=== PATIENT | female | born 1965 | race Caucasian/White ===

== ENCOUNTER → 2016-05-08 | Outpatient (CLI) | payer BC ==
--- NOTE | 2016-05-08 13:46 | MM ---
Reason for exam: history of breast cancer, conservation therapy. Last mammogram was performed 1 year ago. History: Patient is postmenopausal, has history of breast cancer at age 45, and is nulliparous. Family history of breast cancer in paternal cousin at age 40. Malignant right breast needle localzation of the right breast, July 01, 2011. Lumpectomy of the right breast, July 01, 2011. Malignant right mammotome panel of the right breast, June 18, 2011. Chemotherapy, 2011. Radiation therapy, 2011. Took hormonal contraceptives for 12 years beginning at age 33. Taking tamoxifen for 4 months. Taking other hormone. Physical Findings: Nurse did not find any significant physical abnormalities on exam. MG Diagnostic Mammo w CAD SAMIRA Bilateral CC and MLO view(s) were taken. XCCM view(s) were taken of the left breast. Prior study comparison: May 08, 2015, bilateral MG 3d diag mammo w/cad SAMIRA. May 06, 2014, bilateral MG diagnostic mammo w CAD SAMIRA. There are scattered fibroglandular densities. Benign calcifications. Post operative changes in the right breast. No significant new findings when compared with previous films. These results were verbally communicated with the patient and result sheet given to the patient on 05/08/16. ASSESSMENT: Benign, BI-RAD 2 RECOMMENDATION: Follow-up diagnostic mammogram of both breasts in 1 year.
== END | disposition home or self-care (01) ==
LOC: RADMAMWWP 12:34
PROVIDERS: ATTEND Radiology Diagnostic Radiology
DX: C50.911 Malignant neoplasm of unspecified site of right female breast (principal)

== ENCOUNTER → 2017-05-13 | Outpatient (CLI) | payer BC ==
--- NOTE | 2017-05-15 09:16 | MM ---
Reason for exam: screening (asymptomatic). Last mammogram was performed 1 year ago. History: Patient is postmenopausal, has history of breast cancer at age 45, and is nulliparous. Family history of breast cancer in paternal cousin at age 40. Malignant right breast needle localzation of the right breast, July 01, 2011. Lumpectomy of the right breast, July 01, 2011. Malignant right mammotome panel of the right breast, June 18, 2011. Chemotherapy, 2011. Radiation therapy, 2011. Took hormonal contraceptives for 12 years beginning at age 33. Taking tamoxifen for 4 months. Taking other hormone. Physical Findings: A clinical breast exam by your physician is recommended on an annual basis and results should be correlated with mammographic findings. MG Screening Mammo w CAD Bilateral CC and MLO view(s) were taken. Prior study comparison: May 08, 2016, bilateral MG diagnostic mammo w CAD SAMIRA. May 08, 2015, bilateral MG 3d diag mammo w/cad SAMIRA. There are scattered fibroglandular densities. Asymmetric breast tissue greater in the left breast. Post surgical changes in the right breast, stable. ASSESSMENT: Benign, BI-RAD 2 RECOMMENDATION: Routine screening mammogram of both breasts in 1 year.
== END | disposition home or self-care (01) ==
LOC: RADMAMWWP 15:02
PROVIDERS: ATTEND Radiology Diagnostic Radiology
DX: Z12.31 Encounter for screening mammogram for malignant neoplasm of breast (principal)
CPT/HCPCS: 77067

== ENCOUNTER → 2017-11-27 | Outpatient (CLI) | payer BC ==
--- NOTE | 2017-11-27 11:53 | XR ---
EXAMINATION TYPE: XR chest 2V DATE OF EXAM: 11/27/2017 COMPARISON: 11/27/2016 TECHNIQUE: PA and lateral views submitted. HISTORY: Breast cancer FINDINGS: The lungs are clear and there is no pneumothorax, pleural effusion, or focal pneumonia. Arthropathy of the shoulders noted. Calcific tendinosis involving the right shoulder suspected. Hypertrophic and degenerative change of the vertebral column. IMPRESSION: 1. No acute process.
== END | disposition home or self-care (01) ==
LOC: RADXRMAIN 10:36
PROVIDERS: ATTEND Internal Medicine Hematology & Oncology
DX: C50.111 Malignant neoplasm of central portion of right female breast (principal); G47.30 Sleep apnea, unspecified; Z17.0 Estrogen receptor positive status [ER+]; Z71.3 Dietary counseling and surveillance
CPT/HCPCS: 71046

== ENCOUNTER → 2018-05-18 | Outpatient (CLI) | payer BC ==
--- NOTE | 2018-05-20 11:06 | MM ---
Reason for exam: screening (asymptomatic). Last mammogram was performed 1 year ago. History: Patient is postmenopausal, has history of breast cancer at age 45, and is nulliparous. Family history of breast cancer in paternal cousin at age 40. Malignant right breast needle localzation of the right breast, July 01, 2011. Lumpectomy of the right breast, July 01, 2011. Malignant right mammotome panel of the right breast, June 18, 2011. Chemotherapy, 2011. Radiation therapy, 2011. Took hormonal contraceptives for 12 years beginning at age 33. Taking tamoxifen for 4 months. Taking other hormone. Physical Findings: A clinical breast exam by your physician is recommended on an annual basis and results should be correlated with mammographic findings. MG Screening Mammo w CAD Bilateral CC and MLO view(s) were taken. Prior study comparison: May 13, 2017, bilateral MG screening mammo w CAD. May 08, 2016, bilateral MG diagnostic mammo w CAD SAMIRA. The breast tissue is heterogeneously dense. This may lower the sensitivity of mammography. No suspicious abnormality. Right breast post therapy change. No significant changes when compared with prior studies. ASSESSMENT: Benign, BI-RAD 2 RECOMMENDATION: Routine screening mammogram of both breasts in 1 year.
== END | disposition home or self-care (01) ==
LOC: RADMAMWWP 08:36
PROVIDERS: ATTEND Radiology Diagnostic Radiology
DX: Z12.31 Encounter for screening mammogram for malignant neoplasm of breast (principal)
CPT/HCPCS: 77067

== ENCOUNTER 2021-01-01 14:44 | Inpatient (IN) | payer BC ==
--- NOTE | 2021-01-01 19:20 | XR ---
EXAMINATION TYPE: XR chest 2V DATE OF EXAM: 01/01/2021 COMPARISON: 11/27/2017 HISTORY: Short of breath TECHNIQUE: FINDINGS: There is pulmonary patchy interstitial and airspace edema. There is no definite pleural eff usion. Heart size is normal. Bony thorax is intact. IMPRESSION: Pulmonary edema consistent with significant pneumonia or developing RDS and is a change c ompared to old exam.
[2021-01-01] MEDS ORDERED: ACETAMINOPHEN TAB 325 MG TAB PO STA (20:00)
[2021-01-01] MEDS ORDERED: DEXAMETHASONE SOD PHOSPHATE 10 MG/ML 1 ML VIAL IVP STA (20:13)
[2021-01-01 20:24] LABS: Basophils % (A) 0 %; Eosinophils % (A) 0 %; HCT 44.2 % (34.0-46.0); HGB 14.7 gm/dL (11.4-16.0); Lymphocytes # (A) 0.7 k/uL (1.0-4.8); Lymphocytes % (A) 17 %; MCH 29.7 pg (25.0-35.0); MCHC 33.4 g/dL (31.0-37.0); Mean Platelet Volume 7.9; Monocytes # (A) 0.2 k/uL (0-1.0); Monocytes % (A) 4 %; Neutrophils # (A) 3.4 k/uL (1.3-7.7); Neutrophils % (A) 77 %; Platelet Count 194 k/uL (150-450); RBC 4.97 m/uL (3.80-5.40); RDW 12.9 % (11.5-15.5); WBC 4.4 k/uL (3.8-10.6)
[2021-01-01 20:35] LABS: ALT 120 U/L (4-34); AST 260 U/L (14-36); African American GFR (CKD) >90 (>60 ml/min/1.73 sqM); Albumin 3.9 g/dL (3.5-5.0); Alkaline Phosphatase 50 U/L (38-126); Anion Gap 8 mmol/L; Blood Urea Nitrogen 19 mg/dL (7-17); C Reactive Protein 3.6 mg/dL (<1.0); Calcium 8.9 mg/dL (8.4-10.2); Carbon Dioxide 25 mmol/L (22-30); Chloride 103 mmol/L (98-107); Glucose 149 mg/dL (74-99); LDH 2100 U/L (313-618); Magnesium 2.1 mg/dL (1.6-2.3); Non-African American GFR(CKD) 82 (>60 ml/min/1.73 sqM); Potassium 4.1 mmol/L (3.5-5.1); Sodium 136 mmol/L (137-145); Total Bilirubin 0.6 mg/dL (0.2-1.3); Total Protein 6.7 g/dL (6.3-8.2)
[2021-01-01 20:43] LABS: Partial Thromboplastin Time 23.2 sec (22.0-30.0); Prothrombin Time 10.3 sec (9.0-12.0)
[2021-01-01] MEDS ORDERED: NALOXONE 0.4 MG/ML 1 ML VIAL IV PRN (21:12)
--- NOTE | 2021-01-01 21:12 | ED ---
SOB HPI - General Chief Complaint: Shortness of Breath Stated Complaint: Covid Positive, GABI, Cough Time Seen by Provider: 01/01/21 19:53 Source: patient, RN notes reviewed Mode of arrival: wheelchair Limitations: no limitations - History of Present Illness Initial Comments: Patient is a 55-year-old female that presents to the emergency department compl aining of Covid positive with increased shortness of breath. She no she was sent by her primary care with a prescription for monoclonal antibodies. Patient was short of breath while sitting up in bed during exam and interview saturating at approximately 86-88% area patient no she feels fine with staying in the hospital versus getting monoclonal antibodies at this time. She was otherwise well-appearing. She denied any chest pain headache nausea vomiting diarrhea constipation or chills. - Related Data Home Medications Medication Instructions Recorded Confirmed Spironolactone [Aldactone] 25 mg PO DAILY 08/16/13 08/17/13 Tamoxifen [Nolvadex] 20 mg PO DAILY 08/16/13 08/17/13 Allergies Allergy/AdvReac Type Severity Reaction Status Date / Time DUST Allergy SOB & Uncoded 01/01/21 18:58 MIGRAINES mold Allergy SOB & Uncoded 01/01/21 18:58 MIGRAINES MUSHROOMS Allergy SOB Uncoded 01/01/21 18:58 YEAST Allergy SOB & Uncoded 01/01/21 18:58 MIGRAINES Review of Systems ROS Statement: Those systems with pertinent positive or pertinent negative responses have been documented in the HPI. ROS Other: All systems not noted in ROS Statement are negative. Past Medical History Past Medical History: Hypertension, Skin Disorder, Sleep Apnea/CPAP/BIPAP Additional Past Medical History / Comment(s): HX RT BREAST CA-CHEMO & RAD TX 2011, STATED "HAVING WHAT FEELS LIKE A MUSCLE CRAMPING IN ABD POSS KINKING THE BOWEL CAUSING CONSTIPATION AND THEN FOLLOWED BY MULTIPLE STOOLS." History of Any Multi-Drug Resistant Organisms: None Reported Past Surgical History: Cholecystectomy, Tonsillectomy Additional Past Surgical History / Comment(s): PORT A CATH INSERTED AND REMOVED, LUMPECTOMY RT BREAST. Past Anesthesia/Blood Transfusion Reactions: No Reported Reaction Past Psychological History: No Psychological Hx Reported Smoking Status: Never smoker Past Alcohol Use History: None Reported Past Drug Use History: None Reported General Exam Limitations: no limitations General appearance: alert, in no apparent distress, obese Head exam: Present: atraumatic, normocephalic, normal inspection Eye exam: Present: normal appearance, PERRL, EOMI. Absent: scleral icterus, conjunctival injection, periorbital swelling ENT exam: Present: normal exam, mucous membranes moist Neck exam: Present: normal inspection Respiratory exam: Present: normal lung sounds bilaterally. Absent: respiratory distress, wheezes, rales, rhonchi, stridor Cardiovascular Exam: Present: regular rate, normal rhythm, normal heart sounds. Absent: systolic murmur, diastolic murmur, rubs, gallop, clicks GI/Abdominal exam: Present: soft, normal bowel sounds. Absent: distended, tenderness, guarding, rebound, rigid Extremities exam: Present: normal inspection, full ROM, normal capillary refill. Absent: tenderness, pedal edema, joint swelling, calf tenderness Neurological exam: Present: alert, oriented X3 Psychiatric exam: Present: normal affect, normal mood Skin exam: Present: warm, dry, intact, normal color. Absent: rash Course Vital Signs 01/01/21 18:49 Temperature 100.9 F H Pulse Rate 91 Respiratory 24 Rate Blood Pressure 138/73 O2 Sat by Pulse 91 L Oximetry Medical Decision Making - Medical Decision Making 55-year-old female Covid-positive for past several days saturating at high 80s on room air. Labs, EKG, nuclear monitoring technician, continuous pulse oximetry, 650 mg of Tylenol, 10 mg of Decadron, 8 L of oxygen via nasal cannula ordered. Chest x-ray shows pre-severe bilateral edema consistent with Covid pneumonia possible RSD. Labs: CBC unremarkable, CMP shows a LDH of 2100 and a C-reactive protein of 3.6. Patient is agreeable with admission to hospital. Reena Santiago from [facility] hospitalist was consulted and will accept the admit with pulmonary on consult. Case discussed with Dr. Case, patient will be admitted to hospital. - Lab Data Result diagrams: 01/01/21 20:15 01/01/21 20:15 Lab Results 01/01/21 01/01/21 01/01/21 Range/Units 20:15 20:15 20:15 WBC 4.4 (3.8-10.6) k/uL RBC 4.97 (3.80-5.40) m/uL Hgb 14.7 (11.4-16.0) gm/dL Hct 44.2 (34.0-46.0) % MCV 89.0 (80.0-100.0) fL MCH 29.7 (25.0-35.0) pg MCHC 33.4 (31.0-37.0) g/dL RDW 12.9 (11.5-15.5) % Plt Count 194 (150-450) k/uL MPV 7.9 Neutrophils % 77 % Lymphocytes % 17 % Monocytes % 4 % Eosinophils % 0 % Basophils % 0 % Neutrophils # 3.4 (1.3-7.7) k/uL Lymphocytes # 0.7 L (1.0-4.8) k/uL Monocytes # 0.2 (0-1.0) k/uL Eosinophils # 0.0 (0-0.7) k/uL Basophils # 0.0 (0-0.2) k/uL PT 10.3 (9.0-12.0) sec INR 1.0 (<1.2) APTT 23.2 (22.0-30.0) sec Sodium 136 L (137-145) mmol/L Potassium 4.1 (3.5-5.1) mmol/L Chloride 103 (98-107) mmol/L Carbon Dioxide 25 (22-30) mmol/L Anion Gap 8 mmol/L BUN 19 H (7-17) mg/dL Creatinine 0.80 (0.52-1.04) mg/dL Est GFR (CKD-EPI)AfAm >90 (>60 ml/min/1.73 sqM) Est GFR (CKD-EPI)NonAf 82 (>60 ml/min/1.73 sqM) Glucose 149 H (74-99) mg/dL Plasma Lactic Acid Dinh (0.7-2.0) mmol/L Calcium 8.9 (8.4-10.2) mg/dL Magnesium 2.1 (1.6-2.3) mg/dL Total Bilirubin 0.6 (0.2-1.3) mg/dL AST 260 H (14-36) U/L ALT 120 H (4-34) U/L Alkaline Phosphatase 50 (38-126) U/L Lactate Dehydrogenase 2100 H (313-618) U/L Troponin I (0.000-0.034) ng/mL C-Reactive Protein 3.6 H (<1.0) mg/dL NT-Pro-B Natriuret Pep pg/mL Total Protein 6.7 (6.3-8.2) g/dL Albumin 3.9 (3.5-5.0) g/dL 01/01/21 01/01/21 01/01/21 Range/Units 20:15 20:15 20:15 WBC (3.8-10.6) k/uL RBC (3.80-5.40) m/uL Hgb (11.4-16.0) gm/dL Hct (34.0-46.0) % MCV (80.0-100.0) fL MCH (25.0-35.0) pg MCHC (31.0-37.0) g/dL RDW (11.5-15.5) % Plt Count (150-450) k/uL MPV Neutrophils % % Lymphocytes % % Monocytes % % Eosinophils % % Basophils % % Neutrophils # (1.3-7.7) k/uL Lymphocytes # (1.0-4.8) k/uL Monocytes # (0-1.0) k/uL Eosinophils # (0-0.7) k/uL Basophils # (0-0.2) k/uL PT (9.0-12.0) sec INR (<1.2) APTT (22.0-30.0) sec Sodium (137-145) mmol/L Potassium (3.5-5.1) mmol/L Chloride (98-107) mmol/L Carbon Dioxide (22-30) mmol/L Anion Gap mmol/L BUN (7-17) mg/dL Creatinine (0.52-1.04) mg/dL Est GFR (CKD-EPI)AfAm (>60 ml/min/1.73 sqM) Est GFR (CKD-EPI)NonAf (>60 ml/min/1.73 sqM) Glucose (74-99) mg/dL Plasma Lactic Acid Dinh 1.5 (0.7-2.0) mmol/L Calcium (8.4-10.2) mg/dL Magnesium (1.6-2.3) mg/dL Total Bilirubin (0.2-1.3) mg/dL AST (14-36) U/L ALT (4-34) U/L Alkaline Phosphatase (38-126) U/L Lactate Dehydrogenase (313-618) U/L Troponin I <0.012 (0.000-0.034) ng/mL C-Reactive Protein (<1.0) mg/dL NT-Pro-B Natriuret Pep 28 pg/mL Total Protein (6.3-8.2) g/dL Albumin (3.5-5.0) g/dL - EKG Data -: EKG Interpreted by Me EKG shows normal: sinus rhythm Rate: normal EKG Comments: Ventricular rate 91 bpm, NC interval 142 ms, QRS duration 84 ms, QTC 423 ms, PRT axes 15/-8/-6, normal sinus rhythm, normal ECG. - Radiology Data Radiology results: report reviewed, image reviewed Chest x-ray: Pulmonary edema consistent with significant pneumonia or developing RDS and is a change compared to old exam. Disposition Clinical Impression: Pneumonia due to COVID-19 virus, Hypoxia Disposition: ADMITTED IP TO THIS HOSP Condition: Stable Is patient prescribed a controlled substance at d/c from ED?: No Referrals: Agustina Hassan MD [Primary Care Provider] - 1-2 days Time of Disposition: 21:12
[2021-01-01] MEDS: SODIUM CHLORIDE 0.9% 1,000 ML IV SCH (21:57)
[2021-01-02] MEDS: SODIUM CHLORIDE 0.9% 1,000 ML IV SCH (07:12)
[2021-01-02 07:19] LABS: Glucose,Whole Blood 165 mg/dL (75-99)
[2021-01-02] MEDS ORDERED: CALCIUM CARBONATE 500 MG CHEWABLE PO PRN (11:08)
--- NOTE | 2021-01-02 11:11 | P.HPIM ---
History of Present Illness This is a pleasant 55 years old female with past medical history of Hypertension,Sleep Apnea/CPAP/BIPAP HX RT BREAST CA-CHEMO & RAD TX 2011, Presents with respiratory symptoms . Patient states she has been diagnosed with Covid last About 5 days ago. She's been having shortness of breath for about a week prior to that . She called her primary care doctor who asked her to go to urgent care. Also she has cough with clear phlegm but change to yellowish milky over the last 2 days. Also patient complaining of from diarrhea about 4 times per day Patient is afebrile, but on admission she had low-grade temperature of 100.9. She is saturating 94% on 4 L oxygen via nasal cannula went up overnight to 7 L/m. Labs showing mild lymphopenia, rest of the BMP is unremarkable. Liver enzymes slightly elevated AST to 60 and ALT 160. Elevated lactate dehydrogenase 2100, elevated C-reactive protein of 3.6. Troponin negative less than 0.012. EKG showing normal sinus rhythm at [address]-T changes chest x-ray: Bilateral pulmonary infiltrates An emergency room patient received 1 dose of dexamethasone Review of Systems Review of systems CONSTITUTIONAL: No fever, no malaise, no fatigue. HEENT: No recent visual problems or hearing problems. Denied any sore throat. CARDIOVASCULAR: No orthopnea, PND, no palpitations, no syncope. PULMONARY: No chest wall tenderness, no hemoptysis. GASTROINTESTINAL: No diarrhea, no nausea, no vomiting, no abdominal pain. Normoactive bowel sounds. NEUROLOGICAL: No headaches, no weakness, no numbness. HEMATOLOGICAL: Denies any bleeding or petechiae. GENITOURINARY: Denies any burning micturition, frequency, or urgency. MUSCULOSKELETAL/RHEUMATOLOGICAL: Denies any joint pain, swelling, or any muscle pain. ENDOCRINE: Denies any polyuria or polydipsia. Past Medical History Past Medical History: Hypertension, Skin Disorder, Sleep Apnea/CPAP/BIPAP Additional Past Medical History / Comment(s): HX RT BREAST CA-CHEMO & RAD TX 2011, STATED "HAVING WHAT FEELS LIKE A MUSCLE CRAMPING IN ABD POSS KINKING THE BOWEL CAUSING CONSTIPATION AND THEN FOLLOWED BY MULTIPLE STOOLS." History of Any Multi-Drug Resistant Organisms: None Reported Past Surgical History: Cholecystectomy, Tonsillectomy Additional Past Surgical History / Comment(s): PORT A CATH INSERTED AND REMOVED, LUMPECTOMY RT BREAST. Past Anesthesia/Blood Transfusion Reactions: No Reported Reaction Past Psychological History: No Psychological Hx Reported Smoking Status: Never smoker Past Alcohol Use History: None Reported Past Drug Use History: None Reported Medications and Allergies Home Medications Medication Instructions Recorded Confirmed Type Spironolactone [Aldactone] 25 mg PO DAILY 08/16/13 01/01/21 History Tamoxifen [Nolvadex] 20 mg PO DAILY 08/16/13 01/01/21 History Calcium Carbonate [Calcium] 600 mg PO DAILY 01/01/21 01/01/21 History Docusate [Colace] 100 mg PO DAILY 01/01/21 01/01/21 History Doxycycline Monohydrate 100 mg PO BID 01/01/21 01/01/21 History Multivitamins, Thera [Multivitamin 1 tab PO DAILY 01/01/21 01/01/21 History (formulary)] [place]-3 Fatty Acids/Fish Oil [Fish 2 cap PO DAILY 01/01/21 01/01/21 History Oil 1,000 mg Softgel] lisinopriL [Zestril] 5 mg PO DAILY 01/01/21 01/01/21 History Allergies Allergy/AdvReac Type Severity Reaction Status Date / Time DUST Allergy SOB & Uncoded 01/01/21 21:47 MIGRAINES mold Allergy SOB & Uncoded 01/01/21 21:47 MIGRAINES MUSHROOMS Allergy SOB Uncoded 01/01/21 21:47 YEAST Allergy SOB & Uncoded 01/01/21 21:47 MIGRAINES Physical Exam Vitals: Vital Signs Temp Pulse Pulse Pulse Resp BP BP 01/02/21 08:20 01/02/21 07:16 01/02/21 05:48 98.5 F 72 20 107/72 01/02/21 02:55 98.3 F 91 18 101/68 01/01/21 22:59 98.7 F 76 18 137/80 01/01/21 22:33 71 20 01/01/21 22:25 98.8 F 74 20 01/01/21 22:00 99.1 F 77 18 106/74 01/01/21 20:57 71 20 01/01/21 20:00 79 22 01/01/21 18:49 100.9 F H 91 24 138/73 BP Pulse Ox 11/23/21 08:20 90 L 01/02/21 07:16 91 L 01/02/21 05:48 90 L 01/02/21 02:55 91 L 01/01/21 22:59 95 01/01/21 22:33 94 L 01/01/21 22:25 106/74 94 L 01/01/21 22:00 94 L 01/01/21 20:57 94 L 01/01/21 20:00 94 L 01/01/21 18:49 91 L Intake and Output 01/01/21 01/02/21 01/02/21 22:59 06:59 14:59 Other: Weight 113.398 kg GENERAL: The patient is alert and oriented x3, not in any acute distress. Well developed, well nourished. HEENT: Pupils are round and equally reacting to light. EOMI. No scleral icterus. No conjunctival pallor. Normocephalic, atraumatic. No pharyngeal erythema. No thyromegaly. CARDIOVASCULAR: S1 and S2 present. No murmurs, rubs, or gallops. -PULMONARY: Chest is clear to auscultation, no wheezing or crackles. Bilateral crepitation ABDOMEN: Soft, nontender, nondistended, normoactive bowel sounds. No palpable organomegaly. MUSCULOSKELETAL: No joint swelling or deformity. EXTREMITIES: No cyanosis, clubbing, or pedal edema. NEUROLOGICAL: Gross neurological examination did not reveal any focal deficits. SKIN: No rashes. no petechiae. Results CBC & Chem 7: 01/01/21 20:15 01/01/21 20:15 Labs: Abnormal Lab Results - Last 24 Hours (Table) 01/01/21 01/01/21 01/02/21 Range/Units 20:15 20:15 07:08 Lymphocytes # 0.7 L (1.0-4.8) k/uL Sodium 136 L (137-145) mmol/L BUN 19 H (7-17) mg/dL Glucose 149 H (74-99) mg/dL POC Glucose (mg/dL) 165 H (75-99) mg/dL AST 260 H (14-36) U/L ALT 120 H (4-34) U/L Lactate Dehydrogenase 2100 H (313-618) U/L C-Reactive Protein 3.6 H (<1.0) mg/dL Thrombosis Risk Factor Assmnt - Choose All That Apply Each Factor Represents 1 point: Age 41-60 years, Obesity (BMI >25), Serious lung disease incl. pneumonia (< 1month) Thrombosis Risk Factor Assessment Total Risk Factor Score: 3 Thrombosis Risk Factor Assessment Level: Moderate Risk Assessment and Plan Assessment: Acute bilateral covid Pneumonia Acute hypoxic respiratory failure Increase inflammatory markers Acute Covid gastroenteritis Hypertension History of sleep apnea History of right breast cancer Plan: This is a pleasant 55 years old female who presents with colic pneumonia Continue with multiple vitamins, vitamin C, vitamin D and zinc. Dexamethasone Pulmonary consult Continue with gentle hydration Labs and medication were reviewed.. Continue same treatment. Continue with symptomatic treatment. Resume home medication. Monitor lytes and vitals. DVT and GI prophylaxis. Further recommendations depends on the clinical course of the patient DVT prophylaxis: Subcutaneous Lovenox GI Prophylaxis: Pepcid Prognosis is guarded
[2021-01-02] MEDS: CHOLECALCIFEROL 25 MCG (1000 IU) TABLET PO SCH (11:25)
[2021-01-02] MEDS: ASCORBIC ACID 500 MG TAB PO SCH (11:25)
[2021-01-02] MEDS: ZINC SULFATE 220 MG CAP PO SCH (11:25)
[2021-01-02] MEDS: ENOXAPARIN 40 MG/0.4 ML SYRINGE SQ SCH (11:25)
[2021-01-02 11:48] LABS: Glucose,Whole Blood 123 mg/dL (75-99)
[2021-01-02] MEDS: DEXAMETHASONE SOD PHOSPHATE 10 MG/ML 1 ML VIAL IVP SCH (14:13)
--- NOTE | 2021-01-02 14:43 | P.CNPUL ---
History of Present Illness Consult date: 01/02/21 Requesting physician: Laci E Sheet Reason for consult: dyspnea, hypoxemia, pneumonia, abnormal CXR/CT Chief complaint: Dyspnea History of present illness: This is 55-year-old white female patient with past medical history of hypertension, sleep apnea not currently using CPAP, nonsmoker, previous history of right breast cancer status post chemo and radiation treatment in 2011, she follows with Dr. Agustina Hassan. She came into the emergency department on 01/01/2021 complaining of increased shortness of breath, cough. Her primary care provider gave her a prescription for monoclonal antibodies however in the emergency department she was found to be hypoxic pulse ox of 86-88%, and patient was not a candidate for monoclonal antibody infusion, she is not vaccinated against COVID-19, she reports cough, she states she has been having symptoms of coughing, shortness of breath since December 10. In addition she states that she has been issues with swallowing since August 2020. States she tested positive for COVID-19 on 12/28/2020. Chest x-ray reveals pulmonary edema consistent with significant pneumonia or developing ARDS. Admission blood work was reviewed showing white blood cell, 4.4, hemoglobin of 14.7, platelet count of 194, lymphocyte count of 0.7, INR is 1.0, sodium is 136, potassium is 4.1, chloride is 103, CO2 is 25, B1 is 19, creatinine is 0.80. Ferritin level was 3188, AST was 260, ALT was 120, LDH was 2100, troponin was less than 0.012, CRP is 3.6, proBNP is 28. Pro-calcitonin is negative at 0.16. She is currently requiring 7 L of oxygen pulse ox 93%, she has a low-grade fever, but no acute respiratory distress, she does have a frequent nonproductive cough. In the emergency department she was started on Decadron, Lovenox, vitamin C, D and zinc. Review of Systems All systems: negative Constitutional: Reports weakness, Denies chills, Denies fever Eyes: denies blurred vision, denies pain Ears, nose, mouth and throat: Denies headache, Denies sore throat Cardiovascular: Denies chest pain, Denies shortness of breath Respiratory: Reports cough, Reports dyspnea Gastrointestinal: Denies abdominal pain, Denies diarrhea, Denies nausea, Denies vomiting Genitourinary: Denies dysuria, Denies hematuria Musculoskeletal: Denies myalgias Integumentary: Denies pruritus, Denies rash Neurological: Denies numbness, Denies weakness Psychiatric: Denies anxiety, Denies depression Endocrine: Denies fatigue, Denies weight change Past Medical History Past Medical History: Hypertension, Skin Disorder, Sleep Apnea/CPAP/BIPAP Additional Past Medical History / Comment(s): HX RT BREAST CA-CHEMO & RAD TX 2011, STATED "HAVING WHAT FEELS LIKE A MUSCLE CRAMPING IN ABD POSS KINKING THE BOWEL CAUSING CONSTIPATION AND THEN FOLLOWED BY MULTIPLE STOOLS." History of Any Multi-Drug Resistant Organisms: None Reported Past Surgical History: Cholecystectomy, Tonsillectomy Additional Past Surgical History / Comment(s): PORT A CATH INSERTED AND REMOVED, LUMPECTOMY RT BREAST. Past Anesthesia/Blood Transfusion Reactions: No Reported Reaction Past Psychological History: No Psychological Hx Reported Smoking Status: Never smoker Past Alcohol Use History: None Reported Past Drug Use History: None Reported Medications and Allergies Home Medications Medication Instructions Recorded Confirmed Type Spironolactone [Aldactone] 25 mg PO DAILY 08/16/13 01/01/21 History Tamoxifen [Nolvadex] 20 mg PO DAILY 08/16/13 01/01/21 History Calcium Carbonate [Calcium] 600 mg PO DAILY 01/01/21 01/01/21 History Docusate [Colace] 100 mg PO DAILY 01/01/21 01/01/21 History Doxycycline Monohydrate 100 mg PO BID 01/01/21 01/01/21 History Multivitamins, Thera [Multivitamin 1 tab PO DAILY 01/01/21 01/01/21 History (formulary)] [place]-3 Fatty Acids/Fish Oil [Fish 2 cap PO DAILY 01/01/21 01/01/21 History Oil 1,000 mg Softgel] lisinopriL [Zestril] 5 mg PO DAILY 01/01/21 01/01/21 History Allergies Allergy/AdvReac Type Severity Reaction Status Date / Time DUST Allergy SOB & Uncoded 01/01/21 21:47 MIGRAINES mold Allergy SOB & Uncoded 01/01/21 21:47 MIGRAINES MUSHROOMS Allergy SOB Uncoded 01/01/21 21:47 YEAST Allergy SOB & Uncoded 01/01/21 21:47 MIGRAINES Physical Exam Vitals: Vital Signs Temp Pulse Pulse Pulse Resp BP BP 01/02/21 14:00 99.0 F 82 18 127/77 01/02/21 10:24 98.6 F 78 18 126/78 01/02/21 08:20 01/02/21 07:16 01/02/21 05:48 98.5 F 72 20 107/72 01/02/21 02:55 98.3 F 91 18 101/68 01/01/21 22:59 98.7 F 76 18 137/80 01/01/21 22:33 71 20 01/01/21 22:25 98.8 F 74 20 01/01/21 22:00 99.1 F 77 18 106/74 01/01/21 20:57 71 20 01/01/21 20:00 79 22 01/01/21 18:49 100.9 F H 91 24 138/73 BP Pulse Ox 01/02/21 14:00 93 L 01/02/21 10:24 93 L 01/02/21 08:20 90 L 01/02/21 07:16 91 L 01/02/21 05:48 90 L 01/02/21 02:55 91 L 01/01/21 22:59 95 01/01/21 22:33 94 L 01/01/21 22:25 106/74 94 L 01/01/21 22:00 94 L 01/01/21 20:57 94 L 01/01/21 20:00 94 L 01/01/21 18:49 91 L Intake and Output 01/01/21 01/02/21 01/02/21 22:59 06:59 14:59 Other: Weight 113.398 kg GENERAL EXAM: Alert, very pleasant, 55-year-old white female, 3 L of oxygen pulse ox of 93% comfortable in no apparent distress. HEAD: Normocephalic/atraumatic. EYES: Normal reaction of pupils, equal size. Conjunctiva pink, sclera white. NOSE: Clear with pink turbinates. THROAT: No erythema or exudates. NECK: No masses, no JVD, no thyroid enlargement, no adenopathy. CHEST: No chest wall deformity. Symmetrical expansion. LUNGS: Equal air entry with bibasilar crackles CVS: Regular rate and rhythm, normal S1 and S2, no gallops, no murmurs, no rubs ABDOMEN: Soft, nontender. No hepatosplenomegaly, normal bowel sounds, no guarding or rigidity. EXTREMITIES: No clubbing, no edema, no cyanosis, 2+ pulses and upper and lower extremities. MUSCULOSKELETAL: Muscle strength and tone normal. SPINE: No scoliosis or deformity SKIN: No rashes CENTRAL NERVOUS SYSTEM: Alert and oriented -3. No focal deficits, tone is normal in all 4 extremities. PSYCHIATRIC: Alert and oriented -3. Appropriate affect. Intact judgment and insight. Results - Laboratory Findings CBC and BMP: 01/01/21 20:15 01/01/21 20:15 PT/INR, D-dimer PT 10.3 sec (9.0-12.0) 01/01/21 20:15 INR 1.0 (<1.2) 01/01/21 20:15 Abnormal lab findings: Abnormal Labs 01/01/21 01/01/21 01/01/21 20:15 20:15 20:15 Lymphocytes # 0.7 L Sodium 136 L BUN 19 H Glucose 149 H POC Glucose (mg/dL) Ferritin 3188.0 H AST 260 H ALT 120 H Lactate Dehydrogenase 2100 H C-Reactive Protein 3.6 H Procalcitonin 0.16 H 01/02/21 01/02/21 07:08 11:40 Lymphocytes # Sodium BUN Glucose POC Glucose (mg/dL) 165 H 123 H Ferritin AST ALT Lactate Dehydrogenase C-Reactive Protein Procalcitonin - Diagnostic Findings Chest x-ray: report reviewed, image reviewed Additional studies: EKG reviewed Assessment and Plan Plan: Assessment: #1. Acute hypoxic respiratory failure related to COVID-19 pneumonia, patient reports first onset of symptoms on 12/10/2020, outside the normal Remdesivir. P henry is non-vaccinated for COVID-19, at this time she is requiring 10 L of oxygen #2. Hypertension #3. Morbid obesity #4. Obstructive sleep apnea currently not wearing her CPAP #5. Hypertension nonsmoker #6. History of right breast cancer status post chemotherapy and radiation in 2011 Plan: Continue current medical treatment Continue Decadron Continue prophylactic Lovenox Obtain stat d-dimer and follow d-dimer levels, follow inflammatory markers Continue vitamins C, D and zinc We'll continue to follow her clinical course and make further recommendations I performed a history & physical examination of the patient and discussed their management with my nurse practitioner, Alexandra Leigh. I reviewed the nurse practitioner's note and agree with the documented findings and plan of care. Lung sounds are positive for diminished breath sounds throughout the lung nino. The findings and the impression was discussed with the patient. I attest to the documentation by the nurse practitioner. Time with Patient: Greater than 30
[2021-01-02 16:56] LABS: C Reactive Protein 3.2 mg/dL (<1.0)
[2021-01-02 17:03] LABS: Glucose,Whole Blood 150 mg/dL (75-99)
[2021-01-02 20:10] LABS: Glucose,Whole Blood 160 mg/dL (75-99)
[2021-01-03] MEDS: ACETAMINOPHEN TAB 325 MG TAB PO PRN (05:16)
[2021-01-03] MEDS: SODIUM CHLORIDE 0.9% 1,000 ML IV SCH ×3 (07:13→20:01)
[2021-01-03 07:31] LABS: Glucose,Whole Blood 99 mg/dL (75-99)
[2021-01-03] MEDS: ZINC SULFATE 220 MG CAP PO SCH (10:02)
[2021-01-03] MEDS: SPIRONOLACTONE 25 MG TAB PO SCH (10:02)
[2021-01-03] MEDS: CHOLECALCIFEROL 25 MCG (1000 IU) TABLET PO SCH (10:02)
[2021-01-03] MEDS: ENOXAPARIN 40 MG/0.4 ML SYRINGE SQ SCH (10:03)
[2021-01-03] MEDS: DEXAMETHASONE SOD PHOSPHATE 10 MG/ML 1 ML VIAL IVP SCH (10:03)
[2021-01-03] MEDS: lisinopriL 5 MG TAB PO SCH (10:03)
[2021-01-03] MEDS: TAMOXIFEN 10 MG TAB PO SCH (10:03)
[2021-01-03] MEDS: DOCUSATE 100 MG CAP PO SCH (10:03)
[2021-01-03] MEDS: ASCORBIC ACID 500 MG TAB PO SCH (10:13)
[2021-01-03 10:18] LABS: C Reactive Protein 1.9 mg/dL (0.00-0.80)
[2021-01-03 10:59] LABS: Glucose,Whole Blood 115 mg/dL (75-99)
[2021-01-03 16:10] LABS: Glucose,Whole Blood 130 mg/dL (75-99)
--- NOTE | 2021-01-03 16:52 | P.PN ---
Subjective Progress Note Date: 01/03/21 Principal diagnosis: COVID-19 pneumonia This is 55-year-old white female patient with past medical history of hypertension, sleep apnea not currently using CPAP, nonsmoker, previous history of right breast cancer status post chemo and radiation treatment in 2011, she follows with Dr. Agustina Hassan. She came into the emergency department on 01/01/2021 complaining of increased shortness of breath, cough. Her primary care provider gave her a prescription for monoclonal antibodies however in the emergency department she was found to be hypoxic pulse ox of 86-88%, and patient was not a candidate for monoclonal antibody infusion, she is not vaccinated against COVID-19, she reports cough, she states she has been having symptoms of coughing, shortness of breath since December 10. In addition she states that she has been issues with swallowing since August 2020. States she tested positive for COVID-19 on 12/28/2020. Chest x-ray reveals pulmonary edema consistent with significant pneumonia or developing ARDS. Admission blood work was reviewed showing white blood cell, 4.4, hemoglobin of 14.7, platelet count of 194, lymphocyte count of 0.7, INR is 1.0, sodium is 136, potassium is 4.1, chloride is 103, CO2 is 25, B1 is 19, creatinine is 0.80. Ferritin level was 3188, AST was 260, ALT was 120, LDH was 2100, troponin was less than 0.012, CRP is 3.6, proBNP is 28. Pro-calcitonin is negative at 0.16. She is currently requiring 7 L of oxygen pulse ox 93%, she has a low-grade fever, but no acute respiratory distress, she does have a frequent nonproductive cough. In the emergency department she was started on Decadron, Lovenox, vitamin C, D and zinc. The patient is seen today 01/03/2021 in follow-up on the regular medical floor. She is currently sitting up in bed. Awake and alert in no acute distress. She is maintaining O2 saturations 88-93% on 7 L high flow nasal cannula. She is continued on Decadron, Lovenox, vitamin supplements. Glucose 1:30. D-dimer 0.84. LDH 691. C-reactive protein 1.9. Objective - Vital Signs Vital signs: Vital Signs Temp 99.0 F 01/03/21 14:10 Pulse 80 01/03/21 14:10 Resp 20 01/03/21 14:10 BP 131/76 01/03/21 14:10 Pulse Ox 91 L 01/03/21 14:10 Intake & Output 01/02/21 01/03/21 01/03/21 18:59 06:59 18:59 Other: # Voids 1 2 1 # Bowel Movements 1 - Exam GENERAL EXAM: Alert, pleasant 55-year-old female patient, and 7 L high flow nasal cannula, fairly comfortable in no apparent distress. HEAD: Normocephalic. EYES: Normal reaction of pupils, equal size. NOSE: Clear with pink turbinates. THROAT: No erythema or exudates. NECK: No masses, no JVD. CHEST: No chest wall deformity. LUNGS: Equal air entry with bibasilar crackles CVS: S1 and S2 normal with no audible murmur, regular rhythm. ABDOMEN: No hepatosplenomegaly, normal bowel sounds, no guarding or rigidity. SPINE: No scoliosis or deformity SKIN: No rashes CENTRAL NERVOUS SYSTEM: No focal deficits, tone is normal in all 4 extremities. EXTREMITIES: There is no peripheral edema. No clubbing, no cyanosis. Peripheral pulses are intact. - Labs CBC & Chem 7: 01/01/21 20:15 01/01/21 20:15 Labs: Abnormal Lab Results - Last 24 Hours (Table) 01/02/21 01/02/21 01/02/21 Range/Units 15:46 15:46 17:01 D-Dimer 0.99 H (<0.60) mg/L FEU POC Glucose (mg/dL) 150 H (75-99) mg/dL Lactate Dehydrogenase 1883 H (313-618) U/L C-Reactive Protein 3.2 H (<1.0) mg/dL Coronavirus (PCR) (Not Detectd) 01/02/21 01/03/21 01/03/21 Range/Units 20:08 05:44 05:52 D-Dimer 0.84 H (<0.60) mg/L FEU POC Glucose (mg/dL) 160 H (75-99) mg/dL Lactate Dehydrogenase (313-618) U/L C-Reactive Protein (<1.0) mg/dL Coronavirus (PCR) Detected A (Not Detectd) 01/03/21 01/03/21 01/03/21 Range/Units 05:52 10:56 15:58 D-Dimer (<0.60) mg/L FEU POC Glucose (mg/dL) 115 H 130 H (75-99) mg/dL Lactate Dehydrogenase 691 H (313-618) U/L C-Reactive Protein 1.90 H (<1.0) mg/dL Coronavirus (PCR) (Not Detectd) Assessment and Plan Assessment: 1 Acute hypoxic respiratory failure related to COVID-19 pneumonia, patient reports first onset of symptoms on 12/10/2020, outside the normal Remdesivir. Patient is non-vaccinated for COVID-19, at this time she is requiring 7 L of oxygen 2 Hypertension 3 Morbid obesity 4 Obstructive sleep apnea currently not wearing her CPAP 5 Hypertension nonsmoker 6 History of right breast cancer status post chemotherapy and radiation in 2011 Plan: The patient was seen and evaluated by Dr. Duffy Continue Lovenox, Decadron, vitamin supplements Continue to titrate the FiO2 as tolerated Follow-up chest x-ray in the a.m. We will continue to follow I, the cosigning physician, performed a history & physical examination of the patient. Lungs sounds with bibasilar crackles. Maintaining good O2 saturations in the 90s on 7 L high flow nasal cannula. I discussed the assessment and plan of care with my nurse practitioner, Carla Mei. I attest to the above note as dictated by her.
--- NOTE | 2021-01-03 18:50 | P.PN ---
Subjective This is a pleasant 55 years old female with past medical history of Hypertension,Sleep Apnea/CPAP/BIPAP HX RT BREAST CA-CHEMO & RAD TX 2011, Presents with respiratory symptoms . Patient states she has been diagnosed with Covid last About 5 days ago. She's been having shortness of breath for about a week prior to that . She called her primary care doctor who asked her to go to urgent care. Also she has cough with clear phlegm but change to yellowish milky over the last 2 days. Also patient complaining of from diarrhea about 4 times per day Patient is afebrile, but on admission she had low-grade temperature of 100.9. She is saturating 94% on 4 L oxygen via nasal cannula went up overnight to 7 L/m. Labs showing mild lymphopenia, rest of the BMP is unremarkable. Liver enzymes slightly elevated AST to 60 and ALT 160. Elevated lactate dehydrogenase 2100, elevated C-reactive protein of 3.6. Troponin negative less than 0.012. EKG showing normal sinus rhythm at [address]-T changes chest x-ray: Bilateral pulmonary infiltrates An emergency room patient received 1 dose of dexamethasone 01/03/2021 Patient clinically looks similar to yesterday with dyspnea. And oxygen saturation 90s while she is on 7 L/m of oxygen. No much change in her labs with d-dimer at similar levels 0.84. LDH 691 and C- reactive protein 1.9 which are mildly elevated. No murmur or fever. Continue with the same regimen of dexamethasone, vitamin C, vitamin D and zinc. On normal saline at 75 mL/h Objective - Vital Signs Vital signs: Vital Signs Temp 99.0 F 01/03/21 14:10 Pulse 80 01/03/21 14:10 Resp 20 01/03/21 14:10 BP 131/76 01/03/21 14:10 Pulse Ox 91 L 01/03/21 14:10 Intake & Output 01/02/21 01/03/21 01/03/21 18:59 06:59 18:59 Other: # Voids 1 2 1 # Bowel Movements 1 - Exam GENERAL: The patient is alert and oriented x3, not in any acute distress. Well developed, well nourished. HEENT: Pupils are round and equally reacting to light. EOMI. No scleral icterus. No conjunctival pallor. Normocephalic, atraumatic. No pharyngeal erythema. No thyromegaly. CARDIOVASCULAR: S1 and S2 present. No murmurs, rubs, or gallops. PULMONARY: Chest is clear to auscultation, no wheezing or crackles. ABDOMEN: Soft, nontender, nondistended, normoactive bowel sounds. No palpable organomegaly. MUSCULOSKELETAL: No joint swelling or deformity. EXTREMITIES: No cyanosis, clubbing, or pedal edema. NEUROLOGICAL: Gross neurological examination did not reveal any focal deficits. SKIN: No rashes. no petechiae. - Labs CBC & Chem 7: 01/01/21 20:15 01/01/21 20:15 Labs: Abnormal Lab Results - Last 24 Hours (Table) 01/02/21 01/02/21 01/02/21 Range/Units 15:46 15:46 17:01 D-Dimer 0.99 H (<0.60) mg/L FEU POC Glucose (mg/dL) 150 H (75-99) mg/dL Lactate Dehydrogenase 1883 H (313-618) U/L C-Reactive Protein 3.2 H (<1.0) mg/dL Coronavirus (PCR) (Not Detectd) 01/02/21 01/03/21 01/03/21 Range/Units 20:08 05:44 05:52 D-Dimer 0.84 H (<0.60) mg/L FEU POC Glucose (mg/dL) 160 H (75-99) mg/dL Lactate Dehydrogenase (313-618) U/L C-Reactive Protein (<1.0) mg/dL Coronavirus (PCR) Detected A (Not Detectd) 01/03/21 01/03/21 01/03/21 Range/Units 05:52 10:56 15:58 D-Dimer (<0.60) mg/L FEU POC Glucose (mg/dL) 115 H 130 H (75-99) mg/dL Lactate Dehydrogenase 691 H (313-618) U/L C-Reactive Protein 1.90 H (<1.0) mg/dL Coronavirus (PCR) (Not Detectd) Assessment and Plan Assessment: Acute bilateral covid Pneumonia Acute hypoxic respiratory failure Increase inflammatory markers Acute Covid gastroenteritis Hypertension History of sleep apnea History of right breast cancer Plan: This is a pleasant 55 years old female who presents with colic pneumonia Continue with multiple vitamins, vitamin C, vitamin D and zinc. Dexamethasone Pulmonary consult Continue with gentle hydration Labs and medication were reviewed.. Continue same treatment. Continue with symptomatic treatment. Resume home medication. Monitor lytes and vitals. DVT and GI prophylaxis. Further recommendations depends on the clinical course of the patient DVT prophylaxis: Subcutaneous Lovenox GI Prophylaxis: Pepcid Prognosis is guarded
[2021-01-03 20:42] LABS: Glucose,Whole Blood 148 mg/dL (75-99)
[2021-01-04] MEDS: DEXAMETHASONE SOD PHOSPHATE 10 MG/ML 1 ML VIAL IVP SCH (08:27)
[2021-01-04] MEDS: CHOLECALCIFEROL 25 MCG (1000 IU) TABLET PO SCH (08:27)
[2021-01-04] MEDS: DOCUSATE 100 MG CAP PO SCH (08:27)
[2021-01-04] MEDS: ENOXAPARIN 40 MG/0.4 ML SYRINGE SQ SCH (08:27)
[2021-01-04] MEDS: SPIRONOLACTONE 25 MG TAB PO SCH (08:27)
[2021-01-04] MEDS: ZINC SULFATE 220 MG CAP PO SCH (08:28)
[2021-01-04] MEDS: TAMOXIFEN 10 MG TAB PO SCH (08:28)
[2021-01-04] MEDS: ASCORBIC ACID 500 MG TAB PO SCH (08:28)
[2021-01-04] MEDS: lisinopriL 5 MG TAB PO SCH (08:28)
[2021-01-04] MEDS: SODIUM CHLORIDE 0.9% 1,000 ML IV SCH (08:29)
--- NOTE | 2021-01-04 08:57 | XR ---
EXAMINATION TYPE: XR chest 1V portable DATE OF EXAM: 01/04/2021 CLINICAL HISTORY: Difficulty breathing and covid pneumonia progress study. TECHNIQUE: Single AP portable upright view of the chest is obtained. COMPARISON: Chest x-ray from 3 days earlier FINDINGS: Persistent bilateral multifocal opacities. Some improvement in the right midlung is presen t. Cardiac silhouette size stable and within normal limits. Osseous structures are intact. IMPRESSION: Bilateral multifocal opacities consistent with covid-19 infection redemonstrated, some i mprovement in right midlung otherwise no significant change from x-ray 3 days ago.
--- NOTE | 2021-01-04 12:42 | P.PN ---
Subjective This is a pleasant 55 years old female with past medical history of Hypertension,Sleep Apnea/CPAP/BIPAP HX RT BREAST CA-CHEMO & RAD TX 2011, Presents with respiratory symptoms . Patient states she has been diagnosed with Covid last About 5 days ago. She's been having shortness of breath for about a week prior to that . She called her primary care doctor who asked her to go to urgent care. Also she has cough with clear phlegm but change to yellowish milky over the last 2 days. Also patient complaining of from diarrhea about 4 times per day Patient is afebrile, but on admission she had low-grade temperature of 100.9. She is saturating 94% on 4 L oxygen via nasal cannula went up overnight to 7 L/m. Labs showing mild lymphopenia, rest of the BMP is unremarkable. Liver enzymes slightly elevated AST to 60 and ALT 160. Elevated lactate dehydrogenase 2100, elevated C-reactive protein of 3.6. Troponin negative less than 0.012. EKG showing normal sinus rhythm at [address]-T changes chest x-ray: Bilateral pulmonary infiltrates An emergency room patient received 1 dose of dexamethasone 01/03/2021 Patient clinically looks similar to yesterday with dyspnea. And oxygen saturation 90s while she is on 7 L/m of oxygen. No much change in her labs with d-dimer at similar levels 0.84. LDH 691 and C- reactive protein 1.9 which are mildly elevated. No murmur or fever. Continue with the same regimen of dexamethasone, vitamin C, vitamin D and zinc. On normal saline at 75 mL/h 01/03 21 Patient still in In chair with no significant breathing difficulty, however she still tachypneic. No fever. No chest pain or diarrhea. Her coughing is better controlled. Her oxygen requirement increased to 7-8 L/m. Chest x-ray from today showing some improvement of the right mid lung otherwise there is same bilateral infiltrates. She remains on multiple vitamins, dexamethasone and normal saline Objective - Vital Signs Vital signs: Vital Signs Temp 98.4 F 01/04/21 11:15 Pulse 83 01/04/21 11:15 Resp 18 01/04/21 11:15 BP 121/77 01/04/21 11:15 Pulse Ox 90 L 01/04/21 11:15 Intake & Output 01/03/21 01/04/21 01/04/21 18:59 06:59 18:59 Intake Total 480 Balance 480 Intake: Oral 480 Other: # Voids 1 2 1 # Bowel Movements 1 1 - Exam GENERAL: The patient is alert and oriented x3, not in any acute distress. Well developed, well nourished. HEENT: Pupils are round and equally reacting to light. EOMI. No scleral icterus. No conjunctival pallor. Normocephalic, atraumatic. No pharyngeal erythema. No thyromegaly. CARDIOVASCULAR: S1 and S2 present. No murmurs, rubs, or gallops. PULMONARY: Chest is clear to auscultation, no wheezing or crackles. ABDOMEN: Soft, nontender, nondistended, normoactive bowel sounds. No palpable organomegaly. MUSCULOSKELETAL: No joint swelling or deformity. EXTREMITIES: No cyanosis, clubbing, or pedal edema. NEUROLOGICAL: Gross neurological examination did not reveal any focal deficits. SKIN: No rashes. no petechiae. - Labs CBC & Chem 7: 01/01/21 20:15 01/01/21 20:15 Labs: Abnormal Lab Results - Last 24 Hours (Table) 01/03/21 01/03/21 Range/Units 15:58 20:40 POC Glucose (mg/dL) 130 H 148 H (75-99) mg/dL Assessment and Plan Assessment: Acute bilateral covid Pneumonia Acute hypoxic respiratory failure Increase inflammatory markers Acute Covid gastroenteritis Hypertension History of sleep apnea History of right breast cancer Plan: This is a pleasant 55 years old female who presents with colic pneumonia Continue with multiple vitamins, vitamin C, vitamin D and zinc. Dexamethasone Pulmonary consult Continue with gentle hydration Labs and medication were reviewed.. Continue same treatment. Continue with symptomatic treatment. Resume home medication. Monitor lytes and vitals. DVT and GI prophylaxis. Further recommendations depends on the clinical course of the patient DVT prophylaxis: Subcutaneous Lovenox GI Prophylaxis: Pepcid Prognosis is guarded
--- NOTE | 2021-01-04 16:07 | P.PN ---
Subjective Progress Note Date: 01/04/21 Principal diagnosis: COVID-19 pneumonia This is 55-year-old white female patient with past medical history of hypertension, sleep apnea not currently using CPAP, nonsmoker, previous history of right breast cancer status post chemo and radiation treatment in 2011, she follows with Dr. Agustina Hassan. She came into the emergency department on 01/01/2021 complaining of increased shortness of breath, cough. Her primary care provider gave her a prescription for monoclonal antibodies however in the emergency department she was found to be hypoxic pulse ox of 86-88%, and patient was not a candidate for monoclonal antibody infusion, she is not vaccinated against COVID-19, she reports cough, she states she has been having symptoms of coughing, shortness of breath since December 10. In addition she states that she has been issues with swallowing since August 2020. States she tested positive for COVID-19 on 12/28/2020. Chest x-ray reveals pulmonary edema consistent with significant pneumonia or developing ARDS. Admission blood work was reviewed showing white blood cell, 4.4, hemoglobin of 14.7, platelet count of 194, lymphocyte count of 0.7, INR is 1.0, sodium is 136, potassium is 4.1, chloride is 103, CO2 is 25, B1 is 19, creatinine is 0.80. Ferritin level was 3188, AST was 260, ALT was 120, LDH was 2100, troponin was less than 0.012, CRP is 3.6, proBNP is 28. Pro-calcitonin is negative at 0.16. She is currently requiring 7 L of oxygen pulse ox 93%, she has a low-grade fever, but no acute respiratory distress, she does have a frequent nonproductive cough. In the emergency department she was started on Decadron, Lovenox, vitamin C, D and zinc. The patient is seen today 01/03/2021 in follow-up on the regular medical floor. She is currently sitting up in bed. Awake and alert in no acute distress. She is maintaining O2 saturations 88-93% on 7 L high flow nasal cannula. She is continued on Decadron, Lovenox, vitamin supplements. Glucose 1:30. D-dimer 0.84. LDH 691. C-reactive protein 1.9. The patient is seen today 01/04/2021 in follow-up on the regular medical floor. She is resting comfortably in bed. Awake and alert in no acute distress. Maintaining O2 saturations in the low 90s on 8 L high flow nasal cannula. She's been afebrile. Hemodynamically stable. Follow-up chest x-ray continues to revealed bilateral multifocal opacities consistent COVID-19 infection. No significant change. Blood glucose 148. She is continued on Decadron, Lovenox, vitamin supplements. Objective - Vital Signs Vital signs: Vital Signs Temp 99.2 F 01/04/21 13:42 Pulse 79 01/04/21 13:42 Resp 17 01/04/21 13:42 BP 119/75 01/04/21 13:42 Pulse Ox 92 L 01/04/21 13:42 Intake & Output 01/03/21 01/04/21 01/04/21 18:59 06:59 18:59 Intake Total 480 Balance 480 Intake: Oral 480 Other: # Voids 1 2 1 # Bowel Movements 1 1 - Exam GENERAL EXAM: Alert, pleasant 55-year-old female patient, and 8 L high flow nasal cannula, fairly comfortable in no apparent distress. HEAD: Normocephalic. EYES: Normal reaction of pupils, equal size. NOSE: Clear with pink turbinates. THROAT: No erythema or exudates. NECK: No masses, no JVD. CHEST: No chest wall deformity. LUNGS: Equal air entry with bibasilar crackles CVS: S1 and S2 normal with no audible murmur, regular rhythm. ABDOMEN: No hepatosplenomegaly, normal bowel sounds, no guarding or rigidity. SPINE: No scoliosis or deformity SKIN: No rashes CENTRAL NERVOUS SYSTEM: No focal deficits, tone is normal in all 4 extremities. EXTREMITIES: There is no peripheral edema. No clubbing, no cyanosis. Peripheral pulses are intact. - Labs CBC & Chem 7: 01/01/21 20:15 01/01/21 20:15 Labs: Abnormal Lab Results - Last 24 Hours (Table) 01/03/21 01/03/21 Range/Units 15:58 20:40 POC Glucose (mg/dL) 130 H 148 H (75-99) mg/dL Assessment and Plan Assessment: 1 Acute hypoxic respiratory failure related to COVID-19 pneumonia, patient reports first onset of symptoms on 12/10/2020, outside the normal Remdesivir. Patient is non-vaccinated for COVID-19, at this time she is requiring 8 L of oxygen 2 Hypertension 3 Morbid obesity 4 Obstructive sleep apnea currently not wearing her CPAP 5 Hypertension nonsmoker 6 History of right breast cancer status post chemotherapy and radiation in 2011 Plan: The patient was seen and evaluated by Dr. Duffy Chest x-ray reviewed, no significant changes Continue Lovenox, Decadron, vitamin supplements Continue to titrate the FiO2 as tolerated We will continue to follow I, the cosigning physician, performed a history & physical examination of the patient. Lungs sounds with bibasilar crackles. Maintaining good O2 saturations in the 90s on 8 L high flow nasal cannula. I discussed the assessment and plan of care with my nurse practitioner, Carla Mei. I attest to the above note as dictated by her.
[2021-01-05] MEDS: SODIUM CHLORIDE 0.9% 1,000 ML IV SCH (06:14)
[2021-01-05] MEDS: TAMOXIFEN 10 MG TAB PO SCH (09:35)
[2021-01-05] MEDS: ASCORBIC ACID 500 MG TAB PO SCH (09:35)
[2021-01-05] MEDS: ZINC SULFATE 220 MG CAP PO SCH (09:35)
[2021-01-05] MEDS: SPIRONOLACTONE 25 MG TAB PO SCH (09:35)
[2021-01-05] MEDS: ENOXAPARIN 40 MG/0.4 ML SYRINGE SQ SCH (09:35)
[2021-01-05] MEDS: lisinopriL 5 MG TAB PO SCH (09:35)
[2021-01-05] MEDS: DOCUSATE 100 MG CAP PO SCH (09:35)
[2021-01-05] MEDS: CHOLECALCIFEROL 25 MCG (1000 IU) TABLET PO SCH (09:35)
[2021-01-05] MEDS: DEXAMETHASONE SOD PHOSPHATE 10 MG/ML 1 ML VIAL IVP SCH (12:02)
--- NOTE | 2021-01-05 13:58 | P.PN ---
Subjective This is a pleasant 55 years old female with past medical history of Hypertension,Sleep Apnea/CPAP/BIPAP HX RT BREAST CA-CHEMO & RAD TX 2011, Presents with respiratory symptoms . Patient states she has been diagnosed with Covid last About 5 days ago. She's been having shortness of breath for about a week prior to that . She called her primary care doctor who asked her to go to urgent care. Also she has cough with clear phlegm but change to yellowish milky over the last 2 days. Also patient complaining of from diarrhea about 4 times per day Patient is afebrile, but on admission she had low-grade temperature of 100.9. She is saturating 94% on 4 L oxygen via nasal cannula went up overnight to 7 L/m. Labs showing mild lymphopenia, rest of the BMP is unremarkable. Liver enzymes slightly elevated AST to 60 and ALT 160. Elevated lactate dehydrogenase 2100, elevated C-reactive protein of 3.6. Troponin negative less than 0.012. EKG showing normal sinus rhythm at [address]-T changes chest x-ray: Bilateral pulmonary infiltrates An emergency room patient received 1 dose of dexamethasone 01/03/2021 Patient clinically looks similar to yesterday with dyspnea. And oxygen saturation 90s while she is on 7 L/m of oxygen. No much change in her labs with d-dimer at similar levels 0.84. LDH 691 and C- reactive protein 1.9 which are mildly elevated. No murmur or fever. Continue with the same regimen of dexamethasone, vitamin C, vitamin D and zinc. On normal saline at 75 mL/h 01/04/21 Patient still in In chair with no significant breathing difficulty, however she still tachypneic. No fever. No chest pain or diarrhea. Her coughing is better controlled. Her oxygen requirement increased to 7-8 L/m. Chest x-ray from today showing some improvement of the right mid lung otherwise there is same bilateral infiltrates. She remains on multiple vitamins, dexamethasone and normal saline 01/05/2021 Patient states that her breathing is the same, she has low appetite. She keeps oxygen saturation the same on 8 L/m via nasal cannula. She has no more fever. No labs from today. We are going to check labs tomorrow morning. She is still on dexamethasone, vitamin C, vitamin D and zinc. Saline at 75 mL/h. Objective - Vital Signs Vital signs: Vital Signs Temp 98.6 F 01/05/21 08:53 Pulse 82 01/05/21 08:53 Resp 18 01/05/21 08:53 BP 144/78 01/05/21 08:53 Pulse Ox 90 L 01/05/21 08:53 Intake & Output 01/04/21 01/05/21 01/05/21 18:59 06:59 18:59 Other: # Voids 1 4 1 - Exam GENERAL: The patient is alert and oriented x3, not in any acute distress. Well developed, well nourished. HEENT: Pupils are round and equally reacting to light. EOMI. No scleral icterus. No conjunctival pallor. Normocephalic, atraumatic. No pharyngeal erythema. No thyromegaly. CARDIOVASCULAR: S1 and S2 present. No murmurs, rubs, or gallops. PULMONARY: Chest is clear to auscultation, no wheezing or crackles. ABDOMEN: Soft, nontender, nondistended, normoactive bowel sounds. No palpable organomegaly. MUSCULOSKELETAL: No joint swelling or deformity. EXTREMITIES: No cyanosis, clubbing, or pedal edema. NEUROLOGICAL: Gross neurological examination did not reveal any focal deficits. SKIN: No rashes. no petechiae. - Labs CBC & Chem 7: 01/01/21 20:15 01/01/21 20:15 Assessment and Plan Assessment: Acute bilateral covid Pneumonia Acute hypoxic respiratory failure Increase inflammatory markers Acute Covid gastroenteritis Hypertension History of sleep apnea History of right breast cancer Plan: This is a pleasant 55 years old female who presents with colic pneumonia Continue with multiple vitamins, vitamin C, vitamin D and zinc. Dexamethasone Pulmonary consult Continue with gentle hydration Labs and medication were reviewed.. Continue same treatment. Continue with symptomatic treatment. Resume home medication. Monitor lytes and vitals. DVT and GI prophylaxis. Further recommendations depends on the clinical course of the patient DVT prophylaxis: Subcutaneous Lovenox GI Prophylaxis: Pepcid Prognosis is guarded
--- NOTE | 2021-01-05 19:48 | P.PN ---
Subjective Progress Note Date: 01/05/21 Principal diagnosis: COVID-19 pneumonia This is 55-year-old white female patient with past medical history of hypertension, sleep apnea not currently using CPAP, nonsmoker, previous history of right breast cancer status post chemo and radiation treatment in 2011, she follows with Dr. Agustina Hassan. She came into the emergency department on 01/01/2021 complaining of increased shortness of breath, cough. Her primary care provider gave her a prescription for monoclonal antibodies however in the emergency department she was found to be hypoxic pulse ox of 86-88%, and patient was not a candidate for monoclonal antibody infusion, she is not vaccinated against COVID-19, she reports cough, she states she has been having symptoms of coughing, shortness of breath since December 10. In addition she states that she has been issues with swallowing since August 2020. States she tested positive for COVID-19 on 12/28/2020. Chest x-ray reveals pulmonary edema consistent with significant pneumonia or developing ARDS. Admission blood work was reviewed showing white blood cell, 4.4, hemoglobin of 14.7, platelet count of 194, lymphocyte count of 0.7, INR is 1.0, sodium is 136, potassium is 4.1, chloride is 103, CO2 is 25, B1 is 19, creatinine is 0.80. Ferritin level was 3188, AST was 260, ALT was 120, LDH was 2100, troponin was less than 0.012, CRP is 3.6, proBNP is 28. Pro-calcitonin is negative at 0.16. She is currently requiring 7 L of oxygen pulse ox 93%, she has a low-grade fever, but no acute respiratory distress, she does have a frequent nonproductive cough. In the emergency department she was started on Decadron, Lovenox, vitamin C, D and zinc. The patient is seen today 01/03/2021 in follow-up on the regular medical floor. She is currently sitting up in bed. Awake and alert in no acute distress. She is maintaining O2 saturations 88-93% on 7 L high flow nasal cannula. She is continued on Decadron, Lovenox, vitamin supplements. Glucose 1:30. D-dimer 0.84. LDH 691. C-reactive protein 1.9. The patient is seen today 01/04/2021 in follow-up on the regular medical floor. She is resting comfortably in bed. Awake and alert in no acute distress. Maintaining O2 saturations in the low 90s on 8 L high flow nasal cannula. She's been afebrile. Hemodynamically stable. Follow-up chest x-ray continues to revealed bilateral multifocal opacities consistent COVID-19 infection. No significant change. Blood glucose 148. She is continued on Decadron, Lovenox, vitamin supplements. The patient is seen today 01/05/2021 in follow-up on the regular medical floor. She is awake and alert in no acute distress. Currently sitting up in bed. Maintaining O2 saturations in the 90s on 4 L/m per nasal cannula. She has 0.9 normal satting at 75 ML's per hour. She is continued on Decadron, Lovenox, vitamin supplements. Objective - Vital Signs Vital signs: Vital Signs Temp 99.2 F 01/05/21 17: Pulse 77 01/05/21 17:27 Resp 17 01/05/21 17: BP 137/87 01/05/21 17: Pulse Ox 92 L 01/05/21 17:27 Intake & Output 01/05/21 01/05/21 01/06/21 06:59 18:59 06:59 Intake Total 600 Balance 600 Intake: Intake, IV Titration 600 Amount Sodium Chloride 0.9% 1, 600 000 ml @ 75 mls/hr IV . [id number] [facility] Rx#:[id number] Other: # Voids 4 3 - Exam GENERAL EXAM: Alert, pleasant 55-year-old female patient, and 4 L high flow nasal cannula, comfortable in no apparent distress. HEAD: Normocephalic. EYES: Normal reaction of pupils, equal size. NOSE: Clear with pink turbinates. THROAT: No erythema or exudates. NECK: No masses, no JVD. CHEST: No chest wall deformity. LUNGS: Equal air entry with bibasilar crackles CVS: S1 and S2 normal with no audible murmur, regular rhythm. ABDOMEN: No hepatosplenomegaly, normal bowel sounds, no guarding or rigidity. SPINE: No scoliosis or deformity SKIN: No rashes CENTRAL NERVOUS SYSTEM: No focal deficits, tone is normal in all 4 extremities. EXTREMITIES: There is no peripheral edema. No clubbing, no cyanosis. Peripheral pulses are intact. - Labs CBC & Chem 7: 01/01/21 20:15 01/01/21 20:15 Assessment and Plan Assessment: 1 Acute hypoxic respiratory failure related to COVID-19 pneumonia, patient reports first onset of symptoms on 12/10/2020, outside the normal Remdesivir. Patient is non-vaccinated for COVID-19, at this time she is requiring 4 L of oxygen 2 Hypertension 3 Morbid obesity 4 Obstructive sleep apnea currently not wearing her CPAP 5 Hypertension nonsmoker 6 History of right breast cancer status post chemotherapy and radiation in 2011 Plan: The patient was seen and evaluated by Dr. Duffy Continue Lovenox, Decadron, vitamin supplements Continue to titrate the FiO2 as tolerated Possible home in the a.m. with oxygen We will continue to follow I, the cosigning physician, performed a history & physical examination of the patient. Lungs sounds with bibasilar crackles. Maintaining good O2 saturations in the 90s on 4 L high flow nasal cannula. I discussed the assessment and plan of care with my nurse practitioner, Carla Mei. I attest to the above note as dictated by her.
[2021-01-06] MEDS: SODIUM CHLORIDE 0.9% 1,000 ML IV SCH ×3 (03:07→22:11)
[2021-01-06] MEDS: DEXAMETHASONE SOD PHOSPHATE 10 MG/ML 1 ML VIAL IVP SCH (08:17)
--- NOTE | 2021-01-06 09:20 | XR ---
EXAMINATION TYPE: XR chest 1V portable DATE OF EXAM: 01/06/2021 CLINICAL HISTORY: Difficulty breathing progress study. TECHNIQUE: Single AP portable frontal view of the chest is obtained. COMPARISON: Chest x-ray from 2 days earlier FINDINGS: Persistent left greater than right bilateral multifocal opacities. Cardiac silhouette siz e stable and upper limits of normal. Osseous structures are intact. IMPRESSION: Left greater than the right bilateral mid to lower lung opacities consistent with covid- 19 infection redemonstrated, no significant change from most recent x-ray 2 days ago.
[2021-01-06] MEDS: ZINC SULFATE 220 MG CAP PO SCH (10:38)
[2021-01-06] MEDS: ASCORBIC ACID 500 MG TAB PO SCH (10:38)
[2021-01-06] MEDS: ENOXAPARIN 40 MG/0.4 ML SYRINGE SQ SCH (10:38)
[2021-01-06] MEDS: DOCUSATE 100 MG CAP PO SCH (10:39)
[2021-01-06] MEDS: CHOLECALCIFEROL 25 MCG (1000 IU) TABLET PO SCH (10:39)
[2021-01-06] MEDS: lisinopriL 5 MG TAB PO SCH (10:39)
[2021-01-06] MEDS: TAMOXIFEN 10 MG TAB PO SCH (10:40)
[2021-01-06] MEDS: SPIRONOLACTONE 25 MG TAB PO SCH (10:40)
--- NOTE | 2021-01-06 16:33 | P.PN ---
Subjective Progress Note Date: 01/06/21 Principal diagnosis: Dyspnea On 01/06/2021 patient seen in follow-up on medical surgical floor. Her FiO2 has been increased to 15 L, yesterday patient was on 7 and 8 L. Today her O2 sats on 15 L are 90-94%. Has low-grade fevers overnight, hemodynamically she is stable, she is sitting up in the chair, does not appear to be in any acute distress, lung sounds reveal fine rales bilaterally, she is currently on Decadron 6 mg, COVID-19 vitamins, and prophylactic Lovenox. Her last set of d- dimer was on 01/03/2021 at 0.84, LDH was improving and was down to 691, and CRP was 1.9. Procalcitonin level was negative on admission at 0.16. Objective - Vital Signs Vital signs: Vital Signs Temp 98 F 01/06/21 13:58 Pulse 76 01/06/21 13:58 Resp 18 01/06/21 13:58 BP 124/56 01/06/21 13:58 Pulse Ox 90 L 01/06/21 13:58 Intake & Output 01/05/21 01/06/21 01/06/21 18:59 06:59 18:59 Intake Total 600 600 Balance 600 600 Intake: Intake, IV Titration 600 Amount Sodium Chloride 0.9% 1, 600 000 ml @ 75 mls/hr IV . [id number] [facility] Rx#:[id number] Oral 600 Other: # Voids 3 1 # Bowel Movements 1 - Exam GENERAL EXAM: Alert, very pleasant, 55-year-old white female, on 15 L of oxygen pulse ox of 90-94% comfortable in no apparent distress. HEAD: Normocephalic/atraumatic. EYES: Normal reaction of pupils, equal size. Conjunctiva pink, sclera white. NOSE: Clear with pink turbinates. THROAT: No erythema or exudates. NECK: No masses, no JVD, no thyroid enlargement, no adenopathy. CHEST: No chest wall deformity. Symmetrical expansion. LUNGS: Equal air entry with bibasilar crackles CVS: Regular rate and rhythm, normal S1 and S2, no gallops, no murmurs, no rubs ABDOMEN: Soft, nontender. No hepatosplenomegaly, normal bowel sounds, no guarding or rigidity. EXTREMITIES: No clubbing, no edema, no cyanosis, 2+ pulses and upper and lower extremities. MUSCULOSKELETAL: Muscle strength and tone normal. SPINE: No scoliosis or deformity SKIN: No rashes CENTRAL NERVOUS SYSTEM: Alert and oriented -3. No focal deficits, tone is normal in all 4 extremities. PSYCHIATRIC: Alert and oriented -3. Appropriate affect. Intact judgment and insight. - Labs CBC & Chem 7: 01/01/21 20:15 01/01/21 20:15 Assessment and Plan Plan: Assessment: #1. Acute hypoxic respiratory failure related to COVID-19 pneumonia, patient reports first onset of symptoms on 12/10/2020, outside the normal Remdesivir. Patient is non-vaccinated for COVID-19, at this time she is requiring 15 L of oxygen #2. Hypertension #3. Morbid obesity #4. Obstructive sleep apnea currently not wearing her CPAP #5. Hypertension nonsmoker #6. History of right breast cancer status post chemotherapy and radiation in 2011 Plan: Oxygen level has worsened However in view of elevated LFTs at 5 times the normal levels,Baricitinib is not advised We'll repeat LFTs tomorrow If LFTs are improving and patient continues to require high flow oxygen will start Baricitinib Continue Decadron Continue prophylactic Lovenox Obtain follow-up d-dimer and follow d-dimer levels, follow inflammatory markers Continue vitamins C, D and zinc I performed a history & physical examination of the patient and discussed their management with my nurse practitioner, Alexandra Leigh. I reviewed the nurse practitioner's note and agree with the documented findings and plan of care. Lung sounds are positive for diminished breath sounds throughout the lung fie lds. The findings and the impression was discussed with the patient. I attest to the documentation by the nurse practitioner. Time with Patient: Less than 30
--- NOTE | 2021-01-06 17:19 | P.PN ---
Subjective This is a pleasant 55 years old female with past medical history of Hypertension,Sleep Apnea/CPAP/BIPAP HX RT BREAST CA-CHEMO & RAD TX 2011, Presents with respiratory symptoms . Patient states she has been diagnosed with Covid last About 5 days ago. She's been having shortness of breath for about a week prior to that . She called her primary care doctor who asked her to go to urgent care. Also she has cough with clear phlegm but change to yellowish milky over the last 2 days. Also patient complaining of from diarrhea about 4 times per day Patient is afebrile, but on admission she had low-grade temperature of 100.9. She is saturating 94% on 4 L oxygen via nasal cannula went up overnight to 7 L/m. Labs showing mild lymphopenia, rest of the BMP is unremarkable. Liver enzymes slightly elevated AST to 60 and ALT 160. Elevated lactate dehydrogenase 2100, elevated C-reactive protein of 3.6. Troponin negative less than 0.012. EKG showing normal sinus rhythm at [address]-T changes chest x-ray: Bilateral pulmonary infiltrates An emergency room patient received 1 dose of dexamethasone 01/03/2021 Patient clinically looks similar to yesterday with dyspnea. And oxygen saturation 90s while she is on 7 L/m of oxygen. No much change in her labs with d-dimer at similar levels 0.84. LDH 691 and C- reactive protein 1.9 which are mildly elevated. No murmur or fever. Continue with the same regimen of dexamethasone, vitamin C, vitamin D and zinc. On normal saline at 75 mL/h 01/04/21 Patient still in In chair with no significant breathing difficulty, however she still tachypneic. No fever. No chest pain or diarrhea. Her coughing is better controlled. Her oxygen requirement increased to 7-8 L/m. Chest x-ray from today showing some improvement of the right mid lung otherwise there is same bilateral infiltrates. She remains on multiple vitamins, dexamethasone and normal saline 01/05/2021 Patient states that her breathing is the same, she has low appetite. She keeps oxygen saturation the same on 8 L/m via nasal cannula. She has no more fever. No labs from today. We are going to check labs tomorrow morning. She is still on dexamethasone, vitamin C, vitamin D and zinc. Saline at 75 mL/h. 01/06/2021 Patient reports worsening of her dyspnea and oxygen requirement increased from 8 up to 15 L/m today. Repeat chest x-ray showed same changes left greater than right bilateral pulmonary infiltrate consistent with her Covid pneumonia. No labs from today. We going to repeat labs tomorrow She is still on dexamethasone, vitamin C, D and zinc. Normal saline at 75 mL/h, Lovenox and Pepcid Objective - Vital Signs Vital signs: Vital Signs Temp 98 F 01/06/21 13:58 Pulse 76 01/06/21 13:58 Resp 18 01/06/21 13:58 BP 124/56 01/06/21 13:58 Pulse Ox 90 L 01/06/21 13:58 Intake & Output 01/05/21 01/06/21 01/06/21 18:59 06:59 18:59 Intake Total 600 600 Balance 600 600 Intake: Intake, IV Titration 600 Amount Sodium Chloride 0.9% 1, 600 000 ml @ 75 mls/hr IV . [id number] Rx#:[id number] Oral 600 Other: # Voids 3 1 # Bowel Movements 1 - Exam GENERAL: The patient is alert and oriented x3, not in any acute distress. Well developed, well nourished. HEENT: Pupils are round and equally reacting to light. EOMI. No scleral icterus. No conjunctival pallor. Normocephalic, atraumatic. No pharyngeal erythema. No thyromegaly. CARDIOVASCULAR: S1 and S2 present. No murmurs, rubs, or gallops. PULMONARY: Chest is clear to auscultation, no wheezing or crackles. ABDOMEN: Soft, nontender, nondistended, normoactive bowel sounds. No palpable organomegaly. MUSCULOSKELETAL: No joint swelling or deformity. EXTREMITIES: No cyanosis, clubbing, or pedal edema. NEUROLOGICAL: Gross neurological examination did not reveal any focal deficits. SKIN: No rashes. no petechiae. - Labs CBC & Chem 7: 01/01/21 20:15 01/01/21 20:15 Assessment and Plan Assessment: Acute bilateral covid Pneumonia Acute hypoxic respiratory failure Increase inflammatory markers Acute Covid gastroenteritis Hypertension History of sleep apnea History of right breast cancer Plan: This is a pleasant 55 years old female who presents with colic pneumonia Continue with multiple vitamins, vitamin C, vitamin D and zinc. Dexamethasone Pulmonary consult Continue with gentle hydration Labs and medication were reviewed.. Continue same treatment. Continue with symptomatic treatment. Resume home medication. Monitor lytes and vitals. DVT and GI prophylaxis. Further recommendations depends on the clinical course of the patient DVT prophylaxis: Subcutaneous Lovenox GI Prophylaxis: Pepcid Prognosis is guarded
[2021-01-07] MEDS: ASCORBIC ACID 500 MG TAB PO SCH (08:54)
[2021-01-07] MEDS: TAMOXIFEN 10 MG TAB PO SCH (08:54)
[2021-01-07] MEDS: DOCUSATE 100 MG CAP PO SCH (08:54)
[2021-01-07] MEDS: DEXAMETHASONE SOD PHOSPHATE 10 MG/ML 1 ML VIAL IVP SCH (08:54)
[2021-01-07] MEDS: ENOXAPARIN 40 MG/0.4 ML SYRINGE SQ SCH (08:54)
[2021-01-07] MEDS: CHOLECALCIFEROL 25 MCG (1000 IU) TABLET PO SCH (08:54)
[2021-01-07] MEDS: SPIRONOLACTONE 25 MG TAB PO SCH (08:54)
[2021-01-07] MEDS: lisinopriL 5 MG TAB PO SCH (08:54)
[2021-01-07] MEDS: ZINC SULFATE 220 MG CAP PO SCH (08:55)
[2021-01-07 11:23] LABS: Basophils # (A) 0.04 X 10*3/uL (0.00-0.10); Basophils % (A) 0.4 %; Eosinophils # (A) 0.35 X 10*3/uL (0.04-0.35); Eosinophils % (A) 3.4 %; HCT 44.4 % (37.2-46.3); Lymphocytes # (A) 0.81 X 10*3/uL (0.90-5.00); MCH 28.5 pg (27.0-32.0); MCHC 31.5 g/dL (32.0-37.0); MCV 90.4 fL (80.0-97.0); Mean Platelet Volume 10.3 fL (9.5-12.2); Monocytes # (A) 0.55 X 10*3/uL (0.20-1.00); Monocytes % (A) 5.4 %; Neutrophils # (A) 8.25 X 10*3/uL (1.80-7.70); Platelet Count 311 X 10*3/uL (140-440); RBC 4.91 X 10*6/uL (4.10-5.20); RDW 13.2 % (11.5-14.5); WBC 10.18 X 10*3/uL (4.50-10.00)
[2021-01-07 11:51] LABS: African American GFR (CKD) 111.5 (60.0-200.0); Albumin 3.6 g/dL (3.8-4.9); Albumin/Globulin Ratio 1.5 (1.60-3.17); Anion Gap 13.8 mmol/L (10.00-18.00); BUN/Creat Ratio 24.71 Ratio (12.00-20.00); Blood Urea Nitrogen 17.3 mg/dL (9.0-27.0); Calcium 8.8 mg/dL (8.7-10.3); Carbon Dioxide 21.2 mmol/L (20.0-27.5); Globulin 2.4 g/dL (1.6-3.3); Non-African American GFR(CKD) 96.2 (60.0-200.0); Potassium 4.1 mmol/L (3.5-5.5); Total Bilirubin 0.6 mg/dL (0.30-1.20)
--- NOTE | 2021-01-07 14:12 | XR ---
EXAMINATION TYPE: XR chest 1V portable DATE OF EXAM: 01/07/2021 COMPARISON: 01/06/2021 HISTORY: 55 years Female. STUDY INDICATION GIVEN: covid . TECHNIQUE: AP chest radiograph IMPRESSION: No significant change to left greater than right airspace and mild interstitial opacities. No pneumothorax or large effusion. The cardiomediastinal silhouette is within normal limits. No acute osseous abnormality.
[2021-01-07] MEDS: BARICITINIB 2 MG TABLET PO SCH (15:57)
--- NOTE | 2021-01-07 17:34 | CT ---
EXAMINATION TYPE: CT angio chest DATE OF EXAM: 01/07/2021 COMPARISON: None HISTORY: SOB, +covid CT DLP: 669.7 mGycm Automated exposure control for dose reduction was used. CONTRAST: Performed with IV Contrast, patient injected with 80cc mL of Isovue 370. Images obtained from the thoracic inlet to the diaphragm with IV contrast. There are 3-D post process ed images. Heart is enlarged. There is no pericardial effusion. There is extensive patchy interstitial and airsp mariana infiltrates throughout both lungs. There are a few paratracheal lymph nodes up to 1 cm. There are filling defects in the right lower lob e pulmonary artery branches. There are enlarged right and left bronchial lymph nodes that measure up to 2 cm. Thoracic aorta is intact. There is no aneurysm or dissection. There is some fatty infiltrati on of the liver. IMPRESSION: Multiple right lower lobe pulmonary emboli. No evidence of right heart strain. Extensive bilateral patchy pneumonia. Attempts were made to notify attending staff of this report but this was not successful.
--- NOTE | 2021-01-07 18:08 | P.PN ---
Subjective Progress Note Date: 01/07/21 Principal diagnosis: COVID-19 pneumonia This is 55-year-old white female patient with past medical history of hypertension, sleep apnea not currently using CPAP, nonsmoker, previous history of right breast cancer status post chemo and radiation treatment in 2011, she follows with Dr. Agustina Hassan. She came into the emergency department on 01/01/2021 complaining of increased shortness of breath, cough. Her primary care provider gave her a prescription for monoclonal antibodies however in the emergency department she was found to be hypoxic pulse ox of 86-88%, and patient was not a candidate for monoclonal antibody infusion, she is not vaccinated against COVID-19, she reports cough, she states she has been having symptoms of coughing, shortness of breath since December 10. In addition she states that she has been issues with swallowing since August 2020. States she tested positive for COVID-19 on 12/28/2020. Chest x-ray reveals pulmonary edema consistent with significant pneumonia or developing ARDS. Admission blood work was reviewed showing white blood cell, 4.4, hemoglobin of 14.7, platelet count of 194, lymphocyte count of 0.7, INR is 1.0, sodium is 136, potassium is 4.1, chloride is 103, CO2 is 25, B1 is 19, creatinine is 0.80. Ferritin level was 3188, AST was 260, ALT was 120, LDH was 2100, troponin was less than 0.012, CRP is 3.6, proBNP is 28. Pro-calcitonin is negative at 0.16. She is currently requiring 7 L of oxygen pulse ox 93%, she has a low-grade fever, but no acute respiratory distress, she does have a frequent nonproductive cough. In the emergency department she was started on Decadron, Lovenox, vitamin C, D and zinc. The patient is seen today 01/03/2021 in follow-up on the regular medical floor. She is currently sitting up in bed. Awake and alert in no acute distress. She is maintaining O2 saturations 88-93% on 7 L high flow nasal cannula. She is continued on Decadron, Lovenox, vitamin supplements. Glucose 1:30. D-dimer 0.84. LDH 691. C-reactive protein 1.9. The patient is seen today 01/04/2021 in follow-up on the regular medical floor. She is resting comfortably in bed. Awake and alert in no acute distress. Maintaining O2 saturations in the low 90s on 8 L high flow nasal cannula. She's been afebrile. Hemodynamically stable. Follow-up chest x-ray continues to revealed bilateral multifocal opacities consistent COVID-19 infection. No significant change. Blood glucose 148. She is continued on Decadron, Lovenox, vitamin supplements. The patient is seen today 01/05/2021 in follow-up on the regular medical floor. She is awake and alert in no acute distress. Currently sitting up in bed. Maintaining O2 saturations in the 90s on 4 L/m per nasal cannula. She has 0.9 normal satting at 75 ML's per hour. She is continued on Decadron, Lovenox, vitamin supplements. The patient is seen today 01/07/2021 in follow-up on the regular medical floor. She is currently sitting up in a chair at the bedside. Awake and alert in no acute distress. She is still requiring 15 L high flow nasal cannula pleasant nonrebreather mask. Current O2 saturation 91%. Chest x-ray revealed left greater than right bilateral airspace opacities with no significant change. White count 10.1. Hemoglobin 14.0. Lymphocytes 0.81. D-dimer 4.13. Sodium 138. Potassium 4.1. Creatinine 0.7. AST 66. ALT 73. She is continued on Baricitinib, Decadron, Lovenox, vitamin supplements. CT angiogram was requested due to elevated d-dimer. Objective - Vital Signs Vital signs: Vital Signs Temp 98.8 F 01/07/21 13:43 Pulse 87 01/07/21 13:43 Resp 18 01/07/21 13:43 BP 128/73 01/07/21 13:43 Pulse Ox 91 L 01/07/21 13:43 Intake & Output 01/06/21 01/07/21 01/07/21 18:59 06:59 18:59 Intake Total 425 Balance 425 Intake: Oral 425 Other: # Voids 3 2 # Bowel Movements 1 - Exam GENERAL EXAM: Alert, pleasant 55-year-old female patient, and 15 L high flow nasal cannula plus a nonrebreather mask, fairly comfortable in no apparent distress. HEAD: Normocephalic. EYES: Normal reaction of pupils, equal size. NOSE: Clear with pink turbinates. THROAT: No erythema or exudates. NECK: No masses, no JVD. CHEST: No chest wall deformity. LUNGS: Equal air entry with bibasilar crackles CVS: S1 and S2 normal with no audible murmur, regular rhythm. ABDOMEN: No hepatosplenomegaly, normal bowel sounds, no guarding or rigidity. SPINE: No scoliosis or deformity SKIN: No rashes CENTRAL NERVOUS SYSTEM: No focal deficits, tone is normal in all 4 extremities. EXTREMITIES: There is no peripheral edema. No clubbing, no cyanosis. Peripheral pulses are intact. - Labs CBC & Chem 7: 01/07/21 06:59 01/07/21 06:59 Labs: Abnormal Lab Results - Last 24 Hours (Table) 01/07/21 01/07/21 01/07/21 Range/Units 06:59 06:59 06:59 WBC 10.18 H (4.50-10.00) X 10*3/uL MCHC 31.5 L (32.0-37.0) g/dL Absolute Nucleated RBC 0.02 H (0.00-0.00) X 10*3/uL Immature Gran # 0.18 H (0.00-0.04) X 10*3/uL Neutrophils # 8.25 H (1.80-7.70) X 10*3/uL Lymphocytes # 0.81 L (0.90-5.00) X 10*3/uL NRBC/100 WBC Diff 0.2 H (0.0-0.0) /100 WBCS D-Dimer 4.13 H (<0.60) mg/L FEU BUN/Creatinine Ratio 24.71 H (12.00-20.00) Ratio Glucose 111 H (70-110) mg/dL AST 66 H (13-35) U/L ALT 73 H (8-44) U/L Total Protein 6.0 L (6.2-8.2) g/dL Albumin 3.6 L (3.8-4.9) g/dL Albumin/Globulin Ratio 1.50 L (1.60-3.17) g/dL Assessment and Plan Assessment: 1 Acute hypoxic respiratory failure related to COVID-19 pneumonia, patient reports first onset of symptoms on 12/10/2020, outside the normal Remdesivir. Patient is non-vaccinated for COVID-19, at this time she is requiring 15 L high flow nasal cannula plus a nonrebreather mask. She is on Baricitinib. CT angiogram tonight revealed pulmonary emboli in the right lower lobe. No evidence of right heart strain. 2 Hypertension 3 Morbid obesity 4 Obstructive sleep apnea currently not wearing her CPAP 5 Hypertension nonsmoker 6 History of right breast cancer status post chemotherapy and radiation in 2011 Plan: The patient was seen and evaluated by Dr. Duffy Chest x-ray and labs reviewed, CT angiogram ordered Positive for pulmonary emboli in the right lower lobe Lovenox discontinued, initiated heparin drip Echocardiogram in the a.m. Continue Baricitinib, Decadron, vitamin supplements Continue to titrate the FiO2 as tolerated We will continue to follow I, the cosigning physician, performed a history & physical examination of the patient. Lungs sounds with bibasilar crackles. Maintaining good O2 saturations in the 90s on 15 L high flow nasal cannula plus a nonrebreather mask.. I discussed the assessment and plan of care with my nurse practitioner, Carla Mei. I attest to the above note as dictated by her.
[2021-01-07] MEDS: HEPARIN SOD,PORK IN 0.45% NACL 25,000 UNIT in 0.45% NACL 1 250ML.BAG IV SCH (18:33)
--- NOTE | 2021-01-07 19:28 | P.PN ---
Subjective This is a pleasant 55 years old female with past medical history of Hypertension,Sleep Apnea/CPAP/BIPAP HX RT BREAST CA-CHEMO & RAD TX 2011, Presents with respiratory symptoms . Patient states she has been diagnosed with Covid last About 5 days ago. She's been having shortness of breath for about a week prior to that . She called her primary care doctor who asked her to go to urgent care. Also she has cough with clear phlegm but change to yellowish milky over the last 2 days. Also patient complaining of from diarrhea about 4 times per day Patient is afebrile, but on admission she had low-grade temperature of 100.9. She is saturating 94% on 4 L oxygen via nasal cannula went up overnight to 7 L/m. Labs showing mild lymphopenia, rest of the BMP is unremarkable. Liver enzymes slightly elevated AST to 60 and ALT 160. Elevated lactate dehydrogenase 2100, elevated C-reactive protein of 3.6. Troponin negative less than 0.012. EKG showing normal sinus rhythm at [address]-T changes chest x-ray: Bilateral pulmonary infiltrates An emergency room patient received 1 dose of dexamethasone 01/03/2021 Patient clinically looks similar to yesterday with dyspnea. And oxygen saturation 90s while she is on 7 L/m of oxygen. No much change in her labs with d-dimer at similar levels 0.84. LDH 691 and C- reactive protein 1.9 which are mildly elevated. No murmur or fever. Continue with the same regimen of dexamethasone, vitamin C, vitamin D and zinc. On normal saline at 75 mL/h 01/04/21 Patient still in In chair with no significant breathing difficulty, however she still tachypneic. No fever. No chest pain or diarrhea. Her coughing is better controlled. Her oxygen requirement increased to 7-8 L/m. Chest x-ray from today showing some improvement of the right mid lung otherwise there is same bilateral infiltrates. She remains on multiple vitamins, dexamethasone and normal saline 01/05/2021 Patient states that her breathing is the same, she has low appetite. She keeps oxygen saturation the same on 8 L/m via nasal cannula. She has no more fever. No labs from today. We are going to check labs tomorrow morning. She is still on dexamethasone, vitamin C, vitamin D and zinc. Saline at 75 mL/h. 01/06/2021 Patient reports worsening of her dyspnea and oxygen requirement increased from 8 up to 15 L/m today. Repeat chest x-ray showed same changes left greater than right bilateral pulmonary infiltrate consistent with Covid pneumonia. No labs from today. We going to repeat labs tomorrow She is still on dexamethasone, vitamin C, D and zinc. Normal saline at 75 mL/h, Lovenox and Pepcid 01/07/2021 Patient admitted with bilateral Covid pneumonia. Her oxygen saturated worsened since yesterday She is on 15 L/m since yesterday. She remains on dexamethasone and multiple vitamins Started on heparin drip for multiple PE on CT of the chest Objective - Vital Signs Vital signs: Vital Signs Temp 98.6 F 01/07/21 08:51 Pulse 96 01/07/21 08:51 Resp 19 01/07/21 08:51 BP 117/69 01/07/21 08:51 Pulse Ox 92 L 01/07/21 08:51 Intake & Output 01/06/21 01/07/21 01/07/21 18:59 06:59 18:59 Intake Total 425 Balance 425 Intake: Oral 425 Other: # Voids 3 2 # Bowel Movements 1 - Exam GENERAL: The patient is alert and oriented x3, not in any acute distress. Well developed, well nourished. HEENT: Pupils are round and equally reacting to light. EOMI. No scleral icterus. No conjunctival pallor. Normocephalic, atraumatic. No pharyngeal erythema. No thyromegaly. CARDIOVASCULAR: S1 and S2 present. No murmurs, rubs, or gallops. PULMONARY: Chest is clear to auscultation, no wheezing or crackles. ABDOMEN: Soft, nontender, nondistended, normoactive bowel sounds. No palpable organomegaly. MUSCULOSKELETAL: No joint swelling or deformity. EXTREMITIES: No cyanosis, clubbing, or pedal edema. NEUROLOGICAL: Gross neurological examination did not reveal any focal deficits. SKIN: No rashes. no petechiae. - Labs CBC & Chem 7: 01/07/21 06:59 01/07/21 06:59 Labs: Abnormal Lab Results - Last 24 Hours (Table) 01/07/21 01/07/21 01/07/21 Range/Units 06:59 06:59 06:59 WBC 10.18 H (4.50-10.00) X 10*3/uL MCHC 31.5 L (32.0-37.0) g/dL Absolute Nucleated RBC 0.02 H (0.00-0.00) X 10*3/uL Immature Gran # 0.18 H (0.00-0.04) X 10*3/uL Neutrophils # 8.25 H (1.80-7.70) X 10*3/uL Lymphocytes # 0.81 L (0.90-5.00) X 10*3/uL NRBC/100 WBC Diff 0.2 H (0.0-0.0) /100 WBCS D-Dimer 4.13 H (<0.60) mg/L FEU BUN/Creatinine Ratio 24.71 H (12.00-20.00) Ratio Glucose 111 H (70-110) mg/dL AST 66 H (13-35) U/L ALT 73 H (8-44) U/L Total Protein 6.0 L (6.2-8.2) g/dL Albumin 3.6 L (3.8-4.9) g/dL Albumin/Globulin Ratio 1.50 L (1.60-3.17) g/dL Assessment and Plan Assessment: Acute bilateral covid Pneumonia Acute hypoxic respiratory failure Increase inflammatory markers Pulmonary embolism Acute Covid gastroenteritis Hypertension History of sleep apnea History of right breast cancer Plan: This is a pleasant 55 years old female who presents with colic pneumonia Continue with multiple vitamins, vitamin C, vitamin D and zinc. Dexamethasone Pulmonary consult Continue with gentle hydration Labs and medication were reviewed.. Continue same treatment. Continue with symptomatic treatment. Resume home medication. Monitor lytes and vitals. DVT and GI prophylaxis. Further recommendations depends on the clinical course of the patient Anticoagulation: Heparin GI Prophylaxis: Pepcid Prognosis is guarded
[2021-01-07] MEDS: SODIUM CHLORIDE 0.9% 1,000 ML IV SCH (20:10)
[2021-01-08] MEDS: SODIUM CHLORIDE 0.9% 1,000 ML IV SCH ×2 (00:11→17:24)
[2021-01-08] MEDS: HEPARIN SODIUM 1,000 UN/ML (10ML VL) IVP PRN ×2 (01:57→14:59)
[2021-01-08] MEDS: TAMOXIFEN 10 MG TAB PO SCH (08:14)
[2021-01-08] MEDS: CHOLECALCIFEROL 25 MCG (1000 IU) TABLET PO SCH (08:14)
[2021-01-08] MEDS: ZINC SULFATE 220 MG CAP PO SCH (08:14)
[2021-01-08] MEDS: SPIRONOLACTONE 25 MG TAB PO SCH (08:14)
[2021-01-08] MEDS: DOCUSATE 100 MG CAP PO SCH (08:14)
[2021-01-08] MEDS: DEXAMETHASONE SOD PHOSPHATE 10 MG/ML 1 ML VIAL IVP SCH (08:14)
[2021-01-08] MEDS: ASCORBIC ACID 500 MG TAB PO SCH (08:14)
[2021-01-08] MEDS: lisinopriL 5 MG TAB PO SCH (08:15)
[2021-01-08 11:19] VITALS: BMI 48.8
--- NOTE | 2021-01-08 13:04 | P.PN ---
Subjective Progress Note Date: 01/08/21 This is 55-year-old white female patient with past medical history of hypertension, sleep apnea not currently using CPAP, nonsmoker, previous history of right breast cancer status post chemo and radiation treatment in 2011, she follows with Dr. Agustina Hassan. She came into the emergency department on 12/12 complaining of increased shortness of breath, cough. Her primary care provider gave her a prescription for monoclonal antibodies however in the emergency department she was found to be hypoxic pulse ox of 86-88%, and patient was not a candidate for monoclonal antibody infusion, she is not vaccinated against COVID-19, she reports cough, she states she has been having symptoms of coughing, shortness of breath since December 10. In addition she states that she has been issues with swallowing since August 2020. States she tested positive for COVID-19 on 12/28/2020. Chest x-ray reveals pulmonary edema consistent with significant pneumonia or developing ARDS. Admission blood work was reviewed showing white blood cell, 4.4, hemoglobin of 14.7, platelet count of 194, lymphocyte count of 0.7, INR is 1.0, sodium is 136, potassium is 4.1, chloride is 103, CO2 is 25, B1 is 19, creatinine is 0.80. Ferritin level was 3188, AST was 260, ALT was 120, LDH was 2100, troponin was less than 0.012, CRP is 3.6, proBNP is 28. Pro-calcitonin is negative at 0.16. She is currently requiring 7 L of oxygen pulse ox 93%, she has a low-grade fever, but no acute respiratory distress, she does have a frequent nonproductive cough. In the emergency department she was started on Decadron, Lovenox, vitamin C, D and zinc. The patient is seen today 01/03/2021 in follow-up on the regular medical floor. She is currently sitting up in bed. Awake and alert in no acute distress. She is maintaining O2 saturations 88-93% on 7 L high flow nasal cannula. She is continued on Decadron, Lovenox, vitamin supplements. Glucose 1:30. D-dimer 0.84. LDH 691. C-reactive protein 1.9. The patient is seen today 01/04/2021 in follow-up on the regular medical floor. She is resting comfortably in bed. Awake and alert in no acute distress. Maintaining O2 saturations in the low 90s on 8 L high flow nasal cannula. She's been afebrile. Hemodynamically stable. Follow-up chest x-ray continues to revealed bilateral multifocal opacities consistent COVID-19 infection. No significant change. Blood glucose 148. She is continued on Decadron, Lovenox, vitamin supplements. The patient is seen today 01/05/2021 in follow-up on the regular medical floor. She is awake and alert in no acute distress. Currently sitting up in bed. Maintaining O2 saturations in the 90s on 4 L/m per nasal cannula. She has 0.9 normal satting at 75 ML's per hour. She is continued on Decadron, Lovenox, vitamin supplements. The patient is seen today 01/07/2021 in follow-up on the regular medical floor. She is currently sitting up in a chair at the bedside. Awake and alert in no acute distress. She is still requiring 15 L high flow nasal cannula pleasant nonrebreather mask. Current O2 saturation 91%. Chest x-ray revealed left greater than right bilateral airspace opacities with no significant change. White count 10.1. Hemoglobin 14.0. Lymphocytes 0.81. D-dimer 4.13. Sodium 138. Potassium 4.1. Creatinine 0.7. AST 66. ALT 73. On 01/08/2021, I'm seeing the patient for a follow-up. The patient is a subcortical event-related pneumonia and a CT angiogram that was done at time of admission showed filling defects in the right lower lobe pulmonary artery branches consistent with pulmonary embolism. The patient d-dimer was initially low at 0.8 and it came up to 4.13. Meanwhile, the patient was started on IV heparin. The patient on Decadron. CT angiogram showed diffuse bilateral pulmonary infiltrates consistent with Coumadin-related pneumonia. The patient for now is on Decadron 6 mg IV every 24 hours. The patient remains on IV heparin. The patient was also started on Baricitinib per protocol. In terms of blood work, the patient has mild transaminitis, the LDH level was as high as 2100 and count is 691. CRP level is down to 1.9. White cell count of 10.1 with a hemoglobin of 14.0. She is currently on oxygen at 15 L nasal cannula along with 100% nonrebreather facemask. Note that the patient's oxygenation got worse 2 days ago and she has been stable over the past 24 hours. Noted the patient's has not been vaccinated and she has not received any treatment such as monoclonal antibodies on outpatient basis. Objective - Vital Signs Vital signs: Vital Signs Temp 99.4 F 01/08/21 10:00 Pulse 80 01/08/21 10:00 Resp 18 01/08/21 10:00 BP 122/74 01/08/21 10:00 Pulse Ox 96 01/08/21 10:00 Intake & Output 01/07/21 01/08/21 01/08/21 18:59 06:59 18:59 Intake Total 72.493 85.096 Balance 72.493 85.096 Weight 113.398 kg Intake: Intake, IV Titration 72.493 85.096 Amount Heparin Sod,Pork in 0.45% 72.493 85.096 NaCl 25,000 unit In 0.45 % NaCl 1 250ml.bag @ 8. 818 UNITS/KG/HR 9.999 mls /hr IV .Q24H [facility] Rx#: [id number] Other: # Voids 2 4 - Exam GENERAL EXAM: Alert, pleasant 55-year-old female patient, and 15 L high flow nasal cannula plus a nonrebreather mask, fairly comfortable in no apparent distress. HEAD: Normocephalic. EYES: Normal reaction of pupils, equal size. NOSE: Clear with pink turbinates. THROAT: No erythema or exudates. NECK: No masses, no JVD. CHEST: No chest wall deformity. LUNGS: Equal air entry with bibasilar crackles CVS: S1 and S2 normal with no audible murmur, regular rhythm. ABDOMEN: No hepatosplenomegaly, normal bowel sounds, no guarding or rigidity. SPINE: No scoliosis or deformity SKIN: No rashes CENTRAL NERVOUS SYSTEM: No focal deficits, tone is normal in all 4 extremities. EXTREMITIES: There is no peripheral edema. No clubbing, no cyanosis. Peripheral pulses are intact. - Labs CBC & Chem 7: 01/07/21 06:59 01/07/21 06:59 Labs: Abnormal Lab Results - Last 24 Hours (Table) 01/08/21 Range/Units 07:11 APTT 71.9 H (22.0-30.0) sec Assessment and Plan Plan: 1 Acute hypoxic respiratory failure related to COVID-19 pneumonia, patient reports first onset of symptoms on 12/10/2020, outside the normal Remdesivir. Patient is non-vaccinated for COVID-19, at this time she is requiring 15 L high flow nasal cannula plus a nonrebreather mask. The patient is actually patient has remained stable over the past 24 hours and the patient is currently on 100% on a beta facemasks in addition to high flow oxygen at 15 L and the patient is on a combination of Decadron and Baricitinib. The patient's LDH level isn't improving. The patient is also on IV heparin regarding pulmonary embolism involving the right lower lobe pulmonary artery branch. 2 pulmonary embolism, likely coronary induced and the patient is currently on IV heparin 3 Morbid obesity 4 Obstructive sleep apnea currently not wearing her CPAP 5 Hypertension nonsmoker 6 History of right breast cancer status post chemotherapy and radiation in 2011 7 hypertension Plan: Continue IV heparin for another 24 hours. Obtain Doppler of the lower extremities Continue Decadron and Baricitinib per protocol Echocardiogram is pending for today Continue to titrate the FiO2 as tolerated We will continue to follow consider transfer to the intensive care unit if there is any worsening in her breathing. For now, she is stable on a nonrebreather facemask.
--- NOTE | 2021-01-08 15:46 | US ---
EXAMINATION TYPE: US venous doppler duplex LE DATE OF EXAM: 01/08/2021 2:20 PM COMPARISON: NONE CLINICAL HISTORY: elevated d-dimer. elevated D-Dimer SIDE PERFORMED: bilateral TECHNIQUE: The lower extremity deep venous system is examined utilizing real time linear array sonog radha with graded compression, doppler sonography and color-flow sonography. VESSELS IMAGED: Common Femoral Vein Deep Femoral Vein Greater Saphenous Vein * Femoral Vein Popliteal Vein Small Saphenous Vein * Proximal Calf Veins (* superficial vessels) technical limitations due to patients body habitus Right Leg: no evidence of DVT Left Leg: no evidence of DVT IMPRESSION: Grayscale, color doppler, spectral doppler imaging performed of the deep veins of the lo wer extremities. There is normal flow, compressibility, vascular waveforms.
[2021-01-08] MEDS: HEPARIN SOD,PORK IN 0.45% NACL 25,000 UNIT in 0.45% NACL 1 250ML.BAG IV SCH (17:21)
[2021-01-08] MEDS: BARICITINIB 2 MG TABLET PO SCH (17:23)
[2021-01-09] MEDS: SODIUM CHLORIDE 0.9% 1,000 ML IV SCH ×2 (03:53→20:01)
--- NOTE | 2021-01-09 06:19 | P.PN ---
Subjective This is a pleasant 55 years old female with past medical history of Hypertension,Sleep Apnea/CPAP/BIPAP HX RT BREAST CA-CHEMO & RAD TX 2011, Presents with respiratory symptoms . Patient states she has been diagnosed with Covid last About 5 days ago. She's been having shortness of breath for about a week prior to that . She called her primary care doctor who asked her to go to urgent care. Also she has cough with clear phlegm but change to yellowish milky over the last 2 days. Also patient complaining of from diarrhea about 4 times per day Patient is afebrile, but on admission she had low-grade temperature of 100.9. She is saturating 94% on 4 L oxygen via nasal cannula went up overnight to 7 L/m. Labs showing mild lymphopenia, rest of the BMP is unremarkable. Liver enzymes slightly elevated AST to 60 and ALT 160. Elevated lactate dehydrogenase 2100, elevated C-reactive protein of 3.6. Troponin negative less than 0.012. EKG showing normal sinus rhythm at [address]-T changes chest x-ray: Bilateral pulmonary infiltrates An emergency room patient received 1 dose of dexamethasone 01/03/2021 Patient clinically looks similar to yesterday with dyspnea. And oxygen saturation 90s while she is on 7 L/m of oxygen. No much change in her labs with d-dimer at similar levels 0.84. LDH 691 and C- reactive protein 1.9 which are mildly elevated. No murmur or fever. Continue with the same regimen of dexamethasone, vitamin C, vitamin D and zinc. On normal saline at 75 mL/h 01/04/21 Patient still in In chair with no significant breathing difficulty, however she still tachypneic. No fever. No chest pain or diarrhea. Her coughing is better controlled. Her oxygen requirement increased to 7-8 L/m. Chest x-ray from today showing some improvement of the right mid lung otherwise there is same bilateral infiltrates. She remains on multiple vitamins, dexamethasone and normal saline 01/05/2021 Patient states that her breathing is the same, she has low appetite. She keeps oxygen saturation the same on 8 L/m via nasal cannula. She has no more fever. No labs from today. We are going to check labs tomorrow morning. She is still on dexamethasone, vitamin C, vitamin D and zinc. Saline at 75 mL/h. 01/06/2021 Patient reports worsening of her dyspnea and oxygen requirement increased from 8 up to 15 L/m today. Repeat chest x-ray showed same changes left greater than right bilateral pulmonary infiltrate consistent with Covid pneumonia. No labs from today. We going to repeat labs tomorrow She is still on dexamethasone, vitamin C, D and zinc. Normal saline at 75 mL/h, Lovenox and Pepcid 01/07/2021 Patient admitted with bilateral Covid pneumonia. Her oxygen saturated worsened since yesterday She is on 15 L/m since yesterday. She remains on dexamethasone and multiple vitamins Started on heparin drip for multiple PE on CT of the chest 01/08/2021 patient remains on 15 L/m of oxygen with recent worsening over the last 2 days. Workup showed multiple pulmonary embolism and patient currently kept on heparin drip Ultrasound of the neck is negative for DVT. Improvement in Elevated liver enzymes improvement. Patient was started on baricitinib Objective - Vital Signs Vital signs: Vital Signs Temp 97.8 F 01/08/21 06:45 Pulse 76 01/08/21 06:45 Resp 17 01/08/21 02:00 BP 132/83 01/08/21 06:45 Pulse Ox 90 L 01/08/21 06:45 Intake & Output 01/07/21 01/08/21 01/08/21 18:59 06:59 18:59 Intake Total 72.493 85.096 Balance 72.493 85.096 Intake: Intake, IV Titration 72.493 85.096 Amount Heparin Sod,Pork in 0.45% 72.493 85.096 NaCl 25,000 unit In 0.45 % NaCl 1 250ml.bag @ 8. 818 UNITS/KG/HR 9.999 mls /hr IV .Q24H COUNTS INCLUDE 234 BEDS AT THE [facility] Rx#: [id number] Other: # Voids 2 4 - Exam GENERAL: The patient is alert and oriented x3, not in any acute distress. Well developed, well nourished. HEENT: Pupils are round and equally reacting to light. EOMI. No scleral icterus. No conjunctival pallor. Normocephalic, atraumatic. No pharyngeal erythema. No thyromegaly. CARDIOVASCULAR: S1 and S2 present. No murmurs, rubs, or gallops. PULMONARY: Chest is clear to auscultation, no wheezing or crackles. ABDOMEN: Soft, nontender, nondistended, normoactive bowel sounds. No palpable organomegaly. MUSCULOSKELETAL: No joint swelling or deformity. EXTREMITIES: No cyanosis, clubbing, or pedal edema. NEUROLOGICAL: Gross neurological examination did not reveal any focal deficits. SKIN: No rashes. no petechiae. - Labs CBC & Chem 7: 01/07/21 06:59 01/07/21 06:59 Labs: Abnormal Lab Results - Last 24 Hours (Table) 01/07/21 01/07/21 01/08/21 Range/Units 06:59 06:59 07:11 WBC 10.18 H (4.50-10.00) X 10*3/uL MCHC 31.5 L (32.0-37.0) g/dL Absolute Nucleated RBC 0.02 H (0.00-0.00) X 10*3/uL Immature Gran # 0.18 H (0.00-0.04) X 10*3/uL Neutrophils # 8.25 H (1.80-7.70) X 10*3/uL Lymphocytes # 0.81 L (0.90-5.00) X 10*3/uL NRBC/100 WBC Diff 0.2 H (0.0-0.0) /100 WBCS APTT 71.9 H (22.0-30.0) sec BUN/Creatinine Ratio 24.71 H (12.00-20.00) Ratio Glucose 111 H (70-110) mg/dL AST 66 H (13-35) U/L ALT 73 H (8-44) U/L Total Protein 6.0 L (6.2-8.2) g/dL Albumin 3.6 L (3.8-4.9) g/dL Albumin/Globulin Ratio 1.50 L (1.60-3.17) g/dL Assessment and Plan Assessment: Acute bilateral covid Pneumonia Acute hypoxic respiratory failure Increase inflammatory markers Pulmonary embolism Acute Covid gastroenteritis Hypertension History of sleep apnea History of right breast cancer Plan: This is a pleasant 55 years old female who presents with colic pneumonia Continue with multiple vitamins, vitamin C, vitamin D and zinc. Dexamethasone Pulmonary consult Continue with gentle hydration Labs and medication were reviewed.. Continue same treatment. Continue with symptomatic treatment. Resume home medication. Monitor lytes and vitals. DVT and GI prophylaxis. Further recommendations depends on the clinical course of the patient Anticoagulation: Heparin GI Prophylaxis: Pepcid Prognosis is guarded
[2021-01-09] MEDS: CHOLECALCIFEROL 25 MCG (1000 IU) TABLET PO SCH (07:38)
[2021-01-09] MEDS: DEXAMETHASONE SOD PHOSPHATE 10 MG/ML 1 ML VIAL IVP SCH (07:38)
[2021-01-09] MEDS: ASCORBIC ACID 500 MG TAB PO SCH (07:38)
[2021-01-09] MEDS: SPIRONOLACTONE 25 MG TAB PO SCH (07:39)
[2021-01-09] MEDS: ZINC SULFATE 220 MG CAP PO SCH (07:39)
[2021-01-09] MEDS: lisinopriL 5 MG TAB PO SCH (07:39)
[2021-01-09] MEDS: DOCUSATE 100 MG CAP PO SCH (07:39)
[2021-01-09] MEDS: TAMOXIFEN 10 MG TAB PO SCH (07:39)
[2021-01-09] MEDS: HEPARIN SOD,PORK IN 0.45% NACL 25,000 UNIT in 0.45% NACL 1 250ML.BAG IV SCH (08:20)
[2021-01-09 09:13] LABS: Basophils # (A) 0.05 X 10*3/uL (0.00-0.10); Basophils % (A) 0.6 %; Eosinophils # (A) 0.34 X 10*3/uL (0.04-0.35); Eosinophils % (A) 4.2 %; HCT 40.1 % (37.2-46.3); HGB 12.9 g/dL (12.0-15.0); Lymphocytes # (A) 1.18 X 10*3/uL (0.90-5.00); Lymphocytes % (A) 14.5 %; MCH 29.5 pg (27.0-32.0); MCHC 32.2 g/dL (32.0-37.0); MCV 91.6 fL (80.0-97.0); Mean Platelet Volume 10.6 fL (9.5-12.2); Monocytes # (A) 0.35 X 10*3/uL (0.20-1.00); Monocytes % (A) 4.3 %; Neutrophils # (A) 5.95 X 10*3/uL (1.80-7.70); Platelet Count 296 X 10*3/uL (140-440); RBC 4.38 X 10*6/uL (4.10-5.20); RDW 13.2 % (11.5-14.5); WBC 8.15 X 10*3/uL (4.50-10.00)
--- NOTE | 2021-01-09 10:00 | ECHOF ---
Referral Reason:PE MEASUREMENTS -------- HEIGHT: 127.0 cm WEIGHT: 95.3 kg BP: RVIDd: 2.8 cm (< 3.3) IVSd: 0.9 cm (0.6 - 1.1) LVIDd: 4.7 cm (3.9 - 5.3) LVPWd: 1.2 cm (0.6 - 1.1) IVSs: 1.5 cm LVIDs: 2.8 cm LVPWs: 1.4 cm LA Diam: 3.6 cm (2.7 - 3.8) Ao Diam: 3.0 cm (2.0 - 3.7) AV Cusp: 1.7 cm (1.5 - 2.6) LA Diam: 3.8 cm (2.7 - 3.8) MV EXCURSION: 18.420 mm (> 18.000) MV EF SLOPE: 87 mm/s (70 - 150) EPSS: 0.2 cm RAP: 5.00 mmHg RVSP: 21.85 mmHg FINDINGS -------- Sinus rhythm. This was a technically good study. Pt is Covid Positive. LV size, wall thickness and systolic function are normal, with an EF greater than 55%. The left siddharth tricular size is normal. The right ventricle is normal in size. The left atrial size is normal. The right atrial size is normal. The aortic valve is trileaflet, and appears structurally normal. No aortic stenosis or regurgitation. Mild mitral regurgitation is present. Mild tricuspid regurgitation present. Right ventricular systolic pressure is normal at < 35 mmHg. There is no pulmonic regurgitation present. There is no pericardial effusion. CONCLUSIONS -------- 1. Pt is Covid Positive. 2. LV size, wall thickness and systolic function are normal, with an EF greater than 55%. 3. The left ventricular size is normal. 4. The right ventricle is normal in size. 5. The left atrial size is normal. 6. The right atrial size is normal. 7. The aortic valve is trileaflet, and appears structurally normal. No aortic stenosis or regurgitati on. 8. Mild mitral regurgitation is present. 9. Mild tricuspid regurgitation present. 10. There is no pulmonic regurgitation present. 11. There is no pericardial effusion. REGISTERED PUBLIC HEALTH NURSE: Yani Alexandra RDCS
--- NOTE | 2021-01-09 13:06 | P.PN ---
Subjective Progress Note Date: 01/09/21 This is 55-year-old white female patient with past medical history of hypertension, sleep apnea not currently using CPAP, nonsmoker, previous history of right breast cancer status post chemo and radiation treatment in 2011, she follows with Dr. Agustina Hassan. She came into the emergency department on 12/12 complaining of increased shortness of breath, cough. Her primary care provider gave her a prescription for monoclonal antibodies however in the emergency department she was found to be hypoxic pulse ox of 86-88%, and patient was not a candidate for monoclonal antibody infusion, she is not vaccinated against COVID-19, she reports cough, she states she has been having symptoms of coughing, shortness of breath since December 10. In addition she states that she has been issues with swallowing since August 2020. States she tested positive for COVID-19 on 12/28/2020. Chest x-ray reveals pulmonary edema consistent with significant pneumonia or developing ARDS. Admission blood work was reviewed showing white blood cell, 4.4, hemoglobin of 14.7, platelet count of 194, lymphocyte count of 0.7, INR is 1.0, sodium is 136, potassium is 4.1, chloride is 103, CO2 is 25, B1 is 19, creatinine is 0.80. Ferritin level was 3188, AST was 260, ALT was 120, LDH was 2100, troponin was less than 0.012, CRP is 3.6, proBNP is 28. Pro-calcitonin is negative at 0.16. She is currently requiring 7 L of oxygen pulse ox 93%, she has a low-grade fever, but no acute respiratory distress, she does have a frequent nonproductive cough. In the emergency department she was started on Decadron, Lovenox, vitamin C, D and zinc. The patient is seen today 01/03/2021 in follow-up on the regular medical floor. She is currently sitting up in bed. Awake and alert in no acute distress. She is maintaining O2 saturations 88-93% on 7 L high flow nasal cannula. She is continued on Decadron, Lovenox, vitamin supplements. Glucose 1:30. D-dimer 0.84. LDH 691. C-reactive protein 1.9. The patient is seen today 01/04/2021 in follow-up on the regular medical floor. She is resting comfortably in bed. Awake and alert in no acute distress. Maintaining O2 saturations in the low 90s on 8 L high flow nasal cannula. She's been afebrile. Hemodynamically stable. Follow-up chest x-ray continues to revealed bilateral multifocal opacities consistent COVID-19 infection. No significant change. Blood glucose 148. She is continued on Decadron, Lovenox, vitamin supplements. The patient is seen today 01/05/2021 in follow-up on the regular medical floor. She is awake and alert in no acute distress. Currently sitting up in bed. Maintaining O2 saturations in the 90s on 4 L/m per nasal cannula. She has 0.9 normal satting at 75 ML's per hour. She is continued on Decadron, Lovenox, vitamin supplements. The patient is seen today 01/07/2021 in follow-up on the regular medical floor. She is currently sitting up in a chair at the bedside. Awake and alert in no acute distress. She is still requiring 15 L high flow nasal cannula pleasant nonrebreather mask. Current O2 saturation 91%. Chest x-ray revealed left greater than right bilateral airspace opacities with no significant change. White count 10.1. Hemoglobin 14.0. Lymphocytes 0.81. D-dimer 4.13. Sodium 138. Potassium 4.1. Creatinine 0.7. AST 66. ALT 73. On 01/08/2021, I'm seeing the patient for a follow-up. The patient is a subcortical event-related pneumonia and a CT angiogram that was done at time of admission showed filling defects in the right lower lobe pulmonary artery branches consistent with pulmonary embolism. The patient d-dimer was initially low at 0.8 and it came up to 4.13. Meanwhile, the patient was started on IV heparin. The patient on Decadron. CT angiogram showed diffuse bilateral pulmonary infiltrates consistent with Coumadin-related pneumonia. The patient for now is on Decadron 6 mg IV every 24 hours. The patient remains on IV heparin. The patient was also started on Baricitinib per protocol. In terms of blood work, the patient has mild transaminitis, the LDH level was as high as 2100 and count is 691. CRP level is down to 1.9. White cell count of 10.1 with a hemoglobin of 14.0. She is currently on oxygen at 15 L nasal cannula along with 100% nonrebreather facemask. Note that the patient's oxygenation got worse 2 days ago and she has been stable over the past 24 hours. Noted the patient's has not been vaccinated and she has not received any treatment such as monoclonal antibodies on outpatient basis. [facility] [id number], I'm seeing the patient for a COVID 19-related pneumonia. The patient also was diagnosed having pulmonary embolism to the right lower lobe pulmonary artery branches. The patient currently is on IV heparin. The patient had developed worsening shortness of breath and hypoxemia and the patient was given a combination of Decadron and Baricitinib per protocol. She is doing well. Inflammatory markers of been improving. She is still requiring high flow oxygen at 15 L along with 100% nonrebreather facemask. She gets short of breath with talking especially with long sentences. She gets short of breath with limited amount of activity. Nevertheless, she is able to move herself up to a recliner. She is afebrile. No nausea. No vomiting. No diarrhea. No abdominal pain. No other complaints otherwise for now.Her current d-dimer is at 3.4. Her LDH level is down to 691. Noted the patient also had Doppler of the lower extremity that came back negative. Echocardiogram showed a preserved LV function. No evidence of any pulmonary hypertension. No evidence of any Objective - Vital Signs Vital signs: Vital Signs Temp 98.0 F 01/09/21 10:20 Pulse 84 01/09/21 10:20 Resp 22 01/09/21 10:20 BP 109/71 01/09/21 10:20 Pulse Ox 96 01/09/21 10:20 Intake & Output 01/08/21 01/09/21 01/09/21 18:59 06:59 18:59 Intake Total 177.507 200.792 Balance 177.507 200.792 Weight 113.398 kg Intake: Intake, IV Titration 177.507 200.792 Amount Heparin Sod,Pork in 0.45% 177.507 200.792 NaCl 25,000 unit In 0.45 % NaCl 1 250ml.bag @ 8. 818 UNITS/KG/HR 9.999 mls /hr IV .Q24H [facility] Rx#: [id number] Other: Voiding Method Bedpan # Voids 2 3 - Exam GENERAL EXAM: Alert, pleasant 55-year-old female patient, and 15 L high flow nasal cannula plus a nonrebreather mask, fairly comfortable in no apparent distress. HEAD: Normocephalic. EYES: Normal reaction of pupils, equal size. NOSE: Clear with pink turbinates. THROAT: No erythema or exudates. NECK: No masses, no JVD. CHEST: No chest wall deformity. LUNGS: Equal air entry with bibasilar crackles CVS: S1 and S2 normal with no audible murmur, regular rhythm. ABDOMEN: No hepatosplenomegaly, normal bowel sounds, no guarding or rigidity. SPINE: No scoliosis or deformity SKIN: No rashes CENTRAL NERVOUS SYSTEM: No focal deficits, tone is normal in all 4 extremities. EXTREMITIES: There is no peripheral edema. No clubbing, no cyanosis. Peripheral pulses are intact. - Labs CBC & Chem 7: 01/09/21 05:41 01/07/21 06:59 Labs: Abnormal Lab Results - Last 24 Hours (Table) 01/08/21 01/08/21 01/09/21 Range/Units 13:22 19:52 05:41 Immature Gran # 0.28 H (0.00-0.04) X 10*3/uL APTT 38.5 H 60.2 H (22.0-30.0) sec D-Dimer (<0.60) mg/L FEU 01/09/21 Range/Units 05:41 Immature Gran # (0.00-0.04) X 10*3/uL APTT 60.0 H (22.0-30.0) sec D-Dimer 3.48 H (<0.60) mg/L FEU Assessment and Plan Plan: 1 Acute hypoxic respiratory failure related to COVID-19 pneumonia, patient reports first onset of symptoms on 12/10/2020, outside the normal Remdesivir. Patient is non-vaccinated for COVID-19, at this time she is requiring 15 L high flow nasal cannula plus a nonrebreather mask. The patient is actually patient has remained stable over the past 24 hours and the patient is currently on 100% on a facemasks in addition to high flow oxygen at 15 L and the patient is on a combination of Decadron and Baricitinib. The patient's LDH level is improving. The patient is also on IV heparin regarding pulmonary embolism involving the right lower lobe pulmonary artery branch. 2 pulmonary embolism, likely coronary induced and the patient is currently on IV heparin 3 Morbid obesity 4 Obstructive sleep apnea currently not wearing her CPAP 5 Hypertension nonsmoker 6 History of right breast cancer status post chemotherapy and radiation in 2011 7 hypertension Plan: Stop the IV heparin and put patient on oral Eliquis milligrams by mouth twice a day for one week and following that the dose will be reduced down to 5 mg twice a day. Doppler of the lower extremity has been negative and echo cardiac shows no evidence of any pulmonary hypertension or RV strain Continue Decadron and Baricitinib per protocol Continue to titrate the FiO2 as tolerated We will continue to follow consider transfer to the intensive care unit if there is any worsening in her breathing. For now, she is stable on a nonrebreather facemask. We will monitor progression very closely here on the medical floor.
[2021-01-09] MEDS: BARICITINIB 2 MG TABLET PO SCH (14:10)
[2021-01-09] MEDS: APIXABAN 5 MG TAB PO SCH ×2 (14:10→21:03)
[2021-01-09 16:44] LABS: C Reactive Protein 2.3 mg/dL (0.00-0.80)
[2021-01-09 17:08] LABS: Albumin 3.1 g/dL (3.8-4.9); Albumin/Globulin Ratio 1.41 (1.60-3.17); Anion Gap 13.6 mmol/L (10.00-18.00); BUN/Creat Ratio 15.07 Ratio (12.00-20.00); Blood Urea Nitrogen 12.7 mg/dL (9.0-27.0); Calcium 8.7 mg/dL (8.7-10.3); Carbon Dioxide 22.5 mmol/L (20.0-27.5); Globulin 2.2 g/dL (1.6-3.3); Non-African American GFR(CKD) 76.8 (60.0-200.0); Potassium 3.8 mmol/L (3.5-5.5); Total Bilirubin 0.4 mg/dL (0.30-1.20); Total Protein 5.3 g/dL (6.2-8.2)
[2021-01-10 06:20] LABS: Basophils % (A) 0 %; Eosinophils # (A) 0.3 k/uL (0-0.7); Eosinophils % (A) 4 %; HCT 40.5 % (34.0-46.0); Lymphocytes # (A) 1.5 k/uL (1.0-4.8); Lymphocytes % (A) 17 %; MCH 28.7 pg (25.0-35.0); MCV 89.8 fL (80.0-100.0); Mean Platelet Volume 7.8; Monocytes # (A) 0.3 k/uL (0-1.0); Monocytes % (A) 4 %; Neutrophils # (A) 6.3 k/uL (1.3-7.7); Neutrophils % (A) 74 %; Platelet Count 292 k/uL (150-450); RBC 4.52 m/uL (3.80-5.40); WBC 8.5 k/uL (3.8-10.6)
[2021-01-10 06:30] LABS: ALT 51 U/L (4-34); AST 54 U/L (14-36); African American GFR (CKD) >90 (>60 ml/min/1.73 sqM); Albumin 2.8 g/dL (3.5-5.0); Alkaline Phosphatase 53 U/L (38-126); Anion Gap 4 mmol/L; Blood Urea Nitrogen 14 mg/dL (7-17); Calcium 8.7 mg/dL (8.4-10.2); Carbon Dioxide 29 mmol/L (22-30); Chloride 106 mmol/L (98-107); Globulin 2.9 g/dL; Glucose 86 mg/dL (74-99); Non-African American GFR(CKD) 79 (>60 ml/min/1.73 sqM); Potassium 4.5 mmol/L (3.5-5.1); Sodium 139 mmol/L (137-145); Total Bilirubin 0.6 mg/dL (0.2-1.3); Total Protein 5.7 g/dL (6.3-8.2)
[2021-01-10] MEDS: SODIUM CHLORIDE 0.9% 1,000 ML IV SCH (09:08)
[2021-01-10] MEDS: DEXAMETHASONE SOD PHOSPHATE 10 MG/ML 1 ML VIAL IVP SCH (09:57)
[2021-01-10] MEDS: lisinopriL 5 MG TAB PO SCH (09:58)
[2021-01-10] MEDS: APIXABAN 5 MG TAB PO SCH ×2 (09:58→21:22)
[2021-01-10] MEDS: DOCUSATE 100 MG CAP PO SCH (09:58)
[2021-01-10] MEDS: SPIRONOLACTONE 25 MG TAB PO SCH (09:58)
[2021-01-10] MEDS: ZINC SULFATE 220 MG CAP PO SCH (09:58)
[2021-01-10] MEDS: ASCORBIC ACID 500 MG TAB PO SCH (09:58)
[2021-01-10] MEDS: CHOLECALCIFEROL 25 MCG (1000 IU) TABLET PO SCH (09:58)
[2021-01-10] MEDS ORDERED: FUROSEMIDE 10 MG/ML 4 ML VIAL IV STA (13:53)
[2021-01-10] MEDS: BARICITINIB 2 MG TABLET PO SCH (14:15)
--- NOTE | 2021-01-10 15:39 | P.PN ---
Subjective Progress Note Date: 01/10/21 Principal diagnosis: Dyspnea On 01/06/2021 patient seen in follow-up on medical surgical floor. Her FiO2 has been increased to 15 L, yesterday patient was on 7 and 8 L. Today her O2 sats on 15 L are 90-94%. Has low-grade fevers overnight, hemodynamically she is stable, she is sitting up in the chair, does not appear to be in any acute distress, lung sounds reveal fine rales bilaterally, she is currently on Decadron 6 mg, COVID-19 vitamins, and prophylactic Lovenox. Her last set of d- dimer was on 01/03/2021 at 0.84, LDH was improving and was down to 691, and CRP was 1.9. Procalcitonin level was negative on admission at 0.16. On 01/10/2001 patient seen in follow-up on medical surgical floor, patient is currently on 10 L per high flow nasal cannula down from 15 L on yesterday's exam, and she is wearing a nonrebreather mask her pulse ox is 98%. HER-2 is being titrated down, clinically patient states she is feeling the same, still short of breath with exertion, cough, no chest pain, no significant phlegm production, no fever or chills. Vital signs have been stable, lung sounds reveal diffuse crackles bilaterally, patient is getting 0.9 normal saline at a rate of 75 ML per hour, she is developing lower extremity edema, and some in her hands. Her oral intake has been fair. No nausea or vomiting, today's labs have been reviewed, CBC is within normal limits, her lactate from yesterday was 3.48, electrolytes and renal profile were unremarkable, her LDH is still pending for today, her CRP is 2.3 on yesterday's labs. Inflammatory markers have been improv ing since admission. Patient remains on Baricitinib, Decadron, and Eliquis for pulmonary embolism Objective - Vital Signs Vital signs: Vital Signs Temp 98.6 F 01/10/21 13:55 Pulse 78 01/10/21 13:55 Resp 18 01/10/21 13:55 BP 139/70 01/10/21 13:55 Pulse Ox 98 01/10/21 13:55 Intake & Output 11/30/21 12/01/21 12/01/21 18:59 06:59 18:59 Intake Total 436.792 Output Total 450 Balance 436.792 -450 Intake: Intake, IV Titration 200.792 Amount Heparin Sod,Pork in 0.45% 200.792 NaCl 25,000 unit In 0.45 % NaCl 1 250ml.bag @ 8. 818 UNITS/KG/HR 9.999 mls /hr IV .Q24H [facility] Rx#: [id number] Oral 236 Output: Urine 450 Other: Voiding Method Bedpan Bedside Commode # Voids 1 1 # Bowel Movements 1 - Exam GENERAL EXAM: Alert, very pleasant, 55-year-old white female, on 10 L of oxygen and 100% nonrebreather mask comfortable in no apparent distress. HEAD: Normocephalic/atraumatic. EYES: Normal reaction of pupils, equal size. Conjunctiva pink, sclera white. NOSE: Clear with pink turbinates. THROAT: No erythema or exudates. NECK: No masses, no JVD, no thyroid enlargement, no adenopathy. CHEST: No chest wall deformity. Symmetrical expansion. LUNGS: Equal air entry with bibasilar crackles CVS: Regular rate and rhythm, normal S1 and S2, no gallops, no murmurs, no rubs ABDOMEN: Soft, nontender. No hepatosplenomegaly, normal bowel sounds, no guarding or rigidity. EXTREMITIES: No clubbing, no edema, no cyanosis, 2+ pulses and upper and lower extremities. MUSCULOSKELETAL: Muscle strength and tone normal. SPINE: No scoliosis or deformity SKIN: No rashes CENTRAL NERVOUS SYSTEM: Alert and oriented -3. No focal deficits, tone is normal in all 4 extremities. PSYCHIATRIC: Alert and oriented -3. Appropriate affect. Intact judgment and insight. - Labs CBC & Chem 7: 01/10/21 05:43 01/10/21 05:43 Labs: Abnormal Lab Results - Last 24 Hours (Table) 01/09/21 01/10/21 Range/Units 05:41 05:43 AST 57 H 54 H (13-35) U/L ALT 61 H 51 H (8-44) U/L C-Reactive Protein 2.30 H (0.00-0.80) mg/dL Total Protein 5.3 L 5.7 L (6.2-8.2) g/dL Albumin 3.1 L 2.8 L (3.8-4.9) g/dL Albumin/Globulin Ratio 1.41 L (1.60-3.17) g/dL Assessment and Plan Plan: Assessment: #1. Acute hypoxic respiratory failure related to COVID-19 pneumonia, patient reports first onset of symptoms on 12/10/2020, outside the normal Remdesivir. Patient is non-vaccinated for COVID-19, at this time she is requiring 15 L of oxygen and nonrebreather mask #2. Acute pulmonary embolism, currently on Eliquis #3. Hypertension #4. Morbid obesity #5. Obstructive sleep apnea currently not wearing her CPAP #6. Hypertension nonsmoker #7. History of right breast cancer status post chemotherapy and radiation in 2011 Plan: Continue current medical treatment Continue weaning FiO2, currently still requiring high flow oxygen and non rebreather mask Continue oral anticoagulation, Decadron, and Baricitinib Encourage deep breathing and coughing, we will give the patient on dose of IV Lasix 40 mg, discontinue IV fluids. Follow-up chest x-ray, basic labs including CBC and CMP, and inflammatory markers tomorrow I performed a history & physical examination of the patient and discussed their management with my nurse practitioner, Alexandra Leigh. I reviewed the nurse practitioner's note and agree with the documented findings and plan of care. Lung sounds are positive for diminished breath sounds throughout the lung nino. The findings and the impression was discussed with the patient. I attest to the documentation by the nurse practitioner. Time with Patient: Less than 30
[2021-01-10] MEDS: TAMOXIFEN 10 MG TAB PO SCH ×2 (16:29→17:22)
[2021-01-11 08:38] LABS: Basophils % (A) 0 %; Eosinophils # (A) 0.2 k/uL (0-0.7); Eosinophils % (A) 2 %; HCT 41.2 % (34.0-46.0); HGB 13.9 gm/dL (11.4-16.0); Lymphocytes # (A) 1.4 k/uL (1.0-4.8); Lymphocytes % (A) 14 %; MCH 29.7 pg (25.0-35.0); MCHC 33.7 g/dL (31.0-37.0); MCV 88.4 fL (80.0-100.0); Mean Platelet Volume 7.8; Monocytes # (A) 0.4 k/uL (0-1.0); Monocytes % (A) 4 %; Neutrophils # (A) 8.3 k/uL (1.3-7.7); Neutrophils % (A) 80 %; Platelet Count 320 k/uL (150-450); RBC 4.66 m/uL (3.80-5.40); RDW 12.9 % (11.5-15.5); WBC 10.5 k/uL (3.8-10.6)
[2021-01-11 08:52] LABS: ALT 66 U/L (4-34); AST 51 U/L (14-36); African American GFR (CKD) >90 (>60 ml/min/1.73 sqM); Albumin 3.1 g/dL (3.5-5.0); Albumin/Globulin Ratio 1.1; Alkaline Phosphatase 70 U/L (38-126); Anion Gap 5 mmol/L; Blood Urea Nitrogen 17 mg/dL (7-17); Calcium 9.3 mg/dL (8.4-10.2); Carbon Dioxide 33 mmol/L (22-30); Chloride 101 mmol/L (98-107); Globulin 2.9 g/dL; Glucose 88 mg/dL (74-99); LDH 1356 U/L (313-618); Non-African American GFR(CKD) 80 (>60 ml/min/1.73 sqM); Potassium 3.7 mmol/L (3.5-5.1); Sodium 139 mmol/L (137-145); Total Bilirubin 0.5 mg/dL (0.2-1.3)
[2021-01-11 09:25] LABS: C Reactive Protein 2.5 mg/dL (<1.0)
[2021-01-11] MEDS: TAMOXIFEN 10 MG TAB PO SCH (09:58)
[2021-01-11] MEDS: DOCUSATE 100 MG CAP PO SCH (09:58)
[2021-01-11] MEDS: APIXABAN 5 MG TAB PO SCH ×2 (09:58→20:02)
[2021-01-11] MEDS: CHOLECALCIFEROL 25 MCG (1000 IU) TABLET PO SCH (09:58)
[2021-01-11] MEDS: ASCORBIC ACID 500 MG TAB PO SCH (09:59)
[2021-01-11] MEDS: lisinopriL 5 MG TAB PO SCH (09:59)
[2021-01-11] MEDS: SPIRONOLACTONE 25 MG TAB PO SCH (09:59)
[2021-01-11] MEDS: ZINC SULFATE 220 MG CAP PO SCH (09:59)
[2021-01-11] MEDS: DEXAMETHASONE SOD PHOSPHATE 10 MG/ML 1 ML VIAL IVP SCH (09:59)
--- NOTE | 2021-01-11 10:19 | XR ---
EXAMINATION TYPE: XR chest 1V portable DATE OF EXAM: 01/11/2021 COMPARISON: 01/07/2021 HISTORY: Shortness of breath TECHNIQUE: Single frontal view of the chest is obtained. FINDINGS: There are bilateral areas of patchy infiltrate stable in appearance. Surgical clips along the lateral right chest wall. No pneumothorax. Density overlying the left neck and upper thorax likel y superficial patient correlate clinically. No pneumothorax. Heart size stable. Hypertrophic and dege nerative change of the spine. IMPRESSION: Diffuse patchy bilateral infiltrates stable correlate for pneumonia.
[2021-01-11] MEDS ORDERED: SODIUM CHLORIDE 0.65% NASAL SPRAY 44 ML BTL NASAL PRN (10:52)
[2021-01-11] MEDS: ALPRAZolam 0.25 MG TAB PO PRN ×2 (11:15→20:02)
--- NOTE | 2021-01-11 12:49 | P.PN ---
Subjective Progress Note Date: 01/11/21 Principal diagnosis: Dyspnea On 01/06/2021 patient seen in follow-up on medical surgical floor. Her FiO2 has been increased to 15 L, yesterday patient was on 7 and 8 L. Today her O2 sats on 15 L are 90-94%. Has low-grade fevers overnight, hemodynamically she is stable, she is sitting up in the chair, does not appear to be in any acute distress, lung sounds reveal fine rales bilaterally, she is currently on Decadron 6 mg, COVID-19 vitamins, and prophylactic Lovenox. Her last set of d- dimer was on 01/03/2021 at 0.84, LDH was improving and was down to 691, and CRP was 1.9. Procalcitonin level was negative on admission at 0.16. On 01/10/2001 patient seen in follow-up on medical surgical floor, patient is currently on 10 L per high flow nasal cannula down from 15 L on yesterday's exam, and she is wearing a nonrebreather mask her pulse ox is 98%. HER-2 is being titrated down, clinically patient states she is feeling the same, still short of breath with exertion, cough, no chest pain, no significant phlegm production, no fever or chills. Vital signs have been stable, lung sounds reveal diffuse crackles bilaterally, patient is getting 0.9 normal saline at a rate of 75 ML per hour, she is developing lower extremity edema, and some in her hands. Her oral intake has been fair. No nausea or vomiting, today's labs have been reviewed, CBC is within normal limits, her lactate from yesterday was 3.48, electrolytes and renal profile were unremarkable, her LDH is still pending for today, her CRP is 2.3 on yesterday's labs. Inflammatory markers have been improv ing since admission. Patient remains on Baricitinib, Decadron, and Eliquis for pulmonary embolism 01/11/2021 patient seen in follow-up on medical surgical floor, she is resting comfortably in the recliner, she is currently eating lunch, breathing comfortable, occasional cough, no phlegm production, no complaint of chest pain, she is currently down on 7 L of oxygen, not using nonrebreather mask. Her pulse ox is a 3-94%, afebrile, hemodynamically stable, yesterday she was given a dose of IV Lasix and IV fluids haven't turned out to KVO, she has diabetes, although no fluid balance is difficult to estimate. Today's labs have been reviewed and were little count of 10.5, hemoglobin of 13.5, lymphocyte count was 1.4, slightly improved and is down to 2.5 on today's labs, sodium is 139, potassium is 3.7, CO2 is 33, BUN 17 creatinine 0.82. His has increased to 1356, increased from last value on 01/03/2021, and CRP is 2.5, patient is on a combination of Baricitinib, COVID-19 vitamins, and she is on Eliquis 10 mg twice daily for newly diagnosed pulmonary embolism. Overall clinically she looks stable, improving. Tolerating oral intake, she is awake and alert, interactive, physical therapy has been consulted, and patient has been get not to the bedside commode with help. Objective - Vital Signs Vital signs: Vital Signs Temp 97.1 F L 01/11/21 10:54 Pulse 84 01/11/21 10:54 Resp 16 01/11/21 10:54 BP 107/62 01/11/21 10:54 Pulse Ox 93 L 01/11/21 11:17 Intake & Output 01/10/21 01/11/21 01/11/21 18:59 06:59 18:59 Intake Total 829 Balance 829 Intake: Oral 829 Other: Voiding Method Bedside Commode Bedside Commode # Voids 2 - Exam GENERAL EXAM: Alert, very pleasant, 55-year-old white female, on 7 L of oxygen comfortable in no apparent distress. HEAD: Normocephalic/atraumatic. EYES: Normal reaction of pupils, equal size. Conjunctiva pink, sclera white. NOSE: Clear with pink turbinates. THROAT: No erythema or exudates. NECK: No masses, no JVD, no thyroid enlargement, no adenopathy. CHEST: No chest wall deformity. Symmetrical expansion. LUNGS: Equal air entry with bibasilar crackles CVS: Regular rate and rhythm, normal S1 and S2, no gallops, no murmurs, no rubs ABDOMEN: Soft, nontender. No hepatosplenomegaly, normal bowel sounds, no guarding or rigidity. EXTREMITIES: No clubbing, no edema, no cyanosis, 2+ pulses and upper and lower extremities. MUSCULOSKELETAL: Muscle strength and tone normal. SPINE: No scoliosis or deformity SKIN: No rashes CENTRAL NERVOUS SYSTEM: Alert and oriented -3. No focal deficits, tone is normal in all 4 extremities. PSYCHIATRIC: Alert and oriented -3. Appropriate affect. Intact judgment and insight. - Labs CBC & Chem 7: 01/11/21 08:06 01/11/21 08:06 Labs: Abnormal Lab Results - Last 24 Hours (Table) 01/11/21 01/11/21 01/11/21 Range/Units 08:06 08:06 08:06 Neutrophils # 8.3 H (1.3-7.7) k/uL D-Dimer 2.55 H (<0.60) mg/L FEU Carbon Dioxide 33 H (22-30) mmol/L AST 51 H (14-36) U/L ALT 66 H (4-34) U/L Lactate Dehydrogenase 1356 H (313-618) U/L C-Reactive Protein 2.5 H (<1.0) mg/dL Total Protein 6.0 L (6.3-8.2) g/dL Albumin 3.1 L (3.5-5.0) g/dL Assessment and Plan Plan: Assessment: #1. Acute hypoxic respiratory failure related to COVID-19 pneumonia, patient reports first onset of symptoms on 12/10/2020, outside the normal Remdesivir. Patient is non-vaccinated for COVID-19, at this time she is requiring 15 L of oxygen and nonrebreather mask #2. Acute pulmonary embolism, currently on Eliquis #3. Hypertension #4. Morbid obesity #5. Obstructive sleep apnea currently not wearing her CPAP #6. Hypertension nonsmoker #7. History of right breast cancer status post chemotherapy and radiation in 2011 Plan: Continue current medical treatment Continue weaning FiO2, currently down to 7 L, not using nonrebreather mask Clinically patient is improving, no worsening dyspnea or cough, no chest discomfort Continue oral anticoagulation, Decadron, and Baricitinib Encourage deep breathing and coughing, Today's chest x-ray has been reviewed, labs have been reviewed Continue monitoring inflammatory markers Activity as tolerated, physical therapy consultation has been placed for possibility of subacute rehab placement after discharge Continue to follow I performed a history & physical examination of the patient and discussed their management with my nurse practitioner, Alexandra Leigh. I reviewed the nurse practitioner's note and agree with the documented findings and plan of care. Lung sounds are positive for diminished breath sounds throughout the lung fie lds. The findings and the impression was discussed with the patient. I attest to the documentation by the nurse practitioner. Time with Patient: Less than 30
[2021-01-11] MEDS: BARICITINIB 2 MG TABLET PO SCH (14:51)
[2021-01-12] MEDS: SPIRONOLACTONE 25 MG TAB PO SCH (08:47)
[2021-01-12] MEDS: lisinopriL 5 MG TAB PO SCH (08:47)
[2021-01-12] MEDS: APIXABAN 5 MG TAB PO SCH ×2 (08:47→20:02)
[2021-01-12] MEDS: ASCORBIC ACID 500 MG TAB PO SCH (08:48)
[2021-01-12] MEDS: CHOLECALCIFEROL 25 MCG (1000 IU) TABLET PO SCH (08:48)
[2021-01-12] MEDS: ZINC SULFATE 220 MG CAP PO SCH (08:48)
[2021-01-12] MEDS: DOCUSATE 100 MG CAP PO SCH (08:48)
[2021-01-12] MEDS: TAMOXIFEN 10 MG TAB PO SCH (08:48)
[2021-01-12 09:06] LABS: C Reactive Protein 1.7 mg/dL (<1.0)
[2021-01-12] MEDS: DEXAMETHASONE SOD PHOSPHATE 10 MG/ML 1 ML VIAL IVP SCH (10:59)
--- NOTE | 2021-01-12 13:28 | P.PN ---
Subjective Progress Note Date: 01/12/21 Principal diagnosis: Dyspnea On 01/06/2021 patient seen in follow-up on medical surgical floor. Her FiO2 has been increased to 15 L, yesterday patient was on 7 and 8 L. Today her O2 sats on 15 L are 90-94%. Has low-grade fevers overnight, hemodynamically she is stable, she is sitting up in the chair, does not appear to be in any acute distress, lung sounds reveal fine rales bilaterally, she is currently on Decadron 6 mg, COVID-19 vitamins, and prophylactic Lovenox. Her last set of d- dimer was on 01/03/2021 at 0.84, LDH was improving and was down to 691, and CRP was 1.9. Procalcitonin level was negative on admission at 0.16. On 01/10/2001 patient seen in follow-up on medical surgical floor, patient is currently on 10 L per high flow nasal cannula down from 15 L on yesterday's exam, and she is wearing a nonrebreather mask her pulse ox is 98%. HER-2 is being titrated down, clinically patient states she is feeling the same, still short of breath with exertion, cough, no chest pain, no significant phlegm production, no fever or chills. Vital signs have been stable, lung sounds reveal diffuse crackles bilaterally, patient is getting 0.9 normal saline at a rate of 75 ML per hour, she is developing lower extremity edema, and some in her hands. Her oral intake has been fair. No nausea or vomiting, today's labs have been reviewed, CBC is within normal limits, her lactate from yesterday was 3.48, electrolytes and renal profile were unremarkable, her LDH is still pending for today, her CRP is 2.3 on yesterday's labs. Inflammatory markers have been improv ing since admission. Patient remains on Baricitinib, Decadron, and Eliquis for pulmonary embolism 01/11/2021 patient seen in follow-up on medical surgical floor, she is resting comfortably in the recliner, she is currently eating lunch, breathing comfortable, occasional cough, no phlegm production, no complaint of chest pain, she is currently down on 7 L of oxygen, not using nonrebreather mask. Her pulse ox is a 3-94%, afebrile, hemodynamically stable, yesterday she was given a dose of IV Lasix and IV fluids haven't turned out to KVO, she has diabetes, although no fluid balance is difficult to estimate. Today's labs have been reviewed and were little count of 10.5, hemoglobin of 13.5, lymphocyte count was 1.4, slightly improved and is down to 2.5 on today's labs, sodium is 139, potassium is 3.7, CO2 is 33, BUN 17 creatinine 0.82. His has increased to 1356, increased from last value on 01/03/2021, and CRP is 2.5, patient is on a combination of Baricitinib, COVID-19 vitamins, and she is on Eliquis 10 mg twice daily for newly diagnosed pulmonary embolism. Overall clinically she looks stable, improving. Tolerating oral intake, she is awake and alert, interactive, physical therapy has been consulted, and patient has been get not to the bedside commode with help. On 01/12/2021 patient seen in follow-up on medical surgical floor, she is awake and alert, currently down to 4 L of oxygen, pulse ox is 91%, clinically she is improving, breathing is improving, she continues on Eliquis, Decadron 6 blood gram daily, she is on Baricitinib which was started on 01/07/2021, oxygenation has improved, patient looks better, lung sounds are positive for some bibasilar crackles, no new labs today, her d-dimer was improving on yesterday's labs and was down to 1.54, her LDH is relatively stable on today's labs, with LDH of 1303, and CRP was down to 1.7. No nausea or vomiting, she is tolerating oral intake, no abdominal pain. Objective - Vital Signs Vital signs: Vital Signs Temp 97.8 F 01/12/21 08:00 Pulse 90 01/12/21 08:00 Resp 23 01/12/21 08:00 BP 107/66 01/12/21 08:00 Pulse Ox 91 L 01/12/21 10:58 Intake & Output 01/11/21 01/12/21 01/12/21 18:59 06:59 18:59 Intake Total 1657 Balance 1657 Weight 113.398 kg Intake: Oral 1657 Other: Voiding Method Bedside Commode Bedside Commode # Voids 1 4 # Bowel Movements 0 - Exam GENERAL EXAM: Alert, very pleasant, 55-year-old white female, on 4 L of oxygen with a pulse ox of 91comfortable in no apparent distress. HEAD: Normocephalic/atraumatic. EYES: Normal reaction of pupils, equal size. Conjunctiva pink, sclera white. NOSE: Clear with pink turbinates. THROAT: No erythema or exudates. NECK: No masses, no JVD, no thyroid enlargement, no adenopathy. CHEST: No chest wall deformity. Symmetrical expansion. LUNGS: Equal air entry with bibasilar crackles CVS: Regular rate and rhythm, normal S1 and S2, no gallops, no murmurs, no rubs ABDOMEN: Soft, nontender. No hepatosplenomegaly, normal bowel sounds, no guarding or rigidity. EXTREMITIES: No clubbing, no edema, no cyanosis, 2+ pulses and upper and lower extremities. MUSCULOSKELETAL: Muscle strength and tone normal. SPINE: No scoliosis or deformity SKIN: No rashes CENTRAL NERVOUS SYSTEM: Alert and oriented -3. No focal deficits, tone is normal in all 4 extremities. PSYCHIATRIC: Alert and oriented -3. Appropriate affect. Intact judgment and insight. - Labs CBC & Chem 7: 01/11/21 08:06 01/11/21 08:06 Labs: Abnormal Lab Results - Last 24 Hours (Table) 01/11/21 01/12/21 Range/Units 23:50 08:14 D-Dimer 1.54 H (<0.60) mg/L FEU Lactate Dehydrogenase 1303 H (313-618) U/L C-Reactive Protein 1.7 H (<1.0) mg/dL Assessment and Plan Plan: Assessment: #1. Acute hypoxic respiratory failure related to COVID-19 pneumonia, patient reports first onset of symptoms on 12/10/2020, outside the normal Remdesivir. Patient is non-vaccinated for COVID-19, at this time she is requiring 4 L of oxygen #2. Acute pulmonary embolism, currently on Eliquis #3. Hypertension #4. Morbid obesity #5. Obstructive sleep apnea currently not wearing her CPAP #6. Hypertension nonsmoker #7. History of right breast cancer status post chemotherapy and radiation in 2011 Plan: Continue current medical treatment Continue weaning FiO2, currently down to 4 L, breathing is improving Continue oral anticoagulation the form of Eliquis Continue current dose Decadron, multivitamins Increase activity as tolerated, physical therapy consultation Patient possibly may need subacute rehab placement Possible discharge home or to rehab in the next 24 hours if remains stable continues to improve I performed a history & physical examination of the patient and discussed their management with my nurse practitioner, Alexandra Leigh. I reviewed the nurse practitioner's note and agree with the documented findings and plan of care. Lung sounds are positive for diminished breath sounds throughout the lung nino. The findings and the impression was discussed with the patient. I attest to the documentation by the nurse practitioner. Time with Patient: Less than 30
[2021-01-12] MEDS: BARICITINIB 2 MG TABLET PO SCH (14:17)
[2021-01-13] MEDS: DEXAMETHASONE SOD PHOSPHATE 10 MG/ML 1 ML VIAL IVP SCH (09:04)
[2021-01-13] MEDS: SPIRONOLACTONE 25 MG TAB PO SCH (09:10)
[2021-01-13] MEDS: ASCORBIC ACID 500 MG TAB PO SCH (09:10)
[2021-01-13] MEDS: ZINC SULFATE 220 MG CAP PO SCH (09:11)
[2021-01-13] MEDS: APIXABAN 5 MG TAB PO SCH (09:11)
[2021-01-13] MEDS: DOCUSATE 100 MG CAP PO SCH (09:11)
[2021-01-13] MEDS: lisinopriL 5 MG TAB PO SCH (09:11)
[2021-01-13] MEDS: CHOLECALCIFEROL 25 MCG (1000 IU) TABLET PO SCH (09:11)
[2021-01-13] MEDS: TAMOXIFEN 10 MG TAB PO SCH (09:15)
[2021-01-13 09:47] LABS: Basophils % (A) 0 %; Eosinophils # (A) 0.2 k/uL (0-0.7); Eosinophils % (A) 1 %; HCT 42.3 % (34.0-46.0); HGB 14.2 gm/dL (11.4-16.0); Lymphocytes % (A) 14 %; MCH 29.9 pg (25.0-35.0); MCHC 33.6 g/dL (31.0-37.0); MCV 88.9 fL (80.0-100.0); Mean Platelet Volume 8.1; Monocytes # (A) 0.6 k/uL (0-1.0); Monocytes % (A) 4 %; Neutrophils # (A) 11.4 k/uL (1.3-7.7); Neutrophils % (A) 80 %; Platelet Count 323 k/uL (150-450); RBC 4.76 m/uL (3.80-5.40); RDW 12.9 % (11.5-15.5); WBC 14.3 k/uL (3.8-10.6)
[2021-01-13 10:10] LABS: ALT 72 U/L (4-34); AST 53 U/L (14-36); African American GFR (CKD) 87 (>60 ml/min/1.73 sqM); Albumin 3.3 g/dL (3.5-5.0); Albumin/Globulin Ratio 1.1; Alkaline Phosphatase 81 U/L (38-126); Anion Gap 7 mmol/L; Blood Urea Nitrogen 22 mg/dL (7-17); Calcium 9.7 mg/dL (8.4-10.2); Carbon Dioxide 31 mmol/L (22-30); Chloride 99 mmol/L (98-107); Globulin 3.1 g/dL; Glucose 166 mg/dL (74-99); Non-African American GFR(CKD) 76 (>60 ml/min/1.73 sqM); Sodium 137 mmol/L (137-145); Total Bilirubin 0.6 mg/dL (0.2-1.3); Total Protein 6.4 g/dL (6.3-8.2)
--- NOTE | 2021-01-13 14:05 | P.PN ---
Subjective Progress Note Date: 01/09/21 Principal diagnosis: Acute Covid 19 pneumonia This is a pleasant 55 years old female with past medical history of Hypertension,Sleep Apnea/CPAP/BIPAP HX RT BREAST CA-CHEMO & RAD TX 2011, Presents with respiratory symptoms . Patient states she has been diagnosed with Covid last About 5 days ago. She's been having shortness of breath for about a week prior to that . She called her primary care doctor who asked her to go to urgent care. Also she has cough with clear phlegm but change to yellowish milky over the last 2 days. Also patient complaining of from diarrhea about 4 times per day Patient is afebrile, but on admission she had low-grade temperature of 100.9. She is saturating 94% on 4 L oxygen via nasal cannula went up overnight to 7 L/m. Labs showing mild lymphopenia, rest of the BMP is unremarkable. Liver enzymes slightly elevated AST to 60 and ALT 160. Elevated lactate dehydrogenase 2100, elevated C-reactive protein of 3.6. Troponin negative less than 0.012. EKG showing normal sinus rhythm at [address]-T changes chest x-ray: Bilateral pulmonary infiltrates An emergency room patient received 1 dose of dexamethasone 01/03/2021 Patient clinically looks similar to yesterday with dyspnea. And oxygen saturation 90s while she is on 7 L/m of oxygen. No much change in her labs with d-dimer at similar levels 0.84. LDH 691 and C- reactive protein 1.9 which are mildly elevated. No murmur or fever. Continue with the same regimen of dexamethasone, vitamin C, vitamin D and zinc. On normal saline at 75 mL/h 01/04/21 Patient still in In chair with no significant breathing difficulty, however she still tachypneic. No fever. No chest pain or diarrhea. Her coughing is better controlled. Her oxygen requirement increased to 7-8 L/m. Chest x-ray from today showing some improvement of the right mid lung otherwise there is same bilateral infiltrates. She remains on multiple vitamins, dexamethasone and normal saline 01/05/2021 Patient states that her breathing is the same, she has low appetite. She keeps oxygen saturation the same on 8 L/m via nasal cannula. She has no more fever. No labs from today. We are going to check labs tomorrow morning. She is still on dexamethasone, vitamin C, vitamin D and zinc. Saline at 75 mL/h. 01/06/2021 Patient reports worsening of her dyspnea and oxygen requirement increased from 8 up to 15 L/m today. Repeat chest x-ray showed same changes left greater than right bilateral pulmo nary infiltrate consistent with Covid pneumonia. No labs from today. We going to repeat labs tomorrow She is still on dexamethasone, vitamin C, D and zinc. Normal saline at 75 mL/h, Lovenox and Pepcid 01/07/2021 Patient admitted with bilateral Covid pneumonia. Her oxygen saturated worsened since yesterday She is on 15 L/m since yesterday. She remains on dexamethasone and multiple vitamins Started on heparin drip for multiple PE on CT of the chest 01/08/2021 patient remains on 15 L/m of oxygen with recent worsening over the last 2 days. Workup showed multiple pulmonary embolism and patient currently kept on heparin drip Ultrasound of the neck is negative for DVT. Improvement in Elevated liver enzymes improvement. Patient was started on baricitinib 01/09/2021 Patient was admitted to the hospital due to hypoxic respiratory failure secondary to COVID-19 pneumonia. Patient was also diagnosed with PE. Currently on IV heparin. Patient is being started on dexamethasone and Baricitinib due to worsening respiratory failure. Patient is currently on 15L Via nasal cannula and 100% nontender with a intermittently. Any complaints of chest pain. Patient has been afebrile. No nausea vomiting or abdominal pain or diarrhea. Patient is able to sit in the chair. Laboratory data showed d-dimer level III.4 and LDH 691. Bilateral lower extremity duplex scan is negative for DVT. 2-D echo Showed Preserved EF. Current Medications Reviewed. Objective - Vital Signs Vital signs: Vital Signs Temp 97.5 F L 01/09/21 14:00 Pulse 91 01/09/21 14:00 Resp 20 01/09/21 14:00 BP 102/63 01/09/21 14:00 Pulse Ox 96 01/09/21 14:00 Intake & Output 01/08/21 01/09/21 01/09/21 18:59 06:59 18:59 Intake Total 177.507 200.792 Balance 177.507 200.792 Weight 113.398 kg Intake: Intake, IV Titration 177.507 200.792 Amount Heparin Sod,Pork in 0.45% 177.507 200.792 NaCl 25,000 unit In 0.45 % NaCl 1 250ml.bag @ 8. 818 UNITS/KG/HR 9.999 mls /hr IV .Q24H [facility] Rx#: [id number] Other: Voiding Method Bedpan # Voids 2 3 - Exam - Exam GENERAL: The patient is alert and oriented x3, not in any acute distress. Well developed, well nourished. HEENT: Pupils are round and equally reacting to light. EOMI. No scleral icterus. No conjunctival pallor. Normocephalic, atraumatic. No pharyngeal erythema. No thyromegaly. CARDIOVASCULAR: S1 and S2 present. No murmurs, rubs, or gallops. PULMONARY: Chest is clear to auscultation, no wheezing or crackles. ABDOMEN: Soft, nontender, nondistended, normoactive bowel sounds. No palpable organomegaly. MUSCULOSKELETAL: No joint swelling or deformity. EXTREMITIES: No cyanosis, clubbing, or pedal edema. NEUROLOGICAL: Gross neurological examination did not reveal any focal deficits. SKIN: No rashes. no petechiae. - Labs CBC & Chem 7: 01/13/21 09:25 01/13/21 09:24 Labs: Abnormal Lab Results - Last 24 Hours (Table) 01/08/21 01/09/21 01/09/21 Range/Units 19:52 05:41 05:41 Immature Gran # 0.28 H (0.00-0.04) X 10*3/uL APTT 60.2 H 60.0 H (22.0-30.0) sec D-Dimer 3.48 H (<0.60) mg/L FEU Assessment and Plan Assessment: Acute bilateral covid Pneumonia Acute hypoxic respiratory failure Increase inflammatory markers Acute Pulmonary embolism Acute Covid gastroenteritis Hypertension History of sleep apnea History of right breast cancer Plan: This is a pleasant 55 years old female who presents with colic pneumonia Continue with multiple vitamins, vitamin C, vitamin D and zinc. Dexamethasone Pulmonary consult Continue with gentle hydration Labs and medication were reviewed. Monitor lytes and vitals. DVT and GI prophylaxis. Anticoagulation: Heparin GI Prophylaxis: Pepcid Prognosis is guarded Time with Patient: Greater than 30
--- NOTE | 2021-01-13 14:09 | P.PN ---
Subjective Progress Note Date: 01/10/21 Principal diagnosis: Acute Covid 19 pneumonia This is a pleasant 55 years old female with past medical history of Hypertension,Sleep Apnea/CPAP/BIPAP HX RT BREAST CA-CHEMO & RAD TX 2011, Presents with respiratory symptoms . Patient states she has been diagnosed with Covid last About 5 days ago. She's been having shortness of breath for about a week prior to that . She called her primary care doctor who asked her to go to urgent care. Also she has cough with clear phlegm but change to yellowish milky over the last 2 days. Also patient complaining of from diarrhea about 4 times per day Patient is afebrile, but on admission she had low-grade temperature of 100.9. She is saturating 94% on 4 L oxygen via nasal cannula went up overnight to 7 L/m. Labs showing mild lymphopenia, rest of the BMP is unremarkable. Liver enzymes slightly elevated AST to 60 and ALT 160. Elevated lactate dehydrogenase 2100, elevated C-reactive protein of 3.6. Troponin negative less than 0.012. EKG showing normal sinus rhythm at [address]-T changes chest x-ray: Bilateral pulmonary infiltrates An emergency room patient received 1 dose of dexamethasone 01/03/2021 Patient clinically looks similar to yesterday with dyspnea. And oxygen saturation 90s while she is on 7 L/m of oxygen. No much change in her labs with d-dimer at similar levels 0.84. LDH 691 and C- reactive protein 1.9 which are mildly elevated. No murmur or fever. Continue with the same regimen of dexamethasone, vitamin C, vitamin D and zinc. On normal saline at 75 mL/h 01/04/21 Patient still in In chair with no significant breathing difficulty, however she still tachypneic. No fever. No chest pain or diarrhea. Her coughing is better controlled. Her oxygen requirement increased to 7-8 L/m. Chest x-ray from today showing some improvement of the right mid lung otherwise there is same bilateral infiltrates. She remains on multiple vitamins, dexamethasone and normal saline 01/05/2021 Patient states that her breathing is the same, she has low appetite. She keeps oxygen saturation the same on 8 L/m via nasal cannula. She has no more fever. No labs from today. We are going to check labs tomorrow morning. She is still on dexamethasone, vitamin C, vitamin D and zinc. Saline at 75 mL/h. 01/06/2021 Patient reports worsening of her dyspnea and oxygen requirement increased from 8 up to 15 L/m today. Repeat chest x-ray showed same changes left greater than right bilateral pulmo nary infiltrate consistent with Covid pneumonia. No labs from today. We going to repeat labs tomorrow She is still on dexamethasone, vitamin C, D and zinc. Normal saline at 75 mL/h, Lovenox and Pepcid 01/07/2021 Patient admitted with bilateral Covid pneumonia. Her oxygen saturated worsened since yesterday She is on 15 L/m since yesterday. She remains on dexamethasone and multiple vitamins Started on heparin drip for multiple PE on CT of the chest 01/08/2021 patient remains on 15 L/m of oxygen with recent worsening over the last 2 days. Workup showed multiple pulmonary embolism and patient currently kept on heparin drip Ultrasound of the neck is negative for DVT. Improvement in Elevated liver enzymes improvement. Patient was started on baricitinib 01/09/2021 Patient was admitted to the hospital due to hypoxic respiratory failure secondary to COVID-19 pneumonia. Patient was also diagnosed with PE. Currently on IV heparin. Patient is being started on dexamethasone and Baricitinib due to worsening respiratory failure. Patient is currently on 15L Via nasal cannula and 100% nontender with a intermittently. Any complaints of chest pain. Patient has been afebrile. No nausea vomiting or abdominal pain or diarrhea. Patient is able to sit in the chair. Laboratory data showed d-dimer level III.4 and LDH 691. Bilateral lower extremity duplex scan is negative for DVT. 2-D echo Showed Preserved EF. 01/10/2021 Patient is currently sitting in the chair. Requiring oxygen at 10 L via nasal cannula. Denied any complaints of chest pain. She'll having exertional short of breath. No fever no chills. Laboratory data showed d-dimer 2.55 BUN 17 and creatinine 0.8 to AST 51 ALT 66 and alk phos 70 and LDH 1356 Patient is being continued on dexamethasone, Eliquis for PE and Baricitinib. Pulmonary is following. Current Medications Reviewed. Objective - Vital Signs Vital signs: Vital Signs Temp 97.5 F L 01/10/21 17: Pulse 71 01/10/21 17:01 Resp 18 01/10/21 17:01 BP 122/74 01/10/21 17:01 Pulse Ox 96 01/10/21 17:01 Intake & Output 01/10/21 01/10/21 01/11/21 06:59 18:59 06:59 Output Total 450 Balance -450 Output: Urine 450 Other: Voiding Method Bedside Commode # Voids 1 # Bowel Movements 1 - Exam - Exam GENERAL: The patient is alert and oriented x3, not in any acute distress. Well developed, well nourished. HEENT: Pupils are round and equally reacting to light. EOMI. No scleral icterus. No conjunctival pallor. Normocephalic, atraumatic. No pharyngeal erythema. No thyromegaly. CARDIOVASCULAR: S1 and S2 present. No murmurs, rubs, or gallops. PULMONARY: Chest is clear to auscultation, no wheezing or crackles. ABDOMEN: Soft, nontender, nondistended, normoactive bowel sounds. No palpable organomegaly. MUSCULOSKELETAL: No joint swelling or deformity. EXTREMITIES: No cyanosis, clubbing, or pedal edema. NEUROLOGICAL: Gross neurological examination did not reveal any focal deficits. SKIN: No rashes. no petechiae. - Labs CBC & Chem 7: 01/13/21 09:25 01/13/21 09:24 Labs: Abnormal Lab Results - Last 24 Hours (Table) 01/10/21 Range/Units 05:43 AST 54 H (14-36) U/L ALT 51 H (4-34) U/L Total Protein 5.7 L (6.3-8.2) g/dL Albumin 2.8 L (3.5-5.0) g/dL Assessment and Plan Assessment: Acute bilateral covid Pneumonia Acute hypoxic respiratory failure Increase inflammatory markers Acute Pulmonary embolism Acute Covid gastroenteritis Hypertension History of sleep apnea History of right breast cancer Plan: This is a pleasant 55 years old female who presents with colic pneumonia Continue with multiple vitamins, vitamin C, vitamin D and zinc. Dexamethasone Pulmonary consult Continue with gentle hydration Labs and medication were reviewed. Monitor lytes and vitals. DVT and GI prophylaxis. Anticoagulation: Heparin GI Prophylaxis: Pepcid Prognosis is guarded Time with Patient: Greater than 30
--- NOTE | 2021-01-13 14:10 | P.PN ---
Subjective Progress Note Date: 01/11/21 Principal diagnosis: Acute Covid 19 pneumonia This is a pleasant 55 years old female with past medical history of Hypertension,Sleep Apnea/CPAP/BIPAP HX RT BREAST CA-CHEMO & RAD TX 2011, Presents with respiratory symptoms . Patient states she has been diagnosed with Covid last About 5 days ago. She's been having shortness of breath for about a week prior to that . She called her primary care doctor who asked her to go to urgent care. Also she has cough with clear phlegm but change to yellowish milky over the last 2 days. Also patient complaining of from diarrhea about 4 times per day Patient is afebrile, but on admission she had low-grade temperature of 100.9. She is saturating 94% on 4 L oxygen via nasal cannula went up overnight to 7 L/m. Labs showing mild lymphopenia, rest of the BMP is unremarkable. Liver enzymes slightly elevated AST to 60 and ALT 160. Elevated lactate dehydrogenase 2100, elevated C-reactive protein of 3.6. Troponin negative less than 0.012. EKG showing normal sinus rhythm at [address]-T changes chest x-ray: Bilateral pulmonary infiltrates An emergency room patient received 1 dose of dexamethasone 01/03/2021 Patient clinically looks similar to yesterday with dyspnea. And oxygen saturation 90s while she is on 7 L/m of oxygen. No much change in her labs with d-dimer at similar levels 0.84. LDH 691 and C- reactive protein 1.9 which are mildly elevated. No murmur or fever. Continue with the same regimen of dexamethasone, vitamin C, vitamin D and zinc. On normal saline at 75 mL/h 01/04/21 Patient still in In chair with no significant breathing difficulty, however she still tachypneic. No fever. No chest pain or diarrhea. Her coughing is better controlled. Her oxygen requirement increased to 7-8 L/m. Chest x-ray from today showing some improvement of the right mid lung otherwise there is same bilateral infiltrates. She remains on multiple vitamins, dexamethasone and normal saline 01/05/2021 Patient states that her breathing is the same, she has low appetite. She keeps oxygen saturation the same on 8 L/m via nasal cannula. She has no more fever. No labs from today. We are going to check labs tomorrow morning. She is still on dexamethasone, vitamin C, vitamin D and zinc. Saline at 75 mL/h. 01/06/2021 Patient reports worsening of her dyspnea and oxygen requirement increased from 8 up to 15 L/m today. Repeat chest x-ray showed same changes left greater than right bilateral pulmo nary infiltrate consistent with Covid pneumonia. No labs from today. We going to repeat labs tomorrow She is still on dexamethasone, vitamin C, D and zinc. Normal saline at 75 mL/h, Lovenox and Pepcid 01/07/2021 Patient admitted with bilateral Covid pneumonia. Her oxygen saturated worsened since yesterday She is on 15 L/m since yesterday. She remains on dexamethasone and multiple vitamins Started on heparin drip for multiple PE on CT of the chest 01/08/2021 patient remains on 15 L/m of oxygen with recent worsening over the last 2 days. Workup showed multiple pulmonary embolism and patient currently kept on heparin drip Ultrasound of the neck is negative for DVT. Improvement in Elevated liver enzymes improvement. Patient was started on baricitinib 01/09/2021 Patient was admitted to the hospital due to hypoxic respiratory failure secondary to COVID-19 pneumonia. Patient was also diagnosed with PE. Currently on IV heparin. Patient is being started on dexamethasone and Baricitinib due to worsening respiratory failure. Patient is currently on 15L Via nasal cannula and 100% nontender with a intermittently. Any complaints of chest pain. Patient has been afebrile. No nausea vomiting or abdominal pain or diarrhea. Patient is able to sit in the chair. Laboratory data showed d-dimer level III.4 and LDH 691. Bilateral lower extremity duplex scan is negative for DVT. 2-D echo Showed Preserved EF. 01/10/2021 Patient is currently sitting in the chair. Requiring oxygen at 10 L via nasal cannula. Denied any complaints of chest pain. She'll having exertional short of breath. No fever no chills. Laboratory data showed d-dimer 2.55 BUN 17 and creatinine 0.8 to AST 51 ALT 66 and alk phos 70 and LDH 1356 Patient is being continued on dexamethasone, Eliquis for PE and Baricitinib. Pulmonary is following. 01-30 Patient is currently sitting in the chair. Denied any complaints of chest pain or worsening shortness of breath. A arnold says that her breathing is better to day. Requiring oxygen at 7 L with nasal cannula. Patient was given a dose of IV Lasix yesterday and IV fluids have been discontinued. Laboratory data showed LDH 1356 and CRP 2.5. Patient has been a febrile. No complains of nausea vomiting or abdominal pain or diarrhea. Tolerating oral diet. Current Medications Reviewed. Objective - Vital Signs Vital signs: Vital Signs Temp 98.6 F 01/11/21 14:00 Pulse 86 01/11/21 14:00 Resp 16 01/11/21 14:00 BP 118/71 01/11/21 14:00 Pulse Ox 93 L 01/11/21 14:00 Intake & Output 01/10/21 01/11/21 01/11/21 18:59 06:59 18:59 Intake Total 1421 Balance 1421 Weight 113.398 kg Intake: Oral 1421 Other: Voiding Method Bedside Commode Bedside Commode # Voids 2 1 - Exam - Exam GENERAL: The patient is alert and oriented x3, not in any acute distress. Well developed, well nourished. HEENT: Pupils are round and equally reacting to light. EOMI. No scleral icterus. No conjunctival pallor. Normocephalic, atraumatic. No pharyngeal erythema. No thyromegaly. CARDIOVASCULAR: S1 and S2 present. No murmurs, rubs, or gallops. PULMONARY: Chest is clear to auscultation, no wheezing or crackles. ABDOMEN: Soft, nontender, nondistended, normoactive bowel sounds. No palpable organomegaly. MUSCULOSKELETAL: No joint swelling or deformity. EXTREMITIES: No cyanosis, clubbing, or pedal edema. NEUROLOGICAL: Gross neurological examination did not reveal any focal deficits. SKIN: No rashes. no petechiae. - Labs CBC & Chem 7: 01/13/21 09:25 01/13/21 09:24 Labs: Abnormal Lab Results - Last 24 Hours (Table) 01/11/21 01/11/21 01/11/21 Range/Units 08:06 08:06 08:06 Neutrophils # 8.3 H (1.3-7.7) k/uL D-Dimer 2.55 H (<0.60) mg/L FEU Carbon Dioxide 33 H (22-30) mmol/L AST 51 H (14-36) U/L ALT 66 H (4-34) U/L Lactate Dehydrogenase 1356 H (313-618) U/L C-Reactive Protein 2.5 H (<1.0) mg/dL Total Protein 6.0 L (6.3-8.2) g/dL Albumin 3.1 L (3.5-5.0) g/dL Assessment and Plan Assessment: Acute bilateral covid Pneumonia Acute hypoxic respiratory failure Increase inflammatory markers Acute Pulmonary embolism Acute Covid gastroenteritis Hypertension History of sleep apnea History of right breast cancer Plan: This is a pleasant 55 years old female who presents with colic pneumonia Continue with multiple vitamins, vitamin C, vitamin D and zinc. Dexamethasone Pulmonary consult Continue with gentle hydration Labs and medication were reviewed. Monitor lytes and vitals. DVT and GI prophylaxis. Anticoagulation: Heparin GI Prophylaxis: Pepcid Prognosis is guarded Time with Patient: Greater than 30
[2021-01-13] MEDS: BARICITINIB 2 MG TABLET PO SCH (14:12)
--- NOTE | 2021-01-13 14:13 | P.PN ---
Subjective Progress Note Date: 01/12/21 Principal diagnosis: Acute Covid 19 pneumonia This is a pleasant 55 years old female with past medical history of Hypertension,Sleep Apnea/CPAP/BIPAP HX RT BREAST CA-CHEMO & RAD TX 2011, Presents with respiratory symptoms . Patient states she has been diagnosed with Covid last About 5 days ago. She's been having shortness of breath for about a week prior to that . She called her primary care doctor who asked her to go to urgent care. Also she has cough with clear phlegm but change to yellowish milky over the last 2 days. Also patient complaining of from diarrhea about 4 times per day Patient is afebrile, but on admission she had low-grade temperature of 100.9. She is saturating 94% on 4 L oxygen via nasal cannula went up overnight to 7 L/m. Labs showing mild lymphopenia, rest of the BMP is unremarkable. Liver enzymes slightly elevated AST to 60 and ALT 160. Elevated lactate dehydrogenase 2100, elevated C-reactive protein of 3.6. Troponin negative less than 0.012. EKG showing normal sinus rhythm at [address]-T changes chest x-ray: Bilateral pulmonary infiltrates An emergency room patient received 1 dose of dexamethasone 01/03/2021 Patient clinically looks similar to yesterday with dyspnea. And oxygen saturation 90s while she is on 7 L/m of oxygen. No much change in her labs with d-dimer at similar levels 0.84. LDH 691 and C- reactive protein 1.9 which are mildly elevated. No murmur or fever. Continue with the same regimen of dexamethasone, vitamin C, vitamin D and zinc. On normal saline at 75 mL/h 01/04/21 Patient still in In chair with no significant breathing difficulty, however she still tachypneic. No fever. No chest pain or diarrhea. Her coughing is better controlled. Her oxygen requirement increased to 7-8 L/m. Chest x-ray from today showing some improvement of the right mid lung otherwise there is same bilateral infiltrates. She remains on multiple vitamins, dexamethasone and normal saline 01/05/2021 Patient states that her breathing is the same, she has low appetite. She keeps oxygen saturation the same on 8 L/m via nasal cannula. She has no more fever. No labs from today. We are going to check labs tomorrow morning. She is still on dexamethasone, vitamin C, vitamin D and zinc. Saline at 75 mL/h. 01/06/2021 Patient reports worsening of her dyspnea and oxygen requirement increased from 8 up to 15 L/m today. Repeat chest x-ray showed same changes left greater than right bilateral pulmo nary infiltrate consistent with Covid pneumonia. No labs from today. We going to repeat labs tomorrow She is still on dexamethasone, vitamin C, D and zinc. Normal saline at 75 mL/h, Lovenox and Pepcid 01/07/2021 Patient admitted with bilateral Covid pneumonia. Her oxygen saturated worsened since yesterday She is on 15 L/m since yesterday. She remains on dexamethasone and multiple vitamins Started on heparin drip for multiple PE on CT of the chest 01/08/2021 patient remains on 15 L/m of oxygen with recent worsening over the last 2 days. Workup showed multiple pulmonary embolism and patient currently kept on heparin drip Ultrasound of the neck is negative for DVT. Improvement in Elevated liver enzymes improvement. Patient was started on baricitinib 01/09/2021 Patient was admitted to the hospital due to hypoxic respiratory failure secondary to COVID-19 pneumonia. Patient was also diagnosed with PE. Currently on IV heparin. Patient is being started on dexamethasone and Baricitinib due to worsening respiratory failure. Patient is currently on 15L Via nasal cannula and 100% nontender with a intermittently. Any complaints of chest pain. Patient has been afebrile. No nausea vomiting or abdominal pain or diarrhea. Patient is able to sit in the chair. Laboratory data showed d-dimer level III.4 and LDH 691. Bilateral lower extremity duplex scan is negative for DVT. 2-D echo Showed Preserved EF. 01/10/2021 Patient is currently sitting in the chair. Requiring oxygen at 10 L via nasal cannula. Denied any complaints of chest pain. She'll having exertional short of breath. No fever no chills. Laboratory data showed d-dimer 2.55 BUN 17 and creatinine 0.8 to AST 51 ALT 66 and alk phos 70 and LDH 1356 Patient is being continued on dexamethasone, Eliquis for PE and Baricitinib. Pulmonary is following. 01-30 Patient is currently sitting in the chair. Denied any complaints of chest pain or worsening shortness of breath. A arnold says that her breathing is better to day. Requiring oxygen at 7 L with nasal cannula. Patient was given a dose of IV Lasix yesterday and IV fluids have been discontinued. Laboratory data showed LDH 1356 and CRP 2.5. Patient has been a febrile. No complains of nausea vomiting or abdominal pain or diarrhea. Tolerating oral diet. 01/12/2021 Patient is currently sitting in the chair comfortably. Awake alert and oriented 3. Feels better. Denied any complaints of chest pain or worsening short of breath. Oxygen requirement trending down to 4 L via nasal cannula. D-dimer trending down to 1.54, CRP 1.7 and LDH 1303 Patient is being continued ondexamethasone, Eliquis for PE and Baricitinib + PTOT be consulted. Patient may need rehab transfer. Current Medications Reviewed. Objective - Vital Signs Vital signs: Vital Signs Temp 98.6 F 01/12/21 18:30 Pulse 95 01/12/21 18:30 Resp 19 01/12/21 18:30 BP 115/68 01/12/21 18:30 Pulse Ox 90 L 01/12/21 18:30 Intake & Output 01/12/21 01/12/21 01/13/21 06:59 18:59 06:59 Other: Voiding Method Bedside Commode # Voids 4 5 # Bowel Movements 0 - Exam - Exam GENERAL: The patient is alert and oriented x3, not in any acute distress. Well developed, well nourished. HEENT: Pupils are round and equally reacting to light. EOMI. No scleral icterus. No conjunctival pallor. Normocephalic, atraumatic. No pharyngeal erythema. No thyromegaly. CARDIOVASCULAR: S1 and S2 present. No murmurs, rubs, or gallops. PULMONARY: Chest is clear to auscultation, no wheezing or crackles. ABDOMEN: Soft, nontender, nondistended, normoactive bowel sounds. No palpable organomegaly. MUSCULOSKELETAL: No joint swelling or deformity. EXTREMITIES: No cyanosis, clubbing, or pedal edema. NEUROLOGICAL: Gross neurological examination did not reveal any focal deficits. SKIN: No rashes. no petechiae. - Labs CBC & Chem 7: 01/13/21 09:25 01/13/21 09:24 Labs: Abnormal Lab Results - Last 24 Hours (Table) 01/11/21 01/12/21 Range/Units 23:50 08:14 D-Dimer 1.54 H (<0.60) mg/L FEU Lactate Dehydrogenase 1303 H (313-618) U/L C-Reactive Protein 1.7 H (<1.0) mg/dL Assessment and Plan Assessment: Acute bilateral covid Pneumonia Acute hypoxic respiratory failure Increase inflammatory markers Acute Pulmonary embolism Acute Covid gastroenteritis Hypertension History of sleep apnea History of right breast cancer Plan: This is a pleasant 55 years old female who presents with colic pneumonia Continue with multiple vitamins, vitamin C, vitamin D and zinc. Dexamethasone Pulmonary consult Continue with gentle hydration Labs and medication were reviewed. Monitor lytes and vitals. DVT and GI prophylaxis. Anticoagulation: Heparin GI Prophylaxis: Pepcid Prognosis is guarded
--- NOTE | 2021-01-13 15:38 | P.PN ---
Subjective Progress Note Date: 01/13/21 Principal diagnosis: COVID-19 pneumonia This is 55-year-old white female patient with past medical history of hypertension, sleep apnea not currently using CPAP, nonsmoker, previous history of right breast cancer status post chemo and radiation treatment in 2011, she follows with Dr. Agustina Hassan. She came into the emergency department on 01/01/2021 complaining of increased shortness of breath, cough. Her primary care provider gave her a prescription for monoclonal antibodies however in the emergency department she was found to be hypoxic pulse ox of 86-88%, and patient was not a candidate for monoclonal antibody infusion, she is not vaccinated against COVID-19, she reports cough, she states she has been having symptoms of coughing, shortness of breath since December 10. In addition she states that she has been issues with swallowing since August 2020. States she tested positive for COVID-19 on 12/28/2020. Chest x-ray reveals pulmonary edema consistent with significant pneumonia or developing ARDS. Admission blood work was reviewed showing white blood cell, 4.4, hemoglobin of 14.7, platelet count of 194, lymphocyte count of 0.7, INR is 1.0, sodium is 136, potassium is 4.1, chloride is 103, CO2 is 25, B1 is 19, creatinine is 0.80. Ferritin level was 3188, AST was 260, ALT was 120, LDH was 2100, troponin was less than 0.012, CRP is 3.6, proBNP is 28. Pro-calcitonin is negative at 0.16. She is currently requiring 7 L of oxygen pulse ox 93%, she has a low-grade fever, but no acute respiratory distress, she does have a frequent nonproductive cough. In the emergency department she was started on Decadron, Lovenox, vitamin C, D and zinc. The patient is seen today 01/03/2021 in follow-up on the regular medical floor. She is currently sitting up in bed. Awake and alert in no acute distress. She is maintaining O2 saturations 88-93% on 7 L high flow nasal cannula. She is continued on Decadron, Lovenox, vitamin supplements. Glucose 1:30. D-dimer 0.84. LDH 691. C-reactive protein 1.9. The patient is seen today 01/04/2021 in follow-up on the regular medical floor. She is resting comfortably in bed. Awake and alert in no acute distress. Maintaining O2 saturations in the low 90s on 8 L high flow nasal cannula. She's been afebrile. Hemodynamically stable. Follow-up chest x-ray continues to revealed bilateral multifocal opacities consistent COVID-19 infection. No significant change. Blood glucose 148. She is continued on Decadron, Lovenox, vitamin supplements. The patient is seen today 01/05/2021 in follow-up on the regular medical floor. She is awake and alert in no acute distress. Currently sitting up in bed. Maintaining O2 saturations in the 90s on 4 L/m per nasal cannula. She has 0.9 normal satting at 75 ML's per hour. She is continued on Decadron, Lovenox, vitamin supplements. The patient is seen today 01/07/2021 in follow-up on the regular medical floor. She is currently sitting up in a chair at the bedside. Awake and alert in no acute distress. She is still requiring 15 L high flow nasal cannula pleasant nonrebreather mask. Current O2 saturation 91%. Chest x-ray revealed left greater than right bilateral airspace opacities with no significant change. White count 10.1. Hemoglobin 14.0. Lymphocytes 0.81. D-dimer 4.13. Sodium 138. Potassium 4.1. Creatinine 0.7. AST 66. ALT 73. She is continued on Baricitinib, Decadron, Lovenox, vitamin supplements. CT angiogram was requested due to elevated d-dimer. The patient is seen today 01/13/2021 in follow-up on the regular medical floor. She is currently sitting up in a chair at the bedside. Awake and alert in no acute distress. Maintaining good O2 saturations in the low 90s on 5 L/m per nasal cannula. She's afebrile. Hemodynamically stable. White count 14.3. Hemoglobin 14.2. Sodium 137. He has a 4.0. Creatinine 0.86. AST 53. ALT 72. She is continued on Baricitinib, Decadron, vitamin supplements. Anticoagulated with Eliquis. Objective - Vital Signs Vital signs: Vital Signs Temp 98.8 F 01/13/21 14:00 Pulse 93 01/13/21 14:00 Resp 24 01/13/21 14:00 BP 115/74 01/13/21 14:00 Pulse Ox 92 L 01/13/21 14:00 Intake & Output 01/12/21 01/13/21 01/13/21 18:59 06:59 18:59 Other: Voiding Method Bedside Commode # Voids 5 5 # Bowel Movements 2 - Exam GENERAL EXAM: Alert, pleasant 55-year-old female patient, and 5 L nasal cannula, fairly comfortable in no apparent distress. HEAD: Normocephalic. EYES: Normal reaction of pupils, equal size. NOSE: Clear with pink turbinates. THROAT: No erythema or exudates. NECK: No masses, no JVD. CHEST: No chest wall deformity. LUNGS: Equal air entry with bibasilar crackles CVS: S1 and S2 normal with no audible murmur, regular rhythm. ABDOMEN: No hepatosplenomegaly, normal bowel sounds, no guarding or rigidity. SPINE: No scoliosis or deformity SKIN: No rashes CENTRAL NERVOUS SYSTEM: No focal deficits, tone is normal in all 4 extremities. EXTREMITIES: There is no peripheral edema. No clubbing, no cyanosis. Peripheral pulses are intact. - Labs CBC & Chem 7: 01/13/21 09:25 01/13/21 09:24 Labs: Abnormal Lab Results - Last 24 Hours (Table) 01/13/21 01/13/21 Range/Units 09:24 09:25 WBC 14.3 H (3.8-10.6) k/uL Neutrophils # 11.4 H (1.3-7.7) k/uL Carbon Dioxide 31 H (22-30) mmol/L BUN 22 H (7-17) mg/dL Glucose 166 H (74-99) mg/dL AST 53 H (14-36) U/L ALT 72 H (4-34) U/L Albumin 3.3 L (3.5-5.0) g/dL Assessment and Plan Assessment: 1 Acute hypoxic respiratory failure related to COVID-19 pneumonia, patient reports first onset of symptoms on 12/10/2020, outside the normal Remdesivir. Patient is non-vaccinated for COVID-19. She is on Baricitinib. CT angiogram tonight revealed pulmonary emboli in the right lower lobe. No evidence of right heart strain. Anticoagulated with Eliquis. 2 Hypertension 3 Morbid obesity 4 Obstructive sleep apnea currently not wearing her CPAP 5 Hypertension nonsmoker 6 History of right breast cancer status post chemotherapy and radiation in 2011 Plan: The patient was seen and evaluated Continue Baricitinib, Decadron, vitamin supplements Anticoagulated with Eliquis Continue to titrate the FiO2 as tolerated Possible home in the next 24-48 hours on home oxygen We will continue to follow
[2021-01-13 17:23] LABS: Basophils % (A) 0 %; Eosinophils # (A) 0.1 k/uL (0-0.7); Eosinophils % (A) 0 %; HCT 40.5 % (34.0-46.0); HGB 13.4 gm/dL (11.4-16.0); Lymphocytes # (A) 0.9 k/uL (1.0-4.8); Lymphocytes % (A) 7 %; MCH 29.3 pg (25.0-35.0); MCHC 33.1 g/dL (31.0-37.0); MCV 88.5 fL (80.0-100.0); Monocytes # (A) 0.5 k/uL (0-1.0); Monocytes % (A) 4 %; Neutrophils # (A) 11.2 k/uL (1.3-7.7); Neutrophils % (A) 88 %; Platelet Count 307 k/uL (150-450); RBC 4.57 m/uL (3.80-5.40); RDW 12.9 % (11.5-15.5); WBC 12.7 k/uL (3.8-10.6)
[2021-01-14] MEDS: DEXAMETHASONE SOD PHOSPHATE 10 MG/ML 1 ML VIAL IVP SCH (08:12)
[2021-01-14] MEDS: ASCORBIC ACID 500 MG TAB PO SCH (09:28)
[2021-01-14] MEDS: ZINC SULFATE 220 MG CAP PO SCH (09:28)
[2021-01-14] MEDS: SPIRONOLACTONE 25 MG TAB PO SCH (09:28)
[2021-01-14] MEDS: TAMOXIFEN 10 MG TAB PO SCH (09:28)
[2021-01-14] MEDS: CHOLECALCIFEROL 25 MCG (1000 IU) TABLET PO SCH (09:28)
[2021-01-14] MEDS: DOCUSATE 100 MG CAP PO SCH (09:28)
[2021-01-14] MEDS: lisinopriL 5 MG TAB PO SCH (09:28)
[2021-01-14] MEDS: BARICITINIB 2 MG TABLET PO SCH (13:37)
[2021-01-14 14:28] LABS: Basophils % (A) 0 %; Eosinophils # (A) 0.1 k/uL (0-0.7); Eosinophils % (A) 0 %; HCT 41.8 % (34.0-46.0); HGB 13.6 gm/dL (11.4-16.0); Lymphocytes % (A) 7 %; MCH 29.2 pg (25.0-35.0); MCHC 32.6 g/dL (31.0-37.0); MCV 89.6 fL (80.0-100.0); Mean Platelet Volume 8.4; Monocytes # (A) 0.4 k/uL (0-1.0); Monocytes % (A) 3 %; Neutrophils # (A) 13.4 k/uL (1.3-7.7); Neutrophils % (A) 89 %; Platelet Count 312 k/uL (150-450); RBC 4.66 m/uL (3.80-5.40)
--- NOTE | 2021-01-14 16:29 | P.PN ---
Subjective Progress Note Date: 01/14/21 Principal diagnosis: COVID-19 pneumonia This is 55-year-old white female patient with past medical history of hypertension, sleep apnea not currently using CPAP, nonsmoker, previous history of right breast cancer status post chemo and radiation treatment in 2011, she follows with Dr. Agustina Hassan. She came into the emergency department on 01/01/2021 complaining of increased shortness of breath, cough. Her primary care provider gave her a prescription for monoclonal antibodies however in the emergency department she was found to be hypoxic pulse ox of 86-88%, and patient was not a candidate for monoclonal antibody infusion, she is not vaccinated against COVID-19, she reports cough, she states she has been having symptoms of coughing, shortness of breath since December 10. In addition she states that she has been issues with swallowing since August 2020. States she tested positive for COVID-19 on 12/28/2020. Chest x-ray reveals pulmonary edema consistent with significant pneumonia or developing ARDS. Admission blood work was reviewed showing white blood cell, 4.4, hemoglobin of 14.7, platelet count of 194, lymphocyte count of 0.7, INR is 1.0, sodium is 136, potassium is 4.1, chloride is 103, CO2 is 25, B1 is 19, creatinine is 0.80. Ferritin level was 3188, AST was 260, ALT was 120, LDH was 2100, troponin was less than 0.012, CRP is 3.6, proBNP is 28. Pro-calcitonin is negative at 0.16. She is currently requiring 7 L of oxygen pulse ox 93%, she has a low-grade fever, but no acute respiratory distress, she does have a frequent nonproductive cough. In the emergency department she was started on Decadron, Lovenox, vitamin C, D and zinc. The patient is seen today 01/03/2021 in follow-up on the regular medical floor. She is currently sitting up in bed. Awake and alert in no acute distress. She is maintaining O2 saturations 88-93% on 7 L high flow nasal cannula. She is continued on Decadron, Lovenox, vitamin supplements. Glucose 1:30. D-dimer 0.84. LDH 691. C-reactive protein 1.9. The patient is seen today 01/04/2021 in follow-up on the regular medical floor. She is resting comfortably in bed. Awake and alert in no acute distress. Maintaining O2 saturations in the low 90s on 8 L high flow nasal cannula. She's been afebrile. Hemodynamically stable. Follow-up chest x-ray continues to revealed bilateral multifocal opacities consistent COVID-19 infection. No significant change. Blood glucose 148. She is continued on Decadron, Lovenox, vitamin supplements. The patient is seen today 01/05/2021 in follow-up on the regular medical floor. She is awake and alert in no acute distress. Currently sitting up in bed. Maintaining O2 saturations in the 90s on 4 L/m per nasal cannula. She has 0.9 normal satting at 75 ML's per hour. She is continued on Decadron, Lovenox, vitamin supplements. The patient is seen today 01/07/2021 in follow-up on the regular medical floor. She is currently sitting up in a chair at the bedside. Awake and alert in no acute distress. She is still requiring 15 L high flow nasal cannula pleasant nonrebreather mask. Current O2 saturation 91%. Chest x-ray revealed left greater than right bilateral airspace opacities with no significant change. White count 10.1. Hemoglobin 14.0. Lymphocytes 0.81. D-dimer 4.13. Sodium 138. Potassium 4.1. Creatinine 0.7. AST 66. ALT 73. She is continued on Baricitinib, Decadron, Lovenox, vitamin supplements. CT angiogram was requested due to elevated d-dimer. The patient is seen today 01/13/2021 in follow-up on the regular medical floor. She is currently sitting up in a chair at the bedside. Awake and alert in no acute distress. Maintaining good O2 saturations in the low 90s on 5 L/m per nasal cannula. She's afebrile. Hemodynamically stable. White count 14.3. Hemoglobin 14.2. Sodium 137. He has a 4.0. Creatinine 0.86. AST 53. ALT 72. She is continued on Baricitinib, Decadron, vitamin supplements. Anticoagulated with Eliquis. The patient is seen today 01/14/2021 in follow-up on the regular medical floor. She is currently awake and alert in no acute distress. Sitting up in a chair at the bedside. Feeling better today compared to yesterday. Still requiring 4 L high flow nasal cannula to maintain O2 saturations in the mid 90s. She's been afebrile. Hemodynamically stable. White count 15.0. Hemoglobin 13.6. Remains on Baricitinib, Decadron, vitamin supplements. Anticoagulated with Eliquis. Objective - Vital Signs Vital signs: Vital Signs Temp 98.3 F 01/14/21 14:00 Pulse 94 01/14/21 14:00 Resp 18 01/14/21 14:00 BP 136/74 01/14/21 14:00 Pulse Ox 95 01/14/21 14:00 Intake & Output 01/13/21 01/14/21 01/14/21 18:59 06:59 18:59 Intake Total 1000 Balance 1000 Intake: Oral 1000 Other: Voiding Method Bedside Commode Bedside Commode # Voids 2 6 1 # Bowel Movements 3 1 - Exam GENERAL EXAM: Alert, pleasant 55-year-old female patient, and 4 L nasal cannula, fairly comfortable in no apparent distress. HEAD: Normocephalic. EYES: Normal reaction of pupils, equal size. NOSE: Clear with pink turbinates. THROAT: No erythema or exudates. NECK: No masses, no JVD. CHEST: No chest wall deformity. LUNGS: Equal air entry with bibasilar crackles CVS: S1 and S2 normal with no audible murmur, regular rhythm. ABDOMEN: No hepatosplenomegaly, normal bowel sounds, no guarding or rigidity. SPINE: No scoliosis or deformity SKIN: No rashes CENTRAL NERVOUS SYSTEM: No focal deficits, tone is normal in all 4 extremities. EXTREMITIES: There is no peripheral edema. No clubbing, no cyanosis. Peripheral pulses are intact. - Labs CBC & Chem 7: 01/14/21 13:58 01/13/21 09:24 Labs: Abnormal Lab Results - Last 24 Hours (Table) 01/13/21 01/14/21 Range/Units 17:06 13:58 WBC 12.7 H 15.0 H (3.8-10.6) k/uL Neutrophils # 11.2 H 13.4 H (1.3-7.7) k/uL Lymphocytes # 0.9 L (1.0-4.8) k/uL Assessment and Plan Assessment: 1 Acute hypoxic respiratory failure related to COVID-19 pneumonia, patient reports first onset of symptoms on 12/10/2020, outside the normal Remdesivir. Patient is non-vaccinated for COVID-19. She is on Baricitinib. CT angiogram revealed pulmonary emboli in the right lower lobe. No evidence of right heart strain. Anticoagulated with Eliquis. 2 Hypertension 3 Morbid obesity 4 Obstructive sleep apnea currently not wearing her CPAP 5 Hypertension nonsmoker 6 History of right breast cancer status post chemotherapy and radiation in 2011 Plan: The patient was seen and evaluated Continue Baricitinib, Decadron, vitamin supplements Anticoagulated with Eliquis Continue to titrate the FiO2 as tolerated Possible home in the next 24-48 hours on home oxygen We will continue to follow
--- NOTE | 2021-01-14 23:34 | P.PN ---
Subjective Progress Note Date: 01/13/21 Principal diagnosis: Acute Covid 19 pneumonia This is a pleasant 55 years old female with past medical history of Hypertension,Sleep Apnea/CPAP/BIPAP HX RT BREAST CA-CHEMO & RAD TX 2011, Presents with respiratory symptoms . Patient states she has been diagnosed with Covid last About 5 days ago. She's been having shortness of breath for about a week prior to that . She called her primary care doctor who asked her to go to urgent care. Also she has cough with clear phlegm but change to yellowish milky over the last 2 days. Also patient complaining of from diarrhea about 4 times per day Patient is afebrile, but on admission she had low-grade temperature of 100.9. She is saturating 94% on 4 L oxygen via nasal cannula went up overnight to 7 L/m. Labs showing mild lymphopenia, rest of the BMP is unremarkable. Liver enzymes slightly elevated AST to 60 and ALT 160. Elevated lactate dehydrogenase 2100, elevated C-reactive protein of 3.6. Troponin negative less than 0.012. EKG showing normal sinus rhythm at [address]-T changes chest x-ray: Bilateral pulmonary infiltrates An emergency room patient received 1 dose of dexamethasone 01/03/2021 Patient clinically looks similar to yesterday with dyspnea. And oxygen saturation 90s while she is on 7 L/m of oxygen. No much change in her labs with d-dimer at similar levels 0.84. LDH 691 and C- reactive protein 1.9 which are mildly elevated. No murmur or fever. Continue with the same regimen of dexamethasone, vitamin C, vitamin D and zinc. On normal saline at 75 mL/h 01/04/21 Patient still in In chair with no significant breathing difficulty, however she still tachypneic. No fever. No chest pain or diarrhea. Her coughing is better controlled. Her oxygen requirement increased to 7-8 L/m. Chest x-ray from today showing some improvement of the right mid lung otherwise there is same bilateral infiltrates. She remains on multiple vitamins, dexamethasone and normal saline 01/05/2021 Patient states that her breathing is the same, she has low appetite. She keeps oxygen saturation the same on 8 L/m via nasal cannula. She has no more fever. No labs from today. We are going to check labs tomorrow morning. She is still on dexamethasone, vitamin C, vitamin D and zinc. Saline at 75 mL/h. 01/06/2021 Patient reports worsening of her dyspnea and oxygen requirement increased from 8 up to 15 L/m today. Repeat chest x-ray showed same changes left greater than right bilateral pulmo nary infiltrate consistent with Covid pneumonia. No labs from today. We going to repeat labs tomorrow She is still on dexamethasone, vitamin C, D and zinc. Normal saline at 75 mL/h, Lovenox and Pepcid 01/07/2021 Patient admitted with bilateral Covid pneumonia. Her oxygen saturated worsened since yesterday She is on 15 L/m since yesterday. She remains on dexamethasone and multiple vitamins Started on heparin drip for multiple PE on CT of the chest 01/08/2021 patient remains on 15 L/m of oxygen with recent worsening over the last 2 days. Workup showed multiple pulmonary embolism and patient currently kept on heparin drip Ultrasound of the neck is negative for DVT. Improvement in Elevated liver enzymes improvement. Patient was started on baricitinib 01/09/2021 Patient was admitted to the hospital due to hypoxic respiratory failure secondary to COVID-19 pneumonia. Patient was also diagnosed with PE. Currently on IV heparin. Patient is being started on dexamethasone and Baricitinib due to worsening respiratory failure. Patient is currently on 15L Via nasal cannula and 100% nontender with a intermittently. Any complaints of chest pain. Patient has been afebrile. No nausea vomiting or abdominal pain or diarrhea. Patient is able to sit in the chair. Laboratory data showed d-dimer level III.4 and LDH 691. Bilateral lower extremity duplex scan is negative for DVT. 2-D echo Showed Preserved EF. 01/10/2021 Patient is currently sitting in the chair. Requiring oxygen at 10 L via nasal cannula. Denied any complaints of chest pain. She'll having exertional short of breath. No fever no chills. Laboratory data showed d-dimer 2.55 BUN 17 and creatinine 0.8 to AST 51 ALT 66 and alk phos 70 and LDH 1356 Patient is being continued on dexamethasone, Eliquis for PE and Baricitinib. Pulmonary is following. 01-30 Patient is currently sitting in the chair. Denied any complaints of chest pain or worsening shortness of breath. A arnold says that her breathing is better to day. Requiring oxygen at 7 L with nasal cannula. Patient was given a dose of IV Lasix yesterday and IV fluids have been discontinued. Laboratory data showed LDH 1356 and CRP 2.5. Patient has been a febrile. No complains of nausea vomiting or abdominal pain or diarrhea. Tolerating oral diet. 01/12/2021 Patient is currently sitting in the chair comfortably. Awake alert and oriented 3. Feels better. Denied any complaints of chest pain or worsening short of breath. Oxygen requirement trending down to 4 L via nasal cannula. D-dimer trending down to 1.54, CRP 1.7 and LDH 1303 Patient is being continued ondexamethasone, Eliquis for PE and Baricitinib + PTOT be consulted. Patient may need rehab transfer. 01/13/2021 Patient is currently sitting in the chair. Awake alert and oriented x3. Requiring oxygen at 5 L via nasal cannula. Laboratory data reviewed. Hemodynamically stable. WBC 14.3 hemoglobin 14.2 sodium 137 potassium 4.0 creatinine 0.86 Patient is being continued dexamethasone, baricitinib and multivitamin supplementation. On anticoagulation with Eliquis. Pulmonary is on board. Current Medications Reviewed. Objective - Vital Signs Vital signs: Vital Signs Temp 98.2 F 01/13/21 10:00 Pulse 90 01/13/21 10:00 Resp 22 01/13/21 10:00 BP 112/66 01/13/21 10:00 Pulse Ox 90 L 01/13/21 10:00 Intake & Output 01/12/21 01/13/21 01/13/21 18:59 06:59 18:59 Other: Voiding Method Bedside Commode # Voids 5 5 # Bowel Movements 2 - Exam - Exam GENERAL: The patient is alert and oriented x3, not in any acute distress. Well developed, well nourished. HEENT: Pupils are round and equally reacting to light. EOMI. No scleral icterus. No conjunctival pallor. Normocephalic, atraumatic. No pharyngeal erythema. No thyromegaly. CARDIOVASCULAR: S1 and S2 present. No murmurs, rubs, or gallops. PULMONARY: Chest is clear to auscultation, no wheezing or crackles. ABDOMEN: Soft, nontender, nondistended, normoactive bowel sounds. No palpable organomegaly. MUSCULOSKELETAL: No joint swelling or deformity. EXTREMITIES: No cyanosis, clubbing, or pedal edema. NEUROLOGICAL: Gross neurological examination did not reveal any focal deficits. SKIN: No rashes. no petechiae. - Labs CBC & Chem 7: 01/14/21 13:58 01/13/21 09:24 Labs: Abnormal Lab Results - Last 24 Hours (Table) 01/13/21 01/13/21 Range/Units 09:24 09:25 WBC 14.3 H (3.8-10.6) k/uL Neutrophils # 11.4 H (1.3-7.7) k/uL Carbon Dioxide 31 H (22-30) mmol/L BUN 22 H (7-17) mg/dL Glucose 166 H (74-99) mg/dL AST 53 H (14-36) U/L ALT 72 H (4-34) U/L Albumin 3.3 L (3.5-5.0) g/dL Assessment and Plan Assessment: Acute bilateral covid Pneumonia Acute hypoxic respiratory failure Increase inflammatory markers Acute Pulmonary embolism Acute Covid gastroenteritis Hypertension History of sleep apnea History of right breast cancer Plan: This is a pleasant 55 years old female who presents with colic pneumonia Continue with multiple vitamins, vitamin C, vitamin D and zinc. Dexamethasone Pulmonary consult Continue with gentle hydration Labs and medication were reviewed. Monitor lytes and vitals. DVT and GI prophylaxis. Anticoagulation: Heparin GI Prophylaxis: Pepcid Prognosis is guarded Time with Patient: Greater than 30
--- NOTE | 2021-01-14 23:37 | P.PN ---
Subjective Progress Note Date: 01/14/21 Principal diagnosis: Acute Covid 19 pneumonia This is a pleasant 55 years old female with past medical history of Hypertension,Sleep Apnea/CPAP/BIPAP HX RT BREAST CA-CHEMO & RAD TX 2011, Presents with respiratory symptoms . Patient states she has been diagnosed with Covid last About 5 days ago. She's been having shortness of breath for about a week prior to that . She called her primary care doctor who asked her to go to urgent care. Also she has cough with clear phlegm but change to yellowish milky over the last 2 days. Also patient complaining of from diarrhea about 4 times per day Patient is afebrile, but on admission she had low-grade temperature of 100.9. She is saturating 94% on 4 L oxygen via nasal cannula went up overnight to 7 L/m. Labs showing mild lymphopenia, rest of the BMP is unremarkable. Liver enzymes slightly elevated AST to 60 and ALT 160. Elevated lactate dehydrogenase 2100, elevated C-reactive protein of 3.6. Troponin negative less than 0.012. EKG showing normal sinus rhythm at [address]-T changes chest x-ray: Bilateral pulmonary infiltrates An emergency room patient received 1 dose of dexamethasone 01/03/2021 Patient clinically looks similar to yesterday with dyspnea. And oxygen saturation 90s while she is on 7 L/m of oxygen. No much change in her labs with d-dimer at similar levels 0.84. LDH 691 and C- reactive protein 1.9 which are mildly elevated. No murmur or fever. Continue with the same regimen of dexamethasone, vitamin C, vitamin D and zinc. On normal saline at 75 mL/h 01/04/21 Patient still in In chair with no significant breathing difficulty, however she still tachypneic. No fever. No chest pain or diarrhea. Her coughing is better controlled. Her oxygen requirement increased to 7-8 L/m. Chest x-ray from today showing some improvement of the right mid lung otherwise there is same bilateral infiltrates. She remains on multiple vitamins, dexamethasone and normal saline 01/05/2021 Patient states that her breathing is the same, she has low appetite. She keeps oxygen saturation the same on 8 L/m via nasal cannula. She has no more fever. No labs from today. We are going to check labs tomorrow morning. She is still on dexamethasone, vitamin C, vitamin D and zinc. Saline at 75 mL/h. 01/06/2021 Patient reports worsening of her dyspnea and oxygen requirement increased from 8 up to 15 L/m today. Repeat chest x-ray showed same changes left greater than right bilateral pulmo nary infiltrate consistent with Covid pneumonia. No labs from today. We going to repeat labs tomorrow She is still on dexamethasone, vitamin C, D and zinc. Normal saline at 75 mL/h, Lovenox and Pepcid 01/07/2021 Patient admitted with bilateral Covid pneumonia. Her oxygen saturated worsened since yesterday She is on 15 L/m since yesterday. She remains on dexamethasone and multiple vitamins Started on heparin drip for multiple PE on CT of the chest 01/08/2021 patient remains on 15 L/m of oxygen with recent worsening over the last 2 days. Workup showed multiple pulmonary embolism and patient currently kept on heparin drip Ultrasound of the neck is negative for DVT. Improvement in Elevated liver enzymes improvement. Patient was started on baricitinib 01/09/2021 Patient was admitted to the hospital due to hypoxic respiratory failure secondary to COVID-19 pneumonia. Patient was also diagnosed with PE. Currently on IV heparin. Patient is being started on dexamethasone and Baricitinib due to worsening respiratory failure. Patient is currently on 15L Via nasal cannula and 100% nontender with a intermittently. Any complaints of chest pain. Patient has been afebrile. No nausea vomiting or abdominal pain or diarrhea. Patient is able to sit in the chair. Laboratory data showed d-dimer level III.4 and LDH 691. Bilateral lower extremity duplex scan is negative for DVT. 2-D echo Showed Preserved EF. 01/10/2021 Patient is currently sitting in the chair. Requiring oxygen at 10 L via nasal cannula. Denied any complaints of chest pain. She'll having exertional short of breath. No fever no chills. Laboratory data showed d-dimer 2.55 BUN 17 and creatinine 0.8 to AST 51 ALT 66 and alk phos 70 and LDH 1356 Patient is being continued on dexamethasone, Eliquis for PE and Baricitinib. Pulmonary is following. 01-30 Patient is currently sitting in the chair. Denied any complaints of chest pain or worsening shortness of breath. A arnold says that her breathing is better to day. Requiring oxygen at 7 L with nasal cannula. Patient was given a dose of IV Lasix yesterday and IV fluids have been discontinued. Laboratory data showed LDH 1356 and CRP 2.5. Patient has been a febrile. No complains of nausea vomiting or abdominal pain or diarrhea. Tolerating oral diet. 01/12/2021 Patient is currently sitting in the chair comfortably. Awake alert and oriented 3. Feels better. Denied any complaints of chest pain or worsening short of breath. Oxygen requirement trending down to 4 L via nasal cannula. D-dimer trending down to 1.54, CRP 1.7 and LDH 1303 Patient is being continued ondexamethasone, Eliquis for PE and Baricitinib + PTOT be consulted. Patient may need rehab transfer. 01/13/2021 Patient is currently sitting in the chair. Awake alert and oriented x3. Requiring oxygen at 5 L via nasal cannula. Laboratory data reviewed. Hemodynamically stable. WBC 14.3 hemoglobin 14.2 sodium 137 potassium 4.0 creatinine 0.86 Patient is being continued dexamethasone, baricitinib and multivitamin supplementation. On anticoagulation with Eliquis. Pulmonary is on board. 01/14/2021 Patient is currently sitting in the chair comfortably. Awake alert and oriented x3. Oxygen level titrate down to 4 L via nasal cannula and saturating at 92%. Patient is being continued on dexamethasone and baricitinib and anticoagulation with Eliquis. Patient is being current on other blood pressure medications. PT OT consult and possible discharge home with home oxygen. Current Medications Reviewed. Objective - Vital Signs Vital signs: Vital Signs Temp 98.5 F 01/14/21 17:50 Pulse 92 01/14/21 17:50 Resp 18 01/14/21 17:50 BP 122/78 01/14/21 17:50 Pulse Ox 92 L 01/14/21 17:50 Intake & Output 01/14/21 01/14/21 01/15/21 06:59 18:59 06:59 Intake Total 1500 Balance 1500 Intake: Oral 1500 Other: Voiding Method Bedside Commode # Voids 6 1 # Bowel Movements 3 1 - Exam - Exam GENERAL: The patient is alert and oriented x3, not in any acute distress. Well developed, well nourished. HEENT: Pupils are round and equally reacting to light. EOMI. No scleral icterus. No conjunctival pallor. Normocephalic, atraumatic. No pharyngeal erythema. No thyromegaly. CARDIOVASCULAR: S1 and S2 present. No murmurs, rubs, or gallops. PULMONARY: Chest is clear to auscultation, no wheezing or crackles. ABDOMEN: Soft, nontender, nondistended, normoactive bowel sounds. No palpable organomegaly. MUSCULOSKELETAL: No joint swelling or deformity. EXTREMITIES: No cyanosis, clubbing, or pedal edema. NEUROLOGICAL: Gross neurological examination did not reveal any focal deficits. SKIN: No rashes. no petechiae. - Labs CBC & Chem 7: 01/14/21 13:58 01/13/21 09:24 Labs: Abnormal Lab Results - Last 24 Hours (Table) 01/14/21 Range/Units 13:58 WBC 15.0 H (3.8-10.6) k/uL Neutrophils # 13.4 H (1.3-7.7) k/uL Assessment and Plan Assessment: Acute bilateral covid Pneumonia Acute hypoxic respiratory failure Increase inflammatory markers Acute Pulmonary embolism Acute Covid gastroenteritis Hypertension History of sleep apnea History of right breast cancer Plan: This is a pleasant 55 years old female who presents with colic pneumonia Continue with multiple vitamins, vitamin C, vitamin D and zinc. Dexamethasone ans Baricitanib Labs and medication were reviewed. Monitor lytes and vitals. DVT and GI prophylaxis. Anticoagulation: Heparin GI Prophylaxis: Pepcid Prognosis is guarded PT OT consult and possible discharge with home oxygen. Time with Patient: Greater than 30
[2021-01-15] MEDS: ASCORBIC ACID 500 MG TAB PO SCH (07:59)
[2021-01-15] MEDS: lisinopriL 5 MG TAB PO SCH (07:59)
[2021-01-15] MEDS: ZINC SULFATE 220 MG CAP PO SCH (07:59)
[2021-01-15] MEDS: SPIRONOLACTONE 25 MG TAB PO SCH (07:59)
[2021-01-15] MEDS: DOCUSATE 100 MG CAP PO SCH (08:00)
[2021-01-15] MEDS: DEXAMETHASONE SOD PHOSPHATE 10 MG/ML 1 ML VIAL IVP SCH (08:00)
[2021-01-15] MEDS: CHOLECALCIFEROL 25 MCG (1000 IU) TABLET PO SCH (08:00)
[2021-01-15] MEDS: TAMOXIFEN 10 MG TAB PO SCH (08:08)
[2021-01-15 08:53] LABS: Basophils # (A) 0.06 X 10*3/uL (0.00-0.10); Basophils % (A) 0.4 %; Eosinophils # (A) 0.12 X 10*3/uL (0.04-0.35); Eosinophils % (A) 0.8 %; HCT 44.6 % (37.2-46.3); HGB 13.6 g/dL (12.0-15.0); Lymphocytes # (A) 2.37 X 10*3/uL (0.90-5.00); Lymphocytes % (A) 16.4 %; MCH 28.5 pg (27.0-32.0); MCHC 30.5 g/dL (32.0-37.0); MCV 93.5 fL (80.0-97.0); Mean Platelet Volume 10.7 fL (9.5-12.2); Monocytes # (A) 0.95 X 10*3/uL (0.20-1.00); Monocytes % (A) 6.6 %; Neutrophils # (A) 10.68 X 10*3/uL (1.80-7.70); Neutrophils % (A) 73.7 %; Platelet Count 339 X 10*3/uL (140-440); RBC 4.77 X 10*6/uL (4.10-5.20); RDW 13.1 % (11.5-14.5); WBC 14.49 X 10*3/uL (4.50-10.00)
--- NOTE | 2021-01-15 08:54 | XR ---
EXAMINATION TYPE: XR chest 1V portable DATE OF EXAM: 01/15/2021 COMPARISON: Chest x-ray 01/11/2021 HISTORY: Covid pneumonia TECHNIQUE: Single frontal view of the chest is obtained. FINDINGS: Bilateral airspace disease persists. Overlying artifacts are present. No evident pneumotho rax or pleural effusion. Cardiomediastinal silhouette is stable. Bones are unchanged. IMPRESSION: Findings consistent with pneumonia, follow-up
[2021-01-15 10:30] LABS: ALT 71 U/L (8-44); AST 42 U/L (13-35); African American GFR (CKD) 94.9 (60.0-200.0); Albumin 3.7 g/dL (3.8-4.9); Albumin/Globulin Ratio 1.61 (1.60-3.17); Alkaline Phosphatase 68 U/L (41-126); Blood Urea Nitrogen 21.6 mg/dL (9.0-27.0); C Reactive Protein <0.30 mg/dL (0.00-0.80); Calcium 9.4 mg/dL (8.7-10.3); Carbon Dioxide 26.8 mmol/L (20.0-27.5); Chloride 97 mmol/L (96-109); Globulin 2.3 g/dL (1.6-3.3); Glucose 98 mg/dL (70-110); LDH 510 U/L (120-246); Non-African American GFR(CKD) 81.8 (60.0-200.0); Potassium 5.1 mmol/L (3.5-5.5); Sodium 136 mmol/L (135-145)
[2021-01-15] MEDS: BARICITINIB 2 MG TABLET PO SCH (14:51)
--- NOTE | 2021-01-15 16:36 | CT ---
EXAMINATION TYPE: CT chest angio for PE DATE OF EXAM: 01/15/2021 COMPARISON: Chest x-ray same date, CTA chest 01/07/2021 HISTORY: ml, elevated d-dimer CT DLP: 820.6 mGycm Automated exposure control for dose reduction was used. CONTRAST: CT Chest for pulmonary embolism performed with with IV Contrast, patient injected with 100 mL of Isov ue 370. Three-dimensional reconstructions performed on an alternate workstation and reviewed FINDINGS: LUNGS: The lungs are similar appearance, groundglass opacities are scattered within the lungs in a si milar distribution, similar extent, bandlike areas of increased attenuation present at the lung bases , there is some improvement in airspace disease at the left lung base and likely right as compared to prior, there is no concerning parenchymal mass or nodule identified. There is no pleural effusion or pneumothorax seen. The tracheobronchial tree is patent. MEDIASTINUM: There is satisfactory enhancement of the pulmonary artery and its branches, there is no CT evidence for pulmonary embolism. There are no greater than 1 cm hilar or mediastinal lymph nodes. No pericardial effusion is seen. AORTA: No additional significant abnormality is seen. OTHER: Liver shows low attenuation likely due to hepatic steatosis. Patient is post cholecystectomy. . There is a small hiatal hernia. IMPRESSION: No evident pulmonary embolus, previously identified filling defects are no longer seen in the right l ower lobe pulmonary artery branches. Correlate for pneumonia.
--- NOTE | 2021-01-15 18:28 | P.PN ---
Subjective Progress Note Date: 01/15/21 Principal diagnosis: Dyspnea On 01/06/2021 patient seen in follow-up on medical surgical floor. Her FiO2 has been increased to 15 L, yesterday patient was on 7 and 8 L. Today her O2 sats on 15 L are 90-94%. Has low-grade fevers overnight, hemodynamically she is stable, she is sitting up in the chair, does not appear to be in any acute distress, lung sounds reveal fine rales bilaterally, she is currently on Decadron 6 mg, COVID-19 vitamins, and prophylactic Lovenox. Her last set of d- dimer was on 01/03/2021 at 0.84, LDH was improving and was down to 691, and CRP was 1.9. Procalcitonin level was negative on admission at 0.16. On 01/10/2001 patient seen in follow-up on medical surgical floor, patient is currently on 10 L per high flow nasal cannula down from 15 L on yesterday's exam, and she is wearing a nonrebreather mask her pulse ox is 98%. HER-2 is being titrated down, clinically patient states she is feeling the same, still short of breath with exertion, cough, no chest pain, no significant phlegm production, no fever or chills. Vital signs have been stable, lung sounds reveal diffuse crackles bilaterally, patient is getting 0.9 normal saline at a rate of 75 ML per hour, she is developing lower extremity edema, and some in her hands. Her oral intake has been fair. No nausea or vomiting, today's labs have been reviewed, CBC is within normal limits, her lactate from yesterday was 3.48, electrolytes and renal profile were unremarkable, her LDH is still pending for today, her CRP is 2.3 on yesterday's labs. Inflammatory markers have been improv ing since admission. Patient remains on Baricitinib, Decadron, and Eliquis for pulmonary embolism 01/11/2021 patient seen in follow-up on medical surgical floor, she is resting comfortably in the recliner, she is currently eating lunch, breathing comfortable, occasional cough, no phlegm production, no complaint of chest pain, she is currently down on 7 L of oxygen, not using nonrebreather mask. Her pulse ox is a 3-94%, afebrile, hemodynamically stable, yesterday she was given a dose of IV Lasix and IV fluids haven't turned out to KVO, she has diabetes, although no fluid balance is difficult to estimate. Today's labs have been reviewed and were little count of 10.5, hemoglobin of 13.5, lymphocyte count was 1.4, slightly improved and is down to 2.5 on today's labs, sodium is 139, potassium is 3.7, CO2 is 33, BUN 17 creatinine 0.82. His has increased to 1356, increased from last value on 01/03/2021, and CRP is 2.5, patient is on a combination of Baricitinib, COVID-19 vitamins, and she is on Eliquis 10 mg twice daily for newly diagnosed pulmonary embolism. Overall clinically she looks stable, improving. Tolerating oral intake, she is awake and alert, interactive, physical therapy has been consulted, and patient has been get not to the bedside commode with help. On 01/12/2021 patient seen in follow-up on medical surgical floor, she is awake and alert, currently down to 4 L of oxygen, pulse ox is 91%, clinically she is improving, breathing is improving, she continues on Eliquis, Decadron 6 blood gram daily, she is on Baricitinib which was started on 01/07/2021, oxygenation has improved, patient looks better, lung sounds are positive for some bibasilar crackles, no new labs today, her d-dimer was improving on yesterday's labs and was down to 1.54, her LDH is relatively stable on today's labs, with LDH of 1303, and CRP was down to 1.7. No nausea or vomiting, she is tolerating oral intake, no abdominal pain. On 01/15/2021 patient seen in follow-up on medical surgical floor, today she had a episode of worsening shortness of breath, she describes it as sudden worsening of shortness of breath, her FiO2 requirements had increased from 4 L to 8 L. No chest discomfort, no cough, her Eliquis was placed on hold in view of some blood-tinged stools, with wiping, possibly related to hemorrhoids. No abdominal pain, no back tarry stools. She remains on Decadron 6 mg daily, she is on Baricitibub, which was started on 01/07/2021. Today's labs have been reviewed, with a total count is 14.4, hemoglobin is 13.6, platelet count is 339, electrolytes and renal profile are unremarkable, BUN is 21, creatinine is 0.8. Vital signs have been stable, blood pressure has been stable. Chest x-ray shows findings consistent with pneumonia, since last d-dimer was 1.54 and this was on [address] angiogram of the chest showing no evident pulmonary embolus, and previously identified filling defects are no longer seen in the right lower lobe pulmonary artery branches. Objective - Vital Signs Vital signs: Vital Signs Temp 98.7 F 01/15/21 14:00 Pulse 92 01/15/21 14:00 Resp 28 H 01/15/21 14:00 BP 107/65 01/15/21 14:00 Pulse Ox 91 L 01/15/21 14:00 Intake & Output 01/14/21 01/15/21 01/15/21 18:59 06:59 18:59 Intake Total 1500 720 Output Total 1 Balance 1500 -1 720 Intake: Oral 1500 720 Output: Stool 1 Other: Voiding Method Bedside Commode # Voids 1 3 # Bowel Movements 1 1 - Exam GENERAL EXAM: Alert, very pleasant, 55-year-old white female, on 4 L of oxygen with a pulse ox of 91comfortable in no apparent distress. HEAD: Normocephalic/atraumatic. EYES: Normal reaction of pupils, equal size. Conjunctiva pink, sclera white. NOSE: Clear with pink turbinates. THROAT: No erythema or exudates. NECK: No masses, no JVD, no thyroid enlargement, no adenopathy. CHEST: No chest wall deformity. Symmetrical expansion. LUNGS: Equal air entry with bibasilar crackles CVS: Regular rate and rhythm, normal S1 and S2, no gallops, no murmurs, no rubs ABDOMEN: Soft, nontender. No hepatosplenomegaly, normal bowel sounds, no guarding or rigidity. EXTREMITIES: No clubbing, no edema, no cyanosis, 2+ pulses and upper and lower extremities. MUSCULOSKELETAL: Muscle strength and tone normal. SPINE: No scoliosis or deformity SKIN: No rashes CENTRAL NERVOUS SYSTEM: Alert and oriented -3. No focal deficits, tone is normal in all 4 extremities. PSYCHIATRIC: Alert and oriented -3. Appropriate affect. Intact judgment and insight. - Labs CBC & Chem 7: 01/15/21 05:38 01/15/21 05:38 Labs: Abnormal Lab Results - Last 24 Hours (Table) 01/15/21 01/15/21 Range/Units 05:38 05:38 WBC 14.49 H (4.50-10.00) X 10*3/uL MCHC 30.5 L (32.0-37.0) g/dL Immature Gran # 0.31 H (0.00-0.04) X 10*3/uL Neutrophils # 10.68 H (1.80-7.70) X 10*3/uL BUN/Creatinine Ratio 27.00 H (12.00-20.00) Ratio AST 42 H (13-35) U/L ALT 71 H (8-44) U/L Lactate Dehydrogenase 510 H (120-246) U/L Total Protein 6.0 L (6.2-8.2) g/dL Albumin 3.7 L (3.8-4.9) g/dL Assessment and Plan Plan: Assessment: #1. Acute hypoxic respiratory failure related to COVID-19 pneumonia, patient reports first onset of symptoms on 12/10/2020, outside the normal Remdesivir. Patient is non-vaccinated for COVID-19, developed worsening hypoxemia, and was initiated on Baricitinib on 01/07/2021 #2. Blood in the stool, today's hemoglobin is 13.9, stable, Eliquis has been held #3. Acute pulmonary embolism, was started on Eliquis which is currently on hold for possible rectal bleed #4. Hypertension #5. Morbid obesity #6. Obstructive sleep apnea currently not wearing her CPAP #7. Hypertension nonsmoker #8. History of right breast cancer status post chemotherapy and radiation in 2011 Plan: CTA chest results have been reviewed No evidence of pulmonary embolism, and previous filling defects noted on previous CT chest are resolved Eliquis remains on hold for possibility of rectal bleeding Today's labs have been reviewed Continue Decadron Continue Baricitinib We'll obtain stat hemoglobin We'll continue to follow patient's clinical course Weaning FiO2 back down to maintain O2 saturations at 90% I performed a history & physical examination of the patient and discussed their management with my nurse practitioner, Alexandra Leigh. I reviewed the nurse practitioner's note and agree with the documented findings and plan of care. Lung sounds are positive for diminished breath sounds throughout the lung nino. The findings and the impression was discussed with the patient. I attest to the documentation by the nurse practitioner. Time with Patient: Less than 30
[2021-01-15 19:39] LABS: Appearance,Urine Cloudy (Clear); Bacteria,Urine Rare /hpf; Bilirubin,Urine Negative (Negative); Blood,Urine Large (Negative); Color,Urine Yellow; Glucose,Urine (UA) Negative (Negative); Ketones,Urine Negative (Negative); Leukocyte Esterase,Urine Moderate (Negative); Nitrite,Urine Positive (Negative); Protein,Urine Trace (Negative); RBC,Urine >182 /hpf (0-5); Squamous Epithelial Cell,Urine 9 /hpf (0-4); Urobilinogen,Urine <2.0 mg/dL (<2.0); WBC,Urine 41 /hpf (0-5)
[2021-01-15 19:43] LABS: Specific Gravity,Urine >1.050 (1.001-1.035)
[2021-01-16] MEDS: lisinopriL 5 MG TAB PO SCH (08:55)
[2021-01-16] MEDS: ZINC SULFATE 220 MG CAP PO SCH (08:55)
[2021-01-16] MEDS: BARICITINIB 2 MG TABLET PO SCH (08:55)
[2021-01-16] MEDS: SPIRONOLACTONE 25 MG TAB PO SCH (08:55)
[2021-01-16] MEDS: DOCUSATE 100 MG CAP PO SCH (08:55)
[2021-01-16] MEDS: ASCORBIC ACID 500 MG TAB PO SCH (08:55)
[2021-01-16] MEDS: APIXABAN 5 MG TAB PO SCH ×2 (08:56→19:34)
[2021-01-16] MEDS: CHOLECALCIFEROL 25 MCG (1000 IU) TABLET PO SCH (08:56)
[2021-01-16] MEDS: TAMOXIFEN 10 MG TAB PO SCH (08:56)
[2021-01-16] MEDS: DEXAMETHASONE SOD PHOSPHATE 10 MG/ML 1 ML VIAL IVP SCH (08:57)
[2021-01-16 09:30] LABS: Basophils # (A) 0.07 X 10*3/uL (0.00-0.10); Basophils % (A) 0.7 %; Eosinophils # (A) 0.22 X 10*3/uL (0.04-0.35); Eosinophils % (A) 2.1 %; HCT 43.7 % (37.2-46.3); HGB 13.3 g/dL (12.0-15.0); Lymphocytes # (A) 1.29 X 10*3/uL (0.90-5.00); Lymphocytes % (A) 12.2 %; MCH 28.7 pg (27.0-32.0); MCHC 30.4 g/dL (32.0-37.0); MCV 94.2 fL (80.0-97.0); Mean Platelet Volume 10.7 fL (9.5-12.2); Monocytes # (A) 0.93 X 10*3/uL (0.20-1.00); Monocytes % (A) 8.8 %; Neutrophils # (A) 7.79 X 10*3/uL (1.80-7.70); Neutrophils % (A) 73.9 %; Platelet Count 305 X 10*3/uL (140-440); RBC 4.64 X 10*6/uL (4.10-5.20); RDW 13.4 % (11.5-14.5); WBC 10.54 X 10*3/uL (4.50-10.00)
--- NOTE | 2021-01-16 10:06 | XR ---
EXAMINATION TYPE: XR chest 1V portable DATE OF EXAM: 01/16/2021 COMPARISON: 01/15/2021 HISTORY: Cough TECHNIQUE: Single frontal view of the chest is obtained. FINDINGS: Bilateral multifocal areas of patchy infiltrate. Heart size normal. No pneumothorax. Hyper trophic and degenerative changes spine. Post surgical change overlying the right chest. IMPRESSION: Bilateral areas of patchy infiltrate stable.
--- NOTE | 2021-01-16 10:31 | P.PN ---
Subjective Progress Note Date: 01/16/21 Principal diagnosis: Dyspnea On 01/06/2021 patient seen in follow-up on medical surgical floor. Her FiO2 has been increased to 15 L, yesterday patient was on 7 and 8 L. Today her O2 sats on 15 L are 90-94%. Has low-grade fevers overnight, hemodynamically she is stable, she is sitting up in the chair, does not appear to be in any acute distress, lung sounds reveal fine rales bilaterally, she is currently on Decadron 6 mg, COVID-19 vitamins, and prophylactic Lovenox. Her last set of d- dimer was on 01/03/2021 at 0.84, LDH was improving and was down to 691, and CRP was 1.9. Procalcitonin level was negative on admission at 0.16. On 01/10/2001 patient seen in follow-up on medical surgical floor, patient is currently on 10 L per high flow nasal cannula down from 15 L on yesterday's exam, and she is wearing a nonrebreather mask her pulse ox is 98%. HER-2 is being titrated down, clinically patient states she is feeling the same, still short of breath with exertion, cough, no chest pain, no significant phlegm production, no fever or chills. Vital signs have been stable, lung sounds reveal diffuse crackles bilaterally, patient is getting 0.9 normal saline at a rate of 75 ML per hour, she is developing lower extremity edema, and some in her hands. Her oral intake has been fair. No nausea or vomiting, today's labs have been reviewed, CBC is within normal limits, her lactate from yesterday was 3.48, electrolytes and renal profile were unremarkable, her LDH is still pending for today, her CRP is 2.3 on yesterday's labs. Inflammatory markers have been improv ing since admission. Patient remains on Baricitinib, Decadron, and Eliquis for pulmonary embolism 01/11/2021 patient seen in follow-up on medical surgical floor, she is resting comfortably in the recliner, she is currently eating lunch, breathing comfortable, occasional cough, no phlegm production, no complaint of chest pain, she is currently down on 7 L of oxygen, not using nonrebreather mask. Her pulse ox is a 3-94%, afebrile, hemodynamically stable, yesterday she was given a dose of IV Lasix and IV fluids haven't turned out to KVO, she has diabetes, although no fluid balance is difficult to estimate. Today's labs have been reviewed and were little count of 10.5, hemoglobin of 13.5, lymphocyte count was 1.4, slightly improved and is down to 2.5 on today's labs, sodium is 139, potassium is 3.7, CO2 is 33, BUN 17 creatinine 0.82. His has increased to 1356, increased from last value on 01/03/2021, and CRP is 2.5, patient is on a combination of Baricitinib, COVID-19 vitamins, and she is on Eliquis 10 mg twice daily for newly diagnosed pulmonary embolism. Overall clinically she looks stable, improving. Tolerating oral intake, she is awake and alert, interactive, physical therapy has been consulted, and patient has been get not to the bedside commode with help. On 01/12/2021 patient seen in follow-up on medical surgical floor, she is awake and alert, currently down to 4 L of oxygen, pulse ox is 91%, clinically she is improving, breathing is improving, she continues on Eliquis, Decadron 6 blood gram daily, she is on Baricitinib which was started on 01/07/2021, oxygenation has improved, patient looks better, lung sounds are positive for some bibasilar crackles, no new labs today, her d-dimer was improving on yesterday's labs and was down to 1.54, her LDH is relatively stable on today's labs, with LDH of 1303, and CRP was down to 1.7. No nausea or vomiting, she is tolerating oral intake, no abdominal pain. On 01/15/2021 patient seen in follow-up on medical surgical floor, today she had a episode of worsening shortness of breath, she describes it as sudden worsening of shortness of breath, her FiO2 requirements had increased from 4 L to 8 L. No chest discomfort, no cough, her Eliquis was placed on hold in view of some blood-tinged stools, with wiping, possibly related to hemorrhoids. No abdominal pain, no back tarry stools. She remains on Decadron 6 mg daily, she is on Baricitibub, which was started on 01/07/2021. Today's labs have been reviewed, with a total count is 14.4, hemoglobin is 13.6, platelet count is 339, electrolytes and renal profile are unremarkable, BUN is 21, creatinine is 0.8. Vital signs have been stable, blood pressure has been stable. Chest x-ray shows findings consistent with pneumonia, since last d-dimer was 1.54 and this was on [address] angiogram of the chest showing no evident pulmonary embolus, and previously identified filling defects are no longer seen in the right lower lobe pulmonary artery branches. On 01/16/2021 patient seen in follow-up on medical surgical floor, she is currently on 10 L of oxygen, her pulse ox is 89-90%, she has a frequent dry cough, no phlegm production, lung sounds reveal diminished breath sounds with some mild crackles at the bases, she is awake and alert, oriented 3, appears to be in no acute distress, she was able to participate with physical therapy, her Eliquis has been resumed, patient is on Eliquis 5 mg twice daily, CTA chest showed no evidence of pulmonary embolism, today's chest x-ray has also been reviewed showing bilateral areas of patchy infiltrated there is stable in appearance. No abdominal pain, she states she still sees small amount of blood on the toilet paper, no visible blood in the stool, today's hemoglobin is stable at 13.3, white count is 10.5, white blood count is 305, d-dimer is 1.45, electrolytes and renal profile and inflammatory markers are still pending for today, her last LDH from yesterday was 510, and CRP was less than 0.30, uri nalysis was done showing evidence of acute urinary tract infection and patient will be started on Rocephin Objective - Vital Signs Vital signs: Vital Signs Temp 98.0 F 01/16/21 06:00 Pulse 79 01/16/21 06:00 Resp 19 01/15/21 22:00 BP 112/71 01/16/21 06:00 Pulse Ox 97 01/16/21 06:00 Intake & Output 01/15/21 01/16/21 01/16/21 18:59 06:59 18:59 Intake Total 1620 Balance 1620 Intake: Oral 1620 Other: Voiding Method Bedside Commode # Voids 6 2 # Bowel Movements 5 - Exam GENERAL EXAM: Alert, very pleasant, 55-year-old white female, on 10 L of oxygen with a pulse ox of 90comfortable in no apparent distress. Is a frequent dry nonproductive cough HEAD: Normocephalic/atraumatic. EYES: Normal reaction of pupils, equal size. Conjunctiva pink, sclera white. NOSE: Clear with pink turbinates. THROAT: No erythema or exudates. NECK: No masses, no JVD, no thyroid enlargement, no adenopathy. CHEST: No chest wall deformity. Symmetrical expansion. LUNGS: Equal air entry with bibasilar crackles CVS: Regular rate and rhythm, normal S1 and S2, no gallops, no murmurs, no rubs ABDOMEN: Soft, nontender. No hepatosplenomegaly, normal bowel sounds, no guarding or rigidity. EXTREMITIES: No clubbing, no edema, no cyanosis, 2+ pulses and upper and lower extremities. MUSCULOSKELETAL: Muscle strength and tone normal. SPINE: No scoliosis or deformity SKIN: No rashes CENTRAL NERVOUS SYSTEM: Alert and oriented -3. No focal deficits, tone is normal in all 4 extremities. PSYCHIATRIC: Alert and oriented -3. Appropriate affect. Intact judgment and insight. - Labs CBC & Chem 7: 01/16/21 06:44 01/15/21 05:38 Labs: Abnormal Lab Results - Last 24 Hours (Table) 01/15/21 01/15/21 01/16/21 Range/Units 05:38 19:20 06:44 WBC 10.54 H (4.50-10.00) X 10*3/uL MCHC 30.4 L (32.0-37.0) g/dL Immature Gran # 0.24 H (0.00-0.04) X 10*3/uL Neutrophils # 7.79 H (1.80-7.70) X 10*3/uL D-Dimer (<0.60) mg/L FEU BUN/Creatinine Ratio 27.00 H (12.00-20.00) Ratio AST 42 H (13-35) U/L ALT 71 H (8-44) U/L Lactate Dehydrogenase 510 H (120-246) U/L Total Protein 6.0 L (6.2-8.2) g/dL Albumin 3.7 L (3.8-4.9) g/dL Urine Appearance Cloudy H (Clear) Ur Specific [place] >1.050 H (1.001-1.035) Urine Protein Trace H (Negative) Urine Blood Large H (Negative) Urine Nitrite Positive H (Negative) Ur Leukocyte Esterase Moderate H (Negative) Urine RBC >182 H (0-5) /hpf Urine WBC 41 H (0-5) /hpf Ur Squamous Epith Cells 9 H (0-4) /hpf Urine Bacteria Rare H (None) /hpf 01/16/21 Range/Units 06:44 WBC (4.50-10.00) X 10*3/uL MCHC (32.0-37.0) g/dL Immature Gran # (0.00-0.04) X 10*3/uL Neutrophils # (1.80-7.70) X 10*3/uL D-Dimer 1.45 H (<0.60) mg/L FEU BUN/Creatinine Ratio (12.00-20.00) Ratio AST (13-35) U/L ALT (8-44) U/L Lactate Dehydrogenase (120-246) U/L Total Protein (6.2-8.2) g/dL Albumin (3.8-4.9) g/dL Urine Appearance (Clear) Ur Specific [place] (1.001-1.035) Urine Protein (Negative) Urine Blood (Negative) Urine Nitrite (Negative) Ur Leukocyte Esterase (Negative) Urine RBC (0-5) /hpf Urine WBC (0-5) /hpf Ur Squamous Epith Cells (0-4) /hpf Urine Bacteria (None) /hpf Microbiology - Last 24 Hours (Table) 01/15/21 19:20 Urine Culture - Preliminary Urine,Voided Assessment and Plan Plan: Assessment: #1. Acute hypoxic respiratory failure related to COVID-19 pneumonia, patient reports first onset of symptoms on 12/10/2020, outside the normal Remdesivir. Patient is non-vaccinated for COVID-19, developed worsening hypoxemia, and was initiated on Baricitinib on 01/07/2021, which was stopped today for subacute u rinary tract infection #2. Blood in the stool, today's hemoglobin is 13.9, stable, Eliquis has been held, resumed, hemoglobin is stable #3. Acute pulmonary embolism, was started on Eliquis #4. Acute urinary tract infection will be started on Rocephin today on 01/16/2021 #5. Hypertension #6. Morbid obesity #7. Obstructive sleep apnea currently not wearing her CPAP #8. Hypertension nonsmoker #9. History of right breast cancer status post chemotherapy and radiation in 2011 Plan: Continue Decadron Eliquis has been resumed, Hemoglobin has been stable, Patient continues to have small amount of blood on the toilet paper when she wipes, could be related to hemorrhoids Hemodynamically stable Patient has evidence of urinary tract infection, we'll start Rocephin, stop Baricitinib We'll continue to follow patient's clinical course Weaning FiO2 back down to maintain O2 saturations at 90% I performed a history & physical examination of the patient and discussed their management with my nurse practitioner, Alexandra Leigh. I reviewed the nurse practitioner's note and agree with the documented findings and plan of care. Lung sounds are positive for diminished breath sounds throughout the lung nino. The findings and the impression was discussed with the patient. I attest to the documentation by the nurse practitioner. Time with Patient: Less than 30
--- NOTE | 2021-01-16 11:15 | P.PN ---
Subjective Progress Note Date: 01/15/21 Principal diagnosis: Acute Covid 19 pneumonia This is a pleasant 55 years old female with past medical history of Hypertension,Sleep Apnea/CPAP/BIPAP HX RT BREAST CA-CHEMO & RAD TX 2011, Presents with respiratory symptoms . Patient states she has been diagnosed with Covid last About 5 days ago. She's been having shortness of breath for about a week prior to that . She called her primary care doctor who asked her to go to urgent care. Also she has cough with clear phlegm but change to yellowish milky over the last 2 days. Also patient complaining of from diarrhea about 4 times per day Patient is afebrile, but on admission she had low-grade temperature of 100.9. She is saturating 94% on 4 L oxygen via nasal cannula went up overnight to 7 L/m. Labs showing mild lymphopenia, rest of the BMP is unremarkable. Liver enzymes slightly elevated AST to 60 and ALT 160. Elevated lactate dehydrogenase 2100, elevated C-reactive protein of 3.6. Troponin negative less than 0.012. EKG showing normal sinus rhythm at [address]-T changes chest x-ray: Bilateral pulmonary infiltrates An emergency room patient received 1 dose of dexamethasone 01/03/2021 Patient clinically looks similar to yesterday with dyspnea. And oxygen saturation 90s while she is on 7 L/m of oxygen. No much change in her labs with d-dimer at similar levels 0.84. LDH 691 and C- reactive protein 1.9 which are mildly elevated. No murmur or fever. Continue with the same regimen of dexamethasone, vitamin C, vitamin D and zinc. On normal saline at 75 mL/h 01/04/21 Patient still in In chair with no significant breathing difficulty, however she still tachypneic. No fever. No chest pain or diarrhea. Her coughing is better controlled. Her oxygen requirement increased to 7-8 L/m. Chest x-ray from today showing some improvement of the right mid lung otherwise there is same bilateral infiltrates. She remains on multiple vitamins, dexamethasone and normal saline 01/05/2021 Patient states that her breathing is the same, she has low appetite. She keeps oxygen saturation the same on 8 L/m via nasal cannula. She has no more fever. No labs from today. We are going to check labs tomorrow morning. She is still on dexamethasone, vitamin C, vitamin D and zinc. Saline at 75 mL/h. 01/06/2021 Patient reports worsening of her dyspnea and oxygen requirement increased from 8 up to 15 L/m today. Repeat chest x-ray showed same changes left greater than right bilateral pulmo nary infiltrate consistent with Covid pneumonia. No labs from today. We going to repeat labs tomorrow She is still on dexamethasone, vitamin C, D and zinc. Normal saline at 75 mL/h, Lovenox and Pepcid 01/07/2021 Patient admitted with bilateral Covid pneumonia. Her oxygen saturated worsened since yesterday She is on 15 L/m since yesterday. She remains on dexamethasone and multiple vitamins Started on heparin drip for multiple PE on CT of the chest 01/08/2021 patient remains on 15 L/m of oxygen with recent worsening over the last 2 days. Workup showed multiple pulmonary embolism and patient currently kept on heparin drip Ultrasound of the neck is negative for DVT. Improvement in Elevated liver enzymes improvement. Patient was started on baricitinib 01/09/2021 Patient was admitted to the hospital due to hypoxic respiratory failure secondary to COVID-19 pneumonia. Patient was also diagnosed with PE. Currently on IV heparin. Patient is being started on dexamethasone and Baricitinib due to worsening respiratory failure. Patient is currently on 15L Via nasal cannula and 100% nontender with a intermittently. Any complaints of chest pain. Patient has been afebrile. No nausea vomiting or abdominal pain or diarrhea. Patient is able to sit in the chair. Laboratory data showed d-dimer level III.4 and LDH 691. Bilateral lower extremity duplex scan is negative for DVT. 2-D echo Showed Preserved EF. 01/10/2021 Patient is currently sitting in the chair. Requiring oxygen at 10 L via nasal cannula. Denied any complaints of chest pain. She'll having exertional short of breath. No fever no chills. Laboratory data showed d-dimer 2.55 BUN 17 and creatinine 0.8 to AST 51 ALT 66 and alk phos 70 and LDH 1356 Patient is being continued on dexamethasone, Eliquis for PE and Baricitinib. Pulmonary is following. 01-30 Patient is currently sitting in the chair. Denied any complaints of chest pain or worsening shortness of breath. A arnold says that her breathing is better to day. Requiring oxygen at 7 L with nasal cannula. Patient was given a dose of IV Lasix yesterday and IV fluids have been discontinued. Laboratory data showed LDH 1356 and CRP 2.5. Patient has been a febrile. No complains of nausea vomiting or abdominal pain or diarrhea. Tolerating oral diet. 01/12/2021 Patient is currently sitting in the chair comfortably. Awake alert and oriented 3. Feels better. Denied any complaints of chest pain or worsening short of breath. Oxygen requirement trending down to 4 L via nasal cannula. D-dimer trending down to 1.54, CRP 1.7 and LDH 1303 Patient is being continued ondexamethasone, Eliquis for PE and Baricitinib + PTOT be consulted. Patient may need rehab transfer. 01/13/2021 Patient is currently sitting in the chair. Awake alert and oriented x3. Requiring oxygen at 5 L via nasal cannula. Laboratory data reviewed. Hemodynamically stable. WBC 14.3 hemoglobin 14.2 sodium 137 potassium 4.0 creatinine 0.86 Patient is being continued dexamethasone, baricitinib and multivitamin supplementation. On anticoagulation with Eliquis. Pulmonary is on board. 01/14/2021 Patient is currently sitting in the chair comfortably. Awake alert and oriented x3. Oxygen level titrate down to 4 L via nasal cannula and saturating at 92%. Patient is being continued on dexamethasone and baricitinib and anticoagulation with Eliquis. Patient is being current on other blood pressure medications. PT OT consult and possible discharge home with home oxygen. 01/15/2021 Patient is currently sitting in the chair. Requiring oxygen at 3-4 L by nasal cannula. Patient is still having exertional dyspnea and oxygen requirement went up to 8 L with exertion. Patient had blood in the stool bright red yesterday and Eliquis is on hold. Otherwise patient is being continued on dexamethasone,Baricitibub. Laboratory data showed WBC 14.49 and hemoglobin 13.6 and platelets 339 BUN 21 creatinine 0.8F lungs CTA chest was done showed no evidence of PE. Previously i dentified filling defects are no longer seen in the right lower lobe pulmonary artery branches. Correlate for pneumonia. Current Medications Reviewed. Objective - Vital Signs Vital signs: Vital Signs Temp 98.1 F 01/15/21 19:00 Pulse 95 01/15/21 19:00 Resp 21 01/15/21 19:00 BP 112/70 01/15/21 19:00 Pulse Ox 95 01/15/21 19:00 Intake & Output 01/15/21 01/15/21 01/16/21 06:59 18:59 06:59 Intake Total 1620 Output Total 1 Balance -1 1620 Intake: Oral 1620 Output: Stool 1 Other: # Voids 3 6 # Bowel Movements 1 5 - Exam - Exam GENERAL: The patient is alert and oriented x3, not in any acute distress. Well developed, well nourished. HEENT: Pupils are round and equally reacting to light. EOMI. No scleral icterus. No conjunctival pallor. Normocephalic, atraumatic. No pharyngeal erythema. No thyromegaly. CARDIOVASCULAR: S1 and S2 present. No murmurs, rubs, or gallops. PULMONARY: Chest is clear to auscultation, no wheezing or crackles. ABDOMEN: Soft, nontender, nondistended, normoactive bowel sounds. No palpable organomegaly. MUSCULOSKELETAL: No joint swelling or deformity. EXTREMITIES: No cyanosis, clubbing, or pedal edema. NEUROLOGICAL: Gross neurological examination did not reveal any focal deficits. SKIN: No rashes. no petechiae. - Labs CBC & Chem 7: 01/16/21 06:44 01/15/21 05:38 Labs: Abnormal Lab Results - Last 24 Hours (Table) 01/15/21 01/15/21 01/15/21 Range/Units 05:38 05:38 19:20 WBC 14.49 H (4.50-10.00) X 10*3/uL MCHC 30.5 L (32.0-37.0) g/dL Immature Gran # 0.31 H (0.00-0.04) X 10*3/uL Neutrophils # 10.68 H (1.80-7.70) X 10*3/uL BUN/Creatinine Ratio 27.00 H (12.00-20.00) Ratio AST 42 H (13-35) U/L ALT 71 H (8-44) U/L Lactate Dehydrogenase 510 H (120-246) U/L Total Protein 6.0 L (6.2-8.2) g/dL Albumin 3.7 L (3.8-4.9) g/dL Urine Appearance Cloudy H (Clear) Ur Specific [place] >1.050 H (1.001-1.035) Urine Protein Trace H (Negative) Urine Blood Large H (Negative) Urine Nitrite Positive H (Negative) Ur Leukocyte Esterase Moderate H (Negative) Urine RBC >182 H (0-5) /hpf Urine WBC 41 H (0-5) /hpf Ur Squamous Epith Cells 9 H (0-4) /hpf Urine Bacteria Rare H (None) /hpf Assessment and Plan Assessment: Acute bilateral covid Pneumonia Acute hypoxic respiratory failure. Currently on 4-8 L while [place] cannula. Increase inflammatory markers Acute Pulmonary embolism. Eliquis is on hold due to bright red blood per rectum. Likely hemorrhoidal bleed. Acute Covid gastroenteritis Hypertension History of sleep apnea History of right breast cancer Plan: This is a pleasant 55 years old female who presents with colic pneumonia Continue with multiple vitamins, vitamin C, vitamin D and zinc. Dexamethasone ans Baricitanib Labs and medication were reviewed. Monitor lytes and vitals. DVT and GI prophylaxis. Anticoagulation: Heparin GI Prophylaxis: Pepcid Prognosis is guarded PT OT consult and possible discharge with home oxygen. Time with Patient: Greater than 30
--- NOTE | 2021-01-16 11:16 | P.PN ---
Subjective Progress Note Date: 01/16/21 Principal diagnosis: Acute Covid 19 pneumonia This is a pleasant 55 years old female with past medical history of Hypertension,Sleep Apnea/CPAP/BIPAP HX RT BREAST CA-CHEMO & RAD TX 2011, Presents with respiratory symptoms . Patient states she has been diagnosed with Covid last About 5 days ago. She's been having shortness of breath for about a week prior to that . She called her primary care doctor who asked her to go to urgent care. Also she has cough with clear phlegm but change to yellowish milky over the last 2 days. Also patient complaining of from diarrhea about 4 times per day Patient is afebrile, but on admission she had low-grade temperature of 100.9. She is saturating 94% on 4 L oxygen via nasal cannula went up overnight to 7 L/m. Labs showing mild lymphopenia, rest of the BMP is unremarkable. Liver enzymes slightly elevated AST to 60 and ALT 160. Elevated lactate dehydrogenase 2100, elevated C-reactive protein of 3.6. Troponin negative less than 0.012. EKG showing normal sinus rhythm at [address]-T changes chest x-ray: Bilateral pulmonary infiltrates An emergency room patient received 1 dose of dexamethasone 01/03/2021 Patient clinically looks similar to yesterday with dyspnea. And oxygen saturation 90s while she is on 7 L/m of oxygen. No much change in her labs with d-dimer at similar levels 0.84. LDH 691 and C- reactive protein 1.9 which are mildly elevated. No murmur or fever. Continue with the same regimen of dexamethasone, vitamin C, vitamin D and zinc. On normal saline at 75 mL/h 01/04/21 Patient still in In chair with no significant breathing difficulty, however she still tachypneic. No fever. No chest pain or diarrhea. Her coughing is better controlled. Her oxygen requirement increased to 7-8 L/m. Chest x-ray from today showing some improvement of the right mid lung otherwise there is same bilateral infiltrates. She remains on multiple vitamins, dexamethasone and normal saline 01/05/2021 Patient states that her breathing is the same, she has low appetite. She keeps oxygen saturation the same on 8 L/m via nasal cannula. She has no more fever. No labs from today. We are going to check labs tomorrow morning. She is still on dexamethasone, vitamin C, vitamin D and zinc. Saline at 75 mL/h. 01/06/2021 Patient reports worsening of her dyspnea and oxygen requirement increased from 8 up to 15 L/m today. Repeat chest x-ray showed same changes left greater than right bilateral pulmo nary infiltrate consistent with Covid pneumonia. No labs from today. We going to repeat labs tomorrow She is still on dexamethasone, vitamin C, D and zinc. Normal saline at 75 mL/h, Lovenox and Pepcid 01/07/2021 Patient admitted with bilateral Covid pneumonia. Her oxygen saturated worsened since yesterday She is on 15 L/m since yesterday. She remains on dexamethasone and multiple vitamins Started on heparin drip for multiple PE on CT of the chest 01/08/2021 patient remains on 15 L/m of oxygen with recent worsening over the last 2 days. Workup showed multiple pulmonary embolism and patient currently kept on heparin drip Ultrasound of the neck is negative for DVT. Improvement in Elevated liver enzymes improvement. Patient was started on baricitinib 01/09/2021 Patient was admitted to the hospital due to hypoxic respiratory failure secondary to COVID-19 pneumonia. Patient was also diagnosed with PE. Currently on IV heparin. Patient is being started on dexamethasone and Baricitinib due to worsening respiratory failure. Patient is currently on 15L Via nasal cannula and 100% nontender with a intermittently. Any complaints of chest pain. Patient has been afebrile. No nausea vomiting or abdominal pain or diarrhea. Patient is able to sit in the chair. Laboratory data showed d-dimer level III.4 and LDH 691. Bilateral lower extremity duplex scan is negative for DVT. 2-D echo Showed Preserved EF. 01/10/2021 Patient is currently sitting in the chair. Requiring oxygen at 10 L via nasal cannula. Denied any complaints of chest pain. She'll having exertional short of breath. No fever no chills. Laboratory data showed d-dimer 2.55 BUN 17 and creatinine 0.8 to AST 51 ALT 66 and alk phos 70 and LDH 1356 Patient is being continued on dexamethasone, Eliquis for PE and Baricitinib. Pulmonary is following. 01-30 Patient is currently sitting in the chair. Denied any complaints of chest pain or worsening shortness of breath. A arnold says that her breathing is better to day. Requiring oxygen at 7 L with nasal cannula. Patient was given a dose of IV Lasix yesterday and IV fluids have been discontinued. Laboratory data showed LDH 1356 and CRP 2.5. Patient has been a febrile. No complains of nausea vomiting or abdominal pain or diarrhea. Tolerating oral diet. 01/12/2021 Patient is currently sitting in the chair comfortably. Awake alert and oriented 3. Feels better. Denied any complaints of chest pain or worsening short of breath. Oxygen requirement trending down to 4 L via nasal cannula. D-dimer trending down to 1.54, CRP 1.7 and LDH 1303 Patient is being continued ondexamethasone, Eliquis for PE and Baricitinib + PTOT be consulted. Patient may need rehab transfer. 01/13/2021 Patient is currently sitting in the chair. Awake alert and oriented x3. Requiring oxygen at 5 L via nasal cannula. Laboratory data reviewed. Hemodynamically stable. WBC 14.3 hemoglobin 14.2 sodium 137 potassium 4.0 creatinine 0.86 Patient is being continued dexamethasone, baricitinib and multivitamin supplementation. On anticoagulation with Eliquis. Pulmonary is on board. 01/14/2021 Patient is currently sitting in the chair comfortably. Awake alert and oriented x3. Oxygen level titrate down to 4 L via nasal cannula and saturating at 92%. Patient is being continued on dexamethasone and baricitinib and anticoagulation with Eliquis. Patient is being current on other blood pressure medications. PT OT consult and possible discharge home with home oxygen. 01/15/2021 Patient is currently sitting in the chair. Requiring oxygen at 3-4 L by nasal cannula. Patient is still having exertional dyspnea and oxygen requirement went up to 8 L with exertion. Patient had blood in the stool bright red yesterday and Eliquis is on hold. Otherwise patient is being continued on dexamethasone,Baricitibub. Laboratory data showed WBC 14.49 and hemoglobin 13.6 and platelets 339 BUN 21 creatinine 0.8F lungs CTA chest was done showed no evidence of PE. Previously i dentified filling defects are no longer seen in the right lower lobe pulmonary artery branches. Correlate for pneumonia. 01/16/2021 Patient is currently in the medical floor. Patient's oxygen requirement increased to 10 L when asked cannula. Otherwise patient is sitting in a chair comfortably. Still having exertional dyspnea. No fever no chills. CT angiogram of the chest was done showed no evidence of PE. Chest x-ray showed bilateral patchy infiltrations which are stable in appearance. Patient denied any complaints of abdominal pain. No dysuria or hematuria. Started on antibiotics for possible urinary tract infection. Laboratory data showed WBC 10.5 hemoglobin 13.3 and platelets 305 BUN 21 and creatinine 0.9 LDH 408 CRP less than 0.3 Current Medications Reviewed. Objective - Vital Signs Vital signs: Vital Signs Temp 97.4 F L 01/16/21 08:00 Pulse 96 01/16/21 08:00 Resp 20 01/16/21 08:00 BP 123/76 01/16/21 08:00 Pulse Ox 90 L 01/16/21 08:00 Intake & Output 01/15/21 01/16/21 01/16/21 18:59 06:59 18:59 Intake Total 1620 Balance 1620 Intake: Oral 1620 Other: Voiding Method Bedside Commode # Voids 6 2 # Bowel Movements 5 - Exam - Exam GENERAL: The patient is alert and oriented x3, not in any acute distress. Well developed, well nourished. HEENT: Pupils are round and equally reacting to light. EOMI. No scleral icterus. No conjunctival pallor. Normocephalic, atraumatic. No pharyngeal erythema. No thyromegaly. CARDIOVASCULAR: S1 and S2 present. No murmurs, rubs, or gallops. PULMONARY: Chest is clear to auscultation, no wheezing or crackles. ABDOMEN: Soft, nontender, nondistended, normoactive bowel sounds. No palpable organomegaly. MUSCULOSKELETAL: No joint swelling or deformity. EXTREMITIES: No cyanosis, clubbing, or pedal edema. NEUROLOGICAL: Gross neurological examination did not reveal any focal deficits. SKIN: No rashes. no petechiae. - Labs CBC & Chem 7: 01/18/21 06:18 01/18/21 06:18 Labs: Abnormal Lab Results - Last 24 Hours (Table) 01/15/21 01/16/21 01/16/21 Range/Units 19:20 06:44 06:44 WBC 10.54 H (4.50-10.00) X 10*3/uL MCHC 30.4 L (32.0-37.0) g/dL Immature Gran # 0.24 H (0.00-0.04) X 10*3/uL Neutrophils # 7.79 H (1.80-7.70) X 10*3/uL D-Dimer 1.45 H (<0.60) mg/L FEU Urine Appearance Cloudy H (Clear) Ur Specific [place] >1.050 H (1.001-1.035) Urine Protein Trace H (Negative) Urine Blood Large H (Negative) Urine Nitrite Positive H (Negative) Ur Leukocyte Esterase Moderate H (Negative) Urine RBC >182 H (0-5) /hpf Urine WBC 41 H (0-5) /hpf Ur Squamous Epith Cells 9 H (0-4) /hpf Urine Bacteria Rare H (None) /hpf Microbiology - Last 24 Hours (Table) 01/15/21 19:20 Urine Culture - Preliminary Urine,Voided Assessment and Plan Assessment: Acute bilateral covid Pneumonia Acute hypoxic respiratory failure. Currently on 10 L via cannula. Increase inflammatory markers Acute Pulmonary embolism. Eliquis is on hold due to bright red blood per rectum. Likely hemorrhoidal bleed. Acute urinary tract infection Acute Covid gastroenteritis Hypertension History of sleep apnea History of right breast cancer Plan: This is a pleasant 55 years old female who presents with colic pneumonia Continue with multiple vitamins, vitamin C, vitamin D and zinc. Dexamethasone ans Baricitanib Patient was started on ceftriaxone due to acute urinary tract infection. Labs and medication were reviewed. Monitor lytes and vitals. DVT and GI prophylaxis. Anticoagulation: Heparin GI Prophylaxis: Pepcid Prognosis is guarded PT OT consult and possible discharge with home oxygen. Time with Patient: Greater than 30
[2021-01-16 11:51] LABS: ALT 73 U/L (8-44); AST 40 U/L (13-35); African American GFR (CKD) 82.3 (60.0-200.0); Albumin 3.7 g/dL (3.8-4.9); Albumin/Globulin Ratio 1.61 (1.60-3.17); Alkaline Phosphatase 70 U/L (41-126); BUN/Creat Ratio 23.56 Ratio (12.00-20.00); Blood Urea Nitrogen 21.2 mg/dL (9.0-27.0); Calcium 9.2 mg/dL (8.7-10.3); Chloride 94 mmol/L (96-109); Globulin 2.3 g/dL (1.6-3.3); Glucose 96 mg/dL (70-110); LDH 408 U/L (120-246); Potassium 5.5 mmol/L (3.5-5.5); Sodium 136 mmol/L (135-145)
[2021-01-16 11:56] LABS: C Reactive Protein <0.30 mg/dL (0.00-0.80)
[2021-01-16] MEDS: ALPRAZolam 0.25 MG TAB PO PRN (17:43)
[2021-01-16] MEDS: ACETAMINOPHEN TAB 325 MG TAB PO PRN (19:36)
[2021-01-16 21:14] LABS: Glucose,Whole Blood 209 mg/dL (75-99)
[2021-01-16] MEDS: INSULIN ASPART (NovoLOG) 100 UNIT/ML VIAL SQ SCH (22:07)
[2021-01-17 07:25] LABS: Glucose,Whole Blood 108 mg/dL (75-99)
[2021-01-17] MEDS ORDERED: INSULIN ASPART (NovoLOG) 100 UNIT/ML VIAL SQ SCH (07:30)
[2021-01-17] MEDS: INSULIN ASPART (NovoLOG) 100 UNIT/ML VIAL SQ SCH ×4 (07:45→21:20)
[2021-01-17] MEDS: TAMOXIFEN 10 MG TAB PO SCH (07:58)
[2021-01-17] MEDS: SPIRONOLACTONE 25 MG TAB PO SCH (07:58)
[2021-01-17] MEDS: DEXAMETHASONE SOD PHOSPHATE 10 MG/ML 1 ML VIAL IVP SCH (07:58)
[2021-01-17] MEDS: ASCORBIC ACID 500 MG TAB PO SCH (07:58)
[2021-01-17] MEDS: ZINC SULFATE 220 MG CAP PO SCH (07:59)
[2021-01-17] MEDS: DOCUSATE 100 MG CAP PO SCH (07:59)
[2021-01-17] MEDS: APIXABAN 5 MG TAB PO SCH ×2 (07:59→21:19)
[2021-01-17] MEDS: CHOLECALCIFEROL 25 MCG (1000 IU) TABLET PO SCH (07:59)
[2021-01-17] MEDS: lisinopriL 5 MG TAB PO SCH (07:59)
--- NOTE | 2021-01-17 10:32 | P.PN ---
Subjective Progress Note Date: 01/17/21 Principal diagnosis: Dyspnea On 01/06/2021 patient seen in follow-up on medical surgical floor. Her FiO2 has been increased to 15 L, yesterday patient was on 7 and 8 L. Today her O2 sats on 15 L are 90-94%. Has low-grade fevers overnight, hemodynamically she is stable, she is sitting up in the chair, does not appear to be in any acute distress, lung sounds reveal fine rales bilaterally, she is currently on Decadron 6 mg, COVID-19 vitamins, and prophylactic Lovenox. Her last set of d- dimer was on 01/03/2021 at 0.84, LDH was improving and was down to 691, and CRP was 1.9. Procalcitonin level was negative on admission at 0.16. On 01/10/2001 patient seen in follow-up on medical surgical floor, patient is currently on 10 L per high flow nasal cannula down from 15 L on yesterday's exam, and she is wearing a nonrebreather mask her pulse ox is 98%. HER-2 is being titrated down, clinically patient states she is feeling the same, still short of breath with exertion, cough, no chest pain, no significant phlegm production, no fever or chills. Vital signs have been stable, lung sounds reveal diffuse crackles bilaterally, patient is getting 0.9 normal saline at a rate of 75 ML per hour, she is developing lower extremity edema, and some in her hands. Her oral intake has been fair. No nausea or vomiting, today's labs have been reviewed, CBC is within normal limits, her lactate from yesterday was 3.48, electrolytes and renal profile were unremarkable, her LDH is still pending for today, her CRP is 2.3 on yesterday's labs. Inflammatory markers have been improv ing since admission. Patient remains on Baricitinib, Decadron, and Eliquis for pulmonary embolism 01/11/2021 patient seen in follow-up on medical surgical floor, she is resting comfortably in the recliner, she is currently eating lunch, breathing comfortable, occasional cough, no phlegm production, no complaint of chest pain, she is currently down on 7 L of oxygen, not using nonrebreather mask. Her pulse ox is a 3-94%, afebrile, hemodynamically stable, yesterday she was given a dose of IV Lasix and IV fluids haven't turned out to KVO, she has diabetes, although no fluid balance is difficult to estimate. Today's labs have been reviewed and were little count of 10.5, hemoglobin of 13.5, lymphocyte count was 1.4, slightly improved and is down to 2.5 on today's labs, sodium is 139, potassium is 3.7, CO2 is 33, BUN 17 creatinine 0.82. His has increased to 1356, increased from last value on 01/03/2021, and CRP is 2.5, patient is on a combination of Baricitinib, COVID-19 vitamins, and she is on Eliquis 10 mg twice daily for newly diagnosed pulmonary embolism. Overall clinically she looks stable, improving. Tolerating oral intake, she is awake and alert, interactive, physical therapy has been consulted, and patient has been get not to the bedside commode with help. On 01/12/2021 patient seen in follow-up on medical surgical floor, she is awake and alert, currently down to 4 L of oxygen, pulse ox is 91%, clinically she is improving, breathing is improving, she continues on Eliquis, Decadron 6 blood gram daily, she is on Baricitinib which was started on 01/07/2021, oxygenation has improved, patient looks better, lung sounds are positive for some bibasilar crackles, no new labs today, her d-dimer was improving on yesterday's labs and was down to 1.54, her LDH is relatively stable on today's labs, with LDH of 1303, and CRP was down to 1.7. No nausea or vomiting, she is tolerating oral intake, no abdominal pain. On 01/15/2021 patient seen in follow-up on medical surgical floor, today she had a episode of worsening shortness of breath, she describes it as sudden worsening of shortness of breath, her FiO2 requirements had increased from 4 L to 8 L. No chest discomfort, no cough, her Eliquis was placed on hold in view of some blood-tinged stools, with wiping, possibly related to hemorrhoids. No abdominal pain, no back tarry stools. She remains on Decadron 6 mg daily, she is on Baricitibub, which was started on 01/07/2021. Today's labs have been reviewed, with a total count is 14.4, hemoglobin is 13.6, platelet count is 339, electrolytes and renal profile are unremarkable, BUN is 21, creatinine is 0.8. Vital signs have been stable, blood pressure has been stable. Chest x-ray shows findings consistent with pneumonia, since last d-dimer was 1.54 and this was on [address] angiogram of the chest showing no evident pulmonary embolus, and previously identified filling defects are no longer seen in the right lower lobe pulmonary artery branches. On 01/16/2021 patient seen in follow-up on medical surgical floor, she is currently on 10 L of oxygen, her pulse ox is 89-90%, she has a frequent dry cough, no phlegm production, lung sounds reveal diminished breath sounds with some mild crackles at the bases, she is awake and alert, oriented 3, appears to be in no acute distress, she was able to participate with physical therapy, her Eliquis has been resumed, patient is on Eliquis 5 mg twice daily, CTA chest showed no evidence of pulmonary embolism, today's chest x-ray has also been reviewed showing bilateral areas of patchy infiltrated there is stable in appearance. No abdominal pain, she states she still sees small amount of blood on the toilet paper, no visible blood in the stool, today's hemoglobin is stable at 13.3, white count is 10.5, white blood count is 305, d-dimer is 1.45, electrolytes and renal profile and inflammatory markers are still pending for today, her last LDH from yesterday was 510, and CRP was less than 0.30, uri nalysis was done showing evidence of acute urinary tract infection and patient will be started on Rocephin On 01/17/2021 patient seen in follow-up on medical surgical floor, FiO2 is currently down to 7 L, pulse ox is 95%, we were able to bring down the FiO2 requirement from 10 L on yesterday's exam down to 7 L, and patient is being weaned further. No worsening dyspnea, she still has occasional cough, no phlegm production. Does have a mild bloody nose, not profuse, controlled. She continues on Eliquis 5 mg twice daily, Decadron 6 mg daily, yesterday we started her on Rocephin for evidence of urinary tract infection, urine culture is pending at this time. Patient states she feels chilled this morning however there is no recorded fevers, blood pressure has been stable, no nausea vomiting or diarrhea, she is tolerating oral intake, no abdominal pain. Objective - Vital Signs Vital signs: Vital Signs Temp 98.5 F 01/17/21 10:16 Pulse 74 01/17/21 10:16 Resp 18 01/17/21 10:16 BP 124/69 01/17/21 10:16 Pulse Ox 95 01/17/21 10:16 Intake & Output 01/16/21 01/17/21 01/17/21 18:59 06:59 18:59 Weight 113.398 kg Other: # Voids 1 3 - Exam GENERAL EXAM: Alert, very pleasant, 55-year-old white female, on 7 L of oxygen with a pulse ox of 90comfortable in no apparent distress. Is a frequent dry nonproductive cough HEAD: Normocephalic/atraumatic. EYES: Normal reaction of pupils, equal size. Conjunctiva pink, sclera white. NOSE: Clear with pink turbinates. THROAT: No erythema or exudates. NECK: No masses, no JVD, no thyroid enlargement, no adenopathy. CHEST: No chest wall deformity. Symmetrical expansion. LUNGS: Equal air entry with bibasilar crackles CVS: Regular rate and rhythm, normal S1 and S2, no gallops, no murmurs, no rubs ABDOMEN: Soft, nontender. No hepatosplenomegaly, normal bowel sounds, no guarding or rigidity. EXTREMITIES: No clubbing, no edema, no cyanosis, 2+ pulses and upper and lower extremities. MUSCULOSKELETAL: Muscle strength and tone normal. SPINE: No scoliosis or deformity SKIN: No rashes CENTRAL NERVOUS SYSTEM: Alert and oriented -3. No focal deficits, tone is normal in all 4 extremities. PSYCHIATRIC: Alert and oriented -3. Appropriate affect. Intact judgment and insight. - Labs CBC & Chem 7: 01/16/21 06:44 01/16/21 06:44 Labs: Abnormal Lab Results - Last 24 Hours (Table) 01/16/21 01/16/21 01/17/21 Range/Units 06:44 21:05 07:24 Chloride 94 L (96-109) mmol/L BUN/Creatinine Ratio 23.56 H (12.00-20.00) Ratio POC Glucose (mg/dL) 209 H 108 H (75-99) mg/dL AST 40 H (13-35) U/L ALT 73 H (8-44) U/L Lactate Dehydrogenase 408 H (120-246) U/L Total Protein 6.0 L (6.2-8.2) g/dL Albumin 3.7 L (3.8-4.9) g/dL Assessment and Plan Plan: Assessment: #1. Acute hypoxic respiratory failure related to COVID-19 pneumonia, patient reports first onset of symptoms on 12/10/2020, outside the normal Remdesivir. Patient is non-vaccinated for COVID-19, developed worsening hypoxemia, and was initiated on Baricitinib on 01/07/2021, which was stopped today for subacute urinary tract infection #2. Blood in the stool, today's hemoglobin is 13.9, stable, Eliquis has been held, resumed, hemoglobin is stable #3. Acute pulmonary embolism, was started on Eliquis #4. Acute urinary tract infection will be started on Rocephin today on 01/16/2021 #5. Hypertension #6. Morbid obesity #7. Obstructive sleep apnea currently not wearing her CPAP #8. Hypertension nonsmoker #9. History of right breast cancer status post chemotherapy and radiation in 2011 Plan: Clinically patient has remained stable in last 24 hours FiO2 is currently down to 7 L, continue to wean FiO2 to keep O2 sats ration is at or above 90% Continue Decadron Eliquis has been resumed, Hemodynamically stable Breathing comfortably continue Rocephin, urine culture pending Overall clinically improving, once FiO2 requirements are down to 5 L and less, we may consider discharge home I performed a history & physical examination of the patient and discussed their management with my nurse practitioner, Alexandra Leigh. I reviewed the nurse practitioner's note and agree with the documented findings and plan of care. Lung sounds are positive for diminished breath sounds throughout the lung nino. The findings and the impression was discussed with the patient. I attest to the documentation by the nurse practitioner. Time with Patient: Less than 30
[2021-01-17 11:42] LABS: Glucose,Whole Blood 270 mg/dL (75-99)
[2021-01-17 16:43] LABS: Glucose,Whole Blood 206 mg/dL (75-99)
[2021-01-17 20:48] LABS: Glucose,Whole Blood 286 mg/dL (75-99)
[2021-01-17] MEDS: ALPRAZolam 0.25 MG TAB PO PRN (21:19)
[2021-01-18 00:11] LABS: Glucose,Whole Blood 139 mg/dL (75-99)
[2021-01-18 07:18] LABS: Glucose,Whole Blood 84 mg/dL (75-99)
[2021-01-18] MEDS: INSULIN ASPART (NovoLOG) 100 UNIT/ML VIAL SQ SCH ×4 (07:30→21:15)
[2021-01-18 09:01] LABS: Basophils # (A) 0.03 X 10*3/uL (0.00-0.10); Basophils % (A) 0.3 %; Eosinophils % (A) 1.8 %; HCT 39.9 % (37.2-46.3); HGB 12.8 g/dL (12.0-15.0); Lymphocytes # (A) 1.09 X 10*3/uL (0.90-5.00); Lymphocytes % (A) 9.7 %; MCH 29.3 pg (27.0-32.0); MCHC 32.1 g/dL (32.0-37.0); MCV 91.3 fL (80.0-97.0); Mean Platelet Volume 10.7 fL (9.5-12.2); Monocytes # (A) 1.07 X 10*3/uL (0.20-1.00); Monocytes % (A) 9.6 %; Neutrophils # (A) 8.64 X 10*3/uL (1.80-7.70); Neutrophils % (A) 77.2 %; Platelet Count 274 X 10*3/uL (140-440); RBC 4.37 X 10*6/uL (4.10-5.20); RDW 13.2 % (11.5-14.5); WBC 11.19 X 10*3/uL (4.50-10.00)
[2021-01-18] MEDS: ZINC SULFATE 220 MG CAP PO SCH (09:25)
[2021-01-18] MEDS: TAMOXIFEN 10 MG TAB PO SCH (09:25)
[2021-01-18] MEDS: DEXAMETHASONE SOD PHOSPHATE 10 MG/ML 1 ML VIAL IVP SCH (09:25)
[2021-01-18] MEDS: SPIRONOLACTONE 25 MG TAB PO SCH (09:26)
[2021-01-18] MEDS: CHOLECALCIFEROL 25 MCG (1000 IU) TABLET PO SCH (09:26)
[2021-01-18] MEDS: ASCORBIC ACID 500 MG TAB PO SCH (09:26)
[2021-01-18] MEDS: lisinopriL 5 MG TAB PO SCH (09:26)
[2021-01-18] MEDS: APIXABAN 5 MG TAB PO SCH ×2 (09:26→21:15)
[2021-01-18] MEDS: DOCUSATE 100 MG CAP PO SCH (09:26)
[2021-01-18] MEDS: ALPRAZolam 0.25 MG TAB PO PRN ×2 (09:26→21:15)
[2021-01-18 09:50] LABS: ALT 62 U/L (8-44); AST 28 U/L (13-35); African American GFR (CKD) 94.9 (60.0-200.0); Albumin 3.6 g/dL (3.8-4.9); Albumin/Globulin Ratio 1.64 (1.60-3.17); Alkaline Phosphatase 68 U/L (41-126); Blood Urea Nitrogen 20.8 mg/dL (9.0-27.0); Carbon Dioxide 27.3 mmol/L (20.0-27.5); Chloride 99 mmol/L (96-109); Globulin 2.2 g/dL (1.6-3.3); Glucose 86 mg/dL (70-110); LDH 352 U/L (120-246); Non-African American GFR(CKD) 81.8 (60.0-200.0); Potassium 4.6 mmol/L (3.5-5.5); Sodium 137 mmol/L (135-145); Total Protein 5.8 g/dL (6.2-8.2)
[2021-01-18 10:58] LABS: C Reactive Protein <0.30 mg/dL (0.00-0.80)
--- NOTE | 2021-01-18 11:42 | P.PN ---
Subjective Progress Note Date: 01/17/21 Principal diagnosis: Acute Covid 19 pneumonia This is a pleasant 55 years old female with past medical history of Hypertension,Sleep Apnea/CPAP/BIPAP HX RT BREAST CA-CHEMO & RAD TX 2011, Presents with respiratory symptoms . Patient states she has been diagnosed with Covid last About 5 days ago. She's been having shortness of breath for about a week prior to that . She called her primary care doctor who asked her to go to urgent care. Also she has cough with clear phlegm but change to yellowish milky over the last 2 days. Also patient complaining of from diarrhea about 4 times per day Patient is afebrile, but on admission she had low-grade temperature of 100.9. She is saturating 94% on 4 L oxygen via nasal cannula went up overnight to 7 L/m. Labs showing mild lymphopenia, rest of the BMP is unremarkable. Liver enzymes slightly elevated AST to 60 and ALT 160. Elevated lactate dehydrogenase 2100, elevated C-reactive protein of 3.6. Troponin negative less than 0.012. EKG showing normal sinus rhythm at [address]-T changes chest x-ray: Bilateral pulmonary infiltrates An emergency room patient received 1 dose of dexamethasone 01/03/2021 Patient clinically looks similar to yesterday with dyspnea. And oxygen saturation 90s while she is on 7 L/m of oxygen. No much change in her labs with d-dimer at similar levels 0.84. LDH 691 and C- reactive protein 1.9 which are mildly elevated. No murmur or fever. Continue with the same regimen of dexamethasone, vitamin C, vitamin D and zinc. On normal saline at 75 mL/h 01/04/21 Patient still in In chair with no significant breathing difficulty, however she still tachypneic. No fever. No chest pain or diarrhea. Her coughing is better controlled. Her oxygen requirement increased to 7-8 L/m. Chest x-ray from today showing some improvement of the right mid lung otherwise there is same bilateral infiltrates. She remains on multiple vitamins, dexamethasone and normal saline 01/05/2021 Patient states that her breathing is the same, she has low appetite. She keeps oxygen saturation the same on 8 L/m via nasal cannula. She has no more fever. No labs from today. We are going to check labs tomorrow morning. She is still on dexamethasone, vitamin C, vitamin D and zinc. Saline at 75 mL/h. 01/06/2021 Patient reports worsening of her dyspnea and oxygen requirement increased from 8 up to 15 L/m today. Repeat chest x-ray showed same changes left greater than right bilateral pulmo nary infiltrate consistent with Covid pneumonia. No labs from today. We going to repeat labs tomorrow She is still on dexamethasone, vitamin C, D and zinc. Normal saline at 75 mL/h, Lovenox and Pepcid 01/07/2021 Patient admitted with bilateral Covid pneumonia. Her oxygen saturated worsened since yesterday She is on 15 L/m since yesterday. She remains on dexamethasone and multiple vitamins Started on heparin drip for multiple PE on CT of the chest 01/08/2021 patient remains on 15 L/m of oxygen with recent worsening over the last 2 days. Workup showed multiple pulmonary embolism and patient currently kept on heparin drip Ultrasound of the neck is negative for DVT. Improvement in Elevated liver enzymes improvement. Patient was started on baricitinib 01/09/2021 Patient was admitted to the hospital due to hypoxic respiratory failure secondary to COVID-19 pneumonia. Patient was also diagnosed with PE. Currently on IV heparin. Patient is being started on dexamethasone and Baricitinib due to worsening respiratory failure. Patient is currently on 15L Via nasal cannula and 100% nontender with a intermittently. Any complaints of chest pain. Patient has been afebrile. No nausea vomiting or abdominal pain or diarrhea. Patient is able to sit in the chair. Laboratory data showed d-dimer level III.4 and LDH 691. Bilateral lower extremity duplex scan is negative for DVT. 2-D echo Showed Preserved EF. 01/10/2021 Patient is currently sitting in the chair. Requiring oxygen at 10 L via nasal cannula. Denied any complaints of chest pain. She'll having exertional short of breath. No fever no chills. Laboratory data showed d-dimer 2.55 BUN 17 and creatinine 0.8 to AST 51 ALT 66 and alk phos 70 and LDH 1356 Patient is being continued on dexamethasone, Eliquis for PE and Baricitinib. Pulmonary is following. 01-30 Patient is currently sitting in the chair. Denied any complaints of chest pain or worsening shortness of breath. A arnold says that her breathing is better to day. Requiring oxygen at 7 L with nasal cannula. Patient was given a dose of IV Lasix yesterday and IV fluids have been discontinued. Laboratory data showed LDH 1356 and CRP 2.5. Patient has been a febrile. No complains of nausea vomiting or abdominal pain or diarrhea. Tolerating oral diet. 01/12/2021 Patient is currently sitting in the chair comfortably. Awake alert and oriented 3. Feels better. Denied any complaints of chest pain or worsening short of breath. Oxygen requirement trending down to 4 L via nasal cannula. D-dimer trending down to 1.54, CRP 1.7 and LDH 1303 Patient is being continued ondexamethasone, Eliquis for PE and Baricitinib + PTOT be consulted. Patient may need rehab transfer. 01/13/2021 Patient is currently sitting in the chair. Awake alert and oriented x3. Requiring oxygen at 5 L via nasal cannula. Laboratory data reviewed. Hemodynamically stable. WBC 14.3 hemoglobin 14.2 sodium 137 potassium 4.0 creatinine 0.86 Patient is being continued dexamethasone, baricitinib and multivitamin supplementation. On anticoagulation with Eliquis. Pulmonary is on board. 01/14/2021 Patient is currently sitting in the chair comfortably. Awake alert and oriented x3. Oxygen level titrate down to 4 L via nasal cannula and saturating at 92%. Patient is being continued on dexamethasone and baricitinib and anticoagulation with Eliquis. Patient is being current on other blood pressure medications. PT OT consult and possible discharge home with home oxygen. 01/15/2021 Patient is currently sitting in the chair. Requiring oxygen at 3-4 L by nasal cannula. Patient is still having exertional dyspnea and oxygen requirement went up to 8 L with exertion. Patient had blood in the stool bright red yesterday and Eliquis is on hold. Otherwise patient is being continued on dexamethasone,Baricitibub. Laboratory data showed WBC 14.49 and hemoglobin 13.6 and platelets 339 BUN 21 creatinine 0.8F lungs CTA chest was done showed no evidence of PE. Previously i dentified filling defects are no longer seen in the right lower lobe pulmonary artery branches. Correlate for pneumonia. 01/16/2021 Patient is currently in the medical floor. Patient's oxygen requirement increased to 10 L when asked cannula. Otherwise patient is sitting in a chair comfortably. Still having exertional dyspnea. No fever no chills. CT angiogram of the chest was done showed no evidence of PE. Chest x-ray showed bilateral patchy infiltrations which are stable in appearance. Patient denied any complaints of abdominal pain. No dysuria or hematuria. Started on antibiotics for possible urinary tract infection. Laboratory data showed WBC 10.5 hemoglobin 13.3 and platelets 305 BUN 21 and creatinine 0.9 LDH 408 CRP less than 0.3 01/17/2021 Patient is sitting in the chair comfortably. Oxygen requirement down to 7 L with nasal cannula today. CTA showed no evidence of pulmonary embolism. Does have exertional dyspnea and mild cough. Patient is being continued on dexamethasone and Lovenox. Also on antibiotics, ceftriaxone for acute urinary tract infection. Culture report showed gram- negative bacilli No complaints of chest pain. No nausea vomiting or abdominal pain or diarrhea. Tolerating oral diet. Pulmonary is on board. Laboratory data reviewed. Current Medications Reviewed. Objective - Vital Signs Vital signs: Vital Signs Temp 98.8 F 01/17/21 17:13 Pulse 85 01/17/21 20:00 Resp 18 01/17/21 20:00 BP 108/61 01/17/21 17:13 Pulse Ox 92 L 01/17/21 17:13 Intake & Output 01/17/21 01/17/21 01/18/21 06:59 18:59 06:59 Intake Total 960 960 Output Total 451 Balance 960 509 Intake: Oral 960 960 Output: Urine 450 Stool 1 Other: Voiding Method Bedside Commode # Voids 3 3 3 # Bowel Movements 1 1 - Exam - Exam GENERAL: The patient is alert and oriented x3, not in any acute distress. Well developed, well nourished. HEENT: Pupils are round and equally reacting to light. EOMI. No scleral icterus. No conjunctival pallor. Normocephalic, atraumatic. No pharyngeal erythema. No thyromegaly. CARDIOVASCULAR: S1 and S2 present. No murmurs, rubs, or gallops. PULMONARY: Chest is clear to auscultation, no wheezing or crackles. ABDOMEN: Soft, nontender, nondistended, normoactive bowel sounds. No palpable organomegaly. MUSCULOSKELETAL: No joint swelling or deformity. EXTREMITIES: No cyanosis, clubbing, or pedal edema. NEUROLOGICAL: Gross neurological examination did not reveal any focal deficits. SKIN: No rashes. no petechiae. - Labs CBC & Chem 7: 01/18/21 06:18 01/18/21 06:18 Labs: Abnormal Lab Results - Last 24 Hours (Table) 01/17/21 01/17/21 01/17/21 Range/Units 07:24 11:37 16:35 POC Glucose (mg/dL) 108 H 270 H 206 H (75-99) mg/dL 01/17/21 Range/Units 20:46 POC Glucose (mg/dL) 286 H (75-99) mg/dL Microbiology - Last 24 Hours (Table) 01/15/21 19:20 Urine Culture - Preliminary Urine,Voided Gram Neg Bacilli Assessment and Plan Assessment: Acute bilateral covid Pneumonia Acute hypoxic respiratory failure. Currently on 10 L via cannula. Increase inflammatory markers Acute Pulmonary embolism. Eliquis was on hold due to bright red blood per rectum. Likely hemorrhoidal bleed. No active bleeding. Started back on Eliquis. Hemoglobin stable. Acute urinary tract infection Acute Covid gastroenteritis Hypertension History of sleep apnea History of right breast cancer Plan: This is a pleasant 55 years old female who presents with covid 19 pneumonia Continue with multiple vitamins, vitamin C, vitamin D and zinc. Continue with Dexamethasone. Completed Baricitanib. Continue with Eliquis Patient was started on ceftriaxone due to acute urinary tract infection. Labs and medication were reviewed. Monitor lytes and vitals. DVT and GI prophylaxis. Anticoagulation: Heparin GI Prophylaxis: Pepcid Prognosis is guarded PT OT consult and possible discharge with home oxygen. Time with Patient: Greater than 30
[2021-01-18 11:47] LABS: Glucose,Whole Blood 109 mg/dL (75-99)
--- NOTE | 2021-01-18 14:21 | P.PN ---
Subjective Progress Note Date: 01/18/21 Principal diagnosis: Dyspnea On 01/06/2021 patient seen in follow-up on medical surgical floor. Her FiO2 has been increased to 15 L, yesterday patient was on 7 and 8 L. Today her O2 sats on 15 L are 90-94%. Has low-grade fevers overnight, hemodynamically she is stable, she is sitting up in the chair, does not appear to be in any acute distress, lung sounds reveal fine rales bilaterally, she is currently on Decadron 6 mg, COVID-19 vitamins, and prophylactic Lovenox. Her last set of d- dimer was on 01/03/2021 at 0.84, LDH was improving and was down to 691, and CRP was 1.9. Procalcitonin level was negative on admission at 0.16. On 01/10/2001 patient seen in follow-up on medical surgical floor, patient is currently on 10 L per high flow nasal cannula down from 15 L on yesterday's exam, and she is wearing a nonrebreather mask her pulse ox is 98%. HER-2 is being titrated down, clinically patient states she is feeling the same, still short of breath with exertion, cough, no chest pain, no significant phlegm production, no fever or chills. Vital signs have been stable, lung sounds reveal diffuse crackles bilaterally, patient is getting 0.9 normal saline at a rate of 75 ML per hour, she is developing lower extremity edema, and some in her hands. Her oral intake has been fair. No nausea or vomiting, today's labs have been reviewed, CBC is within normal limits, her lactate from yesterday was 3.48, electrolytes and renal profile were unremarkable, her LDH is still pending for today, her CRP is 2.3 on yesterday's labs. Inflammatory markers have been improv ing since admission. Patient remains on Baricitinib, Decadron, and Eliquis for pulmonary embolism 01/11/2021 patient seen in follow-up on medical surgical floor, she is resting comfortably in the recliner, she is currently eating lunch, breathing comfortable, occasional cough, no phlegm production, no complaint of chest pain, she is currently down on 7 L of oxygen, not using nonrebreather mask. Her pulse ox is a 3-94%, afebrile, hemodynamically stable, yesterday she was given a dose of IV Lasix and IV fluids haven't turned out to KVO, she has diabetes, although no fluid balance is difficult to estimate. Today's labs have been reviewed and were little count of 10.5, hemoglobin of 13.5, lymphocyte count was 1.4, slightly improved and is down to 2.5 on today's labs, sodium is 139, potassium is 3.7, CO2 is 33, BUN 17 creatinine 0.82. His has increased to 1356, increased from last value on 01/03/2021, and CRP is 2.5, patient is on a combination of Baricitinib, COVID-19 vitamins, and she is on Eliquis 10 mg twice daily for newly diagnosed pulmonary embolism. Overall clinically she looks stable, improving. Tolerating oral intake, she is awake and alert, interactive, physical therapy has been consulted, and patient has been get not to the bedside commode with help. On 01/12/2021 patient seen in follow-up on medical surgical floor, she is awake and alert, currently down to 4 L of oxygen, pulse ox is 91%, clinically she is improving, breathing is improving, she continues on Eliquis, Decadron 6 blood gram daily, she is on Baricitinib which was started on 01/07/2021, oxygenation has improved, patient looks better, lung sounds are positive for some bibasilar crackles, no new labs today, her d-dimer was improving on yesterday's labs and was down to 1.54, her LDH is relatively stable on today's labs, with LDH of 1303, and CRP was down to 1.7. No nausea or vomiting, she is tolerating oral intake, no abdominal pain. On 01/15/2021 patient seen in follow-up on medical surgical floor, today she had a episode of worsening shortness of breath, she describes it as sudden worsening of shortness of breath, her FiO2 requirements had increased from 4 L to 8 L. No chest discomfort, no cough, her Eliquis was placed on hold in view of some blood-tinged stools, with wiping, possibly related to hemorrhoids. No abdominal pain, no back tarry stools. She remains on Decadron 6 mg daily, she is on Baricitibub, which was started on 01/07/2021. Today's labs have been reviewed, with a total count is 14.4, hemoglobin is 13.6, platelet count is 339, electrolytes and renal profile are unremarkable, BUN is 21, creatinine is 0.8. Vital signs have been stable, blood pressure has been stable. Chest x-ray shows findings consistent with pneumonia, since last d-dimer was 1.54 and this was on [address] angiogram of the chest showing no evident pulmonary embolus, and previously identified filling defects are no longer seen in the right lower lobe pulmonary artery branches. On 01/16/2021 patient seen in follow-up on medical surgical floor, she is currently on 10 L of oxygen, her pulse ox is 89-90%, she has a frequent dry cough, no phlegm production, lung sounds reveal diminished breath sounds with some mild crackles at the bases, she is awake and alert, oriented 3, appears to be in no acute distress, she was able to participate with physical therapy, her Eliquis has been resumed, patient is on Eliquis 5 mg twice daily, CTA chest showed no evidence of pulmonary embolism, today's chest x-ray has also been reviewed showing bilateral areas of patchy infiltrated there is stable in appearance. No abdominal pain, she states she still sees small amount of blood on the toilet paper, no visible blood in the stool, today's hemoglobin is stable at 13.3, white count is 10.5, white blood count is 305, d-dimer is 1.45, electrolytes and renal profile and inflammatory markers are still pending for today, her last LDH from yesterday was 510, and CRP was less than 0.30, uri nalysis was done showing evidence of acute urinary tract infection and patient will be started on Rocephin On 01/17/2021 patient seen in follow-up on medical surgical floor, FiO2 is currently down to 7 L, pulse ox is 95%, we were able to bring down the FiO2 requirement from 10 L on yesterday's exam down to 7 L, and patient is being weaned further. No worsening dyspnea, she still has occasional cough, no phlegm production. Does have a mild bloody nose, not profuse, controlled. She continues on Eliquis 5 mg twice daily, Decadron 6 mg daily, yesterday we started her on Rocephin for evidence of urinary tract infection, urine culture is pending at this time. Patient states she feels chilled this morning however there is no recorded fevers, blood pressure has been stable, no nausea vomiting or diarrhea, she is tolerating oral intake, no abdominal pain. On 01/28/2021 patient is seen in follow-up in medical surgical floor. She is currently down to 6 L of oxygen pulse ox is 93%, FiO2 has since been dropped down to 5 L, she is breathing comfortably, she still has a mild congestive cough , but overall improving, no acute events overnight, she looks quite comfortable, reports exertional dyspnea, but no acute distress. Vital signs have been stable, she's been afebrile. She remains on Rocephin for urinary tract infection and urine cultures were positive for Proteus mirabilis. She remains on dexamethasone, Eliquis 5 mg twice daily, and COVID-19 vitamins. She has had no acute events overnight. Objective - Vital Signs Vital signs: Vital Signs Temp 97.6 F 01/18/21 06:07 Pulse 66 01/18/21 06:07 Resp 18 01/18/21 08:20 BP 133/78 01/18/21 06:07 Pulse Ox 99 01/18/21 06:07 Intake & Output 01/17/21 01/18/21 01/18/21 18:59 06:59 18:59 Intake Total 960 960 Output Total 451 Balance 960 509 Intake: Oral 960 960 Output: Urine 450 Stool 1 Other: Voiding Method Bedside Commode # Voids 3 3 # Bowel Movements 1 1 - Exam GENERAL EXAM: Alert, very pleasant, 55-year-old white female, on 6 L of oxygen with a pulse ox of 90comfortable in no apparent distress. Is a frequent dry nonproductive cough HEAD: Normocephalic/atraumatic. EYES: Normal reaction of pupils, equal size. Conjunctiva pink, sclera white. NOSE: Clear with pink turbinates. THROAT: No erythema or exudates. NECK: No masses, no JVD, no thyroid enlargement, no adenopathy. CHEST: No chest wall deformity. Symmetrical expansion. LUNGS: Equal air entry with bibasilar crackles CVS: Regular rate and rhythm, normal S1 and S2, no gallops, no murmurs, no rubs ABDOMEN: Soft, nontender. No hepatosplenomegaly, normal bowel sounds, no gua rding or rigidity. EXTREMITIES: No clubbing, no edema, no cyanosis, 2+ pulses and upper and lower extremities. MUSCULOSKELETAL: Muscle strength and tone normal. SPINE: No scoliosis or deformity SKIN: No rashes CENTRAL NERVOUS SYSTEM: Alert and oriented -3. No focal deficits, tone is normal in all 4 extremities. PSYCHIATRIC: Alert and oriented -3. Appropriate affect. Intact judgment and insight. - Labs CBC & Chem 7: 01/18/21 06:18 01/18/21 06:18 Labs: Abnormal Lab Results - Last 24 Hours (Table) 01/17/21 01/17/21 01/18/21 Range/Units 16:35 20:46 00:10 WBC (4.50-10.00) X 10*3/uL Immature Gran # (0.00-0.04) X 10*3/uL Neutrophils # (1.80-7.70) X 10*3/uL Monocytes # (0.20-1.00) X 10*3/uL BUN/Creatinine Ratio (12.00-20.00) Ratio POC Glucose (mg/dL) 206 H 286 H 139 H (75-99) mg/dL ALT (8-44) U/L Lactate Dehydrogenase (120-246) U/L Total Protein (6.2-8.2) g/dL Albumin (3.8-4.9) g/dL 01/18/21 01/18/21 01/18/21 Range/Units 06:18 06:18 11:46 WBC 11.19 H (4.50-10.00) X 10*3/uL Immature Gran # 0.16 H (0.00-0.04) X 10*3/uL Neutrophils # 8.64 H (1.80-7.70) X 10*3/uL Monocytes # 1.07 H (0.20-1.00) X 10*3/uL BUN/Creatinine Ratio 26.00 H (12.00-20.00) Ratio POC Glucose (mg/dL) 109 H (75-99) mg/dL ALT 62 H (8-44) U/L Lactate Dehydrogenase 352 H (120-246) U/L Total Protein 5.8 L (6.2-8.2) g/dL Albumin 3.6 L (3.8-4.9) g/dL Microbiology - Last 24 Hours (Table) 01/15/21 19:20 Urine Culture - Final Urine,Voided Proteus mirabilis Assessment and Plan Plan: Assessment: #1. Acute hypoxic respiratory failure related to COVID-19 pneumonia, patient reports first onset of symptoms on 12/10/2020, outside the normal Remdesivir. Patient is non-vaccinated for COVID-19, developed worsening hypoxemia, and was initiated on Baricitinib on 01/07/2021, which was stopped today for urinary tract infection #2. Blood in the stool, today's hemoglobin is 13.9, stable, Eliquis has been held, resumed, hemoglobin is stable #3. Acute pulmonary embolism, was started on Eliquis #4. Acute urinary tract infection will be started on Rocephin today on 01/16/2021, urine cultures positive for Proteus mirabilis #5. Hypertension #6. Morbid obesity #7. Obstructive sleep apnea currently not wearing her CPAP #8. Hypertension nonsmoker #9. History of right breast cancer status post chemotherapy and radiation in 2011 Plan: Continue weaning FiO2 to keep O2 sats ration at or above 90% Current FiO2 has been cut back to 5 L, From pulmonary perspective she has remained stable No worsening dyspnea Vital signs are stable Increase activity as tolerated Consider discharge home once patient is below 5 L of oxygen I performed a history & physical examination of the patient and discussed their management with my nurse practitioner, Alexandra Leigh. I reviewed the nurse practitioner's note and agree with the documented findings and plan of care. Lung sounds are positive for diminished breath sounds throughout the lung nino. The findings and the impression was discussed with the patient. I attest to the documentation by the nurse practitioner. Time with Patient: Less than 30
[2021-01-18 16:52] LABS: Glucose,Whole Blood 220 mg/dL (75-99)
[2021-01-18 19:57] LABS: Glucose,Whole Blood 232 mg/dL (75-99)
--- NOTE | 2021-01-18 23:24 | P.PN ---
Subjective Progress Note Date: 01/18/21 Principal diagnosis: Acute Covid 19 pneumonia This is a pleasant 55 years old female with past medical history of Hypertension,Sleep Apnea/CPAP/BIPAP HX RT BREAST CA-CHEMO & RAD TX 2011, Presents with respiratory symptoms . Patient states she has been diagnosed with Covid last About 5 days ago. She's been having shortness of breath for about a week prior to that . She called her primary care doctor who asked her to go to urgent care. Also she has cough with clear phlegm but change to yellowish milky over the last 2 days. Also patient complaining of from diarrhea about 4 times per day Patient is afebrile, but on admission she had low-grade temperature of 100.9. She is saturating 94% on 4 L oxygen via nasal cannula went up overnight to 7 L/m. Labs showing mild lymphopenia, rest of the BMP is unremarkable. Liver enzymes slightly elevated AST to 60 and ALT 160. Elevated lactate dehydrogenase 2100, elevated C-reactive protein of 3.6. Troponin negative less than 0.012. EKG showing normal sinus rhythm at [address]-T changes chest x-ray: Bilateral pulmonary infiltrates An emergency room patient received 1 dose of dexamethasone 01/03/2021 Patient clinically looks similar to yesterday with dyspnea. And oxygen saturation 90s while she is on 7 L/m of oxygen. No much change in her labs with d-dimer at similar levels 0.84. LDH 691 and C- reactive protein 1.9 which are mildly elevated. No murmur or fever. Continue with the same regimen of dexamethasone, vitamin C, vitamin D and zinc. On normal saline at 75 mL/h 01/04/21 Patient still in In chair with no significant breathing difficulty, however she still tachypneic. No fever. No chest pain or diarrhea. Her coughing is better controlled. Her oxygen requirement increased to 7-8 L/m. Chest x-ray from today showing some improvement of the right mid lung otherwise there is same bilateral infiltrates. She remains on multiple vitamins, dexamethasone and normal saline 01/05/2021 Patient states that her breathing is the same, she has low appetite. She keeps oxygen saturation the same on 8 L/m via nasal cannula. She has no more fever. No labs from today. We are going to check labs tomorrow morning. She is still on dexamethasone, vitamin C, vitamin D and zinc. Saline at 75 mL/h. 01/06/2021 Patient reports worsening of her dyspnea and oxygen requirement increased from 8 up to 15 L/m today. Repeat chest x-ray showed same changes left greater than right bilateral pulmo nary infiltrate consistent with Covid pneumonia. No labs from today. We going to repeat labs tomorrow She is still on dexamethasone, vitamin C, D and zinc. Normal saline at 75 mL/h, Lovenox and Pepcid 01/07/2021 Patient admitted with bilateral Covid pneumonia. Her oxygen saturated worsened since yesterday She is on 15 L/m since yesterday. She remains on dexamethasone and multiple vitamins Started on heparin drip for multiple PE on CT of the chest 01/08/2021 patient remains on 15 L/m of oxygen with recent worsening over the last 2 days. Workup showed multiple pulmonary embolism and patient currently kept on heparin drip Ultrasound of the neck is negative for DVT. Improvement in Elevated liver enzymes improvement. Patient was started on baricitinib 01/09/2021 Patient was admitted to the hospital due to hypoxic respiratory failure secondary to COVID-19 pneumonia. Patient was also diagnosed with PE. Currently on IV heparin. Patient is being started on dexamethasone and Baricitinib due to worsening respiratory failure. Patient is currently on 15L Via nasal cannula and 100% nontender with a intermittently. Any complaints of chest pain. Patient has been afebrile. No nausea vomiting or abdominal pain or diarrhea. Patient is able to sit in the chair. Laboratory data showed d-dimer level III.4 and LDH 691. Bilateral lower extremity duplex scan is negative for DVT. 2-D echo Showed Preserved EF. 01/10/2021 Patient is currently sitting in the chair. Requiring oxygen at 10 L via nasal cannula. Denied any complaints of chest pain. She'll having exertional short of breath. No fever no chills. Laboratory data showed d-dimer 2.55 BUN 17 and creatinine 0.8 to AST 51 ALT 66 and alk phos 70 and LDH 1356 Patient is being continued on dexamethasone, Eliquis for PE and Baricitinib. Pulmonary is following. 01-30 Patient is currently sitting in the chair. Denied any complaints of chest pain or worsening shortness of breath. A arnold says that her breathing is better to day. Requiring oxygen at 7 L with nasal cannula. Patient was given a dose of IV Lasix yesterday and IV fluids have been discontinued. Laboratory data showed LDH 1356 and CRP 2.5. Patient has been a febrile. No complains of nausea vomiting or abdominal pain or diarrhea. Tolerating oral diet. 01/12/2021 Patient is currently sitting in the chair comfortably. Awake alert and oriented 3. Feels better. Denied any complaints of chest pain or worsening short of breath. Oxygen requirement trending down to 4 L via nasal cannula. D-dimer trending down to 1.54, CRP 1.7 and LDH 1303 Patient is being continued ondexamethasone, Eliquis for PE and Baricitinib + PTOT be consulted. Patient may need rehab transfer. 01/13/2021 Patient is currently sitting in the chair. Awake alert and oriented x3. Requiring oxygen at 5 L via nasal cannula. Laboratory data reviewed. Hemodynamically stable. WBC 14.3 hemoglobin 14.2 sodium 137 potassium 4.0 creatinine 0.86 Patient is being continued dexamethasone, baricitinib and multivitamin supplementation. On anticoagulation with Eliquis. Pulmonary is on board. 01/14/2021 Patient is currently sitting in the chair comfortably. Awake alert and oriented x3. Oxygen level titrate down to 4 L via nasal cannula and saturating at 92%. Patient is being continued on dexamethasone and baricitinib and anticoagulation with Eliquis. Patient is being current on other blood pressure medications. PT OT consult and possible discharge home with home oxygen. 01/15/2021 Patient is currently sitting in the chair. Requiring oxygen at 3-4 L by nasal cannula. Patient is still having exertional dyspnea and oxygen requirement went up to 8 L with exertion. Patient had blood in the stool bright red yesterday and Eliquis is on hold. Otherwise patient is being continued on dexamethasone,Baricitibub. Laboratory data showed WBC 14.49 and hemoglobin 13.6 and platelets 339 BUN 21 creatinine 0.8F lungs CTA chest was done showed no evidence of PE. Previously i dentified filling defects are no longer seen in the right lower lobe pulmonary artery branches. Correlate for pneumonia. 01/16/2021 Patient is currently in the medical floor. Patient's oxygen requirement increased to 10 L when asked cannula. Otherwise patient is sitting in a chair comfortably. Still having exertional dyspnea. No fever no chills. CT angiogram of the chest was done showed no evidence of PE. Chest x-ray showed bilateral patchy infiltrations which are stable in appearance. Patient denied any complaints of abdominal pain. No dysuria or hematuria. Started on antibiotics for possible urinary tract infection. Laboratory data showed WBC 10.5 hemoglobin 13.3 and platelets 305 BUN 21 and creatinine 0.9 LDH 408 CRP less than 0.3 01/17/2021 Patient is sitting in the chair comfortably. Oxygen requirement down to 7 L with nasal cannula today. CTA showed no evidence of pulmonary embolism. Does have exertional dyspnea and mild cough. Patient is being continued on dexamethasone and Lovenox. Also on antibiotics, ceftriaxone for acute urinary tract infection. Culture report showed gram- negative bacilli No complaints of chest pain. No nausea vomiting or abdominal pain or diarrhea. Tolerating oral diet. Pulmonary is on board. Laboratory data reviewed. 01/18/2021 Patient is currently sitting in the chair. Awake alert and oriented x3. Requiring oxygen at 7 L via nasal cannula. Does have exertional dyspnea and mild cough. Patient has been afebrile. No complaints of chest pain or worsening shortness of breath. No headache or dizziness or lightheadedness. Archie joel is tolerating oral diet. Currently maintained on ceftriaxone for acute urinary tract infection and urine culture showed Proteus species Patient is being continued on dexamethasone and Eliquis and multivitamins. Hemodynamically stable. Continue to titrate down oxygen. Pulmonary is on board. Current Medications Reviewed. Objective - Vital Signs Vital signs: Vital Signs Temp 97.6 F 01/18/21 06:07 Pulse 66 01/18/21 06:07 Resp 18 01/18/21 06:07 BP 133/78 01/18/21 06:07 Pulse Ox 99 01/18/21 06:07 Intake & Output 01/17/21 01/18/21 01/18/21 18:59 06:59 18:59 Intake Total 960 960 Output Total 451 Balance 960 509 Intake: Oral 960 960 Output: Urine 450 Stool 1 Other: Voiding Method Bedside Commode # Voids 3 3 # Bowel Movements 1 1 - Exam - Exam GENERAL: The patient is alert and oriented x3, not in any acute distress. Well developed, well nourished. HEENT: Pupils are round and equally reacting to light. EOMI. No scleral icterus. No conjunctival pallor. Normocephalic, atraumatic. No pharyngeal erythema. No thyromegaly. CARDIOVASCULAR: S1 and S2 present. No murmurs, rubs, or gallops. PULMONARY: Chest is clear to auscultation, no wheezing or crackles. ABDOMEN: Soft, nontender, nondistended, normoactive bowel sounds. No palpable organomegaly. MUSCULOSKELETAL: No joint swelling or deformity. EXTREMITIES: No cyanosis, clubbing, or pedal edema. NEUROLOGICAL: Gross neurological examination did not reveal any focal deficits. SKIN: No rashes. no petechiae. - Labs CBC & Chem 7: 01/18/21 06:18 01/18/21 06:18 Labs: Abnormal Lab Results - Last 24 Hours (Table) 01/17/21 01/17/21 01/17/21 Range/Units 11:37 16:35 20:46 WBC (4.50-10.00) X 10*3/uL Immature Gran # (0.00-0.04) X 10*3/uL Neutrophils # (1.80-7.70) X 10*3/uL Monocytes # (0.20-1.00) X 10*3/uL BUN/Creatinine Ratio (12.00-20.00) Ratio POC Glucose (mg/dL) 270 H 206 H 286 H (75-99) mg/dL ALT (8-44) U/L Lactate Dehydrogenase (120-246) U/L Total Protein (6.2-8.2) g/dL Albumin (3.8-4.9) g/dL 01/18/21 01/18/21 01/18/21 Range/Units 00:10 06:18 06:18 WBC 11.19 H (4.50-10.00) X 10*3/uL Immature Gran # 0.16 H (0.00-0.04) X 10*3/uL Neutrophils # 8.64 H (1.80-7.70) X 10*3/uL Monocytes # 1.07 H (0.20-1.00) X 10*3/uL BUN/Creatinine Ratio 26.00 H (12.00-20.00) Ratio POC Glucose (mg/dL) 139 H (75-99) mg/dL ALT 62 H (8-44) U/L Lactate Dehydrogenase 352 H (120-246) U/L Total Protein 5.8 L (6.2-8.2) g/dL Albumin 3.6 L (3.8-4.9) g/dL Microbiology - Last 24 Hours (Table) 01/15/21 19:20 Urine Culture - Final Urine,Voided Proteus mirabilis Assessment and Plan Assessment: Acute bilateral covid Pneumonia Acute hypoxic respiratory failure. Currently on 7 L via cannula. Increase inflammatory markers Acute Pulmonary embolism. Eliquis was on hold due to bright red blood per rectum. Likely hemorrhoidal bleed. No active bleeding. Started back on Eliquis. Hemoglobin stable. Acute urinary tract infection with Proteus Acute Covid gastroenteritis Hypertension History of sleep apnea History of right breast cancer Plan: This is a pleasant 55 years old female who presents with covid 19 pneumonia Continue with multiple vitamins, vitamin C, vitamin D and zinc. Continue with Dexamethasone. Completed Baricitanib. Continue with Eliquis Patient was started on ceftriaxone due to acute urinary tract infection. Labs and medication were reviewed. Monitor lytes and vitals. DVT and GI prophylaxis. Anticoagulation: Heparin GI Prophylaxis: Pepcid Prognosis is guarded PT OT consult and possible discharge with home oxygen. Time with Patient: Greater than 30
[2021-01-19 07:18] LABS: Glucose,Whole Blood 90 mg/dL (75-99)
[2021-01-19] MEDS: INSULIN ASPART (NovoLOG) 100 UNIT/ML VIAL SQ SCH ×2 (07:52→11:58)
[2021-01-19] MEDS: lisinopriL 5 MG TAB PO SCH (08:11)
[2021-01-19] MEDS: ALPRAZolam 0.25 MG TAB PO PRN ×2 (08:11→08:14)
[2021-01-19] MEDS: DOCUSATE 100 MG CAP PO SCH (08:11)
[2021-01-19] MEDS: ASCORBIC ACID 500 MG TAB PO SCH (08:11)
[2021-01-19] MEDS: CHOLECALCIFEROL 25 MCG (1000 IU) TABLET PO SCH (08:11)
[2021-01-19] MEDS: SPIRONOLACTONE 25 MG TAB PO SCH (08:11)
[2021-01-19] MEDS: DEXAMETHASONE SOD PHOSPHATE 10 MG/ML 1 ML VIAL IVP SCH (08:11)
[2021-01-19] MEDS: ZINC SULFATE 220 MG CAP PO SCH (08:11)
[2021-01-19] MEDS: TAMOXIFEN 10 MG TAB PO SCH (08:12)
[2021-01-19] MEDS: APIXABAN 5 MG TAB PO SCH (08:12)
[2021-01-19 10:06] VITALS: RESP 20
--- NOTE | 2021-01-19 10:37 | P.PN ---
Subjective Progress Note Date: 01/19/21 Principal diagnosis: Dyspnea On 01/06/2021 patient seen in follow-up on medical surgical floor. Her FiO2 has been increased to 15 L, yesterday patient was on 7 and 8 L. Today her O2 sats on 15 L are 90-94%. Has low-grade fevers overnight, hemodynamically she is stable, she is sitting up in the chair, does not appear to be in any acute distress, lung sounds reveal fine rales bilaterally, she is currently on Decadron 6 mg, COVID-19 vitamins, and prophylactic Lovenox. Her last set of d- dimer was on 01/03/2021 at 0.84, LDH was improving and was down to 691, and CRP was 1.9. Procalcitonin level was negative on admission at 0.16. On 01/10/2001 patient seen in follow-up on medical surgical floor, patient is currently on 10 L per high flow nasal cannula down from 15 L on yesterday's exam, and she is wearing a nonrebreather mask her pulse ox is 98%. HER-2 is being titrated down, clinically patient states she is feeling the same, still short of breath with exertion, cough, no chest pain, no significant phlegm production, no fever or chills. Vital signs have been stable, lung sounds reveal diffuse crackles bilaterally, patient is getting 0.9 normal saline at a rate of 75 ML per hour, she is developing lower extremity edema, and some in her hands. Her oral intake has been fair. No nausea or vomiting, today's labs have been reviewed, CBC is within normal limits, her lactate from yesterday was 3.48, electrolytes and renal profile were unremarkable, her LDH is still pending for today, her CRP is 2.3 on yesterday's labs. Inflammatory markers have been improv ing since admission. Patient remains on Baricitinib, Decadron, and Eliquis for pulmonary embolism 01/11/2021 patient seen in follow-up on medical surgical floor, she is resting comfortably in the recliner, she is currently eating lunch, breathing comfortable, occasional cough, no phlegm production, no complaint of chest pain, she is currently down on 7 L of oxygen, not using nonrebreather mask. Her pulse ox is a 3-94%, afebrile, hemodynamically stable, yesterday she was given a dose of IV Lasix and IV fluids haven't turned out to KVO, she has diabetes, although no fluid balance is difficult to estimate. Today's labs have been reviewed and were little count of 10.5, hemoglobin of 13.5, lymphocyte count was 1.4, slightly improved and is down to 2.5 on today's labs, sodium is 139, potassium is 3.7, CO2 is 33, BUN 17 creatinine 0.82. His has increased to 1356, increased from last value on 01/03/2021, and CRP is 2.5, patient is on a combination of Baricitinib, COVID-19 vitamins, and she is on Eliquis 10 mg twice daily for newly diagnosed pulmonary embolism. Overall clinically she looks stable, improving. Tolerating oral intake, she is awake and alert, interactive, physical therapy has been consulted, and patient has been get not to the bedside commode with help. On 01/12/2021 patient seen in follow-up on medical surgical floor, she is awake and alert, currently down to 4 L of oxygen, pulse ox is 91%, clinically she is improving, breathing is improving, she continues on Eliquis, Decadron 6 blood gram daily, she is on Baricitinib which was started on 01/07/2021, oxygenation has improved, patient looks better, lung sounds are positive for some bibasilar crackles, no new labs today, her d-dimer was improving on yesterday's labs and was down to 1.54, her LDH is relatively stable on today's labs, with LDH of 1303, and CRP was down to 1.7. No nausea or vomiting, she is tolerating oral intake, no abdominal pain. On 01/15/2021 patient seen in follow-up on medical surgical floor, today she had a episode of worsening shortness of breath, she describes it as sudden worsening of shortness of breath, her FiO2 requirements had increased from 4 L to 8 L. No chest discomfort, no cough, her Eliquis was placed on hold in view of some blood-tinged stools, with wiping, possibly related to hemorrhoids. No abdominal pain, no back tarry stools. She remains on Decadron 6 mg daily, she is on Baricitibub, which was started on 01/07/2021. Today's labs have been reviewed, with a total count is 14.4, hemoglobin is 13.6, platelet count is 339, electrolytes and renal profile are unremarkable, BUN is 21, creatinine is 0.8. Vital signs have been stable, blood pressure has been stable. Chest x-ray shows findings consistent with pneumonia, since last d-dimer was 1.54 and this was on [address] angiogram of the chest showing no evident pulmonary embolus, and previously identified filling defects are no longer seen in the right lower lobe pulmonary artery branches. On 01/16/2021 patient seen in follow-up on medical surgical floor, she is currently on 10 L of oxygen, her pulse ox is 89-90%, she has a frequent dry cough, no phlegm production, lung sounds reveal diminished breath sounds with some mild crackles at the bases, she is awake and alert, oriented 3, appears to be in no acute distress, she was able to participate with physical therapy, her Eliquis has been resumed, patient is on Eliquis 5 mg twice daily, CTA chest showed no evidence of pulmonary embolism, today's chest x-ray has also been reviewed showing bilateral areas of patchy infiltrated there is stable in appearance. No abdominal pain, she states she still sees small amount of blood on the toilet paper, no visible blood in the stool, today's hemoglobin is stable at 13.3, white count is 10.5, white blood count is 305, d-dimer is 1.45, electrolytes and renal profile and inflammatory markers are still pending for today, her last LDH from yesterday was 510, and CRP was less than 0.30, uri nalysis was done showing evidence of acute urinary tract infection and patient will be started on Rocephin On 01/17/2021 patient seen in follow-up on medical surgical floor, FiO2 is currently down to 7 L, pulse ox is 95%, we were able to bring down the FiO2 requirement from 10 L on yesterday's exam down to 7 L, and patient is being weaned further. No worsening dyspnea, she still has occasional cough, no phlegm production. Does have a mild bloody nose, not profuse, controlled. She continues on Eliquis 5 mg twice daily, Decadron 6 mg daily, yesterday we started her on Rocephin for evidence of urinary tract infection, urine culture is pending at this time. Patient states she feels chilled this morning however there is no recorded fevers, blood pressure has been stable, no nausea vomiting or diarrhea, she is tolerating oral intake, no abdominal pain. On 01/28/2021 patient is seen in follow-up in medical surgical floor. She is currently down to 6 L of oxygen pulse ox is 93%, FiO2 has since been dropped down to 5 L, she is breathing comfortably, she still has a mild congestive cough , but overall improving, no acute events overnight, she looks quite comfortable, reports exertional dyspnea, but no acute distress. Vital signs have been stable, she's been afebrile. She remains on Rocephin for urinary tract infection and urine cultures were positive for Proteus mirabilis. She remains on dexamethasone, Eliquis 5 mg twice daily, and COVID-19 vitamins. She has had no acute events overnight. On 01/19/2021 patient seen in follow-up on medical surgical floor, she is down to 4-1/2 L of oxygen, her pulse ox is 3%, her coughing has significantly improved, she states she can take deeper breaths, she is breathing comfortably, still has occasional cough with some production of whitish colored phlegm. She's been afebrile, hemodynamically and clinically she has been stable, she is sitting up in the recliner, in no acute distress, lung sounds reveal a few scattered bibasilar crackles, no wheezes, no chest pain. She is on Rocephin for urinary tract infection and urine culture showed Proteus mirabilis. She remains on Decadron, and Eliquis. She's had no acute events overnight, 2 days labs showed stable hemoglobin of 12.8, white count was 11.1, platelet count was 274, electrolytes and renal profile were unremarkable, her inflammatory markers had significantly improved since admission. Objective - Vital Signs Vital signs: Vital Signs Temp 98.3 F 01/19/21 10:00 Pulse 82 01/19/21 10:00 Resp 20 01/19/21 10:00 BP 120/66 01/19/21 10:00 Pulse Ox 93 L 01/19/21 10:00 Intake & Output 01/18/21 01/19/21 01/19/21 18:59 06:59 18:59 Intake Total 960 Output Total 1 Balance 959 Intake: Oral 960 Output: Stool 1 Other: Voiding Method Bedside Commode # Voids 1 # Bowel Movements 1 - Exam GENERAL EXAM: Alert, very pleasant, 55-year-old white female, on 4.5 L of oxygen with a pulse ox of 93% comfortable in no apparent distress. Has improved HEAD: Normocephalic/atraumatic. EYES: Normal reaction of pupils, equal size. Conjunctiva pink, sclera white. NOSE: Clear with pink turbinates. THROAT: No erythema or exudates. NECK: No masses, no JVD, no thyroid enlargement, no adenopathy. CHEST: No chest wall deformity. Symmetrical expansion. LUNGS: Equal air entry with bibasilar crackles CVS: Regular rate and rhythm, normal S1 and S2, no gallops, no murmurs, no rubs ABDOMEN: Soft, nontender. No hepatosplenomegaly, normal bowel sounds, no guarding or rigidity. EXTREMITIES: No clubbing, no edema, no cyanosis, 2+ pulses and upper and lower extremities. MUSCULOSKELETAL: Muscle strength and tone normal. SPINE: No scoliosis or deformity SKIN: No rashes CENTRAL NERVOUS SYSTEM: Alert and oriented -3. No focal deficits, tone is normal in all 4 extremities. PSYCHIATRIC: Alert and oriented -3. Appropriate affect. Intact judgment and insight. - Labs CBC & Chem 7: 01/18/21 06:18 01/18/21 06:18 Labs: Abnormal Lab Results - Last 24 Hours (Table) 01/18/21 01/18/21 01/18/21 Range/Units 11:46 16:50 19:55 POC Glucose (mg/dL) 109 H 220 H 232 H (75-99) mg/dL Microbiology - Last 24 Hours (Table) 01/15/21 19:20 Urine Culture - Final Urine,Voided Proteus mirabilis Assessment and Plan Plan: Assessment: #1. Acute hypoxic respiratory failure related to COVID-19 pneumonia, patient reports first onset of symptoms on 12/10/2020, outside the normal Remdesivir. Patient is non-vaccinated for COVID-19, developed worsening hypoxemia, and was initiated on Baricitinib on 01/07/2021, which was stopped today for urinary tract infection #2. Blood in the stool, today's hemoglobin is 13.9, stable, Eliquis has been held, resumed, hemoglobin is stable #3. Acute pulmonary embolism, was started on Eliquis #4. Acute urinary tract infection will be started on Rocephin today on 01/16/2021, urine cultures positive for Proteus mirabilis #5. Hypertension #6. Morbid obesity #7. Obstructive sleep apnea currently not wearing her CPAP #8. Hypertension nonsmoker #9. History of right breast cancer status post chemotherapy and radiation in 2011 Plan: The patient has been steadily improving FiO2 is currently down to 4-1/2 L, and pulse ox is 93% Home oxygen has already been arranged and delivered She said no worsening dyspnea her cough has significantly improved No acute events overnight no fever or chills Inflammatory markers had improved Vital signs are stable Low for discharge home from pulmonary perspective on a few more days of Decadron, oral antibiotics to complete the treatment for urinary tract infection Patient is going home on oxygen at 4-5 L Follow-up with Dr. Duffy in the office in one week I performed a history & physical examination of the patient and discussed their management with my nurse practitioner, Alexandra Leigh. I reviewed the nurse practitioner's note and agree with the documented findings and plan of care. Lung sounds are positive for diminished breath sounds throughout the lung nino. The findings and the impression was discussed with the patient. I attest to the documentation by the nurse practitioner. Time with Patient: Less than 30
[2021-01-19 11:34] LABS: Basophils # (A) 0.02 X 10*3/uL (0.00-0.10); Basophils % (A) 0.2 %; Eosinophils # (A) 0.13 X 10*3/uL (0.04-0.35); Eosinophils % (A) 1.3 %; HCT 39.9 % (37.2-46.3); HGB 12.5 g/dL (12.0-15.0); Lymphocytes # (A) 0.92 X 10*3/uL (0.90-5.00); MCH 28.9 pg (27.0-32.0); MCHC 31.3 g/dL (32.0-37.0); MCV 92.4 fL (80.0-97.0); Mean Platelet Volume 10.8 fL (9.5-12.2); Monocytes % (A) 9.8 %; Neutrophils # (A) 8.02 X 10*3/uL (1.80-7.70); Neutrophils % (A) 78.3 %; Platelet Count 264 X 10*3/uL (140-440); RBC 4.32 X 10*6/uL (4.10-5.20); RDW 13.4 % (11.5-14.5); WBC 10.23 X 10*3/uL (4.50-10.00)
[2021-01-19 11:56] LABS: Glucose,Whole Blood 132 mg/dL (75-99)
[2021-01-19 12:19] LABS: African American GFR (CKD) 102.4 (60.0-200.0); Anion Gap 11.8 mmol/L (10.00-18.00); BUN/Creat Ratio 27.7 Ratio (12.00-20.00); Blood Urea Nitrogen 20.8 mg/dL (9.0-27.0); Carbon Dioxide 25.9 mmol/L (20.0-27.5); Non-African American GFR(CKD) 88.3 (60.0-200.0); Potassium 4.7 mmol/L (3.5-5.5)
[2021-01-19 14:37] VITALS: BP 112/74; PULSE 89; TEMP 98.4
--- NOTE | 2021-01-19 22:12 | P.DS ---
Providers Date of admission: 01/01/21 21:28 Attending physician: Samantha Garcia Consults: 01/01/21 21:13 Consult Physician Urgent Consulting Provider: Mary Jorgensen Consult Reason/Comments: covid pneumonia Do you want consulting provider notified?: Yes Primary care physician: Agustina Hassan [facility] Course: Diagnoses: Acute bilateral covid Pneumonia Acute hypoxic respiratory failure. Currently on 7 L via cannula. Increase inflammatory markers Acute Pulmonary embolism. Eliquis Rectal hemorrhoids, symptomatic upon discharge Acute urinary tract infection with Proteus Acute Covid gastroenteritis Hypertension History of sleep apnea History of right breast cancer Hospital course: This is a pleasant 55 years old female with past medical history of Hypertension,Sleep Apnea/CPAP/BIPAP HX RT BREAST CA-CHEMO & RAD TX 2011, Presents with respiratory symptoms . Patient states she has been diagnosed with Covid last About 5 days ago. She's been having shortness of breath for about a week prior to that . She called her primary care doctor who asked her to go to urgent care. Patient admitted with bilateral Covid pneumonia and acute hypoxic respiratory failure, she had a prolonged course and it was complicated by bilateral pulmonary embolism related to her Covid infection and patient was started on heparin drip and switched later on to Eliquis. Her hypoxia worsened up to 15 L/m and more however with treatment for her Covid infection with dexamethasone, multiple vitamins including vitamin C, D and zinc and baricitnib patient started improving. Pulmonary team will follow on the case closely. She was started on ceftriaxone for Proteus UTI. Patient continued to improve gradually with treatment Eventually patient symptoms significantly improved and her oxygen requirements went down to 4-5 L/m home oxygen is delivered at bedside. Staff. Also Patient will need a wheelchair upon discharge to complete her ADL. Patient was cleared for discharge today by sales support administrator patient will be discharged on short course of antibiotic, dexamethasone. And Eliquis. I called patient case coordinator and checked her co-pay for Eliquis its $45 for first month and $10 every month thereafter, patient informed and she agrees besides for the first month she was provided with 1 month of free coupon Problems and management plan were discussed with the patient and he verbalized understanding and acceptance Patient was found stable and can be discharged home in guarded prognosis however he needs follow-up as an outpatient. Patient was instructed to follow up with PCP Dr. Agustina bouts within one week and patient agrees Patient also was instructed to follow up with sales support administrator Dr. Duffy/Dr. Cedeño 2-3 weeks and she agrees to call and make her own appointments Physical exam Gen: patient is a AAOx3, no distress CVS: S1-S2, RRR, no murmur Lungs: B/L CTA, no wheezing Abdomen: soft, no distention, no tenderness, positive bowel sounds Extremity: no leg edema or induration Time spent more than 35 minutes Patient Condition at Discharge: Stable Plan - Discharge Summary Discharge Rx Participant: No New Discharge Prescriptions: New Zinc Sulfate [Orazinc] 220 mg PO DAILY #30 cap Cefuroxime Axetil [Ceftin] 500 mg PO BID 5 Days #10 tab Dexamethasone [Decadron] 6 mg PO DAILY 5 Days #5 tablet Apixaban [Eliquis] 5 mg PO BID #60 tab Ascorbic Acid [Vitamin C] 1,000 mg PO DAILY #60 tab Cholecalciferol [Vitamin D3 (25 Mcg = 1000 Iu)] 50 mcg PO DAILY #60 tablet Continue Spironolactone [Aldactone] 25 mg PO DAILY Tamoxifen [Nolvadex] 20 mg PO DAILY lisinopriL [Zestril] 5 mg PO DAILY Docusate [Colace] 100 mg PO DAILY Calcium Carbonate [Calcium] 600 mg PO DAILY [place]-3 Fatty Acids/Fish Oil [Fish Oil 1,000 mg Softgel] 2 cap PO DAILY Discontinued Multivitamins, Thera [Multivitamin (formulary)] 1 tab PO DAILY Doxycycline Monohydrate 100 mg PO BID Discharge Medication List Spironolactone [Aldactone] 25 mg PO DAILY 08/16/13 [History] Tamoxifen [Nolvadex] 20 mg PO DAILY 08/16/13 [History] Calcium Carbonate [Calcium] 600 mg PO DAILY 01/01/21 [History] Docusate [Colace] 100 mg PO DAILY 01/01/21 [History] [place]-3 Fatty Acids/Fish Oil [Fish Oil 1,000 mg Softgel] 2 cap PO DAILY 01/01/21 [History] lisinopriL [Zestril] 5 mg PO DAILY 01/01/21 [History] Apixaban [Eliquis] 5 mg PO BID #60 tab 01/19/21 [Rx] Ascorbic Acid [Vitamin C] 1,000 mg PO DAILY #60 tab 01/19/21 [Rx] Cefuroxime Axetil [Ceftin] 500 mg PO BID 5 Days #10 tab 01/19/21 [Rx] Cholecalciferol [Vitamin D3 (25 Mcg = 1000 Iu)] 50 mcg PO DAILY #60 tablet 01/19/21 [Rx] Dexamethasone [Decadron] 6 mg PO DAILY 5 Days #5 tablet 01/19/21 [Rx] Zinc Sulfate [Orazinc] 220 mg PO DAILY #30 cap 01/19/21 [Rx] Follow up Appointment(s)/Referral(s): Nursing,[place] [NON-STAFF] - As Needed [facility] [NON-STAFF] - As Needed (oxygen and wheelchair) Agustina Hassan MD [Primary Care Provider] - 1-2 days (office closed at time of discharge. Please call Friday to [facility] appointment ) Deo Duffy DO [Doctor of Osteopathic Medicine] - 01/31/21 2:30 pm (Please arrive 20 minutes early to fill out paperwork) Patient Instructions/Handouts: Coronavirus Disease 2019 (COVID-19), Using Oxyge n at Home (DC) Activity/Diet/Wound Care/Special Instructions: Pt is requiring a wheelchair to complete ADL's d/t COVID and weakness. Pt is able to self propel and has assistance to propel. Unable to complete with cane or walker. Heart healthy diet, low carbohydrate diet 1600 k anila per day Activity is restricted till you see your doctor Discharge Disposition: HOME SELF-CARE
== END 2021-01-19 16:12 | disposition home health service (06) | DRG 177 ==
LOC: EC 14:44 → 4SSUR 21:28
PROVIDERS: ADMIT Hospitalist; ATTEND Hospitalist
PROC: 5A0955A Assistance with Respiratory Ventilation, Greater than 96 Consecutive Hours, High Flow/Velocity Cannula (ICD-10-PCS; principal; 2021-01-02)
PROC: XW0DXM6 Introduction of Baricitinib into Mouth and Pharynx, External Approach, New Technology Group 6 (ICD-10-PCS; 2021-01-07)
DX: U07.1 COVID-19 (principal); J12.82 Pneumonia due to coronavirus disease 2019; J80 Acute respiratory distress syndrome; I26.99 Other pulmonary embolism without acute cor pulmonale; Z68.42 Body mass index [BMI] 45.0-49.9, adult; A08.39 Other viral enteritis; N39.0 Urinary tract infection, site not specified; B96.4 Proteus (mirabilis) (morganii) as the cause of diseases classified elsewhere; E11.9 Type 2 diabetes mellitus without complications; E66.01 Morbid (severe) obesity due to excess calories; G47.33 Obstructive sleep apnea (adult) (pediatric); D72.810 Lymphocytopenia; R04.0 Epistaxis; K64.9 Unspecified hemorrhoids; I10 Essential (primary) hypertension; R74.01 Elevation of levels of liver transaminase levels; Z79.810 Long term (current) use of selective estrogen receptor modulators (SERMs); Z79.899 Other long term (current) drug therapy; Z91.018 Allergy to other foods; Z91.048 Other nonmedicinal substance allergy status; Z85.3 Personal history of malignant neoplasm of breast; Z92.3 Personal history of irradiation; Z92.21 Personal history of antineoplastic chemotherapy; Z90.49 Acquired absence of other specified parts of digestive tract; Z90.89 Acquired absence of other organs; Z90.11 Acquired absence of right breast and nipple; Z87.2 Personal history of diseases of the skin and subcutaneous tissue; Z98.890 Other specified postprocedural states; Z71.3 Dietary counseling and surveillance
CPT/HCPCS: 36415; 71045; 71046; 71275; 80048; 80053; 81001; 82728; 83605; 83615; 83735; 83880; 84145; 84484; 85025; 85379; 85610; 85730; 86140; 87077; 87086; 87186; 87635; 93005; 93306; 93970; 94760; 96374; 99285

== ENCOUNTER 2021-01-29 08:48 | Emergency (ER) | payer BC ==
[2021-01-29 09:00] VITALS: RESP 18; TEMP 98.8
--- NOTE | 2021-01-29 09:29 | ED ---
General Adult HPI - General Chief complaint: Shortness of Breath Stated complaint: SOB Time Seen by Provider: 01/29/21 08:50 Source: patient, EMS, RN notes reviewed, old records reviewed Mode of arrival: EMS Limitations: no limitations - History of Present Illness Initial comments: 55-year-old female presenting for reevaluation. Patient was recently admitted for coronavirus and discharge. She was discharged on 4 L nasal cannula. She does have humidified oxygen and has been using a humidifier but his had some dried blood from her nose. She believes that this is the cause of her difficulty breathing. She denies persistent fevers. She is currently anticoagulated. Denies significant nosebleed, this is a minor amount of dried blood and mucus. No chest pain. No abdominal pain. She has been eating and drinking. - Related Data Home Medications Medication Instructions Recorded Confirmed Spironolactone [Aldactone] 25 mg PO DAILY 08/16/13 01/01/21 Tamoxifen [Nolvadex] 20 mg PO DAILY 08/16/13 01/01/21 Calcium Carbonate [Calcium] 600 mg PO DAILY 01/01/21 01/01/21 Docusate [Colace] 100 mg PO DAILY 01/01/21 01/01/21 [place]-3 Fatty Acids/Fish Oil [Fish 2 cap PO DAILY 01/01/21 01/01/21 Oil 1,000 mg Softgel] lisinopriL [Zestril] 5 mg PO DAILY 01/01/21 01/01/21 Previous Rx's Medication Instructions Recorded Apixaban [Eliquis] 5 mg PO BID #60 tab 01/19/21 Ascorbic Acid [Vitamin C] 1,000 mg PO DAILY #60 tab 01/19/21 Cefuroxime Axetil [Ceftin] 500 mg PO BID 5 Days #10 tab 01/19/21 Cholecalciferol [Vitamin D3 (25 50 mcg PO DAILY #60 tablet 01/19/21 Mcg = 1000 Iu)] Dexamethasone [Decadron] 6 mg PO DAILY 5 Days #5 tablet 01/19/21 Zinc Sulfate [Orazinc] 220 mg PO DAILY #30 cap 01/19/21 ALPRAZolam [Xanax] 0.25 mg PO Q8HR PRN 3 Days #9 tab 01/29/21 Allergies Allergy/AdvReac Type Severity Reaction Status Date / Time DUST Allergy SOB & Uncoded 01/01/21 21:47 MIGRAINES mold Allergy SOB & Uncoded 01/01/21 21:47 MIGRAINES MUSHROOMS Allergy SOB Uncoded 01/01/21 21:47 YEAST Allergy SOB & Uncoded 01/01/21 21:47 MIGRAINES Review of Systems ROS Statement: Those systems with pertinent positive or pertinent negative responses have been documented in the HPI. ROS Other: All systems not noted in ROS Statement are negative. Past Medical History Past Medical History: Hypertension, Skin Disorder, Sleep Apnea/CPAP/BIPAP Additional Past Medical History / Comment(s): HX RT BREAST CA-CHEMO & RAD TX 2011, STATED "HAVING WHAT FEELS LIKE A MUSCLE CRAMPING IN ABD POSS KINKING THE BOWEL CAUSING CONSTIPATION AND THEN FOLLOWED BY MULTIPLE STOOLS." History of Any Multi-Drug Resistant Organisms: None Reported Past Surgical History: Cholecystectomy, Tonsillectomy Additional Past Surgical History / Comment(s): PORT A CATH INSERTED AND REMOVED, LUMPECTOMY RT BREAST. Past Anesthesia/Blood Transfusion Reactions: No Reported Reaction Past Psychological History: No Psychological Hx Reported Smoking Status: Never smoker Past Alcohol Use History: None Reported Past Drug Use History: None Reported General Exam Limitations: no limitations General appearance: alert, in no apparent distress Eye exam: Present: normal appearance, PERRL ENT exam: Present: other (Dried blood at the naris) Respiratory exam: Present: normal lung sounds bilaterally. Absent: respiratory distress, wheezes, rales Cardiovascular Exam: Present: regular rate, normal rhythm GI/Abdominal exam: Present: soft. Absent: distended, tenderness, guarding Extremities exam: Present: normal inspection, normal capillary refill. Absent: pedal edema Neurological exam: Present: alert, oriented X3, CN II-XII intact. Absent: motor sensory deficit Psychiatric exam: Present: anxious Skin exam: Present: warm, dry, intact. Absent: cyanosis, diaphoretic Course Vital Signs 01/29/21 01/29/21 01/29/21 08:52 10:08 10:15 Temperature 98.8 F Pulse Rate 82 88 Respiratory 18 18 18 Rate Blood Pressure 129/93 123/80 O2 Sat by Pulse 98 97 Oximetry EKG Findings - EKG Comments: EKG Findings:: EKG: Normal sinus rhythm, rate is 86, UT interval 140, QRS duration 84, QTC 445, T-wave inversion in inferior leads and precordial leads. No ST segment elevation. Medical Decision Making - Medical Decision Making Chest x-ray stable, bilateral pneumonia. She has a normal CBC, normal CMP. Patient is on her baseline oxygen level that she was discharged on. She will continue to use humidified O2. She will do nasal saline rinse. Return parameters were discussed. She has home care nursing who has been contacted. - Lab Data Result diagrams: 01/29/21 09:18 01/29/21 09:18 Lab Results 01/29/21 01/29/21 01/29/21 Range/Units 09:18 09:18 09:18 WBC 6.3 (3.8-10.6) k/uL RBC 4.46 (3.80-5.40) m/uL Hgb 13.5 (11.4-16.0) gm/dL Hct 40.7 (34.0-46.0) % MCV 91.4 (80.0-100.0) fL MCH 30.3 (25.0-35.0) pg MCHC 33.1 (31.0-37.0) g/dL RDW 13.7 (11.5-15.5) % Plt Count 156 (150-450) k/uL MPV 7.4 Neutrophils % 73 % Lymphocytes % 14 % Monocytes % 7 % Eosinophils % 4 % Basophils % 0 % Neutrophils # 4.6 (1.3-7.7) k/uL Lymphocytes # 0.9 L (1.0-4.8) k/uL Monocytes # 0.4 (0-1.0) k/uL Eosinophils # 0.3 (0-0.7) k/uL Basophils # 0.0 (0-0.2) k/uL PT 10.2 (9.0-12.0) sec INR 0.9 (<1.2) APTT 22.3 (22.0-30.0) sec Sodium 135 L (137-145) mmol/L Potassium 4.0 (3.5-5.1) mmol/L Chloride 103 (98-107) mmol/L Carbon Dioxide 27 (22-30) mmol/L Anion Gap 5 mmol/L BUN 14 (7-17) mg/dL Creatinine 0.64 (0.52-1.04) mg/dL Est GFR (CKD-EPI)AfAm >90 (>60 ml/min/1.73 sqM) Est GFR (CKD-EPI)NonAf >90 (>60 ml/min/1.73 sqM) Glucose 104 H (74-99) mg/dL Plasma Lactic Acid Dinh (0.7-2.0) mmol/L Calcium 8.9 (8.4-10.2) mg/dL Total Bilirubin 0.8 (0.2-1.3) mg/dL AST 40 H (14-36) U/L ALT 69 H (4-34) U/L Alkaline Phosphatase 77 (38-126) U/L Total Protein 6.2 L (6.3-8.2) g/dL Albumin 3.4 L (3.5-5.0) g/dL 01/29/21 Range/Units 09:18 WBC (3.8-10.6) k/uL RBC (3.80-5.40) m/uL Hgb (11.4-16.0) gm/dL Hct (34.0-46.0) % MCV (80.0-100.0) fL MCH (25.0-35.0) pg MCHC (31.0-37.0) g/dL RDW (11.5-15.5) % Plt Count (150-450) k/uL MPV Neutrophils % % Lymphocytes % % Monocytes % % Eosinophils % % Basophils % % Neutrophils # (1.3-7.7) k/uL Lymphocytes # (1.0-4.8) k/uL Monocytes # (0-1.0) k/uL Eosinophils # (0-0.7) k/uL Basophils # (0-0.2) k/uL PT (9.0-12.0) sec INR (<1.2) APTT (22.0-30.0) sec Sodium (137-145) mmol/L Potassium (3.5-5.1) mmol/L Chloride (98-107) mmol/L Carbon Dioxide (22-30) mmol/L Anion Gap mmol/L BUN (7-17) mg/dL Creatinine (0.52-1.04) mg/dL Est GFR (CKD-EPI)AfAm (>60 ml/min/1.73 sqM) Est GFR (CKD-EPI)NonAf (>60 ml/min/1.73 sqM) Glucose (74-99) mg/dL Plasma Lactic Acid Dinh 0.9 (0.7-2.0) mmol/L Calcium (8.4-10.2) mg/dL Total Bilirubin (0.2-1.3) mg/dL AST (14-36) U/L ALT (4-34) U/L Alkaline Phosphatase (38-126) U/L Total Protein (6.3-8.2) g/dL Albumin (3.5-5.0) g/dL Disposition Clinical Impression: Pneumonia due to COVID-19 virus Disposition: HOME SELF-CARE Condition: Fair Instructions (If sedation given, give patient instructions): Coronavirus Disease 2019 (COVID-19) Prescriptions: ALPRAZolam [Xanax] 0.25 mg PO Q8HR PRN 3 Days #9 tab PRN Reason: Anxiety Is patient prescribed a controlled substance at d/c from ED?: No Referrals: Agustina Hassan MD [Primary Care Provider] - 1-2 days Time of Disposition: 10:42
[2021-01-29 09:33] LABS: Basophils % (A) 0 %; Eosinophils # (A) 0.3 k/uL (0-0.7); Eosinophils % (A) 4 %; HCT 40.7 % (34.0-46.0); HGB 13.5 gm/dL (11.4-16.0); Lymphocytes # (A) 0.9 k/uL (1.0-4.8); Lymphocytes % (A) 14 %; MCH 30.3 pg (25.0-35.0); MCHC 33.1 g/dL (31.0-37.0); MCV 91.4 fL (80.0-100.0); Mean Platelet Volume 7.4; Monocytes # (A) 0.4 k/uL (0-1.0); Monocytes % (A) 7 %; Neutrophils # (A) 4.6 k/uL (1.3-7.7); Neutrophils % (A) 73 %; Platelet Count 156 k/uL (150-450); RBC 4.46 m/uL (3.80-5.40); RDW 13.7 % (11.5-15.5); WBC 6.3 k/uL (3.8-10.6)
--- NOTE | 2021-01-29 09:39 | XR ---
EXAMINATION TYPE: XR chest 1V portable DATE OF EXAM: 01/29/2021 COMPARISON: Chest x-ray 13 days ago and older studies. CTA chest January 07, 2021. HISTORY: Cough and covid. TECHNIQUE: Single AP portable frontal upright view of the chest is obtained. FINDINGS: Persistent increased left greater than right bilateral multifocal increased opacities. Sta ble mild cardiomegaly. The osseous structures are intact. IMPRESSION: Left greater than right bilateral multifocal increased opacities consistent with covid-1 9 infection are redemonstrated, no significant change from most recent x-ray.
[2021-01-29 09:47] LABS: INR 0.9 (<1.2); Partial Thromboplastin Time 22.3 sec (22.0-30.0); Prothrombin Time 10.2 sec (9.0-12.0)
[2021-01-29 09:53] LABS: ALT 69 U/L (4-34); AST 40 U/L (14-36); African American GFR (CKD) >90 (>60 ml/min/1.73 sqM); Albumin 3.4 g/dL (3.5-5.0); Alkaline Phosphatase 77 U/L (38-126); Anion Gap 5 mmol/L; Blood Urea Nitrogen 14 mg/dL (7-17); Calcium 8.9 mg/dL (8.4-10.2); Carbon Dioxide 27 mmol/L (22-30); Chloride 103 mmol/L (98-107); Glucose 104 mg/dL (74-99); Non-African American GFR(CKD) >90 (>60 ml/min/1.73 sqM); Sodium 135 mmol/L (137-145); Total Bilirubin 0.8 mg/dL (0.2-1.3); Total Protein 6.2 g/dL (6.3-8.2)
[2021-01-29 12:26] VITALS: BP 118/85; PULSE 89
== END 2021-01-29 12:48 | disposition home or self-care (01) ==
LOC: EC 08:48
DX: U07.1 COVID-19 (principal); J12.82 Pneumonia due to coronavirus disease 2019; I10 Essential (primary) hypertension; Z91.018 Allergy to other foods; Z91.048 Other nonmedicinal substance allergy status; Z79.899 Other long term (current) drug therapy
CPT/HCPCS: 36415; 71045; 80053; 83605; 85025; 85610; 85730; 93005; 99285

== ENCOUNTER 2021-02-08 10:41 | Emergency (ER) | payer BC ==
[2021-02-08 10:49] VITALS: BP 123/78; PULSE 89; TEMP 98
--- NOTE | 2021-02-08 11:19 | ED ---
General Adult HPI - General Source: patient, RN notes reviewed Mode of arrival: wheelchair Limitations: no limitations <Logan Jackman - Last Filed: 02/08/21 11:19> <Marissa Gannon - Last Filed: 02/09/21 20:44> - General Chief complaint: Allergic Reaction Stated complaint: Med Refill Time Seen by Provider: 02/08/21 10:51 - History of Present Illness Initial comments: 55-year-old female presents to the emergency room for a chief complaint of rash. Patient states that she was given Augmentin for pneumonia with COVID-19. Patient states she did not realize Augmentin had amoxicillin in it and she is ALLERGIC to amoxicillin. States she started to get a rash today. States it is itchy on her arms and legs. Denies any swelling of the lips tongue or throat.Patient has no other complaints at this time including shortness of breath, chest pain, abdominal pain, nausea or vomiting, headache, or visual changes. (Logan Jackman) - Related Data Home Medications Medication Instructions Recorded Confirmed Spironolactone [Aldactone] 25 mg PO PC-SUPPER 08/16/13 02/05/21 Calcium Carbonate [Calcium] 600 mg PO PC-SUPPER 01/01/21 02/05/21 Docusate [Colace] 100 mg PO PC-SUPPER 01/01/21 02/05/21 [place]-3 Fatty Acids/Fish Oil [Fish 2 cap PO PC-SUPPER 01/01/21 02/05/21 Oil 1,000 mg Softgel] Apixaban [Eliquis] 5 mg PO PC-BID 02/05/21 02/05/21 Ascorbic Acid [Vitamin C] 1,000 mg PO PC-SUPPER 02/05/21 02/05/21 Cholecalciferol [Vitamin D3 (25 50 mcg PO PC-BRKFST 02/05/21 02/05/21 Mcg = 1000 Iu)] Tamoxifen Citrate 20 mg PO PC-SUPPER 02/05/21 02/05/21 Zinc Sulfate [Orazinc] 220 mg PO PC-BRKFST 02/05/21 02/05/21 Previous Rx's Medication Instructions Recorded Amoxicillin/Potassium Clav 1 tab PO Q12HR 5 Days #10 tab 02/06/21 [Augmentin 875-125 Tablet] Nystatin 100,000 Unit/ml Susp 500,000 unit PO QID #120 ml 02/06/21 [Mycostatin Oral Susp] Nystatin 100,000Unit/gm Cream 1 applic TOPICAL BID #30 gm 02/06/21 [Mycostatin Cream] predniSONE 10 mg PO DAILY #30 tab 02/06/21 Azithromycin [Zithromax Z-pack (6 250 mg PO DIRECTED #6 tab 02/08/21 tabs)] Allergies Allergy/AdvReac Type Severity Reaction Status Date / Time amoxicillin Allergy Rash/Hives Verified 02/08/21 10:46 DUST AdvReac SOB & Uncoded 02/05/21 20:30 MIGRAINES mold AdvReac SOB & Uncoded 02/05/21 20:30 MIGRAINES MUSHROOMS AdvReac SOB Uncoded 02/05/21 20:30 YEAST AdvReac SOB & Uncoded 02/05/21 20:30 MIGRAINES Review of Systems ROS Other: All systems not noted in ROS Statement are negative. <Logan Jackman P - Last Filed: 02/08/21 11:19> ROS Other: All systems not noted in ROS Statement are negative. <Marissa Gannon - Last Filed: 02/09/21 20:44> ROS Statement: Those systems with pertinent positive or pertinent negative responses have been documented in the HPI. Past Medical History Past Medical History: Hypertension, Skin Disorder, Sleep Apnea/CPAP/BIPAP Additional Past Medical History / Comment(s): HX RT BREAST CA-CHEMO & RAD TX 2011, STATED "HAVING WHAT FEELS LIKE A MUSCLE CRAMPING IN ABD POSS KINKING THE BOWEL CAUSING CONSTIPATION AND THEN FOLLOWED BY MULTIPLE STOOLS." COVID History of Any Multi-Drug Resistant Organisms: None Reported Past Surgical History: Cholecystectomy, Tonsillectomy Additional Past Surgical History / Comment(s): PORT A CATH INSERTED AND REMOVED, LUMPECTOMY RT BREAST. Past Anesthesia/Blood Transfusion Reactions: No Reported Reaction Past Psychological History: No Psychological Hx Reported Smoking Status: Never smoker Past Alcohol Use History: None Reported Past Drug Use History: None Reported <Logan Jackman P - Last Filed: 02/08/21 11:19> General Exam Limitations: no limitations General appearance: alert, in no apparent distress Head exam: Present: atraumatic Eye exam: Present: normal appearance, PERRL, EOMI. Absent: scleral icterus, conjunctival injection ENT exam: Present: normal exam, mucous membranes moist Neck exam: Present: normal inspection, full ROM. Absent: tenderness Respiratory exam: Present: normal lung sounds bilaterally. Absent: respiratory distress, wheezes Cardiovascular Exam: Present: regular rate, normal rhythm, normal heart sounds GI/Abdominal exam: Present: soft, normal bowel sounds. Absent: distended, tenderness Skin exam: Present: warm, dry, intact, normal color, rash (Erythematous macular rash noted on the forearms) <Logan Jackman - Last Filed: 02/08/21 11:19> Course Vital Signs 02/08/21 02/08/21 10:46 11:20 Temperature 98 F Pulse Rate 89 Respiratory 18 22 Rate Blood Pressure 123/78 O2 Sat by Pulse 98 Oximetry Medical Decision Making <Logan Jackman - Last Filed: 02/08/21 11:19> <Marissa Gannon - Last Filed: 02/09/21 20:44> - Medical Decision Making Augmentin was discontinued. Patient will be started on azithromycin. Patient will follow-up with her doctor. She will return here for any worsening symptoms. (Logan Jackman) I was available for consultation in the emergency department. The history and physical exam were done by the midlevel provider. I was consulted for this patients care. I reviewed the case with the midlevel provider and based on their presentation of the patient, I agree with the assessment, medical decision making and plan of care as documented. Chart was dictated using TRAFI dictation software. Attempts were made to correct any dictation errors however some typographical errors may persist. Patient was seen during a national state of emergency due to the Covid-19 pandemic. (Marissa aGnnon) Disposition Is patient prescribed a controlled substance at d/c from ED?: No Time of Disposition: 11:19 <Logan Jackman - Last Filed: 02/08/21 11:19> <Marissa Gannon - Last Filed: 02/09/21 20:44> Clinical Impression: Allergic reaction Disposition: HOME SELF-CARE Condition: Good Instructions (If sedation given, give patient instructions): General Allergic Reaction (ED) Additional Instructions: Please take azithromycin instead of Augmentin. Follow-up with your doctor. Return to the emergency room for any worsening symptoms. Prescriptions: Azithromycin [Zithromax Z-pack (6 tabs)] 250 mg PO DIRECTED #6 tab Referrals: Agustina Hassan MD [Primary Care Provider] - 1-2 days
[2021-02-08] MEDS: diphenhydrAMINE 25 MG CAP PO STA (11:30)
[2021-02-08 11:43] VITALS: RESP 22
== END 2021-02-08 11:34 | disposition home or self-care (01) ==
LOC: EC 10:41
DX: T78.40XA Allergy, unspecified, initial encounter (principal); I10 Essential (primary) hypertension; Z86.16 Personal history of COVID-19; Z91.048 Other nonmedicinal substance allergy status; Z91.018 Allergy to other foods; Z79.899 Other long term (current) drug therapy; Z88.0 Allergy status to penicillin
CPT/HCPCS: 99283

== ENCOUNTER → 2021-07-18 | Outpatient (CLI) | payer BC ==
--- NOTE | 2021-07-23 12:24 | MM ---
Reason for Exam: Screening (asymptomatic). Last mammogram was performed 3 year(s) and 2 month(s) ago. Patient History: Menarche at age 7. Patient has no children. Postmenopausal. Breast cancer, right, age 45. Previous chest radiation therapy at age 45. Previous chemotherapy at age 45. Hormonal Contraceptives, starting at age 33 for 12 years. Currently using Tamoxifen, beginning at age 45 for 10 years. 07/01/2011, Lumpectomy on the Right side. 07/01/2011, Malignant Excisional Biopsy on the right side. 06/18/2011, Malignant Core Biopsy on the right side. 2011, Chemotherapy. 2011, Radiation Therapy. Paternal cousin had breast cancer, age 40. Prior Study Comparison: 05/08/2016 Bilateral Diagnostic Mammogram, [facility]. 05/13/2017 Bilateral Screening Mammogram, [facility]. 05/18/2018 Bilateral Screening Mammogram, [facility]. Tissue Density: There are scattered fibroglandular densities. Findings: Analyzed By CAD. Postsurgical changes are in the upper outer right breast. Left breast appears larger than right. No suspicious groups of microcalcifications, spiculated or lobular masses, architectural distortion or other secondary signs of malignancy are mammographically apparent. Overall Assessment: Benign, BI-RAD 2 Management: Screening Mammogram of both breasts in 1 year. A negative mammogram report should not preclude additional follow up of suspicious palpable abnormalities. Patient should continue monthly self breast exam. A clinical breast exam by your physician is recommended on an annual basis and results should be correlated with mammographic findings. Electronically signed and approved by: Moo Bowers D.O. Radiologis
== END | disposition home or self-care (01) ==
LOC: RADMAMWWP 11:07
PROVIDERS: ATTEND Radiology Radiation Oncology
DX: Z12.31 Encounter for screening mammogram for malignant neoplasm of breast (principal)
CPT/HCPCS: 77067

== ENCOUNTER → 2021-08-15 | Outpatient (CLI) | payer BC ==
--- NOTE | 2021-08-15 14:25 | P.SLEEP ---
History of Present Illness DATE: 08/15/2021 CONSULTATION/NEW PATIENT EVALUATION HISTORY OF PRESENT ILLNESS/SLEEP-WAKE EVALUATION: 55year old lady had been e valuated in the sleep center for obstructive sleep apnea hypopnea syndrome. Patient has history of obstructive sleep apnea hypopnea syndrome for more then 10 years. Before that time patient is on treatment with CPAP. Recently she is not able to use her CPAP, it's not working. She still has problems with her breathing. She increased her weight on around 70 pounds since the previous sleep study was done. SLEEP SCHEDULE: Usually sleep schedule is from 1 to 2 a.m. until 8 AM. FALLING ASLEEP: Usually no significant problems with the falling to sleep note TV in bedroom DURING SLEEP: Patient has multiple awakenings from sleep up to 6 times with nocturia, gasping for air. No history of hypnogogical hallucinations, sleep paralysis, or cataplexy. DURING THE DAY/WAKE STATE: In the morning patient wake up tired falling asleep during the day. [place] sleepiness scale is 8. PAST MEDICAL HISTORY: Covid 19 with the covid pneumonia in December 2020, hypertension, arthritis, cyanosis problems, right breast CA, borderline blood sugar PAST SURGICAL HISTORY: Right mastectomy. MEDICATIONS: Lisinopril 5 mg once a day, spironolactone 25 mg once a day, tamoxifen 25 mg once a day SOCIAL HISTORY: Negative for smoking or using alcohol . FAMILY HISTORY: Hyperlipidemia REVIEW OF SYSTEMS: Snoring, awakenings with gasping for air multiple times during the night. No fevers. No double vision. No recent chest pain. No shortness of breath. No abdominal pain. No bleeding episodes. No blood in urine. No seizure episodes. PHYSICAL EXAMINATION: GENERAL: A pleasant patient without any distress. VITAL SIGNS: BP 149/89, HR 102, RR Dickstein, weight 278 pounds, height 5 foot 0 inches, body mass index 54.2. HEENT: PERRLA, EOMI. Evaluation of oropharynx showed tongue protrudes midline, low position of soft palate Mallampati 4. NECK: Supple. No JVD. Thyroid is not palpable. 19 inches in circumference. LUNGS: Good air exchange. Few wheezing and rhonchi. HEART: S1, S2 regular. No murmurs, gallops or rubs. ABDOMEN: Soft and nontender. Bowel sounds are present. No organomegaly appreciated. Obese EXTREMITIES: No clubbing or cyanosis. LONGWALL HEADGATE OPERATOR: Awake, alert, and oriented x3. Cranial nerves 2 to 7 intact. There is no fasciculation or atrophy noted. No focal deficits observed. ASSESSMENT: 1. Obstructive sleep apnea-hypopnea syndrome diagnosed more than 10 years ago. Patient significantly increased weight 170 pounds since previous sleep study. Presently show CPAP unit is where he won't, does not work for the patient. Extremely low position of soft palate, white neck 19 inches in circumference obstructive sleep apnea-hypopnea syndrome . 2. Status post Covid 19 with coronary pneumonia and some residual post pneumonia lung problems recently. 3. Hypertension. 4. Morbid obesity. BMI 54.2, possibly obesity hypoventilation. 5 history of sinuses problems. 6. History of right breast CA, status post mastectomy, radiation therapy and chemotherapy. 7. Borderline blood sugar. 8. History of arthritis. PLAN: 1. Polysomnography for evaluation of patient's breathing during sleep at the present time. Patient had covid 19 pneumonia and morbidly obese. 2. CPAP/BiPAP titration for correction of obstructive sleep apnea-hypopnea syndrome. 3. Preferable position during sleep on the side. 4. No driving if patient feels any sleepiness. Patient is aware of civil and criminal liability for unsafe driving. 5. Sleep hygiene with regular sleep time for at least 7.5-8 hours. 6. Aggressive losing weight program. Sincerely, Fabian Licona MD, PhD, FAASM. Diplomat of [employer] [place] [employer], Sleep Medicine Board by [place] [employer] [place] [employer] Auditor Tax of [facility] [place] Past Medical History Past Medical History: Hypertension, Skin Disorder, Sleep Apnea/CPAP/BIPAP Additional Past Medical History / Comment(s): HX RT BREAST CA-CHEMO & RAD TX 2011, STATED "HAVING WHAT FEELS LIKE A MUSCLE CRAMPING IN ABD POSS KINKING THE BOWEL CAUSING CONSTIPATION AND THEN FOLLOWED BY MULTIPLE STOOLS." COVID History of Any Multi-Drug Resistant Organisms: None Reported Past Surgical History: Cholecystectomy, Tonsillectomy Additional Past Surgical History / Comment(s): PORT A CATH INSERTED AND REMOVED, LUMPECTOMY RT BREAST. Past Anesthesia/Blood Transfusion Reactions: No Reported Reaction Past Psychological History: No Psychological Hx Reported Smoking Status: Never smoker Past Alcohol Use History: None Reported Past Drug Use History: None Reported Medications and Allergies Home Medications Medication Instructions Recorded Confirmed Type Spironolactone [Aldactone] 25 mg PO PC-SUPPER 08/16/13 02/05/21 History Calcium Carbonate [Calcium] 600 mg PO PC-SUPPER 01/01/21 02/05/21 History Docusate [Colace] 100 mg PO PC-SUPPER 01/01/21 02/05/21 History [place]-3 Fatty Acids/Fish Oil [Fish 2 cap PO PC-SUPPER 01/01/21 02/05/21 History Oil 1,000 mg Softgel] Apixaban [Eliquis] 5 mg PO PC-BID 02/05/21 02/05/21 History Ascorbic Acid [Vitamin C] 1,000 mg PO PC-SUPPER 02/05/21 02/05/21 History Cholecalciferol [Vitamin D3 (25 50 mcg PO PC-BRKFST 02/05/21 02/05/21 History Mcg = 1000 Iu)] Tamoxifen Citrate 20 mg PO PC-SUPPER 02/05/21 02/05/21 History Zinc Sulfate [Orazinc] 220 mg PO PC-BRKFST 02/05/21 02/05/21 History Amoxicillin/Potassium Clav 1 tab PO Q12HR 5 Days #10 tab 02/06/21 Rx [Augmentin 875-125 Tablet] Nystatin 100,000 Unit/ml Susp 500,000 unit PO QID #120 ml 02/06/21 Rx [Mycostatin Oral Susp] Nystatin 100,000Unit/gm Cream 1 applic TOPICAL BID #30 gm 02/06/21 Rx [Mycostatin Cream] predniSONE 10 mg PO DAILY #30 tab 02/06/21 Rx Azithromycin [Zithromax Z-pack (6 250 mg PO DIRECTED #6 tab 02/08/21 Rx tabs)] Allergies Allergy/AdvReac Type Severity Reaction Status Date / Time amoxicillin Allergy Rash/Hives Verified 02/08/21 10:46 DUST AdvReac SOB & Uncoded 02/05/21 20:30 MIGRAINES mold AdvReac SOB & Uncoded 02/05/21 20:30 MIGRAINES MUSHROOMS AdvReac SOB Uncoded 02/05/21 20:30 YEAST AdvReac SOB & Uncoded 02/05/21 20:30 MIGRAINES Sleep Note - Sleep Note Sleep Note: Temperature: Pulse Rate: Respiratory Rate: Blood Pressure: SpO2: Height: Weight: BMI: Neck Circumference:
== END | disposition home or self-care (01) ==
LOC: SLEEP 13:15
PROVIDERS: ATTEND Internal Medicine
DX: G47.33 Obstructive sleep apnea (adult) (pediatric) (principal); I10 Essential (primary) hypertension; Z68.43 Body mass index [BMI] 50.0-59.9, adult; E66.01 Morbid (severe) obesity due to excess calories; Z85.3 Personal history of malignant neoplasm of breast; Z87.39 Personal history of other diseases of the musculoskeletal system and connective tissue; Z86.16 Personal history of COVID-19
CPT/HCPCS: 99211

== ENCOUNTER → 2021-12-03 | Outpatient (CLI) | payer BC ==
[2021-12-03 14:59] LABS: Basophils # (A) 0 X 10*3/uL (0.00-0.10); Basophils % (A) 0 %; Eosinophils % (A) 10.2 %; HCT 39.5 % (37.2-46.3); HGB 12.9 g/dL (12.0-15.0); Immature Grans, Automated 0.3 %; Lymphocytes # (A) 1.63 X 10*3/uL (0.90-5.00); Lymphocytes % (A) 27.7 %; MCH 28.5 pg (27.0-32.0); MCHC 32.7 g/dL (32.0-37.0); MCV 87.2 fL (80.0-97.0); Mean Platelet Volume 10.7 fL (9.5-12.2); Monocytes # (A) 0.69 X 10*3/uL (0.20-1.00); Monocytes % (A) 11.7 %; NRBC Per 100 WBC 0 /100 WBCS (0.0-0.0); Neutrophils # (A) 2.95 X 10*3/uL (1.80-7.70); Neutrophils % (A) 50.1 %; Platelet Count 227 X 10*3/uL (140-440); RBC 4.53 X 10*6/uL (4.10-5.20); RDW 13.5 % (11.5-14.5); WBC 5.89 X 10*3/uL (4.50-10.00)
[2021-12-03 15:14] LABS: African American GFR (CKD) 97.6 (60.0-200.0); Albumin 4.1 g/dL (3.8-4.9); Albumin/Globulin Ratio 1.33 (1.60-3.17); Anion Gap 10.3 mmol/L (10.00-18.00); BUN/Creat Ratio 22.91 Ratio (12.00-20.00); Blood Urea Nitrogen 17.8 mg/dL (9.0-27.0); Calcium 9.7 mg/dL (8.7-10.3); Carbon Dioxide 24.4 mmol/L (20.0-27.5); Globulin 3.1 g/dL (1.6-3.3); Non-African American GFR(CKD) 84.2 (60.0-200.0); Total Bilirubin 0.4 mg/dL (0.30-1.20); Total Protein 7.1 g/dL (6.2-8.2)
[2021-12-03 15:17] LABS: Appearance,Urine Cloudy (Clear); Bilirubin,Urine Negative (Negative); Blood,Urine Large (Negative); Color,Urine Yellow (Yellow); Ketones,Urine Negative (Negative); Nitrite,Urine Negative (Negative); PH, Urine 6.5 (5.0-8.0); Specific Gravity,Urine 1.017 (1.001-1.030); Urobilinogen,Urine 0.2 (0.2,1.0)
[2021-12-03 16:43] LABS: Bacteria,Urine None Seen /HPF (None Seen)
== END | disposition home or self-care (01) ==
LOC: LABPAT 09:30
PROVIDERS: ATTEND Urology
DX: Z01.812 Encounter for preprocedural laboratory examination (principal); N20.0 Calculus of kidney; R31.29 Other microscopic hematuria
CPT/HCPCS: 36415; 80053; 81001; 85025; 87086

== ENCOUNTER 2021-12-10 08:50 | Inpatient (IN) | payer BC ==
[2021-12-05 15:59] VITALS: BMI 52.3
--- NOTE | 2021-12-09 18:18 | P.GSHP ---
History of Present Illness H&P Date: 12/09/21 56 yo female in the hospital, [facility] in the end of october with a proteus pyelonephritis. THe patient was found to have a 3.3 cm right renal stone without obstruction. SHe had covid pneumonia which has resolved. She has been cleared by Dr Duffy. SHe comes for a right PCNL to remove the infected stone - Constitutional Constitutional: Denies chills, Denies fever - EENT Eyes: denies blurred vision, denies pain Ears, nose, mouth and throat: Denies headache, Denies sore throat - Cardiovascular Cardiovascular: Denies chest pain, Denies shortness of breath - Respiratory Respiratory: Denies cough, Denies 7 - Gastrointestinal Gastrointestinal: Denies abdominal pain, Denies diarrhea, Denies nausea, Denies vomiting - Genitourinary (Female) Genitourinary: Denies dysuria, Denies hematuria - Genitourinary (Male) Genitourinary: Denies dysuria, Denies hematuria - Musculoskeletal Musculoskeletal: Denies myalgias - Integumentary Integumentary: Denies pruritus, Denies rash - Neurological Neurological: Denies numbness, Denies weakness - Psychiatric Psychiatric: Denies anxiety, Denies depression - Endocrine Endocrine: Denies fatigue, Denies weight change Past Medical History Past Medical History: Cancer, Hyperlipidemia, Hypertension, Osteoarthritis (OA), Pneumonia, Skin Disorder, Sleep Apnea/CPAP/BIPAP Additional Past Medical History / Comment(s): HX RT BREAST CA-CHEMO & RAD TX 2011, " COVID 11/07/21, c pap machine-not using at this time, migraine headache, "borderline diabetic " right breast cancer, kidney stones History of Any Multi-Drug Resistant Organisms: None Reported Past Surgical History: Cholecystectomy, Tonsillectomy Additional Past Surgical History / Comment(s): PORT A CATH INSERTED AND REMOVED, LUMPECTOMY RT BREAST. right breast biopsy Past Anesthesia/Blood Transfusion Reactions: No Reported Reaction Additional Past Anesthesia/Blood Transfusion Reaction / Comment(s): patient states sometimes it takes her longer to wake up" Smoking Status: Never smoker - Past Family History Mother Family Medical History: Cancer Additional Family Medical History / Comment(s): bladder cancer, Medications and Allergies Home Medications Medication Instructions Recorded Confirmed Type Spironolactone [Aldactone] 25 mg PO PC-SUPPER 08/16/13 12/05/21 History Calcium Carbonate [Calcium] 600 mg PO PC-SUPPER 01/01/21 12/05/21 History Docusate [Colace] 100 mg PO PC-SUPPER 01/01/21 12/05/21 History [place]-3 Fatty Acids/Fish Oil [Fish 2 cap PO PC-SUPPER 01/01/21 12/05/21 History Oil 1,000 mg Softgel] Ascorbic Acid [Vitamin C] 1,000 mg PO PC-SUPPER 02/05/21 12/05/21 History Cholecalciferol [Vitamin D3 (25 50 mcg PO PC-BRKFST 02/05/21 12/05/21 History Mcg = 1000 Iu)] Zinc Sulfate [Orazinc] 220 mg PO PC-BRKFST 02/05/21 12/05/21 History Nystatin 100,000Unit/gm Cream 1 applic TOPICAL BID PRN 12/05/21 12/05/21 History [Mycostatin Cream] Sulfamethoxazole/Trimethoprim 1 each PO HS 12/05/21 12/05/21 History [Sulfamethoxazole-Tmp Ds Tablet] Allergies Allergy/AdvReac Type Severity Reaction Status Date / Time amoxicillin Allergy Rash/Hives Verified 12/05/21 15:06 DUST AdvReac SOB & Uncoded 12/05/21 15:06 MIGRAINES mold AdvReac SOB & Uncoded 12/05/21 15:06 MIGRAINES MUSHROOMS AdvReac SOB Uncoded 12/05/21 15:06 YEAST AdvReac MIGRAINES Uncoded 12/05/21 15:06 headaches Surgical - Exam - General well developed, well nourished - Eyes normal ocular movement, no icteric - ENT no hearing loss, no congestion - Neck no masses, trachea midline - Respiratory normal respiratory effort, clear to auscultation - Abdomen Abdomen: soft, non tender, no guarding, no rigid, no rebound - Integumentary no rash, no abnormal pigmentation - Neurologic no disoriented, no combative - Psychiatric oriented to time, oriented to person, oriented to place, speech is normal, memory intact Results - Imaging CT scan - abdomen: report reviewed, image reviewed CT scan - pelvis: report reviewed, image reviewed Assessment and Plan Assessment: Impression: Right renal stone large, infected. Plan: right PCNL
[~2021-12-10 08:50] MED LIST: GENTAMICIN 120 MG in SODIUM CHLORIDE 0.9% 100 ML IVPB PRN
--- NOTE | 2021-12-10 09:20 | XR ---
EXAMINATION TYPE: XR KUB DATE OF EXAM: 12/10/2021 COMPARISON: None HISTORY: Pain TECHNIQUE: One view abdominal series FINDINGS: The osseous structures are intact. The bowel gas pattern is nonspecific. Large staghorn calcificatio n right kidney measuring approximately 3.9 cm. Atrophic degenerative changes of the vertebral column. There is hypertrophic changes involving the iliac crests. Arthropathy of the hips correlate femoral acetabular impingement. Vascular calcifications pelvis. IMPRESSION: 1. Large right-sided staghorn calcification
[2021-12-10] MEDS ORDERED: LACTATED RINGERS 1,000 ML IV ONE ×2 (10:06→13:38)
[2021-12-10] MEDS ORDERED: ONDANSETRON 4 MG/2 ML VIAL ONE (10:09)
[2021-12-10] MEDS ORDERED: ONDANSETRON 4 MG/2 ML VIAL IVP ONE (10:10)
[2021-12-10] MEDS ORDERED: DEXAMETHASONE SOD PHOSPHATE 4 MG/ML 1 ML VIAL IVP ONE (10:10)
[2021-12-10] MEDS ORDERED: fentaNYL (PF) 50 MCG/ML 2 ML AMP ONE (11:03)
[2021-12-10] MEDS ORDERED: ROCURONIUM 10 MG/ML (5 ML VIAL) IV ONE (11:03)
[2021-12-10] MEDS ORDERED: PHENYLEPHRINE-0.9% NACL SYG 1,000 MCG/10 ML SYRINGE ONE (11:03)
[2021-12-10] MEDS ORDERED: GLYCOPYRROLATE 0.2 MG/ML 2 ML VIAL ONE (11:03)
[2021-12-10] MEDS ORDERED: MIDAZOLAM 2 MG/2 ML VIAL ONE (11:03)
[2021-12-10] MEDS ORDERED: SUCCINYLCHOLINE CHLORIDE 200 MG/10 ML VIAL IV ONE (11:03)
[2021-12-10] MEDS ORDERED: NEOSTIGMINE 1 MG/ML 10 ML VIAL ONE (11:03)
[2021-12-10] MEDS ORDERED: PROPOFOL 10 MG/ML 20 ML VIAL IV ONE (11:03)
[2021-12-10] MEDS ORDERED: LIDOCAINE 2% INJ 20 MG/ML (2 ML VIAL) ONE (11:03)
[2021-12-10] MEDS ORDERED: IOPAMIDOL-370 50ML BTL MISCELLANE ONE ×2 (11:52)
[2021-12-10] MEDS ORDERED: NALOXONE 0.4 MG/ML 1 ML VIAL IV PRN (12:40)
[2021-12-10] MEDS ORDERED: ONDANSETRON 4 MG/2 ML VIAL IVP PRN (12:43)
[2021-12-10] MEDS ORDERED: MAG HYDROX/AL HYDROX/SIMETH 30 ML CUP PO PRN (12:43)
--- NOTE | 2021-12-10 12:49 | P.OP ---
Date of Procedure: 12/10/21 Preoperative Diagnosis: Infected partial staghorn right Postoperative Diagnosis: Same Procedure(s) Performed: Cystoscopy, placement of right occluding balloon catheter, right percutaneous nephrostomy (Dr. swartz), right percutaneous nephrostomy tube placement Anesthesia: CHRISA Surgeon: Louis West Estimated Blood Loss (ml): 300 Pathology: none sent Condition: stable Disposition: PACU Indications for Procedure: The patient is 56. She has a large right renal pelvic stone (greater than 3 cm causing obstruction. The stone is infected that she has a recurrent Proteus infection. She comes for right percutaneous nephrostolithotomy. Description of Procedure: Patient brought to the operative suite. Given general anesthesia on the transport gurney. She's placed in a frog position with a sterile prep and drape. Cystoscopy Foroblique lens and 21-Estonian sheath identifies the right ureteral orifice. It is intubated and a 5-Estonian occluding balloon catheter is passed up into the renal pelvis Patient is placed in a prone position with care to airways and extremities. Dr. Swartz of radiology comes to place percutaneous access. The patient is morbidly obese at 5 foot 265 pounds. It is difficult to see the stone in the collecting system despite feeling of air and some contrast. We eventually unable to intubate a middle pole calyx. We able to pass the wire down the ureter. We then dilate the tract to 30-Estonian and advance the sheath in the collecting system. The large amount of edema due to the attempts at getting the access as well as due to the stone. Due to that I elected to abort the procedure and place and large nephrostomy tube to allow the tract to dilate up and do a secondary nephrostolithotomy. Over the working wire a 24-Estonian reentry right nephrostomy tube was placed into the collecting system. It is secured to the skin with 2-0 silk. The patient's awake and returned recovery room good condition Impression attempted the percutaneous nephrostolithotomy, right failed a period nephrostomy tube placement right successful. Recommendation: Patient will need a secondary nephrostolithotomy. Due to a small intrarenal anatomy and her morbid obesity the surgery was challenging. The nephrostomy tube was allowed to allow the collecting system to drain and heal and then we'll do a secondary procedure later date.
[2021-12-10] MEDS ORDERED: fentaNYL (PF) 50 MCG/1 ML VIAL IV ONE ×2 (12:59→13:13)
--- NOTE | 2021-12-10 13:10 | FL ---
EXAMINATION TYPE: FL Perc Nephrostomy New Access DATE OF EXAM: 12/10/2021 COMPARISON: NONE HISTORY: Right renal calcification Procedure had been discussed with the patient by Dr. West, risks, benefits, alternatives, were dis cussed and any questions were answered. Informed consent was obtained. The patient was in a semipro ne position prepped and draped on the OR table in the usual sterile fashion. Utilizing a 15 cm lengt h Chiba needle a single pass was made into a mid pole posterior calyx under fluoroscopic guidance. A n 0.018 guidewire is passed through the needle and there was placement of a 6-British catheter sheath system. There was conversion to a 0.035 system was performed with passage of a guidewire into the u reter utilizing a directional catheter. A second safety wire was placed. Remaining portion of proce dure performed by . Approximately 6 minutes and 4 seconds of fluoroscopy was provided. IMPRESSION: 1. Successful intraoperative right nephrostomy prior to nephrolithotomy.
[2021-12-10] MEDS ORDERED: HYDROmorphone 0.5 MG/0.5 ML SYRINGE IVP ONE ×3 (13:32→14:02)
[2021-12-10] MEDS ORDERED: HYDROmorphone PCA 10 MG/50 ML BAG IV PRN (14:30)
[2021-12-10] MEDS: HYDROmorphone 1 MG/ML 1 ML SYRINGE IVP PRN ×2 (17:27→21:27)
[2021-12-10] MEDS: KETOROLAC 15 MG/ML 1 ML VIAL IVP SCH (17:27)
[2021-12-10] MEDS: DOCUSATE 100 MG CAP PO SCH ×2 (18:20→21:33)
[2021-12-10] MEDS: DEXTROSE 5%-0.45% NACL 1,000 ML IV SCH (18:20)
[2021-12-10] MEDS: SPIRONOLACTONE 25 MG TAB PO SCH ×2 (18:21→21:33)
[2021-12-10] MEDS: SULFAMETHOX-TMP 800-160MG 1 EACH TAB PO SCH (21:33)
[2021-12-11] MEDS: KETOROLAC 15 MG/ML 1 ML VIAL IVP SCH ×5 (00:42→23:55)
[2021-12-11] MEDS: DEXTROSE 5%-0.45% NACL 1,000 ML IV SCH ×3 (00:43→20:09)
[2021-12-11] MEDS: HYDROmorphone 1 MG/ML 1 ML SYRINGE IVP PRN ×3 (04:16→20:04)
[2021-12-11] MEDS: ACETAMINOPHEN TAB 325 MG TAB PO PRN (04:19)
--- NOTE | 2021-12-11 09:23 | P.PN ---
Subjective Progress Note Date: 12/11/21 Principal diagnosis: Infected partial staghorn, right The patient is a 56 year old female who was in the hospital, [facility], in the end of October with a proteus pyelonephritis. The patient was found to have a 3.3 cm right renal renal pelvic stone with obstruction. She also had covid pneumonia which has resolved. She has been cleared by Dr Duffy. She presented for an elective right PCNL to remove the infected stone. On 11/30/21 she went to the OR with Dr. West an had a Cystoscopy, placement of right occluding balloon catheter, right percutaneous nephrostomy (Dr. swartz), right percutaneous nephrostomy tube placement. There were large amount of edema due to the attempt s at getting access as well as due to the stone. Therefore, the procedure was aborted and a large nephrostomy tube was placed to allow the tract to dilate up. Due to a small intrarenal anatomy and her morbid obesity the surgery was challenging. The nephrostomy tube will allow the collecting system to drain and heal. Patient will need a secondary nephrostolithotomy on a later date. Objective - Vital Signs Vital signs: Vital Signs Temp 98.2 F 12/11/21 04:07 Pulse 113 H 12/11/21 04:07 Resp 20 12/11/21 04:07 BP 136/80 12/11/21 04:07 Pulse Ox 93 L 12/11/21 04:07 FiO2 Intake & Output 12/10/21 12/11/21 12/11/21 18:59 06:59 18:59 Intake Total 1853 500 Output Total 1045 400 Balance 808 100 Weight 119.9 kg Intake: IV 1653 Dextrose 5%-0.45% NaCl 1, 300 000 ml @ 100 mls/hr IV . Q10H [facility] Rx#:[id number] Oral 200 500 Output: Drainage 75 Right Lower Back 75 Urine 670 400 Estimated Blood Loss 300 Other: Voiding Method Indwelling Catheter Indwelling Catheter # Bowel Movements 0 - Exam - General well developed, well nourished, no distress - Eyes normal ocular movement, no icteric - Respiratory normal respiratory effort - Abdomen soft, non tender - Integumentary no rash, no abnormal pigmentation - Neurologic awake and oriented x 3. CN II-XII grosly intact - Psychiatric appropriate mood and affect Assessment and Plan Assessment: Patient states pain is tolerable. Vitals stable, she is afebrile. She is on 5L NC. [place] draining yellow/pink tinged urine. Right nephrostomy tube draining dark red urine. (1) Renal calculus, right Current Visit: Yes Status: Acute Code(s): N20.0 - CALCULUS OF KIDNEY SNOMED Code(s): 89309696 Plan: - Continue current pain management - Increase activity - Encourage incentive spirometer - Titrate O2 down, maintain SPO2 > 92% - Remove herndon catheter today - Irrigate nephrostomy tube prn - Repeat abd/pelvis CT w/o contrast today to verify tube placement - Anticipate discharge in 24-48 hours - Secondary nephrostolithotomy at a later date Impression and plan of care have been directed as dictated by the signing physician. Hilary Erwin nurse practitioner acting as scribe for signing physician. Hilary Erwin [facility] Palliative Care/Urology [facility] [id number] Email: [email or web address] Time with Patient: Less than 30
--- NOTE | 2021-12-11 11:04 | P.PN ---
Progress Note - Text Progress Note Date: 12/11/21 Thepatient was examined, i concur with the, note from Hilary Hercules,, franklin West
--- NOTE | 2021-12-11 12:29 | CT ---
EXAMINATION TYPE: CT abdomen pelvis wo con DATE OF EXAM: 12/11/2021 HISTORY: Verify nephrostomy tube placement. Renal stones. Nephrostomy tube placed yesterday. CT DLP: 1613.5 mGycm. Automated Exposure Control for Dose Reduction was Utilized. TECHNIQUE: CT scan of the abdomen and pelvis is performed without oral or IV contrast. COMPARISON: CT abdomen December 01, 2013 FINDINGS: Within the limitations of a non-contrast study, the following observations are made. LUNG BASES: Moderate bibasilar linear scarring is now present slightly more prominent anterior right lower lung. There are treatment changes to the right breast with surgical clips and scarring inferior ly through this level noted. LIVER/GB: Visualized liver remains heterogeneously hypodense consistent with diffuse fatty infiltrati on. Prominent right hepatic lobe redemonstrated. Cholecystectomy clips redemonstrated. PANCREAS: No significant abnormality is seen. SPLEEN: No significant abnormality is seen. ADRENALS: No significant abnormality is seen. KIDNEYS: No left-sided renal calculus or hydronephrosis. There is percutaneous right-sided nephrostom y tube connecting to smaller caliber portion in the mid central portion right kidney which then exten ds along the course of the pelvis and ureter terminating in the distal right ureter. There is stagho rn 2.4 cm calculus lower pole right kidney coronal image 68 just below this. Some adjacent retroperit gonzalez air and mild ill-defined fluid are nonspecific but presumed from recent procedure are noted. Fo cus of nondependent air in bladder. No bladder calculi. BOWEL: No significant abnormality is seen. GENITAL ORGANS: Anteverted uterus. A few scattered tiny left-sided pelvic phleboliths LYMPH NODES: No greater than 1cm abdominal or pelvic lymph nodes are appreciated. OSSEOUS STRUCTURES: Multilevel spurring in the spine. OTHER: No significant additional abnormality is seen. IMPRESSION: Percutaneous nephrostomy tube is satisfactory in position as detailed above.
--- NOTE | 2021-12-11 17:44 | P.PN ---
Progress Note - Text Progress Note Date: 12/11/[address] scan is reviewed. the n tube is in good position. The edema, blood and air around the kidney is within acceptable limits for the surgical procedure and anatomical findings in this patient. She will have a secondary nephrostolithotomy next week when the swelling settles down
[2021-12-11] MEDS: DOCUSATE 100 MG CAP PO SCH (18:16)
[2021-12-11] MEDS: SPIRONOLACTONE 25 MG TAB PO SCH (18:16)
[2021-12-11] MEDS: SULFAMETHOX-TMP 800-160MG 1 EACH TAB PO SCH (20:04)
[2021-12-12] MEDS: KETOROLAC 15 MG/ML 1 ML VIAL IVP SCH ×4 (05:47→23:33)
[2021-12-12] MEDS: DEXTROSE 5%-0.45% NACL 1,000 ML IV SCH (06:27)
[2021-12-12] MEDS ORDERED: HYDROcodone/APAP 5-325MG 1 EACH TAB PO PRN (07:51)
--- NOTE | 2021-12-12 08:13 | P.PN ---
Subjective Progress Note Date: 12/12/21 Principal diagnosis: Infected partial staghorn, right The patient is a 56 year old female who was in the hospital, [facility], in the end of October with a proteus pyelonephritis. The patient was found to have a 3.3 cm right renal renal pelvic stone with obstruction. She also had covid pneumonia which has resolved. She has been cleared by Dr Duffy. She presented for an elective right PCNL to remove the infected stone. On 11/30/21 she went to the OR with Dr. West an had a Cystoscopy, placement of right occluding balloon catheter, right percutaneous nephrostomy (Dr. swartz), right percutaneous nephrostomy tube placement. There were large amount of edema due to the attempt s at getting access as well as due to the stone. Therefore, the procedure was aborted and a large nephrostomy tube was placed to allow the tract to dilate up. Due to a small intrarenal anatomy and her morbid obesity the surgery was challenging. The nephrostomy tube will allow the collecting system to drain and heal. Patient will need a secondary nephrostolithotomy on a later date. Objective - Vital Signs Vital signs: Vital Signs Temp 98.5 F 12/12/21 04:20 Pulse 96 12/12/21 04:20 Resp 15 12/12/21 04:20 BP 107/65 12/12/21 04:20 Pulse Ox 100 12/12/21 04:20 FiO2 Intake & Output 12/11/21 12/12/21 12/12/21 18:59 06:59 18:59 Intake Total 1200 Output Total 150 525 Balance 1050 -525 Intake: IV 1200 Dextrose 5%-0.45% NaCl 1, 1200 000 ml @ 100 mls/hr IV . Q10H [facility] Rx#:[id number] Output: Drainage 150 525 Right Lower Back 150 525 Other: Voiding Method Indwelling Catheter # Voids 2 1 - Exam - General well developed, well nourished, no distress - Eyes normal ocular movement, no icteric - Respiratory normal respiratory effort - Abdomen soft, non tender - Integumentary no rash, no abnormal pigmentation - Neurologic awake and oriented x 3. CN II-XII grosly intact - Psychiatric appropriate mood and affect Assessment and Plan Assessment: The patient is sitting up in the chair. She reports some stiffness in back and neck. Patient advised to increase activity. The right nephrosomy tube is draining light pink urine. The patient reports she is voiding without difficulty. She denies any nausea or vomiting. Vitals stable, afebrile, and on 2L NC. She states her pain is well controlled. The ct scan was reviewed by Dr. West. The nephrostomy tube is in good position. The edema, blood and air around the kidney is within acceptable limits for the surgical procedure and anatomical findings in this patient. (1) Renal calculus, right Current Visit: Yes Status: Acute Code(s): N20.0 - CALCULUS OF KIDNEY SNOMED Code(s): 95646302 Plan: - Dilaudid discontinued, Waldo added prn, Toradol continued - IVF discontinued, diet advanced - Increase activity - Encourage incentive spirometer - Titrate O2 down, maintain SPO2 > 92% - Irrigate nephrostomy tube prn - Anticipate discharge in 24 hours - Secondary nephrostolithotomy at a later date Impression and plan of care have been directed as dictated by the signing physician. Hilary Erwin nurse practitioner acting as scribe for signing physician. Hilary Erwin [facility] Palliative Care/Urology [place] [id number] Email: [email or web address] Time with Patient: Less than 30
[2021-12-12] MEDS: ACETAMINOPHEN TAB 325 MG TAB PO PRN (17:30)
[2021-12-12] MEDS: DOCUSATE 100 MG CAP PO SCH (17:32)
[2021-12-12] MEDS: SPIRONOLACTONE 25 MG TAB PO SCH (17:32)
[2021-12-12] MEDS: SULFAMETHOX-TMP 800-160MG 1 EACH TAB PO SCH (21:04)
[2021-12-13 04:55] VITALS: BP 122/81; PULSE 109; RESP 17; TEMP 98.3
[2021-12-13] MEDS: KETOROLAC 15 MG/ML 1 ML VIAL IVP SCH (05:35)
--- NOTE | 2021-12-13 05:35 | P.PN ---
Progress Note - Text Progress Note Date: 12/12/21 he patient was examined by me and I concur with the note from franklin dorantes
--- NOTE | 2021-12-13 08:03 | P.DS ---
Providers Date of admission: 12/12/21 07:20 Expected date of discharge: 12/13/21 Attending physician: Louis West Primary care physician: Stated None - Discharge Diagnosis(es) (1) Renal calculus, right Current Visit: Yes Status: Acute Hospital Course: The patient is a 56 year old female who was in the hospital, [facility], in the end of October with a proteus pyelonephritis. The patient was found to have a 3.3 cm right renal renal pelvic stone with obstruction. She also had covid pneumonia which has resolved. She has been cleared by Dr Duffy. She presented for an elective right PCNL to remove the infected stone. On 11/30/21 she went to the OR with Dr. West an had a Cystoscopy, placement of right occluding balloon catheter, right percutaneous nephrostomy (Dr. swartz), right percutaneous nephrostomy tube placement. There were large amount of edema due to the attempts at getting access as well as due to the stone. Therefore, the procedure was aborted and a large nephrostomy tube was placed to allow the tract to dilate up. Due to a small intrarenal anatomy and her morbid obesity the surgery was challenging. The nephrostomy tube will allow the collecting system to drain and heal. The patient is voiding without difficulty. No nausea or vomiting. She has been up walking around in her room. Her pain is well controlled. Follow up CT scan was reviewed by Dr. West. The nephrostomy tube is in good position. She is discharged home on Tylenol and Motrin as needed for pain. She has been instructed to continue her Bactrim at home. Patient will be scheduled by our office for a secondary nephrostolithotomy next week. Impression and plan of care have been directed as dictated by the signing physician. Hilary Erwin nurse practitioner acting as scribe for signing physician. Hilary Erwin [facility] Palliative Care/[facility] [id number] Email: [email or web address]: The patients hospitalization was reviewed and overseen by me I concur with Hilary villanueva note, Louis West Patient Condition at Discharge: Good Plan - Discharge Summary Discharge Rx Participant: Yes New Discharge Prescriptions: No Action Spironolactone [Aldactone] 25 mg PO PC-SUPPER Docusate [Colace] 100 mg PO PC-SUPPER Calcium Carbonate [Calcium] 600 mg PO PC-SUPPER [place]-3 Fatty Acids/Fish Oil [Fish Oil 1,000 mg Softgel] 2 cap PO PC-SUPPER Cholecalciferol [Vitamin D3 (25 Mcg = 1000 Iu)] 50 mcg PO PC-BRKFST Ascorbic Acid [Vitamin C] 1,000 mg PO PC-SUPPER Zinc Sulfate [Orazinc] 220 mg PO PC-BRKFST Nystatin 100,000Unit/gm Cream [Mycostatin Cream] 1 applic TOPICAL BID PRN PRN Reason: red skin,yeast infection Sulfamethoxazole/Trimethoprim [Sulfamethoxazole-Tmp Ds Tablet] 1 each PO HS Discharge Medication List Spironolactone [Aldactone] 25 mg PO PC-SUPPER 08/16/13 [History] Calcium Carbonate [Calcium] 600 mg PO PC-SUPPER 01/01/21 [History] Docusate [Colace] 100 mg PO PC-SUPPER 01/01/21 [History] [place]-3 Fatty Acids/Fish Oil [Fish Oil 1,000 mg Softgel] 2 cap PO PC-SUPPER 01/01/21 [History] Ascorbic Acid [Vitamin C] 1,000 mg PO PC-SUPPER 02/05/21 [History] Cholecalciferol [Vitamin D3 (25 Mcg = 1000 Iu)] 50 mcg PO PC-BRKFST 02/05/21 [History] Zinc Sulfate [Orazinc] 220 mg PO PC-BRKFST 02/05/21 [History] Nystatin 100,000Unit/gm Cream [Mycostatin Cream] 1 applic TOPICAL BID PRN 12/05/21 [History] Sulfamethoxazole/Trimethoprim [Sulfamethoxazole-Tmp Ds Tablet] 1 each PO HS 12/05/21 [History] Follow up Appointment(s)/Referral(s): Louis West MD [STAFF PHYSICIAN] - 12/25/21 11:20 am (YOU ARE SCHEDULED FOR YOUR NEXT SURGERY ON 12/19/21, THE HOSPITAL WILL CONTACT YOU WITH YOUR SURGICAL TIME THE DAY PRIOR. ) Patient Instructions/Handouts: Nephrostomy Tube Care (DC) Activity/Diet/Wound Care/Special Instructions: 1. Reinforce dressing (Some leakage is normal) 2. Flush with 10cc of normal saline as needed 3. Continue the antibiotic prescription ( Bactrim ) until finished 4. Alternate Tylenol and Motrin every 4-6 hours as needed for pain Discharge Disposition: HOME SELF-CARE
== END 2021-12-13 10:45 | disposition home health service (06) | DRG 690 ==
LOC: OR 08:50 → 5NMEDONC 12:46 → OR 12-12 07:20
PROVIDERS: ADMIT Urology; ATTEND Urology
PROC: 0T9030Z Drainage of Right Kidney with Drainage Device, Percutaneous Approach (ICD-10-PCS; principal; 2021-12-10 11:00)
PROC: 0TJ53ZZ Inspection of Kidney, Percutaneous Approach (ICD-10-PCS; 2021-12-10 11:00)
DX: N10 Acute pyelonephritis (principal); Z68.43 Body mass index [BMI] 50.0-59.9, adult; E66.01 Morbid (severe) obesity due to excess calories; I10 Essential (primary) hypertension; E78.5 Hyperlipidemia, unspecified; N20.0 Calculus of kidney; Z53.8 Procedure and treatment not carried out for other reasons; R60.9 Edema, unspecified; Z86.16 Personal history of COVID-19; Z79.899 Other long term (current) drug therapy; Z88.0 Allergy status to penicillin; Z91.048 Other nonmedicinal substance allergy status; Z91.018 Allergy to other foods
CPT/HCPCS: 50432; 74018; 74176; 86850; 86900; 86901; 94760

== ENCOUNTER 2021-12-19 09:41 | Day surgery (SDC) | payer BC ==
[2021-12-14 10:35] VITALS: BMI 51.5
--- NOTE | 2021-12-18 17:52 | P.GSHP ---
History of Present Illness H&P Date: 12/18/21 56 yo female with a large right renal stone[>2cm] who underwent an attempted pcnl last week but due to the size of stone, decreased density and her morbid obesity I was unable to removed the stone. A large n tube was placed and she now comes for a secondary nephrostolithotomy right. - Constitutional Constitutional: Denies chills, Denies fever - EENT Eyes: denies blurred vision, denies pain Ears, nose, mouth and throat: Denies headache, Denies sore throat - Cardiovascular Cardiovascular: Denies chest pain, Denies shortness of breath - Respiratory Respiratory: Denies cough, Denies 7 - Gastrointestinal Gastrointestinal: Denies abdominal pain, Denies diarrhea, Denies nausea, Denies vomiting - Genitourinary (Female) Genitourinary: Denies dysuria, Denies hematuria - Genitourinary (Male) Genitourinary: Denies dysuria, Denies hematuria - Musculoskeletal Musculoskeletal: Denies myalgias - Integumentary Integumentary: Denies pruritus, Denies rash - Neurological Neurological: Denies numbness, Denies weakness - Psychiatric Psychiatric: Denies anxiety, Denies depression - Endocrine Endocrine: Denies fatigue, Denies weight change Past Medical History Past Medical History: Cancer, Diabetes Mellitus, Hearing Disorder / Deafness, Hypertension, Sleep Apnea/CPAP/BIPAP Additional Past Medical History / Comment(s): Fall 12/14/21, "low back a liitle sore." Current right kidney stones. Hx Covid 11/07/21. Hx right breast cancer, had chemo and radiation treated in 2011. Borderline Diabetic. No current CPAP use(machine broken). Hard of hearing. History of Any Multi-Drug Resistant Organisms: None Reported Past Surgical History: Cholecystectomy, Tonsillectomy Additional Past Surgical History / Comment(s): PORT A CATH INSERTED AND REMOVED, LUMPECTOMY RIGHT BREAST, right kidney stone surgery. Past Anesthesia/Blood Transfusion Reactions: Previous Problems w/ Anesthesia Additional Past Anesthesia/Blood Transfusion Reaction / Comment(s): "Sometimes it takes longer to wake up." Additional Psychological History / Comment(s): OCD. Smoking Status: Never smoker Past Alcohol Use History: None Reported Past Drug Use History: None Reported - Past Family History Mother Family Medical History: Cancer Additional Family Medical History / Comment(s): Bladder cancer. Medications and Allergies Home Medications Medication Instructions Recorded Confirmed Type Spironolactone [Aldactone] 25 mg PO PC-SUPPER 08/16/13 12/14/21 History Calcium Carbonate [Calcium] 600 mg PO PC-SUPPER 01/01/21 12/14/21 History Docusate [Colace] 100 mg PO PC-SUPPER 01/01/21 12/14/21 History [place]-3 Fatty Acids/Fish Oil [Fish 2 cap PO PC-SUPPER 01/01/21 12/14/21 History Oil 1,000 mg Softgel] Ascorbic Acid [Vitamin C] 1,000 mg PO PC-SUPPER 02/05/21 12/14/21 History Cholecalciferol [Vitamin D3 (25 50 mcg PO PC-BRKFST 02/05/21 12/14/21 History Mcg = 1000 Iu)] Zinc Sulfate [Orazinc] 220 mg PO PC-BRKFST 02/05/21 12/14/21 History Nystatin 100,000Unit/gm Cream 1 applic TOPICAL BID PRN 12/05/21 12/14/21 History [Mycostatin Cream] Sulfamethoxazole/Trimethoprim 1 each PO HS 12/05/21 12/14/21 History [Sulfamethoxazole-Tmp Ds Tablet] Allergies Allergy/AdvReac Type Severity Reaction Status Date / Time amoxicillin Allergy Rash/Hives Verified 12/14/21 10:12 DUST AdvReac SOB & Uncoded 12/14/21 10:12 MIGRAINES mold AdvReac SOB & Uncoded 12/14/21 10:12 MIGRAINES MUSHROOMS AdvReac SOB Uncoded 12/14/21 10:12 YEAST AdvReac MIGRAINES Uncoded 12/14/21 10:12 headaches Surgical - Exam - General well developed, well nourished, no distress - Eyes normal ocular movement, no icteric - ENT no hearing loss, no congestion - Neck no masses, trachea midline - Respiratory normal respiratory effort, clear to auscultation - Abdomen right nephrostomy tube Abdomen: soft, non tender, no guarding, no rigid, no rebound - Integumentary no rash, no abnormal pigmentation - Neurologic no disoriented, no combative - Psychiatric oriented to time, oriented to person, oriented to place, speech is normal, memory intact Results - Imaging CT scan - abdomen: report reviewed, image reviewed CT scan - pelvis: report reviewed, image reviewed Assessment and Plan Assessment: Impression: right renal calculous, large Plan: secondary pcnl right
[~2021-12-19 09:41] MED LIST changes: +AMPICILLIN 1,000 MG in SODIUM CHLORIDE 0.9% 50 ML IVPB PRN; +DEXAMETHASONE SOD PHOSPHATE 4 MG/ML 1 ML VIAL IV ONE; +HYDROmorphone 0.5 MG/0.5 ML SYRINGE IVP PRN; +LACTATED RINGERS 1,000 ML IV SCH; +LIDOCAINE 1% (10MG/ML) FOR IV START INTRADERMA PRN; +ONDANSETRON 4 MG/2 ML VIAL IVP ONE
--- NOTE | 2021-12-19 10:22 | XR ---
EXAMINATION TYPE: XR KUB DATE OF EXAM: 12/19/2021 COMPARISON: 12/11/2019 HISTORY: Right kidney stone TECHNIQUE: One view abdominal series FINDINGS: Right-sided nephrostomy tube. There is a large calcification over the right kidney measuring 3.1 cm. Hypertrophic degenerative changes in spine. Postsurgical changes or whether. Hypertrophic changes of the iliac crests. Vascular calcifications are noted throughout. Bowel gas pattern nonspecific. IMPRESSION: 1. Large right renal calculus
[2021-12-19 10:54] VITALS: TEMP 98.2
[2021-12-19 11:10] LABS: Glucose,Whole Blood 95 mg/dL (70-110)
[2021-12-19] MEDS ORDERED: LACTATED RINGERS 1,000 ML IV ONE ×3 (11:15→13:15)
[2021-12-19] MEDS ORDERED: fentaNYL (PF) 50 MCG/ML 2 ML AMP ONE (11:24)
[2021-12-19] MEDS ORDERED: ALBUTEROL INHALER 60 PUFF/8 GM INHALER (MHU) INHALATION ONE (11:24)
[2021-12-19] MEDS ORDERED: GLYCOPYRROLATE 0.2 MG/ML 2 ML VIAL ONE (11:24)
[2021-12-19] MEDS ORDERED: PHENYLEPHRINE-0.9% NACL SYG 1,000 MCG/10 ML SYRINGE ONE (11:24)
[2021-12-19] MEDS ORDERED: LIDOCAINE 2% INJ 20 MG/ML (2 ML VIAL) ONE (11:24)
[2021-12-19] MEDS ORDERED: PROPOFOL 10 MG/ML 20 ML VIAL IV ONE (11:24)
[2021-12-19] MEDS ORDERED: NEOSTIGMINE 1 MG/ML 10 ML VIAL ONE (11:24)
[2021-12-19] MEDS ORDERED: ROCURONIUM 10 MG/ML (5 ML VIAL) IV ONE (11:24)
[2021-12-19] MEDS ORDERED: MIDAZOLAM 2 MG/2 ML VIAL ONE (11:24)
[2021-12-19] MEDS ORDERED: SUCCINYLCHOLINE CHLORIDE 200 MG/10 ML VIAL IV ONE (11:24)
[2021-12-19] MEDS ORDERED: IOPAMIDOL-370 50ML BTL IRRIGATION ONE (11:58)
--- NOTE | 2021-12-19 13:06 | P.OP ---
Date of Procedure: 12/19/21 Preoperative Diagnosis: Right renal calculus large disease, ( 2 cm), infected Postoperative Diagnosis: Same Procedure(s) Performed: Percutaneous nephrostolithotomy with ultrasound, placement of 10-Finnish J nephrostomy Anesthesia: SAMI Surgeon: Louis West Estimated Blood Loss (ml): 25 Pathology: other (Stone) Condition: stable Disposition: PACU Indications for Procedure: The patient is 56. She has a large infected right renal stone. She underwent a percutaneous nephrostomy tube placement last week. I aborted the nephrostolithotomy as the electing system was very edematous and bloody. A 24- Finnish nephrostomy tube was placed and she now comes for a nephrostolithotomy Description of Procedure: Patient brought to the operating suite. Given general anesthesia on the transport gurney. A Hall catheters placed. She's placed on the operating table in a prone position with care to airways and extremities. A sterile prep and drape was administered. Through the established nephrostomy tube and 035 wires passed down the ureter. I removed the nephrostomy tube and then pass the 8-10-Finnish exchange catheters. Through the 10-Finnish exchange catheter a second 035 wires passed down the ureter. Over the working wire then pass the nephrostomy tract dilating balloon and over the balloon is passed a 30-Finnish sheath into the collecting system. This stone in the lower portion of a bifid renal pelvis is identified. With ultrasonic technique the stone was broken into tiny pieces and suctioned out. The largest fragments are sent to pathology. The stone is very soft consistent with a struvite stone. I then fluoroscopically and endoscopically with a flexible nephroscope looked through the collecting system and see no remaining stone. A 10-Finnish J nephrostomy tube was placed into the right renal pelvis over the working wire and confirmed fluoroscopically. It is secured to the skin with 2-0 silk. The patient is awakened and returned recovery room good condition. She'll be discharged home later today if feeling well. Blood loss is less than 25 mL. Her condition is good
--- NOTE | 2021-12-19 13:12 | FL ---
EXAMINATION TYPE: FL guidance operating room DATE OF EXAM: 12/19/2021 HISTORY: Fluoroscopy time 2 minutes and 4 seconds seconds of fluoroscopy provided. IMPRESSION: 1. Fluoroscopy time.
[2021-12-19 13:59] VITALS: RESP 16
[2021-12-19 15:08] VITALS: BP 134/87; PULSE 68
== END 2021-12-19 15:48 | disposition home or self-care (01) ==
LOC: OR 09:41
PROVIDERS: ATTEND Urology
DX: N20.0 Calculus of kidney (principal); E11.9 Type 2 diabetes mellitus without complications; I10 Essential (primary) hypertension; G47.30 Sleep apnea, unspecified; E66.01 Morbid (severe) obesity due to excess calories; Z92.21 Personal history of antineoplastic chemotherapy; Z85.3 Personal history of malignant neoplasm of breast; Z90.49 Acquired absence of other specified parts of digestive tract; Z90.89 Acquired absence of other organs; Z80.0 Family history of malignant neoplasm of digestive organs; Z79.899 Other long term (current) drug therapy
CPT/HCPCS: 86900; 86901; 86850; 82365; 74018; 36415; 50080; C2628; C1769 ×3; C1894 ×2; C1729; J2250; J0330; J1100; J2710; J2405; J3010; J1580; J0290; J2370; J2704; J1170; Q9967; J2001

== ENCOUNTER 2021-12-21 14:55 | Emergency (ER) | payer BC ==
[2021-12-21 16:19] VITALS: TEMP 98.6
--- NOTE | 2021-12-21 19:24 | ED ---
General Adult HPI - General Chief complaint: Recheck/Abnormal Lab/Rx Stated complaint: leakage of kidney tube Time Seen by Provider: 12/21/21 18:56 Source: patient Mode of arrival: ambulatory Limitations: no limitations - History of Present Illness Initial comments: Dictation was produced using [employer] dictation software. please excuse any grammatical, word or spelling errors. Chief Complaint: 56-year-old female presents to the emergency Department with leaking nephrostomy tube History of Present Illness: Patient is a 48-year-old female she had a nephrostomy tube placed 3 days ago for nephrolithiasis. Patient had nephrostomy tube placed by interventional radiology. After placement she recovered well until this morning she noted that there is a lot of leakage around the nephrostomy tube site. Family member called on-call nurse who tried to help family troubleshoot. They did try to inject however much of liquid came on a round the site. There is been minimal drainage since this morning. Patient otherwise has no complaints. The ROS documented in this emergency department record has been reviewed and confirmed by me. Those systems with pertinent positive or negative responses have been documented in the HPI. All other systems are other negative and/or noncontributory. PHYSICAL EXAM: General Impression: Alert and oriented x3, not in acute distress HEENT: Normocephalic atraumatic, extra-ocular movements intact, pupils equal and reactive to light bilaterally, mucous membranes moist. Cardiovascular: Heart regular rate and rhythm Chest: Able to complete full sentences, no retractions, no tachypnea Musculoskeletal: Pulses present and equal in all extremities, no peripheral edema Motor: no focal deficits noted Back: Catheter in the right CVA area with saturated dressing. Skin around the catheter site is nonerythematous. There is bloody urine in the nephrostomy bag reservoir Neurological: CN II-XII grossly intact, no focal motor or sensory deficits noted Skin: Intact with no visualized rashes Psych: Normal affect and mood ED course: 56-year-old female presents emergency Department with leaking around her nephrostomy tube site that was placed 3 days ago. Vital signs upon arrival are within acceptable limits. Laboratory evaluation obtained. CBC metabolic panel is unremarkable. Has normal labs that she can follow-up for outpatient management of leaking nephrostomy tube. Patient reevaluated bedside at 8:45 PM found with stable medical condition. Patient given starter pack for pain medications. Patient will be discharged. - Related Data Home Medications Medication Instructions Recorded Confirmed Spironolactone [Aldactone] 25 mg PO PC-SUPPER 08/16/13 12/19/21 Calcium Carbonate [Calcium] 600 mg PO PC-SUPPER 01/01/21 12/19/21 Docusate [Colace] 100 mg PO PC-SUPPER 01/01/21 12/19/21 [place]-3 Fatty Acids/Fish Oil [Fish 2 cap PO PC-SUPPER 01/01/21 12/19/21 Oil 1,000 mg Softgel] Ascorbic Acid [Vitamin C] 1,000 mg PO PC-SUPPER 02/05/21 12/19/21 Cholecalciferol [Vitamin D3 (25 50 mcg PO PC-BRKFST 02/05/21 12/19/21 Mcg = 1000 Iu)] Zinc Sulfate [Orazinc] 220 mg PO PC-BRKFST 02/05/21 12/19/21 Nystatin 100,000Unit/gm Cream 1 applic TOPICAL BID PRN 12/05/21 12/19/21 [Mycostatin Cream] Sulfamethoxazole/Trimethoprim 1 each PO HS 12/05/21 12/19/21 [Sulfamethoxazole-Tmp Ds Tablet] Allergies Allergy/AdvReac Type Severity Reaction Status Date / Time amoxicillin Allergy Rash/Hives Verified 12/21/21 16:19 DUST AdvReac SOB & Uncoded 12/21/21 16:19 MIGRAINES mold AdvReac SOB & Uncoded 12/21/21 16:19 MIGRAINES MUSHROOMS AdvReac SOB Uncoded 12/21/21 16:19 YEAST AdvReac MIGRAINES Uncoded 12/21/21 16:19 headaches Review of Systems ROS Statement: Those systems with pertinent positive or pertinent negative responses have been documented in the HPI. ROS Other: All systems not noted in ROS Statement are negative. Past Medical History Past Medical History: Cancer, Diabetes Mellitus, Hearing Disorder / Deafness, Hypertension, Sleep Apnea/CPAP/BIPAP Additional Past Medical History / Comment(s): Fall 12/14/21, "low back a liitle sore." Current right kidney stones. Hx Covid 11/07/21. Hx right breast cancer, had chemo and radiation treated in 2011. Borderline Diabetic. No current CPAP use(machine broken). Hard of hearing. History of Any Multi-Drug Resistant Organisms: None Reported Past Surgical History: Cholecystectomy, Tonsillectomy Additional Past Surgical History / Comment(s): PORT A CATH INSERTED AND REMOVED, LUMPECTOMY RIGHT BREAST, right kidney stone surgery. Past Anesthesia/Blood Transfusion Reactions: Previous Problems w/ Anesthesia Additional Past Anesthesia/Blood Transfusion Reaction / Comment(s): "Sometimes it takes longer to wake up." Past Psychological History: No Psychological Hx Reported Smoking Status: Never smoker Past Alcohol Use History: None Reported Past Drug Use History: None Reported - Past Family History Mother Family Medical History: Cancer Additional Family Medical History / Comment(s): Bladder cancer. General Exam Limitations: no limitations Course Vital Signs 12/21/21 16:17 Temperature 98.6 F Pulse Rate 85 Respiratory 20 Rate Blood Pressure 139/71 O2 Sat by Pulse 99 Oximetry Medical Decision Making - Lab Data Result diagrams: 12/21/21 20:03 12/21/21 20:03 Lab Results 12/21/21 12/21/21 Range/Units 20:03 20:03 WBC 7.5 (3.8-10.6) k/uL RBC 4.74 (3.80-5.40) m/uL Hgb 13.5 (11.4-16.0) gm/dL Hct 41.9 (34.0-46.0) % MCV 88.3 (80.0-100.0) fL MCH 28.4 (25.0-35.0) pg MCHC 32.2 (31.0-37.0) g/dL RDW 13.4 (11.5-15.5) % Plt Count 384 (150-450) k/uL MPV 8.0 Neutrophils % 63 % Lymphocytes % 23 % Monocytes % 5 % Eosinophils % 7 % Basophils % 0 % Neutrophils # 4.8 (1.3-7.7) k/uL Lymphocytes # 1.7 (1.0-4.8) k/uL Monocytes # 0.4 (0-1.0) k/uL Eosinophils # 0.5 (0-0.7) k/uL Basophils # 0.0 (0-0.2) k/uL Hypochromasia Slight Sodium 141 (137-145) mmol/L Potassium 4.4 (3.5-5.1) mmol/L Chloride 102 (98-107) mmol/L Carbon Dioxide 29 (22-30) mmol/L Anion Gap 10 mmol/L BUN 17 (7-17) mg/dL Creatinine 0.81 (0.52-1.04) mg/dL Est GFR (CKD-EPI)AfAm >90 (>60 ml/min/1.73 sqM) Est GFR (CKD-EPI)NonAf 81 (>60 ml/min/1.73 sqM) Glucose 99 (74-99) mg/dL Calcium 9.8 (8.4-10.2) mg/dL Disposition Clinical Impression: Malfunction of nephrostomy tube Disposition: HOME SELF-CARE Condition: Fair Instructions (If sedation given, give patient instructions): Nephrostomy Tube Care (ED) Is patient prescribed a controlled substance at d/c from ED?: No Referrals: Louis West MD [STAFF PHYSICIAN] - 1-2 days Time of Disposition: 20:49
[2021-12-21 20:34] LABS: Basophils % (A) 0 %; Eosinophils # (A) 0.5 k/uL (0-0.7); Eosinophils % (A) 7 %; HCT 41.9 % (34.0-46.0); HGB 13.5 gm/dL (11.4-16.0); Hypochromasia Slight; Lymphocytes # (A) 1.7 k/uL (1.0-4.8); Lymphocytes % (A) 23 %; MCH 28.4 pg (25.0-35.0); MCHC 32.2 g/dL (31.0-37.0); MCV 88.3 fL (80.0-100.0); Monocytes # (A) 0.4 k/uL (0-1.0); Monocytes % (A) 5 %; Neutrophils # (A) 4.8 k/uL (1.3-7.7); Neutrophils % (A) 63 %; Platelet Count 384 k/uL (150-450); RBC 4.74 m/uL (3.80-5.40); RDW 13.4 % (11.5-15.5); WBC 7.5 k/uL (3.8-10.6)
[2021-12-21 20:46] LABS: African American GFR (CKD) >90 (>60 ml/min/1.73 sqM); Anion Gap 10 mmol/L; Blood Urea Nitrogen 17 mg/dL (7-17); Calcium 9.8 mg/dL (8.4-10.2); Carbon Dioxide 29 mmol/L (22-30); Chloride 102 mmol/L (98-107); Glucose 99 mg/dL (74-99); Non-African American GFR(CKD) 81 (>60 ml/min/1.73 sqM); Potassium 4.4 mmol/L (3.5-5.1); Sodium 141 mmol/L (137-145)
[2021-12-21] MEDS ORDERED: ACET/COD 300 MG/30 MG STARTER PACK 6 TAB BTL PO STA (20:49)
[2021-12-21 22:29] VITALS: BP 115/80; PULSE 80; RESP 16
== END 2021-12-21 22:28 | disposition home or self-care (01) ==
LOC: EC 14:55
DX: N99.522 Malfunction of incontinent external stoma of urinary tract (principal); E11.9 Type 2 diabetes mellitus without complications; I10 Essential (primary) hypertension; G47.30 Sleep apnea, unspecified; Z91.048 Other nonmedicinal substance allergy status; Z88.0 Allergy status to penicillin; Z77.120 Contact with and (suspected) exposure to mold (toxic); Z79.899 Other long term (current) drug therapy
CPT/HCPCS: 36415; 80048; 85025; 99283

== ENCOUNTER → 2022-02-27 | Outpatient (CLI) | payer BC ==
--- NOTE | 2022-02-28 10:31 | CT ---
EXAMINATION TYPE: CT abdomen pelvis wo con CT DLP: 2248.10 mGycm, Automated exposure control for dose reduction was used. DATE OF EXAM: 02/27/2022 5:05 PM COMPARISON: 12/11/2021 CLINICAL INDICATION:Female, 56 years old with history of N13.30 HYDRONEPHROSIS; Hydronephrosis TECHNIQUE: Axial CT of the abdomen and pelvis. Sagittal and coronal reformats were created on a [employer] workstation. Contrast used: None Oral contrast used: without Oral Contrast FINDINGS: LOWER CHEST: Streaky atelectasis/scarring in the lung bases. ABDOMEN LIVER: Diffusely hypoattenuating parenchyma. GALLBLADDER AND BILE DUCTS: The gallbladder surgically absent. PANCREAS: Unremarkable. SPLEEN: Unremarkable. ADRENAL GLANDS: Unremarkable. KIDNEYS AND URETERS: Mild right hydronephrosis without definite obstructive uropathy. There is some s oft tissue irregularity which is presumably from prior surgical intervention. There is been interval removal of catheter seen on 12/11/2021. No evidence of left hydronephrosis or obstructive uropathy. No left renal calculi. PELVIS BLADDER: Unremarkable REPRODUCTIVE: Unremarkable. ABDOMEN & PELVIS STOMACH AND BOWEL: No evidence of bowel obstruction. PERITONEUM/RETROPERITONEUM: No evidence of pneumoperitoneum or free fluid. . VASCULATURE: No evidence of aortic aneurysm. MUSCULOSKELETAL: No acute osseous abnormalities , multilevel disc degeneration changes throughout the spine similar to prior. LYMPH NODES: No gross evidence for lymphadenopathy. SOFT TISSUE/ABDOMINAL WALL: Unremarkable IMPRESSION: 1. Interval removal right ureteral catheter with mild right hydronephrosis. To be secondary to an ir regular soft tissue near the right renal pelvis which may be sequela prior intervention. Consider CT urogram for evaluation of the ureter. 2. Hepatic steatosis.
== END | disposition home or self-care (01) ==
LOC: RADCTMAIN 12:28
PROVIDERS: ATTEND Urology
DX: N13.30 Unspecified hydronephrosis (principal); K76.0 Fatty (change of) liver, not elsewhere classified
CPT/HCPCS: 74176

== ENCOUNTER → 2022-07-19 | Outpatient (CLI) | payer BC ==
--- NOTE | 2022-07-22 18:59 | MM ---
Reason for Exam: Screening (asymptomatic). Last screening mammogram was performed 12 month(s) ago. Patient History: Menarche at age 7. Patient has no children. Postmenopausal. Breast cancer, right, age 45. Previous chest radiation therapy at age 45. Previous chemotherapy at age 45. Hormonal Contraceptives, starting at age 33 for 12 years. Currently using Tamoxifen, beginning at age 45 for 10 years. 07/01/2011, Lumpectomy on the Right side. 07/01/2011, Malignant Excisional Biopsy on the right side. 06/18/2011, Malignant Core Biopsy on the right side. 2011, Chemotherapy. 2011, Radiation Therapy. Paternal cousin had breast cancer, age 40. Prior Study Comparison: 05/13/2017 Bilateral Screening Mammogram, [facility]. 05/18/2018 Bilateral Screening Mammogram, [facility]. 07/18/2021 Bilateral MG screening mammo w CAD, [facility]. Tissue Density: There are scattered fibroglandular densities. Findings: Analyzed By CAD. Pattern appears stable. Multiple surgical clips and calcifications within the upper outer right breast. There are additional benign-appearing spherical calcifications within the right breast. Left breast is larger than the right. Findings are stable over the interval. No suspicious groups of microcalcifications, spiculated or lobular masses, architectural distortion or other secondary signs of malignancy are mammographically apparent. Overall Assessment: Benign, BI-RAD 2 Management: Screening Mammogram of both breasts in 1 year. A negative mammogram report should not preclude additional follow up of suspicious palpable abnormalities. Patient should continue monthly self breast exam. A clinical breast exam by your physician is recommended on an annual basis and results should be correlated with mammographic findings. Electronically signed and approved by: Moo Bowers D.O. Radiologis
== END | disposition home or self-care (01) ==
LOC: RADMAMWWP 11:03
PROVIDERS: ATTEND Radiology Radiation Oncology
DX: Z12.31 Encounter for screening mammogram for malignant neoplasm of breast (principal); Z78.0 Asymptomatic menopausal state; Z80.3 Family history of malignant neoplasm of breast
CPT/HCPCS: 77067

== ENCOUNTER 2022-12-25 10:21 | Day surgery (SDC) | payer BC ==
[2022-12-20 14:28] VITALS: BMI 52.7
[~2022-12-25 10:21] MED LIST changes: -AMPICILLIN 1,000 MG in SODIUM CHLORIDE 0.9% 50 ML IVPB PRN; -DEXAMETHASONE SOD PHOSPHATE 4 MG/ML 1 ML VIAL IV ONE; -GENTAMICIN 120 MG in SODIUM CHLORIDE 0.9% 100 ML IVPB PRN; -HYDROmorphone 0.5 MG/0.5 ML SYRINGE IVP PRN; -LIDOCAINE 1% (10MG/ML) FOR IV START INTRADERMA PRN; -ONDANSETRON 4 MG/2 ML VIAL IVP ONE
[2022-12-25] MEDS ORDERED: LIDOCAINE 1% (10MG/ML) FOR IV START INTRADERMA ONE (10:58)
[2022-12-25 11:02] VITALS: TEMP 98.3
[2022-12-25 11:11] LABS: Glucose,Whole Blood 104 mg/dL (70-110)
[2022-12-25] MEDS ORDERED: PROPOFOL 10 MG/ML 20 ML VIAL IV ONE (11:50)
[2022-12-25] MEDS ORDERED: LIDOCAINE 1% INJ 10MG/ML (20 ML MDV) ONE (11:50)
--- NOTE | 2022-12-25 12:09 | P.PCN ---
Date of Procedure: 12/25/22 Procedure(s) Performed: BRIEF HISTORY: Patient is a 57-year-old pleasant female scheduled for an elective colonoscopy as a part of screening for colon cancer. She has history of breast cancer. He follows with . 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 She was recommended to have colonoscopy and small bowel capsule endoscopy every 3 years. PROCEDURE PERFORMED: Colonoscopy with biopsy. PREOPERATIVE DIAGNOSIS: Screening for colon cancer/genetic mutation that predisposes to colon cancer. IV sedation per Anesthesia. PROCEDURE: After informed consent was obtained, the patient, was brought into the endoscopy unit. IV sedation was administered by Anesthesia under continuous monitoring. Digital rectal examination was normal. Initially the Olympus CF-160 flexible video colonoscope was then inserted in the rectum, gradually advanced into the cecum without any difficulty. Careful examination was performed as the scope was gradually being withdrawn. Ileocecal valve and the appendiceal orifice were visualized and appeared normal. Prep was excellent. Mucosa of the cecum, ascending colon, transverse colon, descending colon, appeared normal. In the sigmoid there was a 4 mm polyp that was removed by cold biopsy. Rest of the sigmoid colon, and rectum appeared normal. Retroflexion was performed in the rectum and no lesions were seen. The patient tolerated the procedure well. IMPRESSION: 4 mm; sigmoid polyp status post cold biopsy Rest of the colon appeared normal RECOMMENDATIONS: Findings of this examination were discussed with the patient as well as her family. She was advised to follow with the biopsy results have a repeat colonoscopy in 3 years.
[2022-12-25 12:54] VITALS: BP 138/86; PULSE 77; RESP 17
== END 2022-12-25 13:09 | disposition home or self-care (01) ==
LOC: ORWHC2ENDO 10:21
PROVIDERS: ATTEND Internal Medicine Gastroenterology
DX: Z12.11 Encounter for screening for malignant neoplasm of colon (principal); K63.5 Polyp of colon; I10 Essential (primary) hypertension; G47.33 Obstructive sleep apnea (adult) (pediatric); E11.9 Type 2 diabetes mellitus without complications; Z79.899 Other long term (current) drug therapy; Z88.0 Allergy status to penicillin; Z91.048 Other nonmedicinal substance allergy status; Z15.09 Genetic susceptibility to other malignant neoplasm; Z15.01 Genetic susceptibility to malignant neoplasm of breast
CPT/HCPCS: 88305; 45380; J2001; J2704

== ENCOUNTER → 2023-07-21 | Outpatient (CLI) | payer BC ==
--- NOTE | 2023-07-22 09:13 | MM ---
Reason for Exam: Screening (asymptomatic). Last screening mammogram was performed 12 month(s) ago. Patient History: Menarche at age 7. Patient has no children. Postmenopausal. Breast cancer, right, age 45. Previous chest radiation therapy at age 45. Previous chemotherapy at age 45. Hormonal Contraceptives, starting at age 33 for 12 years. Currently using Tamoxifen, beginning at age 45 for 10 years. 07/01/2011, Lumpectomy on the Right side. 07/01/2011, Malignant Excisional Biopsy on the right side. 06/18/2011, Malignant Core Biopsy on the right side. 2011, Chemotherapy. 2011, Radiation Therapy. Paternal cousin had breast cancer, age 40. Prior Study Comparison: 05/18/2018 Bilateral Screening Mammogram, [facility]. 07/18/2021 Bilateral MG screening mammo w CAD, [facility]. 07/19/2022 Bilateral MG screening mammo w CAD, [facility]. Tissue Density: The breasts are heterogeneously dense, which may obscure small masses. Findings: Analyzed By CAD. There is no suspicious group of microcalcifications or new suspicious mass in either breast. Stable postoperative changes right breast. Overall Assessment: Benign, BI-RAD 2 Management: Screening Mammogram of both breasts in 1 year. . Patient should continue monthly self-breast exams. A clinical breast exam by your physician is recommended on an annual basis. This exam should not preclude additional follow-up of suspicious palpable abnormalities. Note on Nahed scores and lifetime risk: 1. A Nahed score greater than 3% is considered moderate risk. If this is the case, consider specialist referral to assess eligibility for a risk reducing agent. 2. If overall lifetime risk for the development of breast cancer is 20% or higher, the patient may qualify for future screening with alternating mammogram and breast MRI. Electronically signed and approved by: Andre Boone M.D. Radiologis
== END | disposition home or self-care (01) ==
LOC: RADMAMWWP 10:42
PROVIDERS: ATTEND Radiology Radiation Oncology
DX: Z12.31 Encounter for screening mammogram for malignant neoplasm of breast (principal); Z78.0 Asymptomatic menopausal state; Z80.3 Family history of malignant neoplasm of breast
CPT/HCPCS: 77063; 77067

== ENCOUNTER → 2024-07-30 | Outpatient (CLI) | payer BC ==
--- NOTE | 2024-07-30 09:46 | US ---
EXAMINATION TYPE: US kidneys/renal and bladder DATE OF EXAM: 07/30/2024 COMPARISON: 02/27/2022 CLINICAL INDICATION: Female, 58 years old with history of R31.9 HEMATURIA; Hx of stones hematuria TECHNIQUE: Grayscale imaging of the bilateral kidneys and urinary bladder: FINDINGS: EXAM MEASUREMENTS: Right Kidney: 11.1 x 4.2 x 4.1 cm Left Kidney: 12.8 x 5.6 x 5.3 cm Right Kidney: Echogenic area see without shadowing mid pole. Left Kidney: No hydronephrosis or masses seen Bladder: anechoic Bilateral Jets seen: yes There is no evidence for hydronephrosis at this point in time. Right nonobstructing renal calculus. No masses are identified. The urinary bladder is anechoic. IMPRESSION: 1. No evidence for obstructive uropathy. 2. Nonobstructing right renal calculus. [facility], , 07/30/2024 9:44 AM
== END | disposition home or self-care (01) ==
LOC: RADUSWWP 09:04
PROVIDERS: ATTEND Family Medicine
DX: N20.0 Calculus of kidney (principal)
CPT/HCPCS: 76770

== ENCOUNTER → 2024-08-11 | Outpatient (CLI) | payer BC ==
--- NOTE | 2024-08-11 14:07 | MM ---
Reason for Exam: Hx of breast cancer, conservation therapy. Last mammogram was performed 1 year(s) and 1 month(s) ago. Patient History: Menarche at age 7. Patient has no children. Postmenopausal. Breast cancer, right, age 45. Previous chest radiation therapy at age 45. Previous chemotherapy at age 45. Hormonal Contraceptives, starting at age 33 for 12 years. Currently using Tamoxifen, beginning at age 45 for 10 years. 07/01/2011, Lumpectomy on the Right side. 07/01/2011, Malignant Excisional Biopsy on the right side. 06/18/2011, Malignant Core Biopsy on the right side. 2011, Chemotherapy. 2011, Radiation Therapy. Paternal cousin had breast cancer, age 40. Maternal aunt had breast cancer at or over age 50. Prior Study Comparison: 05/13/2017 Bilateral Screening Mammogram, [facility]. 05/18/2018 Bilateral Screening Mammogram, [facility]. 07/18/2021 Bilateral MG screening mammo w CAD, [facility]. 07/19/2022 Bilateral MG screening mammo w CAD, [facility]. 07/21/2023 Bilateral MG 3D screening mammo w/cad, [facility]. Tissue Density: There are scattered areas of fibroglandular density. Findings: Analyzed By CAD. Postsurgical and posttreatment changes right breast. Fat necrosis calcification at the posterior right breast surgical scar. There is no suspicious group of microcalcifications or new suspicious mass in either breast. Overall Assessment: Benign, BI-RAD 2 Management: Screening Mammogram of both breasts in 1 year. Patient should continue monthly self-breast exams. A clinical breast exam by your physician is recommended on an annual basis. This exam should not preclude additional follow-up of suspicious palpable abnormalities. [facility], , 08/11/2024 2:04 PM. Electronically signed and approved by: Marleny Sánchez M.D. Radiologist
== END | disposition home or self-care (01) ==
LOC: RADMAMWWP 08:58
PROVIDERS: ATTEND Family Medicine
DX: Z12.31 Encounter for screening mammogram for malignant neoplasm of breast (principal); R92.323 Mammographic fibroglandular density, bilateral breasts; Z78.0 Asymptomatic menopausal state; Z80.3 Family history of malignant neoplasm of breast; Z92.0 Personal history of contraception; Z85.3 Personal history of malignant neoplasm of breast
CPT/HCPCS: 77063; 77067